=== PATIENT | female | born 1950 | race Caucasian/White ===

== ENCOUNTER 2019-01-24 15:52 | Emergency (ER) | payer MEDICARE, SELFPAY ==
[2018-12-20 15:34] VITALS: BMI 58.0
[2019-01-24 15:53] VITALS: BP 175/134; PULSE 83; RESP 18; TEMP 36.6; O2SAT 93; BMI 56.5
--- NOTE | 2019-01-24 16:14 | ED.DCSUM_ITS ---
- ER Visit Summary Date of Service: 01/24/19 Chief Complaint: Suicidal ideation History of Present Illness: The patient is a 68 F presenting with suicidal ideation. She states it started on Wednesday. She does not recall any events that made her more depressed than usual. She has a history of bipolar disorder. She states she had a suicide attempt several years ago. She states on Wednesday she tried to call the counseling center and was put on hold. She states she eventually hung up. She was angry that she was unable to get a hold of anyone. Today she wrote a letter and could not decide if she wants to live. She is also dealing with bullying at her assisted living. She states there is another res ident that calls people names. She states this continually bothers her. She denies specific suicide plan. Denies other complaints. Physical Examination: Vitals are stable. Patient is afebrile. Alert no acute distress. HEENT exam is unremarkable. Neck is supple. Lungs are clear and equal bilaterally. Heart is regular rate and rhythm. Abdomen is soft nontender nondistended. Extremities symmetric edema Skin is warm and dry. No focal neurologic deficit. Depressed affect Remainder of exam is unremarkable. Emergency Department Course and Treatment: CBC, chemistries unremarkable other than creatinine 1.17. Alcohol is negative. Tox is pending. Discussed with the counseling center for evaluation. Disposition: Per counseling center Impression: Suicidal ideation This note was generated with [employer] dictation software. It may contain incorrect words, spelling, and punctuation that were not noted in review of the chart prior to signing ED Disposition - Plan for ED Patient: Referrals: Shelia Whitten, METAL HANDLER-C [Primary Care Provider] -
[2019-01-24 17:12] LABS: Absolute Lymphocyte Count 0.97 X10^3/ul (0.83-4.51); Absolute Neutrophil Count 3.5 X10^3/uL (2.0-7.7); Basophil# 0.02 X10^3/uL; Basophil% 0.4 % (0-1); Eosinophil# 0.09 X10^3/uL; Eosinophils% 1.8 % (0-5); Hematocrit 40.8 % (37-47); Hemoglobin 13.1 g/dl (12.0-15.0); Lymphocyte # 0.97 X10^3/ul (4.0); Lymphocyte % 19.1 % (19-41); Mean Corp Hgb Conc 32.1 g/gl (32-36); Mean Corpuscular Hgb 28.2 pg (27.0-32.0); Mean Corpuscular Volume 87.7 fL (81-99); Mean Platelet Vol. 9.2 fl (6.2-12.0); Monocyte# 0.55 X10^3/uL; Monocyte% 10.8 % (0-10); Neutrophil # 3.45 X10^3/uL (2.7-7.7); Neutrophil % 67.7 % (47-70); Platelet Count 193 K/mm3 (150-450); RBC Distribution Width CV 14.6 % (11.6-14.6); RBC Distribution Width SD 46.1 fl (35.1-43.9); Red Blood Count 4.65 M/mm3 (4.2-5.4); White Blood Count 5.1 K/mm3 (4.4-11.0)
[2019-01-24 17:15] LABS: POSITIVE COUNT NO; POSITIVE DIFFERENTIAL NO; POSITIVE MORPHOLOGY NO
[2019-01-24 17:18] LABS: Anion Gap 6 (5-15); BUN 25 mg/dL (7-18); BUN/Creat Ratio 21.4 RATIO (10-20); Calcium,Total 9.3 mg/dL (8.5-10.1); Chloride 103 mmol/L (98-107); Creatinine, Serum 1.17 mg/dL (0.55-1.02); EST Glomerular Filtration Rate 49 mL/min (>60); Est Glom Filt Rate - Afr Amer 60 mL/min (>60); Estimated Creatinine Clearance 44.28 ml/min; Glucose 95 mg/dL (74-106); Potassium 4.3 mmol/L (3.5-5.1); Sodium Level 137 mmol/L (136-145)
[2019-01-24 18:06] VITALS: BP 176/75; PULSE 87; RESP 16; O2SAT 97
[2019-01-24 18:06] LABS: Alcohol, Blood (Medical)-Serum < 3.0 mg/dL
--- NOTE | 2019-01-24 18:31 | ED.RN ---
IZZY MORRISSEY WITH CRISIS; PT IS GOING TO BE REFERRED TO [facility]
[2019-01-24 19:40] LABS: Amphetamine Urine VISTA NEGATIVE (<1000 ng/mL); Barbiturate Urine VISTA NEGATIVE (< 200 ng/mL); Benzodiazepine Urine VISTA NEGATIVE (< 200 ng/mL); Cocaine Urine VISTA NEGATIVE (< 300 ng/mL); Ecstacy Urine VISTA NEGATIVE (< 500 ng/mL); Methadone Urine VISTA NEGATIVE (< 300 ng/mL); PCP Urine VISTA NEGATIVE (< 25 ng/mL); THC Urine VISTA NEGATIVE (< 50 ng/mL)
[2019-01-24 19:45] LABS: Vista UDS pH Range 6
[2019-01-24 19:57] VITALS: BP 156/71; PULSE 66; RESP 17; O2SAT 96
--- NOTE | 2019-01-24 20:08 | EKG12_ITS ---
Test Reason : Blood Pressure : / mmHG Vent. Rate : 065 BPM Atrial Rate : 065 BPM P-R Int : 186 ms QRS Dur : 162 ms QT Int : 476 ms P-R-T Axes : 053 -48 -29 degrees QTc Int : 495 ms Normal sinus rhythm Right bundle branch block Left anterior fascicular block Bifascicular block Minimal voltage criteria for LVH, may be normal variant Abnormal ECG Confirmed by SRAVANTHI ALLEN ([id number]), editor publications DARIELA UMANA ([id number]) on 01/25/2019 1:36:16 PM Referred By: Confirmed By:SRAVANTHI ALLEN
[2019-01-24 20:16] LABS: Mucous, Urine 0 SEEN /hpf (<or=2+); Red Blood Cells-Urine 0 SEEN /hpf (0-5)
--- NOTE | 2019-01-24 20:22 | ED.RN ---
PT INFORMED SHE WOULD BE HAVING EKG. PT STATES SHE WILL BE LEAVING SOON TO RETURN HOME. PT UPDATED THAT SHE HAS BEEN PINK SLIPPED DUE TO VOICING SUICIDAL THOUGHTS TO MULTIPLE PEOPLE INCLUDING THIS RN. ATTEMPTED TO REASSURE PT, REINFORCED THAT MANY PEOPLE CARE ABOUT HER AND SHE NEEDS TO BE SENT ON FOR FURTHER TX AND EVALUATION. PT REMAINS TEARFUL, STATES SHE WILL NOT GO ANYWHERE WILLINGLY.
[2019-01-24 20:24] LABS: Color, Urine Yellow (Yellow); Glucose, Dipstick Normal (Normal); Ketone-Dipstick Negative (Negative); Leukocyte Esterase-Dipstick 100 /ul (Negative); Nitrite-Dipstick Positive (Negative); Occult Blood-Urine 10 /ul (Negative); Protein-Dipstick Negative (Negative); Urine Bilirubin Dipstick Negative (Negative); Urine Clarity Clear (Clear); Urine Urobilinogen Normal (Normal)
[2019-01-24 20:30] LABS: White Blood Cells 5-10 SEEN /hpf (0-5)
[2019-01-24 20:31] LABS: AST(SGOT) 18 U/L (15-37); Alanine Aminotransfer ALT/SGPT 17 U/L (13-56); Albumin, Serum 3.6 g/dL (3.2-5.0); Alkaline Phosphatase 118 U/L (45-117); Bilirubin, Direct 0.13 mg/dL (0.00-0.30); Globulin 4.2 g/dL (2.2-4.2); Protein, Total 7.8 g/dL (6.4-8.2)
[2019-01-24 20:32] LABS: Bacteria 1+ /hpf (None Seen); Squamous Epithelial Cells - UA 0-5 SEEN /hpf (5-10)
[2019-01-24 21:23] VITALS: RESP 16
[2019-01-24 22:00] VITALS: BP 159/77; PULSE 80; RESP 16; O2SAT 93
[2019-01-24] MEDS: Metoprolol Tartrate 25 MG Tablet 75 MG PO (23:34)
[2019-01-24] MEDS: Venlafaxine HCl 75 MG Tablet PO (23:34)
[2019-01-24] MEDS: Montelukast 10 MG Tablet PO (23:35)
[2019-01-24] MEDS: Atorvastatin Calcium 10 MG Tablet PO ×2 (23:37→23:38)
[2019-01-25] MEDS: Gabapentin 600 MG Tablet PO (00:02)
[2019-01-25 01:00] VITALS: RESP 12
--- NOTE | 2019-01-25 01:09 | ED.RN ---
[facility] RM 112 BED 2. [facility] CONTACTED FOR TRANSPORT. TO ARRIVE AROUND 0630
[2019-01-25 02:00] VITALS: RESP 20
--- NOTE | 2019-01-25 04:46 | ED.RN ---
SEE DOWNTIME DOCUMENTATION FROM 0200 UNTIL [id number]
[2019-01-25 04:50] VITALS: RESP 20; O2SAT 85
--- NOTE | 2019-01-25 04:52 | ED.RN ---
PT SLEEPING, CHECKED HER PULSE OX, 85% ON ROOM AIR, RESP 20, PT WAS WOKEN UP, REFUSED O2, PUSHING THIS RNS HANDS AWAY, STATED MY OXYGEN IS ALWAYS LOW WHEN I SLEEP, I DONT CARE, IM NOT WEARING IT
[2019-01-25 05:00] VITALS: BP 155/85; PULSE 70; RESP 22; O2SAT 91
[2019-01-25 06:40] VITALS: BP 164/77; PULSE 73; RESP 20; O2SAT 94
== END 2019-01-25 06:41 ==
PROVIDERS: Emergency Provider Emergency Medicine; Family Provider Nurse Practitioner Adult Health; PCP Nurse Practitioner Adult Health
DX: R45.851 Suicidal ideations (principal); Z79.899 Other long term (current) drug therapy; E11.9 Type 2 diabetes mellitus without complications; I10 Essential (primary) hypertension; E78.00 Pure hypercholesterolemia, unspecified
CPT/HCPCS: 80048; 80076; 80307; 80320; 81001; 85025; 93005; 99285; G0480

== ENCOUNTER 2019-10-06 09:26 | Inpatient (IN) | payer MEDICARE, SELFPAY ==
[2019-05-24 08:03] VITALS: BMI 56.1
[2019-10-06] VITALS (14 sets, daily range): BP systolic 145–161; BP diastolic 70–99; PULSE 62–80; RESP 18–36; TEMP 36.3–37.2; O2SAT 88–98; BMI 54.6; BMI 53.4
--- NOTE | 2019-10-06 09:34 | EKG12_ITS ---
Test Reason : SOB Blood Pressure : / mmHG Vent. Rate : 063 BPM Atrial Rate : 063 BPM P-R Int : 170 ms QRS Dur : 154 ms QT Int : 468 ms P-R-T Axes : 051 -40 -40 degrees QTc Int : 478 ms Normal sinus rhythm Left axis deviation Right bundle branch block Minimal voltage criteria for LVH, may be normal variant T wave abnormality, consider inferolateral ischemia Abnormal ECG Confirmed by STEVE GR, RIVAS ([id number]), online editor JOEY OTERO ([id number]) on 10/09/2019 3:35:16 PM Referred By: SHELLEY Confirmed By:RIVAS WILSON MD
--- NOTE | 2019-10-06 09:37 | ED.VIS.GEN ---
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 She is being treated with Tamiflu. She was found to be hypoxic at the [facility] today. She has a cough which is productive and has green sputum. She denies any chest pain, she lives in an assisted living she usually ambulates with a walker she has chronic lower extremity lymphedema which has not changed. She denies any urinary symptoms. Past Medical History - Allergies and Home Meds Allergies/Adverse Reactions: Allergies benztropine mesylate [From Cogentin] Allergy (Verified 10/06/19 09:37) Unknown Salicylates Allergy (Verified 10/06/19 09:37) Unknown Sulfa (Sulfonamide Antibiotics) Allergy (Verified 10/06/19 09:37) Unknown abacavir Adverse Reaction (Unknown, Verified 10/06/19 09:37) Unknown aspirin Adverse Reaction (Verified 10/06/19 09:37) Unknown bupropion HCl [From Wellbutrin] Adverse Reaction (Verified 10/06/19 09:37) Rash prochlorperazine Adverse Reaction (Verified 10/06/19 09:37) Unknown prochlorperazine edisylate [From Compazine] Adverse Reaction (Verified 10/06/19 09:37) Unknown prochlorperazine maleate [From Compazine] Adverse Reaction (Verified 10/06/19 09:37) Unknown Primary Care Physician: Shelia Whitten, FURNITURE MANAGER-C [Primary Care Provider] - Past Medical History: - - Patient has an extensive prior medical history, this was reviewed and the [facility] paperwork as well as her medications. Surgical History: gastric bypass Smoking Status: Never smoker - Family History Maternal Family History: Reports: No pertinent history Review of Systems All systems negative except as indicated General: Reports: Fever Eyes: Denies: Visual changes - bilaterally ENT: Reports: Rhinorrhea. Denies: Sore throat Cardiovascular: Denies: Chest pain Respiratory: Reports: Dyspnea, Cough, Sputum Gastrointestinal: Denies: Abdominal pain, Nausea Musculoskeletal: Reports: - - Chronic lymphedema. Denies: Myalgias Skin: Denies: Rash Neurological: Reports: - - No focal weakness. Denies: Headache Endocrine: Denies: Polyuria Physical Exam Vital Signs/Narrative: Vital Signs Temp Pulse Resp BP Pulse Ox 10/06/19 09:33 97.9 F 66 24 H 150/99 H 88 10/06/19 09:27 97.9 F 70 24 H 150/99 H 88 General: Well nourished, Well developed, Obese Head: Normocephalic, Atraumatic ENT: Moist mucous membranes Neck: Supple Cardiovascular: Regular rate, Regular rhythm Respiratory: - - Coarse bilateral breath sounds with rhonchi and wheezing. She has a productive cough Abdomen: Soft, Nontender Back: Negative for: Spinal tenderness Extremities: - - Chronic significant lymphedema, chronic skin changes no signs of cellulitis Skin: Normal color, No rash Neurological: Alert, Normal Strength, Normal Sensation Diagnostic/Tx/Re-eval Chest X-Ray - ED: 1 View, Normal, Heart, - - There is a right-sided upper lobe and lower lobe pneumonia. - Rhythm Strip Rhythm Strip: Sinus Rhythm Rate: 63 Ectopy: None - EKG Initial EKG Interpretation: - - Normal sinus rhythm rate 63. Normal UT interval, slightly increased QTC at 478. Right bundle branch pattern. Diffuse ST changes including T wave inversion inferolaterally. Updated by emergency doctor - Medical Decision Making Patient is found to have by lobar pneumonia, she is hypoxic and will be admitted. She has a history of MRSA this is relatively soon after influenza but there is increased incidence of MRSA pneumonia after influenza therefore I will be cautious and start vancomycin. Blood cultures were drawn. She is not hypoxic on O2, she was hypoxic at 88% without oxygen. Admit in improved condition ED Disposition - Plan for ED Patient: Disposition: Psychiatric Hospital or Unit Diagnosis: Influenza, Pneumonia Referrals: Shelia Whitten, FURNITURE MANAGER-C [Primary Care Provider] -
[2019-10-06] MEDS: Ipratropium/Albuterol Sulfate 3 ML AMPUL.NEB INHALATION ×4 (09:53→23:20)
--- NOTE | 2019-10-06 09:54 | RAD_ITS ---
STUDY: X-RAY CHEST REASON FOR EXAM: Female, 68 years old. Back pain and history of COPD TECHNIQUE: Single AP portable view of the chest. COMPARISON: Comparison is made with prior study of April 21, 2017. FINDINGS: EKG electrodes are seen. Focal infiltrate is seen in the lateral right upper lobe as well as at the right lung base and left perihilar region. Follow-up is recommended. There is no demonstrated pleural abnormality. Normal size heart. Normal mediastinum and hetal. Normal visualized pulmonary arteries. There is atherosclerotic tortuosity of the aortic arch and descending thoracic aorta. Normal visualized thoracic spine. Normal visualized ribs, clavicles, and shoulders. There is no demonstrated abnormality of the visualized soft tissue structures of the upper abdomen. RAD/Chest 1 View (Portable) IMPRESSION: Patchy infiltrates in the right upper and right lower lobes as well as in the left perihilar region. Electronically Signed: Esteban Camargo, at 10:13 EST , Service support ,
[2019-10-06 10:09] LABS: Absolute Lymphocyte Count 0.56 X10^3/uL (0.83-4.51); Absolute Neutrophil Count 3.5 X10^3/uL (2.0-7.7); Basophil# 0.01 X10^3/uL; Basophil% 0.2 % (0-1); Eosinophil# 0.08 X10^3/uL; Eosinophils% 1.7 % (0-5); Hematocrit 38.6 % (37-47); Hemoglobin 12.3 g/dL (12.0-15.0); Lymphocyte # 0.56 X10^3/ul (4.0); Mean Corp Hgb Conc 31.9 g/dL (32-36); Mean Corpuscular Hgb 28.1 pg (27.0-32.0); Mean Corpuscular Volume 88.1 fL (81-99); Mean Platelet Vol. 8.6 fl (6.2-12.0); Monocyte# 0.45 X10^3/uL; Monocyte% 9.7 % (0-10); NRBC Flagged by Analyzer 0 % (0-5); Neutrophil # 3.53 X10^3/uL (2.7-7.7); POSITIVE DIFFERENTIAL YES; Platelet Count 142 K/mm3 (150-450); RBC Distribution Width CV 14.6 % (11.6-14.6); RBC Distribution Width SD 47.3 fl (35.1-43.9); Red Blood Count 4.38 M/mm3 (4.2-5.4); White Blood Count 4.7 K/mm3 (4.4-11.0)
[2019-10-06 10:13] LABS: Differential Indicated SCAN CRITERIA MET
[2019-10-06 10:26] LABS: ALB/GLOB Ratio 0.7 RATIO (0.9-2.4); AST(SGOT) 10 U/L (15-37); Alanine Aminotransfer ALT/SGPT 13 U/L (13-56); Alkaline Phosphatase 93 U/L (45-117); Anion Gap 5 (5-15); BUN 14 mg/dL (7-18); BUN/Creat Ratio 15.9 RATIO (10-20); Calcium,Total 8.6 mg/dL (8.5-10.1); Chloride 106 mmol/L (98-107); Creatinine, Serum 0.88 mg/dL (0.55-1.02); EST Glomerular Filtration Rate 68 mL/min (>60); Est Glom Filt Rate - Afr Amer 82 mL/min (>60); Estimated Creatinine Clearance 65.72 ml/min; Globulin 4.1 g/dL (2.2-4.2); Glucose 124 mg/dL (74-106); Protein, Total 7.1 g/dL (6.4-8.2); Sodium Level 139 mmol/L (136-145)
[2019-10-06 10:30] LABS: Lactic Acid 0.8 mmol/L (0.4-1.9)
[2019-10-06 10:44] LABS: Platelet Estimate ADEQUATE (ADEQ); Red Cell Morphology NORM C+C NORMAL (NORM C&C)
[2019-10-06 10:59] LABS: BNP,B-Type NATRIURETIC PEPTIDE 143.4 pg/mL (0-100)
--- NOTE | 2019-10-06 11:06 | NURSING ---
MED SURG ADONIS HYPOXIA, PNEUMONIA, INFLUENZA
--- NOTE | 2019-10-06 13:09 | HP.PCM_ITS ---
History of Present Illness Date of Admission: 10/06/19 Chief Complaint: shortness of breath. The patient is a 68 year old F started feeling ill on wednesday, October 01. Started on oseltamivir. Despite that she continued to feel worse with increasing shortness of breath. She was coughing up green phlegm. Presented to ED today and found to have infiltrate on CXR. Started on pip/tazo and vanc for concern for MRSA pneumonia. Pulse ox was 88% on RA, started on oxygen and currently feeling better. [] Past Medical History Past Medical History (Chronic Problems): Chronic Problems (Last Reviewed 02/17/19 @ 10:[address] Kwasi Bhatia MD) Non-rheumatic aortic stenosis (Chronic) Right bundle branch block (RBBB) (Chronic) RBBB w/ Left anterior fascicular block Bifascicular block Essential hypertension (Chronic) Chronic diastolic (congestive) heart failure (Chronic) HLD (hyperlipidemia) (Chronic) Medical History: Medical History (Last Reviewed 10/06/19 @ 13:[address] Bassam Damon DO) Non-rheumatic aortic stenosis (Chronic) I35.0 Right bundle branch block (RBBB) (Chronic) I45.10 RBBB w/ Left anterior fascicular block Bifascicular block Essential hypertension (Chronic) I10 Chronic diastolic (congestive) heart failure (Chronic) I50.32 HLD (hyperlipidemia) (Chronic) E78.5 Bifascicular block I45.2 Bipolar disorder F31.9 Cellulitis L03.90 GERD (gastroesophageal reflux disease) K21.9 Hypothyroidism E03.9 Left anterior fascicular block (LAFB) I44.4 Lymphedema I89.0 Metabolic encephalopathy G93.41 Morbid obesity with BMI of 50.0-59.9, adult E66.01, Z68.43 KAYLA (obstructive sleep apnea) G47.33 Sepsis A41.9 Type 2 diabetes mellitus without complication E11.9 Venous (peripheral) insufficiency I87.2 Allergies benztropine mesylate [From Cogentin] Allergy (Verified 10/06/19 09:37) Unknown Salicylates Allergy (Verified 10/06/19 09:37) Unknown Sulfa (Sulfonamide Antibiotics) Allergy (Verified 10/06/19 12:41) Unknown feel funny and can't shut my eyes abacavir Adverse Reaction (Unknown, Verified 10/06/19 09:37) Unknown aspirin Adverse Reaction (Verified 10/06/19 12:41) Unknown upset stomach bupropion HCl [From Wellbutrin] Adverse Reaction (Verified 10/06/19 09:37) Rash prochlorperazine Adverse Reaction (Verified 10/06/19 09:37) Unknown prochlorperazine edisylate [From Compazine] Adverse Reaction (Verified 10/06/19 12:41) Unknown feel strange prochlorperazine maleate [From Compazine] Adverse Reaction (Verified 10/06/19 12:41) Unknown feel strange Home Medications: Ambulatory Orders Medication Instructions Recorded Albuterol Aerosols [Ventolin 2.5 mg INHALATION Q2H PRN 11/09/15 Aerosols] Atorvastatin Calcium [Lipitor] 10 mg PO QHS 11/09/15 Folic Acid 1 mg PO DAILY@0800 11/09/15 Furosemide [Lasix] 40 mg PO DAILY 11/09/15 Levothyroxine [Synthroid] 50 mcg PO DAILY 11/09/15 traMADol [Ultram] 50 mg PO BID #14 tab 11/12/15 lamotrigine 100 mg tablet 200 mg PO BID tab 11/18/17 montelukast 10 mg tablet 10 mg PO QHS 11/18/17 acetaminophen 500 mg tablet 1,000 mg PO BID tab 12/21/17 famotidine 20 mg tablet 20 mg PO DAILY tab 12/21/17 oaxlqtot-esy-hqmoa acid 0.4 1 tab PO QDAY 12/21/17 mg-lycopene 300 mcg-lutein 250 mcg tablet potassium chloride 20 mEq 20 meq PO BID 12/21/17 tablet,extended release(part/cryst) sucralfate 1 gram tablet 1 g PO TID 12/21/17 venlafaxine 75 mg tablet 75 mg PO DAILY 12/21/17 fluticasone propionate 50 2 spray INTRANASAL DAILY 30 Days 12/20/18 mcg/actuation nasal #16 g spray,suspension Budesonide/Formoterol Fumarate 2 puff IH BID 01/24/19 [Symbicort 160-4.5 Mcg Inhaler] risperidone 0.25 mg tablet 1 mg PO QHS tab 02/16/19 topiramate 25 mg sprinkle capsule 50 mg PO BID 02/16/19 trazodone 50 mg tablet 50 mg PO QHS 02/16/19 metoprolol tartrate 25 mg tablet 25 mg PO BID #60 tab 02/17/19 metoprolol tartrate 50 mg tablet 50 mg PO BID #60 tab 02/17/19 Benzonatate 100 mg PO BID 10/06/19 Cetirizine HCl [Zyrtec] 10 mg PO QHS 10/06/19 Guaifenesin [Mucinex] 400 mg PO TID 10/06/19 Lactobacillus Acidophilus 1 ea PO BID 10/06/19 [Acidophilus] Lansoprazole [Prevacid] 30 mg PO DAILY 10/06/19 Loperamide [Imodium] 2 mg PO Q4H PRN PRN 10/06/19 Loratadine 10 mg PO QHS PRN PRN 10/06/19 Oseltamivir Phosphate [Tamiflu] 75 mg PO BID 10/06/19 Oxcarbazepine 300 mg PO BID 10/06/19 Polyethylene Glycol 3350 [Gavilax] 8.5 gm PO QODAY 10/06/19 Senna [Senokot] 1 tab PO BID PRN PRN 10/06/19 Simethicone [Anti-Gas] 1 - 2 tab PO TID PRN PRN 10/06/19 Sodium Chloride [Gladis-128 5%] 1 applic RIGHT EYE QHS 10/06/19 Sodium Chloride [Gladis-128] 2 drp EACHEYE BID 10/06/19 Solifenacin Succinate 10 mg PO DAILY 10/06/19 Surgical History: Surgical History (Last Reviewed 10/06/19 @ 13:[address] Bassam Damon, ) History of gastric bypass Z98.84 History of skin graft Z98.890 History of tonsillectomy Z90.89 Hx of appendectomy Z90.49 Surgical History: gastric bypass Psychiatric History: Bipolar COMMUNITY ORGANIZER History: No pertinent COMMUNITY ORGANIZER history Smoking Status: Never smoker Tobacco Use: Secondhand - *Family History Maternal History Items: No pertinent history, - - no COPD Review of Systems Constitutional: Reports: Malaise. Denies: Anorexia, Chills Eyes: Denies: Blurred vision, Double vision HEENT: Denies: Head Aches, Sinus Congestion, Sinus Drainage Cardiovascular: Denies: Chest Pain, Palpitations Respiratory: Reports: Cough, Shortness of Breath, Sputum production Gastrointestinal: Denies: Abdominal Pain, Nausea, Vomiting Genitourinary: Denies: Dysuria Musculoskeletal: Denies: Joint Pain, Joint Tenderness Skin: Reports: - - lymphedema. Denies: Wounds Neurological: Denies: Numbness, Tingling, Focal weakness Psychiatric: Denies: Anxiety Hematologic/ Lymphatic: Denies: Easy Bruising, Easy Bleeding, Hx of blood clot Comment: All review of systems were negative except as mentioned above in the history of present illness and the other review of systems. VTE Information - Inpt Only VTE Present on Admission: No VTE Mechan Device Prophylaxis: None VTE Pharm Prophylaxis ordered?: Yes Patient Problems: Active and Suspected Problems (Last Reviewed 02/17/19 @ 10:[address] Kwasi Bhatia MD) Influenza (Acute) Pneumonia (Acute) - Physical Exam Vitals/I&O's: Vital Signs Temp Pulse Resp BP Pulse Ox 36.3 C L 66 22 H 160/81 H 98 10/06/19 13:05 10/06/19 13:05 10/06/19 13:05 10/06/19 13:05 10/06/19 13:05 Oxygen Flow Rate (L/min) 2 Oxygen Delivery Method Nasal Cannula Weight: 163.974 kg Body Mass Index (BMI) 53.4 Intake and Output for Last 24 Hours 10/04/19 10/05/19 10/06/19 23:59 23:59 23:59 Intake Total 600 / 600 Balance 600 / 600 General: Alert, Cooperative, No apparent distress HEENT: Atraumatic, Normocephalic Oral: Moist Mucosa, No Gingival or Mucosal Lesions/ Ulcerations Neck: No Nodes, Trachea Midline Lungs: Normal air movement, Wheezes Cardiovascular: Regular rate, Regular Rhythm, Normal S1, Normal S2, No murmurs Abdomen: Bowel Sounds Present, Soft, Non Tender, Non-Distended, No Hepato- splenomegaly, Obese Extremities: No Calf Tenderness, Edema Skin: - - venous stasis changes to LE. Musculoskeletal: No Tenderness to Palpation of Joints or Extremities, No Muscle Wasting Neurological: Coordination normal, - - no clonus Psych/Mental Status: Normal Affect, Appropriate Laboratory Results 10/06/19 10:00: WBC 4.7, RBC 4.38, Hgb 12.3, Hct 38.6, MCV 88.1, MCH 28.1, MCHC 31.9 L, RDW Std Deviation 47.3 H, RDW Coeff of Mago 14.6, Plt Count 142 L, MPV 8.6, Immature Gran % (Auto) 0.400, Neut % (Auto) 76.0 H, Lymph % (Auto) 12.0 L, [place] % (Auto) 9.7, Eos % (Auto) 1.7, Baso % (Auto) 0.2, Absolute Neuts (auto) 3.5, Absolute Lymphs (auto) 0.56 L, Nucleated RBC % 0, Platelet Estimate ADEQUATE, RBC Morphology NORM C+C 10/06/19 10:00: Lactic Acid 0.8 10/06/19 10:00: B-Natriuretic Peptide 143.4 H 10/06/19 10:00: Sodium 139, Potassium 4.0, Chloride 106, Carbon Dioxide 28.0, Anion Gap 5, BUN 14, Creatinine 0.88, Estim Creat Clear Calc 65.72, Est GFR (MDRD) Af Amer 82, Est GFR (MDRD) Non-Af 68, BUN/Creatinine Ratio 15.9, Glucose 124 H, Calcium 8.6, Total Bilirubin 0.40, AST 10 L, ALT 13, Alkaline Phosphatase 93, Troponin I 0.016, Total Protein 7.1, Albumin 3.0 L, Globulin 4.1, Albumin/Globulin Ratio 0.7 L Chest x-ray reviewed and shows some bilateral patchy infiltrate. Current Medications Sodium Chloride () 500 mls @ 999 mls/hr IV .Q31M ONE Last Infusion: 10/06/19 10:52 Dose: Infused Documented by: Vancomycin HCl 2,000 mg/ (Sodium Chloride) 540 mls @ 250 mls/hr IV X1 ONE Stop: 10/06/19 13:39 Last Admin: 10/06/19 11:33 Dose: 250 mls/hr Documented by: Sodium Chloride () 250 mls @ 15 mls/hr IV .[id number] PRN PRN Reason: Saline Flush Nutritional Formula (Lactose Free) (Glucerna Shake) 120 ml PO 4X/DAY PATEL Sodium Chloride () 10 - 40 ml IV UD PRN PRN Reason: SALINE FLUSH Assessment/Plan All Active Problems (Last Reviewed 07/19/19 @ 10:[address] Kwasi Bhatia MD) Influenza (Acute) Pneumonia (Acute) 1. acute hypoxic respiratory insufficiency * secondary to pneumonia, influenza, COPD, likely restrictive lung dz given obesity * wean oxygen as tolerated * check ambulatory pulse ox prior to DC 2. presumed pneumococcal pneumonia * doubt MRSA pneumonia. likely a secondary pneumonia with influenza * change Abx to CTX and azithromycin * pulm toilet 3. Influenza A * complete 5 day course of oseltamivir 4. AECOPD * BDs, prednisone * exacerbated by pneumonia and influenza 5. chronic issues: obesity class III, lymphema, DM2, HTN. complicates overall care and recovery. 6. VTE prophylaxis: mod risk. Enoxaparin 7. Advanced care planning: dw patient. DNRCCA, no intubatoin. Inpatient E&M: [id number] Init Hosp L3
[2019-10-06] MEDS: predniSONE 20 MG Tablet 40 MG PO (15:28)
[2019-10-06] MEDS: Glucerna Shake 120 ML LIQUID PO (15:30)
--- NOTE | 2019-10-06 16:53 | CHAPLAIN ---
Type of Pastoral Visit _x__ Initial Visit ___ Follow-up Visit ___ On-call Visit ___ General Patient Visit ___ Spiritual Assessment ___ Family Conference ___ Bereavement ___ Rapid Response ___ Code Blue ___ Other (describe below) Pastoral Care Referral From _x__ Patient ___ Family ___ Nurse ___ Physician ___ Engrosser ___ Regional Sales Leader ___ Other (describe below) Sacrament/Intervention _x__ Active listening ___ Anointing ___ Latter Day ___ Bereavement ___ Communion ___ [place] exploration ___ ___ Life review _x__ Prayer ___ Reconciliation ___ Sacrament of Sick ___ Supportive presence ___ Wedding ___ Other (describe below) Pastoral Comments
[2019-10-06] MEDS: Sucralfate 1 GM Tablet PO (17:12)
[2019-10-06 17:25] LABS: Bedside Glucose 108 mg/dL (70-110)
[2019-10-06] MEDS: Metoprolol Tartrate 50 MG Tablet 75 MG PO (22:20)
[2019-10-06] MEDS: traZODone 50 MG Tablet PO (22:21)
[2019-10-06] MEDS: Loratadine 10 MG Tablet PO (22:21)
[2019-10-06] MEDS: RisperiDONE 1 MG Tablet PO (22:21)
[2019-10-06] MEDS: traMADol 50 MG Tablet PO (22:21)
[2019-10-06] MEDS: Oseltamivir Phosphate 75 MG Capsule PO (22:21)
[2019-10-06] MEDS: Acetaminophen 500 MG Tablet 1000 MG PO (22:21)
[2019-10-06] MEDS: Benzonatate 100 MG Capsule PO (22:22)
[2019-10-06] MEDS: Topiramate 50 MG Tablet PO (22:22)
[2019-10-06] MEDS: OXcarbazepine 300 MG Tablet PO (22:22)
[2019-10-06] MEDS: guaiFENesin 600 MG Tablet PO (22:22)
[2019-10-06] MEDS: Atorvastatin Calcium 10 MG Tablet PO (22:22)
[2019-10-06] MEDS: Montelukast 10 MG Tablet PO (22:22)
[2019-10-06] MEDS: lamoTRIgine 100 MG Tablet 200 MG PO (22:23)
[2019-10-06 23:05] LABS: Bedside Glucose 145 mg/dL (70-110)
[2019-10-07] VITALS (12 sets, daily range): BP systolic 151–163; BP diastolic 64–86; PULSE 58–92; RESP 16–30; TEMP 36.4–36.6; O2SAT 95–98
[2019-10-07] MEDS: Ipratropium/Albuterol Sulfate 3 ML AMPUL.NEB INHALATION ×6 (03:25→23:02)
[2019-10-07] MEDS: Levothyroxine 50 MCG Tablet PO (06:26)
[2019-10-07] MEDS: Sucralfate 1 GM Tablet PO ×3 (06:26→16:06)
[2019-10-07 06:45] LABS: Bedside Glucose 110 mg/dL (70-110)
[2019-10-07 07:31] LABS: Anion Gap 5 (5-15); BUN 14 mg/dL (7-18); BUN/Creat Ratio 18.1 RATIO (10-20); Calcium,Total 8.5 mg/dL (8.5-10.1); Chloride 106 mmol/L (98-107); Creatinine, Serum 0.77 mg/dL (0.55-1.02); EST Glomerular Filtration Rate 79 mL/min (>60); Est Glom Filt Rate - Afr Amer 96 mL/min (>60); Estimated Creatinine Clearance 57.83 ml/min; Glucose 126 mg/dL (74-106); Potassium 4.5 mmol/L (3.5-5.1); Sodium Level 132 mmol/L (136-145)
[2019-10-07] MEDS: Enoxaparin 40 MG/0.4 ML Syringe SC (09:22)
[2019-10-07] MEDS: traMADol 50 MG Tablet PO ×2 (09:23→21:31)
[2019-10-07] MEDS: Fluticasone 0.05% 1 SPRAY NASAL.SRY 2 SPRAY NASAL (09:23)
[2019-10-07] MEDS: Oseltamivir Phosphate 75 MG Capsule PO ×2 (09:23→21:35)
[2019-10-07] MEDS: Tolterodine Tartrate 4 MG CAP.SA PO (09:23)
[2019-10-07] MEDS: Benzonatate 100 MG Capsule PO ×2 (09:24→21:30)
[2019-10-07] MEDS: Topiramate 50 MG Tablet PO ×2 (09:24→21:31)
[2019-10-07] MEDS: Acetaminophen 500 MG Tablet 1000 MG PO ×2 (09:24→21:35)
[2019-10-07] MEDS: Folic Acid 1 MG Tablet PO (09:25)
[2019-10-07] MEDS: predniSONE 20 MG Tablet 40 MG PO (09:25)
[2019-10-07] MEDS: OXcarbazepine 300 MG Tablet PO ×2 (09:25→21:35)
[2019-10-07] MEDS: Multivitamins,Ther W-Minerals Tablet 1 TABLET PO (09:25)
[2019-10-07] MEDS: Furosemide 40 MG Tablet PO (09:25)
[2019-10-07] MEDS: lamoTRIgine 100 MG Tablet 200 MG PO ×2 (09:25→21:31)
[2019-10-07] MEDS: Famotidine 20 MG Tablet PO (09:25)
[2019-10-07] MEDS: Pantoprazole Sodium 40 MG Tablet PO (09:25)
[2019-10-07] MEDS: Venlafaxine XR 75 MG Capsule PO (09:26)
[2019-10-07] MEDS: guaiFENesin 600 MG Tablet PO ×2 (09:26→21:31)
[2019-10-07] MEDS: Metoprolol Tartrate 50 MG Tablet 75 MG PO ×2 (09:26→21:33)
[2019-10-07 11:16] LABS: Bedside Glucose 112 mg/dL (70-110)
[2019-10-07] MEDS: Glucerna Shake 120 ML LIQUID PO ×2 (11:46→16:08)
--- NOTE | 2019-10-07 11:54 | PN_ITS ---
Patient Problems: Active and Suspected Problems (Last Reviewed 10/06/19 @ 13:[address] Bassam Damon, DO) Influenza (Acute) Pneumonia (Acute) Reason for Visit: pneumonia Subjective: Breathing better. Coughing up productive phlegm Vitals/I&O's: Vital Signs Temp Pulse Resp BP Pulse Ox 36.6 C 78 18 151/70 H 97 10/07/19 08:59 10/07/19 09:26 10/07/19 08:59 10/07/19 09:26 10/07/19 08:59 Oxygen Flow Rate (L/min) 2 Oxygen Delivery Method Nasal Cannula Weight: 163.974 kg Body Mass Index (BMI) 53.4 Intake and Output for Last 24 Hours 10/05/19 10/06/19 10/07/19 23:59 23:59 23:59 Intake Total 1794 450 / 450 Output Total 300 / 300 Balance 1794 150 / 150 General: Alert, No apparent distress HEENT: Atraumatic, Normocephalic Oral: Moist Mucosa, No Gingival or Mucosal Lesions/ Ulcerations Neck: No Nodes, Trachea Midline Lungs: Normal air movement, Wheezes Cardiovascular: Regular rate, Regular Rhythm, Normal S1, Normal S2, No murmurs Abdomen: Bowel Sounds Present, Soft, Non Tender, Non-Distended Extremities: No Calf Tenderness, Edema Skin: - - lymphedematous changes to LE. 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 10/07/19 06:00 Urine, Clean Catch Streptococcus pneumoniae Antigen (M - Final 10/07/19 06:00 Urine, Clean Catch Legionella Antigen - Final Laboratory Results 10/06/19 17:06: POC Glucose 108 10/06/19 22:18: POC Glucose 145 H 10/07/19 06:25: POC Glucose 110 10/07/19 06:40: Sodium 132 L, Potassium 4.5, Chloride 106, Carbon Dioxide 21.0, Anion Gap 5, BUN 14, Creatinine 0.77, Estim Creat Clear Calc 57.83, Est GFR (MDRD) Af Amer 96, Est GFR (MDRD) Non-Af 79, BUN/Creatinine Ratio 18.1, Glucose 126 H, Calcium 8.5 10/07/19 11:08: POC Glucose 112 H Current Medications Acetaminophen (Tylenol) 1,000 mg PO BID [facility] Last Admin: 10/07/19 09:24 Dose: 1,000 mg Documented by: Albuterol Sulfate (Ventolin Aerosols) 2.5 mg INHALATION Q2H PRN PRN Reason: SOB &/OR WHEEZING Albuterol/Ipratropium (Duoneb) 3 ml INHALATION Q4H.RT [facility] Last Admin: 10/07/19 10:57 Dose: 3 ml Documented by: Atorvastatin Calcium (Lipitor) 10 mg PO QHS [facility] Last Admin: 10/06/19 22:22 Dose: 10 mg Documented by: Benzonatate (Tessalon Perle) 100 mg PO BID [facility] Last Admin: 10/07/19 09:24 Dose: 100 mg Documented by: Enoxaparin Sodium (Lovenox) 40 mg SC DAILY [facility] Last Admin: 10/07/19 09:22 Dose: 40 mg Documented by: Famotidine (Pepcid) 20 mg PO DAILY [facility] Last Admin: 10/07/19 09:25 Dose: 20 mg Documented by: Fluticasone Propionate (Flonase Nasal [place]) 2 spray NASAL DAILY [facility] Last Admin: 10/07/19 09:23 Dose: 2 spray Documented by: Folic Acid (Folic Acid) 1 mg PO DAILY@0800 [facility] Last Admin: 10/07/19 09:25 Dose: 1 mg Documented by: Furosemide (Lasix) 40 mg PO DAILY [facility] Last Admin: 10/07/19 09:25 Dose: 40 mg Documented by: Glucagon () 1 mg IM .X1 PRN PRN Reason: Hypoglycemia Guaifenesin (Mucinex) 600 mg PO BID [facility] Last Admin: 10/07/19 09:26 Dose: 600 mg Documented by: Sodium Chloride () 500 mls @ 999 mls/hr IV .Q31M ONE Last Infusion: 10/06/19 10:52 Dose: Infused Documented by: Ceftriaxone Sodium 2 gm/ (Sodium Chloride) 50 mls @ 100 mls/hr IV Q24 [facility] Stop: 10/13/19 18:01 Last Infusion: 10/07/19 09:52 Dose: Infused Documented by: Azithromycin 500 mg/ Dextrose 255 mls @ 250 mls/hr IV Q24 [facility] Stop: 10/11/19 18:01 Last Admin: 10/07/19 10:37 Dose: 250 mls/hr Documented by: Dextrose (Dextrose 10%-Water) 250 mls @ 999 mls/hr IV .Q16M PRN; Protocol PRN Reason: HYPOGLYCEMIA Sodium Chloride () 250 mls @ 15 mls/hr IV .[id number] PRN PRN Reason: Saline Flush Insulin Human Lispro (Humalog Kwikpen (Bkc)) 0 unit SC TIDAC [facility]; Protocol Last Admin: 10/07/19 11:33 Dose: Not Given Documented by: Lactobacillus Acidophilus (Acidophilus) 1 tablet PO BID [facility] Last Admin: 10/07/19 09:26 Dose: 1 tablet Documented by: Lamotrigine (Lamictal) 200 mg PO BID [facility] Last Admin: 10/07/19 09:25 Dose: 200 mg Documented by: Levothyroxine Sodium (Synthroid) 50 mcg PO DAILY@0600 [facility] Last Admin: 10/07/19 06:26 Dose: 50 mcg Documented by: Loperamide HCl (Imodium) 2 mg PO Q4H PRN PRN PRN Reason: Diarrhea Loratadine (Claritin) 10 mg PO QHS [facility] Last Admin: 10/06/19 22:21 Dose: 10 mg Documented by: Metoprolol Tartrate (Lopressor (Beta Esha)) 75 mg PO BID [facility] Last Admin: 10/07/19 09:26 Dose: 75 mg Documented by: Montelukast Sodium (Singulair) 10 mg PO QHS [facility] Last Admin: 10/06/19 22:22 Dose: 10 mg Documented by: Multivitamins/Minerals (Multivitamin With Minerals (Bkc)) 1 tablet PO DAILY@0800 [facility] Last Admin: 10/07/19 09:25 Dose: 1 tablet Documented by: Nutritional Formula (Lactose Free) (Glucerna Shake) 120 ml PO 4X/DAY [facility] Last Admin: 10/07/19 11:46 Dose: 120 ml Documented by: Ondansetron HCl (Zofran) 4 mg IV Q8H PRN PRN PRN Reason: NAUSEA/VOMITING Oseltamivir Phosphate (Tamiflu) 75 mg PO BID [facility] Stop: 10/07/19 23:59 Last Admin: 10/07/19 09:23 Dose: 75 mg Documented by: Oxcarbazepine (Trileptal) 300 mg PO BID [facility] Last Admin: 10/07/19 09:25 Dose: 300 mg Documented by: Pantoprazole Sodium (Protonix) 40 mg PO DAILY [facility] Last Admin: 10/07/19 09:25 Dose: 40 mg Documented by: Polyethylene Glycol (Miralax) 17 gm PO DAILY PRN PRN Reason: CONSTIPATION Potassium Chloride (K-Dur) 20 meq PO BID [facility] Last Admin: 10/07/19 09:25 Dose: 20 meq Documented by: Prednisone () 40 mg PO DAILY@0800 [facility] Stop: 10/10/19 08:01 Last Admin: 10/07/19 09:25 Dose: 40 mg Documented by: Risperidone (Risperdal) 1 mg PO QHS [facility] Last Admin: 10/06/19 22:21 Dose: 1 mg Documented by: Senna (Senokot) 1 tablet PO BID PRN PRN PRN Reason: constipation Simethicone (Mylicon) 0 mg PO TID PRN PRN PRN Reason: GAS Sodium Chloride (Gladis-128) 2 drop EACH EYE BID [facility] Sodium Chloride (Gladis-128 5%) 1 applic RIGHT EYE QHS [facility] Sodium Chloride () 10 - 40 ml IV UD PRN PRN Reason: SALINE FLUSH Sucralfate (Carafate) 1 gm PO 0700,1100,1600 [facility] Last Admin: 10/07/19 11:46 Dose: 1 gm Documented by: Tolterodine Tartrate (Detrol La) 4 mg PO DAILY [facility] Last Admin: 10/07/19 09:23 Dose: 4 mg Documented by: Topiramate (Topamax) 50 mg PO BID [facility] Last Admin: 10/07/19 09:24 Dose: 50 mg Documented by: Tramadol HCl (Ultram) 50 mg PO BID [facility] Last Admin: 10/07/19 09:23 Dose: 50 mg Documented by: Trazodone HCl (Desyrel) 50 mg PO QHS [facility] Last Admin: 10/06/19 22:21 Dose: 50 mg Documented by: Venlafaxine HCl (Effexor Xr) 75 mg PO DAILY [facility] Last Admin: 10/07/19 09:26 Dose: 75 mg Documented by: STROKE Vital Signs/Narrative: Vital Signs Temp Pulse Resp BP Pulse Ox 10/07/19 09:26 78 151/70 H 10/07/19 08:59 36.6 C 70 18 151/70 H 97 Medical Necessity - Tobacco Use Smoking Status: Never smoker Tobacco Use: Secondhand Assessment/Plan All Active Problems (Last Reviewed 10/06/19 @ 13:[address] Bassam Damon, DO) Influenza (Acute) Pneumonia (Acute) 1. acute hypoxic respiratory insufficiency * improving * secondary to pneumonia, influenza, COPD, likely restrictive lung dz given obesity * wean oxygen as tolerated * check ambulatory pulse ox prior to DC 2. polymicrobial pneumonia pneumonia * SC positive for staph and GNR * even though patient is improving, will change abx to pip/tazo and vanc pending final cultures * adjust abx based on final cultures 3. Influenza A * complete 5 day course of oseltamivir 4. AECOPD * BDs, prednisone * exacerbated by pneumonia and influenza 5. chronic issues: obesity class III, lymphema, DM2, HTN. complicates overall care and recovery. 6. VTE prophylaxis: mod risk. Enoxaparin 7. Advanced care planning: dw patient. DNRCCA, no intubatoin. Inpatient E&M: 81952 Subs Hosp L2
--- NOTE | 2019-10-07 12:00 | NURSING ---
papers returned to pharmacy regarding need to obtain meds from outside source- as pt does not have available.
[2019-10-07 16:11] LABS: Bedside Glucose 124 mg/dL (70-110)
--- NOTE | 2019-10-07 16:23 | PHA.PHARE_ITS ---
Consult Pharmacy has been consulted to manage selected antiobiotic: Vancomycin Type of Consult: New start Suspected Infection: Pneumonia Prior Doses of Antibiotics Received/Current Regimen: LOADING DOSE - VANCOMYCIN 2000MG IV GIVEN 10/06 @ 1558 Labs: Sodium 132 mmol/L (136-145) L 10/07/19 06:40 Potassium 4.5 mmol/L (3.5-5.1) 10/07/19 06:40 Chloride 106 mmol/L (98-107) 10/07/19 06:40 Carbon Dioxide 21.0 mmol/L (21.0-32.0) 10/07/19 06:40 Anion Gap 5 (5-15) 10/07/19 06:40 BUN 14 mg/dL (7-18) 10/07/19 06:40 Creatinine 0.77 mg/dL (0.55-1.02) 10/07/19 06:40 Est GFR (MDRD) Af Amer 96 mL/min (>60) 10/07/19 06:40 Est GFR (MDRD) Non-Af 79 mL/min (>60) 10/07/19 06:40 BUN/Creatinine Ratio 18.1 RATIO (10-20) 10/07/19 06:40 Glucose 126 mg/dL (74-106) H 10/07/19 06:40 Microbiology: Microbiology 10/06/19 14:00 Sputum, Expectorated/Coughed Gram Stain - Final 10/06/19 14:00 Sputum, Expectorated/Coughed Respiratory Culture - Preliminary 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 aureus 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 Will start 1500mg Q8H starting 8 hours after loading dose (10/07 0000) based on weight and CrCl (using adjusted body weight) 2. Trough scheduled prior to 4th dose per policy 3. Pharmacy Service will continue to monitor and adjust dosing as required. Labs to be done on [date and time ordered]: 10/08/2019 @ 8141
[2019-10-07] MEDS: 0.9% Saline Lock 10 ML Syringe IV (18:22)
--- NOTE | 2019-10-07 20:13 | NURSING ---
fish packer called regarding midline order. fish packer unable to come in to see pt geovanna, will be in tomorrow morning.
[2019-10-07] MEDS: Loratadine 10 MG Tablet PO (21:30)
[2019-10-07] MEDS: RisperiDONE 1 MG Tablet PO (21:31)
[2019-10-07] MEDS: Atorvastatin Calcium 10 MG Tablet PO (21:31)
[2019-10-07] MEDS: Montelukast 10 MG Tablet PO (21:32)
[2019-10-07] MEDS: traZODone 50 MG Tablet PO (21:32)
[2019-10-07 22:21] LABS: Bedside Glucose 128 mg/dL (70-110)
[2019-10-08] VITALS (10 sets, daily range): BP systolic 148–150; BP diastolic 64–79; PULSE 64–87; RESP 16–20; TEMP 36.3–36.8; O2SAT 82–99
[2019-10-08] MEDS: Ipratropium/Albuterol Sulfate 3 ML AMPUL.NEB INHALATION ×3 (03:47→11:25)
[2019-10-08 06:50] LABS: Absolute Lymphocyte Count 0.82 X10^3/uL (0.83-4.51); Basophil# 0.01 X10^3/uL; Basophil% 0.2 % (0-1); Eosinophil# 0.04 X10^3/uL; Eosinophils% 0.9 % (0-5); Hematocrit 35.4 % (37-47); Hemoglobin 11.1 g/dL (12.0-15.0); Lymphocyte # 0.82 X10^3/ul (4.0); Lymphocyte % 18.9 % (19-41); Mean Corp Hgb Conc 31.4 g/dL (32-36); Mean Corpuscular Hgb 27.5 pg (27.0-32.0); Mean Corpuscular Volume 87.6 fL (81-99); Mean Platelet Vol. 9.3 fl (6.2-12.0); Monocyte# 0.44 X10^3/uL; Monocyte% 10.1 % (0-10); NRBC Flagged by Analyzer 0 % (0-5); Neutrophil # 3.02 X10^3/uL (2.7-7.7); Neutrophil % 69.7 % (47-70); Platelet Count 163 K/mm3 (150-450); RBC Distribution Width CV 14.4 % (11.6-14.6); RBC Distribution Width SD 46.4 fl (35.1-43.9); Red Blood Count 4.04 M/mm3 (4.2-5.4); White Blood Count 4.3 K/mm3 (4.4-11.0)
[2019-10-08] MEDS: Sucralfate 1 GM Tablet PO ×2 (06:53→11:02)
[2019-10-08] MEDS: Levothyroxine 50 MCG Tablet PO (06:53)
[2019-10-08 07:01] LABS: Bedside Glucose 109 mg/dL (70-110)
[2019-10-08 07:19] LABS: Anion Gap 7 (5-15); BUN 21 mg/dL (7-18); Calcium,Total 8.7 mg/dL (8.5-10.1); Chloride 105 mmol/L (98-107); Creatinine, Serum 0.68 mg/dL (0.55-1.02); EST Glomerular Filtration Rate 92 mL/min (>60); Est Glom Filt Rate - Afr Amer 111 mL/min (>60); Estimated Creatinine Clearance 57.83 ml/min; Glucose 104 mg/dL (74-106); Sodium Level 136 mmol/L (136-145)
[2019-10-08] MEDS: predniSONE 20 MG Tablet 40 MG PO (09:06)
[2019-10-08] MEDS: Multivitamins,Ther W-Minerals Tablet 1 TABLET PO (09:06)
[2019-10-08] MEDS: Folic Acid 1 MG Tablet PO (09:06)
[2019-10-08] MEDS: lamoTRIgine 100 MG Tablet 200 MG PO (09:06)
[2019-10-08] MEDS: Benzonatate 100 MG Capsule PO (09:06)
[2019-10-08] MEDS: Tolterodine Tartrate 4 MG CAP.SA PO (09:07)
[2019-10-08] MEDS: OXcarbazepine 300 MG Tablet PO (09:07)
[2019-10-08] MEDS: Pantoprazole Sodium 40 MG Tablet PO (09:07)
[2019-10-08] MEDS: Famotidine 20 MG Tablet PO (09:07)
[2019-10-08] MEDS: guaiFENesin 600 MG Tablet PO (09:07)
[2019-10-08] MEDS: Enoxaparin 40 MG/0.4 ML Syringe SC (09:07)
[2019-10-08] MEDS: Furosemide 40 MG Tablet PO (09:07)
[2019-10-08] MEDS: Venlafaxine XR 75 MG Capsule PO (09:07)
[2019-10-08] MEDS: Topiramate 50 MG Tablet PO (09:07)
[2019-10-08] MEDS: traMADol 50 MG Tablet PO (09:07)
[2019-10-08] MEDS: Acetaminophen 500 MG Tablet 1000 MG PO (09:07)
[2019-10-08] MEDS: Metoprolol Tartrate 50 MG Tablet 75 MG PO (09:08)
[2019-10-08] MEDS: Fluticasone 0.05% 1 SPRAY NASAL.SRY 2 SPRAY NASAL (09:09)
--- NOTE | 2019-10-08 09:41 | NURSING ---
Purewick changed at this time no complications noted. Pt ambulated in hallway stand by assist tolerated well needed 3L of 02 to keeps pulse ox above 90%.
--- NOTE | 2019-10-08 09:54 | PN_ITS ---
Patient Problems: Active and Suspected Problems (Last Reviewed 10/06/19 @ 13:[address] Bassam Damon, DO) Influenza (Acute) Pneumonia (Acute) Reason for Visit: pneumonia Vitals/I&O's: Vital Signs Temp Pulse Resp BP Pulse Ox 36.8 C 76 18 148/64 H 93 10/08/19 07:45 10/08/19 09:08 10/08/19 07:45 10/08/19 09:08 10/08/19 09:39 Oxygen Flow Rate (L/min) [ 3 AMBULATION with Oxygen] Oxygen Flow Rate (L/min) [ 0 AMBULATING on Room Air] Oxygen Flow Rate (L/min) [At 0 REST on Room Air] Oxygen Flow Rate (L/min) 1 Oxygen Delivery Method Room Air Weight: 163.974 kg Body Mass Index (BMI) 53.4 Intake and Output for Last 24 Hours 10/06/19 10/07/19 10/09/19 23:59 23:59 00:59 Intake Total 17947.00 / 2706. 713.25 / 713.25 Output Total 670 / 670 Balance 1794. / 2036. 713.25 / 713.25 General: Alert, No apparent distress HEENT: Atraumatic, Normocephalic Oral: Moist Mucosa, No Gingival or Mucosal Lesions/ Ulcerations Neck: No Nodes, Trachea Midline Lungs: Normal air movement, Wheezes - faint Cardiovascular: Regular rate, Regular Rhythm, Normal S1, Normal S2 Abdomen: Bowel Sounds Present, Soft, Non Tender, Non-Distended, No Hepato- splenomegaly Extremities: No Calf Tenderness, Edema Skin: - - venous stasis changes Musculoskeletal: No Tenderness to Palpation of Joints or Extremities, No Muscle Wasting Psych/Mental Status: Normal Affect, Appropriate Microbiology Past 72 Hours 10/06/19 14:00 Sputum, Expectorated/Coughed Gram Stain - Final 10/06/19 14:00 Sputum, Expectorated/Coughed Respiratory Culture - Preliminary 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 aureus 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 06:00 Urine, Clean Catch Streptococcus pneumoniae Antigen (M - Final 10/07/19 06:00 Urine, Clean Catch Legionella Antigen - Final Laboratory Results 10/07/19 11:08: POC Glucose 112 H 10/07/19 15:57: POC Glucose 124 H 10/07/19 21:30: POC Glucose 128 H 10/08/19 06:09: WBC 4.3 L, RBC 4.04 L, Hgb 11.1 L, Hct 35.4 L, MCV 87.6, MCH 27.5, MCHC 31.4 L, RDW Std Deviation 46.4 H, RDW Coeff of Mago 14.4, Plt Count 163, MPV 9.3, Immature Gran % (Auto) 0.200, Neut % (Auto) 69.7, Lymph % (Auto) 18.9 L, Stewart % (Auto) 10.1 H, Eos % (Auto) 0.9, Baso % (Auto) 0.2, Absolute Neuts (auto) 3.0, Absolute Lymphs (auto) 0.82 L, Nucleated RBC % 0 10/08/19 06:09: Sodium 136, Potassium 4.0, Chloride 105, Carbon Dioxide 24.0, Anion Gap 7, BUN 21 H, Creatinine 0.68, Estim Creat Clear Calc 57.83, Est GFR (MDRD) Af Amer 111, Est GFR (MDRD) Non-Af 92, BUN/Creatinine Ratio 31.0 H, Glucose 104, Calcium 8.7 10/08/19 06:49: POC Glucose 109 Current Medications Acetaminophen (Tylenol) 1,000 mg PO BID [facility] Last Admin: 10/08/19 09:07 Dose: 1,000 mg Documented by: Albuterol Sulfate (Ventolin Aerosols) 2.5 mg INHALATION Q2H PRN PRN Reason: SOB &/OR WHEEZING Albuterol/Ipratropium (Duoneb) 3 ml INHALATION Q4H.RT [facility] Last Admin: 10/08/19 07:25 Dose: 3 ml Documented by: Atorvastatin Calcium (Lipitor) 10 mg PO QHS [facility] Last Admin: 10/07/19 21:31 Dose: 10 mg Documented by: Benzonatate (Tessalon Perle) 100 mg PO BID [facility] Last Admin: 10/08/19 09:06 Dose: 100 mg Documented by: Enoxaparin Sodium (Lovenox) 40 mg SC DAILY [facility] Last Admin: 10/08/19 09:07 Dose: 40 mg Documented by: Famotidine (Pepcid) 20 mg PO DAILY [facility] Last Admin: 03/08/20 09:07 Dose: 20 mg Documented by: Fluticasone Propionate (Flonase Nasal [place]) 2 spray NASAL DAILY [facility] Last Admin: 10/08/19 09:09 Dose: 2 spray Documented by: Folic Acid (Folic Acid) 1 mg PO DAILY@0800 [facility] Last Admin: 10/08/19 09:06 Dose: 1 mg Documented by: Furosemide (Lasix) 40 mg PO DAILY [facility] Last Admin: 10/08/19 09:07 Dose: 40 mg Documented by: Glucagon () 1 mg IM .X1 PRN PRN Reason: Hypoglycemia Guaifenesin (Mucinex) 600 mg PO BID [facility] Last Admin: 10/08/19 09:07 Dose: 600 mg Documented by: Sodium Chloride () 500 mls @ 999 mls/hr IV .Q31M ONE Last Infusion: 10/06/19 10:52 Dose: Infused Documented by: Dextrose (Dextrose 10%-Water) 250 mls @ 999 mls/hr IV .Q16M PRN; Protocol PRN Reason: HYPOGLYCEMIA Sodium Chloride () 250 mls @ 15 mls/hr IV .[id number] PRN PRN Reason: Saline Flush Last Infusion: 10/08/19 09:08 Dose: 0 mls/hr Documented by: Piperacillin Sod/Tazobactam (Sod 3.375 gm/ Sodium Chloride) 50 mls @ 12.5 mls/hr IV Q8 [facility] Last Infusion: 10/08/19 07:58 Dose: Infused Documented by: Vancomycin IV Pharmacy to Dose (1 ea/ Sodium Chloride) 500 mls @ 250 mls/hr IV X1 PRN; Protocol PRN Reason: Rx to Dose Vancomycin HCl 1,500 mg/ (Sodium Chloride) 530 mls @ 250 mls/hr IV Q8H [facility] Last Admin: 10/08/19 09:04 Dose: 250 mls/hr Documented by: Insulin Human Lispro (Humalog Kwikpen (Bkc)) 0 unit SC TIDAC [facility]; Protocol Last Admin: 10/08/19 06:51 Dose: Not Given Documented by: Lactobacillus Acidophilus (Acidophilus) 1 tablet PO BID [facility] Last Admin: 10/08/19 09:06 Dose: 1 tablet Documented by: Lamotrigine (Lamictal) 200 mg PO BID [facility] Last Admin: 10/08/19 09:06 Dose: 200 mg Documented by: Levothyroxine Sodium (Synthroid) 50 mcg PO DAILY@0600 [facility] Last Admin: 10/08/19 06:53 Dose: 50 mcg Documented by: Loperamide HCl (Imodium) 2 mg PO Q4H PRN PRN PRN Reason: Diarrhea Loratadine (Claritin) 10 mg PO QHS [facility] Last Admin: 10/07/19 21:30 Dose: 10 mg Documented by: Metoprolol Tartrate (Lopressor (Beta Esha)) 75 mg PO BID [facility] Last Admin: 10/08/19 09:08 Dose: 75 mg Documented by: Montelukast Sodium (Singulair) 10 mg PO QHS [facility] Last Admin: 10/07/19 21:32 Dose: 10 mg Documented by: Multivitamins/Minerals (Multivitamin With Minerals (Bkc)) 1 tablet PO DAILY@0800 [facility] Last Admin: 10/08/19 09:06 Dose: 1 tablet Documented by: Nutritional Formula (Lactose Free) (Glucerna Shake) 120 ml PO 4X/DAY [facility] Last Admin: 10/08/19 09:09 Dose: Not Given Documented by: Ondansetron HCl (Zofran) 4 mg IV Q8H PRN PRN PRN Reason: NAUSEA/VOMITING Oxcarbazepine (Trileptal) 300 mg PO BID [facility] Last Admin: 10/08/19 09:07 Dose: 300 mg Documented by: Pantoprazole Sodium (Protonix) 40 mg PO DAILY [facility] Last Admin: 10/08/19 09:07 Dose: 40 mg Documented by: Polyethylene Glycol (Miralax) 17 gm PO DAILY PRN PRN Reason: CONSTIPATION Potassium Chloride (K-Dur) 20 meq PO BID [facility] Last Admin: 10/08/19 09:06 Dose: 20 meq Documented by: Prednisone () 40 mg PO DAILY@0800 [facility] Stop: 10/10/19 08:01 Last Admin: 10/08/19 09:06 Dose: 40 mg Documented by: Risperidone (Risperdal) 1 mg PO QHS [facility] Last Admin: 10/07/19 21:31 Dose: 1 mg Documented by: Senna (Senokot) 1 tablet PO BID PRN PRN PRN Reason: constipation Simethicone (Mylicon) 0 mg PO TID PRN PRN PRN Reason: GAS Sodium Chloride () 10 - 40 ml IV UD PRN PRN Reason: SALINE FLUSH Last Admin: 10/07/19 18:22 Dose: 20 ml Documented by: Sodium Chloride (0.9% Nacl (Sterile) Posiflush) 10 - 40 ml IV UD PRN PRN Reason: Port access or dressing change Sucralfate (Carafate) 1 gm PO 0700,1100,1600 [facility] Last Admin: 10/08/19 06:53 Dose: 1 gm Documented by: Tolterodine Tartrate (Detrol La) 4 mg PO DAILY [facility] Last Admin: 10/08/19 09:07 Dose: 4 mg Documented by: Topiramate (Topamax) 50 mg PO BID [facility] Last Admin: 10/08/19 09:07 Dose: 50 mg Documented by: Tramadol HCl (Ultram) 50 mg PO BID [facility] Last Admin: 10/08/19 09:07 Dose: 50 mg Documented by: Trazodone HCl (Desyrel) 50 mg PO QHS [facility] Last Admin: 10/07/19 21:32 Dose: 50 mg Documented by: Venlafaxine HCl (Effexor Xr) 75 mg PO DAILY [facility] Last Admin: 10/08/19 09:07 Dose: 75 mg Documented by: STROKE Vital Signs/Narrative: Vital Signs Temp Pulse Resp BP Pulse Ox Pulse Ox Pulse Ox 10/08/19 09:39 82 91 10/08/19 09:08 76 148/64 H 10/08/19 07:47 93 10/08/19 07:45 36.8 C 76 18 148/64 H 93 10/08/19 07:25 75 18 94 Pulse Ox 10/08/19 09:39 93 10/08/19 09:08 10/08/19 07:47 10/08/19 07:45 10/08/19 07:25 Medical Necessity - Tobacco Use Smoking Status: Never smoker Tobacco Use: Secondhand Assessment/Plan All Active Problems (Last Reviewed 10/06/19 @ 13:[address] Bassam Damon DO) Influenza (Acute) Pneumonia (Acute) 1. acute hypoxic respiratory insufficiency * improving * secondary to pneumonia, influenza, COPD, likely restrictive lung dz given obesity * wean oxygen as tolerated * check ambulatory pulse ox prior to DC 2. polymicrobial pneumonia pneumonia * SC positive for staph and GNR * even though patient is improving, will change abx to pip/tazo and vanc pending final cultures * adjust abx based on final cultures 3. Influenza A * complete 5 day course of oseltamivir 4. AECOPD * BDs, prednisone * exacerbated by pneumonia and influenza 5. chronic issues: obesity class III, lymphema, DM2, HTN. complicates overall care and recovery. 6. VTE prophylaxis: mod risk. Enoxaparin 7. Advanced care planning: dw patient. DNRCCA, no intubatoin. 8. Disposition: pending final cultures from sputum. Inpatient E&M: 35800 Subs Hosp L2
[2019-10-08 11:06] LABS: Bedside Glucose 85 mg/dL (70-110)
--- NOTE | 2019-10-08 11:37 | PCM.DC ---
- Discharge Diagnoses Current Active Problems: Current Active and Chronic Problems (Last Reviewed 10/06/19 @ 13:[address] Bassam Damon, DO) Influenza (Acute) Pneumonia (Acute) You will use the following diet at home:: Cardiac Call your doctor if you observe: Shortness of breath Additional Instructions: Oxygen 3 liter/m with ambulation Allergies/Adverse Reactions: Allergies benztropine mesylate [From Cogentin] Allergy (Verified 10/06/19 09:37) Unknown Salicylates Allergy (Verified 10/06/19 09:37) Unknown Sulfa (Sulfonamide Antibiotics) Allergy (Verified 10/06/19 12:41) Unknown feel funny and can't shut my eyes abacavir Adverse Reaction (Unknown, Verified 10/06/19 09:37) Unknown aspirin Adverse Reaction (Verified 10/06/19 12:41) Unknown upset stomach bupropion HCl [From Wellbutrin] Adverse Reaction (Verified 10/06/19 09:37) Rash prochlorperazine Adverse Reaction (Verified 10/06/19 09:37) Unknown prochlorperazine edisylate [From Compazine] Adverse Reaction (Verified 10/06/19 12:41) Unknown feel strange prochlorperazine maleate [From Compazine] Adverse Reaction (Verified 10/06/19 12:41) Unknown feel strange Medications to take at Discharge Albuterol Aerosols [Ventolin Aerosols] 2.5 mg INHALATION Q2H PRN 11/09/15 Atorvastatin Calcium [Lipitor] 10 mg PO QHS 11/09/15 Folic Acid 1 mg PO DAILY@0800 11/09/15 Furosemide [Lasix] 40 mg PO DAILY 11/09/15 Levothyroxine [Synthroid] 50 mcg PO DAILY 11/09/15 traMADol [Ultram] 50 mg PO BID #14 tab 11/12/15 lamotrigine 100 mg tablet 200 mg PO BID tab 11/18/17 montelukast 10 mg tablet 10 mg PO QHS 11/18/17 acetaminophen 500 mg tablet 1,000 mg PO BID tab 12/21/17 famotidine 20 mg tablet 20 mg PO DAILY tab 12/21/17 zpsskges-dpe-nujqa acid 0.4 mg-lycopene 300 mcg-lutein 250 mcg tablet 1 tab PO QDAY 12/21/17 potassium chloride 20 mEq tablet,extended release(part/cryst) 20 meq PO BID 12/21/17 sucralfate 1 gram tablet 1 g PO TID 12/21/17 fluticasone propionate 50 mcg/actuation nasal spray,suspension 2 spray INTRANASAL DAILY 30 Days #16 g 12/20/18 Budesonide/Formoterol Fumarate [Symbicort 160-4.5 Mcg Inhaler] 2 puff IH BID 01/24/19 risperidone 0.25 mg tablet 1 mg PO QHS tab 02/16/19 topiramate 25 mg sprinkle capsule 50 mg PO BID 02/16/19 trazodone 50 mg tablet 50 mg PO QHS PRN PRN 02/16/19 metoprolol tartrate 25 mg tablet 75 mg PO BID #60 tab 02/17/19 Acetaminophen [Tylenol Extra Strength] 500 mg PO .QLUNCHANDDINNER 10/06/19 Benzonatate 100 mg PO BID 10/06/19 Cetirizine HCl [Zyrtec] 10 mg PO QHS 10/06/19 Guaifenesin [Mucinex] 400 mg PO TID 10/06/19 Lactobacillus Acidophilus [Acidophilus] 1 ea PO BID 10/06/19 Lansoprazole [Prevacid] 30 mg PO DAILY 10/06/19 Loperamide [Imodium] 2 mg PO Q4H PRN PRN 10/06/19 Loratadine 10 mg PO QHS PRN PRN 10/06/19 Mag Hydrox/Al Hydrox/Simeth [Mylanta II] 30 ml PO Q6H PRN PRN 10/06/19 Oxcarbazepine 300 mg PO BID 10/06/19 Peg 400/Hypromellose/Glycerin [Artificial Tears] 15 drp EACH EYE Q6H PRN PRN 10/06/19 Polyethylene Glycol 3350 [Gavilax] 8.5 gm PO QODAY PRN 10/06/19 Senna [Senokot] 1 tab PO BID PRN PRN 10/06/19 Simethicone [Anti-Gas] 1 - 2 tab PO TID PRN PRN 10/06/19 Sodium Chloride [Gladis-128 5%] 1 applic RIGHT EYE QHS 10/06/19 Sodium Chloride [Gladis-128] 2 drp EACHEYE BID 10/06/19 Solifenacin Succinate 10 mg PO DAILY 10/06/19 Venlafaxine XR [Effexor Xr] 75 mg PO DAILY 10/06/19 Albuterol IH (ProAir) [Proair Hfa] 1 - 2 puff INHALATION Q4H PRN PRN #1 inhaler 10/08/19 Ciprofloxacin [Cipro] 500 mg PO BID #12 tablet 10/08/19 Doxycycline 100 mg PO BID #12 capsule 10/08/19 predniSONE tablet 2 tab PO DAILY@0800 #6 tablet 10/08/19 The following prescriptions were given: Ciprofloxacin [Cipro] 500 mg PO BID #12 tablet Doxycycline 100 mg PO BID #12 capsule predniSONE tablet 2 tab PO DAILY@0800 #6 tablet Albuterol IH (ProAir) [Proair Hfa] 1 - 2 puff INHALATION Q4H PRN PRN #1 inhaler PRN Reason: Shortness Of Breath Primary Care Physician: Shelia Whitten, [employer] [Primary Care Provider] - Within 1 Week Test Results: Test results from this visit will be discussed in further detail at your follow-up appointment, if applicable.
--- NOTE | 2019-10-08 11:39 | PCM.DC.SUM ---
Discharge Date and Diagnosis - Problem List Patient Problems: Active and Suspected Problems (Last Reviewed 10/06/19 @ 13:[address] Bassam Damon DO) Influenza (Acute) Pneumonia (Acute) Date of Admission: 10/06/19 Date of Discharge: 10/08/19 - Primary Discharge Diagnosis Active and Suspected Problems (Last Reviewed 10/06/19 @ 13:[address] Bassam Damon DO) 1. acute hypoxic respiratory insufficiency 2. MRSA pneumonia 3. Klebsiella oxytoca pneumonia 4. influenza A 5. acute exacerbation of COPD - Secondary Discharge Diagnosis Chronic Problems (Last Reviewed 10/06/19 @ 13:[address] Bassam Damon DO) Non-rheumatic aortic stenosis (Chronic) Right bundle branch block (RBBB) (Chronic) RBBB w/ Left anterior fascicular block Bifascicular block Essential hypertension (Chronic) Chronic diastolic (congestive) heart failure (Chronic) HLD (hyperlipidemia) (Chronic) Hospital Course and Treatment Imaging Results: Clinical Impression(s) from Imaging Studies Chest X-Ray 10/06/19 09:54 IMPRESSION: Patchy infiltrates in the right upper and right lower lobes as well as in the left perihilar region. Electronically Signed: Esteban Mary Jo, at 10:13 EST , Service support , Operations: None Procedures: None Summary of Care Provided: The patient is a 68 year old F resents with shortness of breath. Patient was found to have pneumonia as well as acute exacerbation of COPD. Pneumonia found to be polymicrobial with MRSA as well as Klebsiella oxytoca. Both sensitive to trimethoprim/sulfamethoxazole, however, patient had a noted allergy to that so patient will be discharged with doxycycline and ciprofloxacin to cover both organisms. The pneumonia may been a secondary pneumonia given the patient's recent influenza that she is contracted. 1. acute hypoxic respiratory insufficiency improving secondary to pneumonia, influenza, COPD, likely restrictive lung dz given obesity wean oxygen as tolerated Patient was noted to be hypoxic with activity. Will require 3 L of oxygen with activity for the time being. 2. polymicrobial pneumonia pneumonia: MRSA and Klebsiella oxytoca doxycycline and ciprofloxacin 3. Influenza A completed 5 day course of oseltamivir 4. AECOPD BDs, prednisone exacerbated by pneumonia and influenza[] Patient Problems: Active and Suspected Problems (Last Reviewed 10/06/19 @ 13:[address] Bassam Damon, DO) Influenza (Acute) Pneumonia (Acute) - Physical Exam Vitals/I&O's: Vital Signs Temp Pulse Resp BP Pulse Ox 36.8 C 76 18 148/64 H 94 10/08/19 07:45 10/08/19 09:08 10/08/19 07:45 10/08/19 09:08 10/08/19 11:03 Oxygen Flow Rate (L/min) [ 3 AMBULATION with Oxygen] Oxygen Flow Rate (L/min) [ 0 AMBULATING on Room Air] Oxygen Flow Rate (L/min) [At 0 REST on Room Air] Oxygen Flow Rate (L/min) 2 Oxygen Delivery Method Nasal Cannula Weight: 163.974 kg Body Mass Index (BMI) 53.4 Intake and Output for Last 24 Hours 10/06/19 10/07/19 10/09/19 23:59 23:59 00:59 Intake Total 1794 2707.00 / 2707.00 1529.92 / 1529.92 Output Total 670 / 670 450 / 450 Balance 1794 2037.00 / 2037.00 1079.92 / 1079.92 Microbiology Past 72 Hours 10/06/19 14:00 Sputum, Expectorated/Coughed Gram Stain - Final 10/06/19 14:00 Sputum, Expectorated/Coughed Respiratory Culture - Final Meth. resistant Staph. aureus Klebsiella oxytoca 10/07/19 06:00 Urine, Clean Catch Streptococcus pneumoniae Antigen (M - Final 10/07/19 06:00 Urine, Clean Catch Legionella Antigen - Final Laboratory Results 10/07/19 11:08: POC Glucose 112 H 10/07/19 15:57: POC Glucose 124 H 10/07/19 21:30: POC Glucose 128 H 10/08/19 06:09: WBC 4.3 L, RBC 4.04 L, Hgb 11.1 L, Hct 35.4 L, MCV 87.6, MCH 27.5, MCHC 31.4 L, RDW Std Deviation 46.4 H, RDW Coeff of Mago 14.4, Plt Count 163, MPV 9.3, Immature Gran % (Auto) 0.200, Neut % (Auto) 69.7, Lymph % (Auto) 18.9 L, [place] % (Auto) 10.1 H, Eos % (Auto) 0.9, Baso % (Auto) 0.2, Absolute Neuts (auto) 3.0, Absolute Lymphs (auto) 0.82 L, Nucleated RBC % 0 10/08/19 06:09: Sodium 136, Potassium 4.0, Chloride 105, Carbon Dioxide 24.0, Anion Gap 7, BUN 21 H, Creatinine 0.68, Estim Creat Clear Calc 57.83, Est GFR (MDRD) Af Amer 111, Est GFR (MDRD) Non-Af 92, BUN/Creatinine Ratio 31.0 H, Glucose 104, Calcium 8.7 10/08/19 06:49: POC Glucose 109 10/08/19 11:01: POC Glucose 85 Current Medications Acetaminophen (Tylenol) 1,000 mg PO BID [facility] Last Admin: 10/08/19 09:07 Dose: 1,000 mg Documented by: Albuterol Sulfate (Ventolin Aerosols) 2.5 mg INHALATION Q2H PRN PRN Reason: SOB &/OR WHEEZING Albuterol/Ipratropium (Duoneb) 3 ml INHALATION Q4H.RT [facility] Last Admin: 10/08/19 11:25 Dose: 3 ml Documented by: Atorvastatin Calcium (Lipitor) 10 mg PO QHS [facility] Last Admin: 10/07/19 21:31 Dose: 10 mg Documented by: Benzonatate (Tessalon Perle) 100 mg PO BID [facility] Last Admin: 10/08/19 09:06 Dose: 100 mg Documented by: Enoxaparin Sodium (Lovenox) 40 mg SC DAILY [facility] Last Admin: 10/08/19 09:07 Dose: 40 mg Documented by: Famotidine (Pepcid) 20 mg PO DAILY [facility] Last Admin: 10/08/19 09:07 Dose: 20 mg Documented by: Fluticasone Propionate (Flonase Nasal [place]) 2 spray NASAL DAILY [facility] Last Admin: 10/08/19 09:09 Dose: 2 spray Documented by: Folic Acid (Folic Acid) 1 mg PO DAILY@0800 [facility] Last Admin: 10/08/19 09:06 Dose: 1 mg Documented by: Furosemide (Lasix) 40 mg PO DAILY [facility] Last Admin: 10/08/19 09:07 Dose: 40 mg Documented by: Glucagon () 1 mg IM .X1 PRN PRN Reason: Hypoglycemia Guaifenesin (Mucinex) 600 mg PO BID [facility] Last Admin: 10/08/19 09:07 Dose: 600 mg Documented by: Sodium Chloride () 500 mls @ 999 mls/hr IV .Q31M ONE Last Infusion: 10/06/19 10:52 Dose: Infused Documented by: Dextrose (Dextrose 10%-Water) 250 mls @ 999 mls/hr IV .Q16M PRN; Protocol PRN Reason: HYPOGLYCEMIA Sodium Chloride () 250 mls @ 15 mls/hr IV .[id number] PRN PRN Reason: Saline Flush Last Infusion: 10/08/19 09:08 Dose: 0 mls/hr Documented by: Piperacillin Sod/Tazobactam (Sod 3.375 gm/ Sodium Chloride) 50 mls @ 12.5 mls/hr IV Q8 PATEL Last Infusion: 10/08/19 07:58 Dose: Infused Documented by: Vancomycin IV Pharmacy to Dose (1 ea/ Sodium Chloride) 500 mls @ 250 mls/hr IV X1 PRN; Protocol PRN Reason: Rx to Dose Vancomycin HCl 1,500 mg/ (Sodium Chloride) 530 mls @ 250 mls/hr IV Q8H [facility] Last Infusion: 10/08/19 10:32 Dose: 0 mls/hr Documented by: Insulin Human Lispro (Humalog Kwikpen (Bkc)) 0 unit SC TIDAC [facility]; Protocol Last Admin: 10/08/19 11:02 Dose: Not Given Documented by: Lactobacillus Acidophilus (Acidophilus) 1 tablet PO BID [facility] Last Admin: 10/08/19 09:06 Dose: 1 tablet Documented by: Lamotrigine (Lamictal) 200 mg PO BID [facility] Last Admin: 10/08/19 09:06 Dose: 200 mg Documented by: Levothyroxine Sodium (Synthroid) 50 mcg PO DAILY@0600 [facility] Last Admin: 10/08/19 06:53 Dose: 50 mcg Documented by: Loperamide HCl (Imodium) 2 mg PO Q4H PRN PRN PRN Reason: Diarrhea Loratadine (Claritin) 10 mg PO QHS [facility] Last Admin: 10/07/19 21:30 Dose: 10 mg Documented by: Metoprolol Tartrate (Lopressor (Beta Esha)) 75 mg PO BID [facility] Last Admin: 10/08/19 09:08 Dose: 75 mg Documented by: Montelukast Sodium (Singulair) 10 mg PO QHS [facility] Last Admin: 10/07/19 21:32 Dose: 10 mg Documented by: Multivitamins/Minerals (Multivitamin With Minerals (Bkc)) 1 tablet PO DAILY@0800 [facility] Last Admin: 10/08/19 09:06 Dose: 1 tablet Documented by: Nutritional Formula (Lactose Free) (Glucerna Shake) 120 ml PO 4X/DAY [facility] Last Admin: 10/08/19 09:09 Dose: Not Given Documented by: Ondansetron HCl (Zofran) 4 mg IV Q8H PRN PRN PRN Reason: NAUSEA/VOMITING Oxcarbazepine (Trileptal) 300 mg PO BID [facility] Last Admin: 10/08/19 09:07 Dose: 300 mg Documented by: Pantoprazole Sodium (Protonix) 40 mg PO DAILY [facility] Last Admin: 10/08/19 09:07 Dose: 40 mg Documented by: Polyethylene Glycol (Miralax) 17 gm PO DAILY PRN PRN Reason: CONSTIPATION Potassium Chloride (K-Dur) 20 meq PO BID [facility] Last Admin: 10/08/19 09:06 Dose: 20 meq Documented by: Prednisone () 40 mg PO DAILY@0800 [facility] Stop: 10/10/19 08:01 Last Admin: 10/08/19 09:06 Dose: 40 mg Documented by: Risperidone (Risperdal) 1 mg PO QHS [facility] Last Admin: 10/07/19 21:31 Dose: 1 mg Documented by: Senna (Senokot) 1 tablet PO BID PRN PRN PRN Reason: constipation Simethicone (Mylicon) 0 mg PO TID PRN PRN PRN Reason: GAS Sodium Chloride () 10 - 40 ml IV UD PRN PRN Reason: SALINE FLUSH Last Admin: 10/07/19 18:22 Dose: 20 ml Documented by: Sodium Chloride (0.9% Nacl (Sterile) Posiflush) 10 - 40 ml IV UD PRN PRN Reason: Port access or dressing change Sucralfate (Carafate) 1 gm PO 0700,1100,1600 [facility] Last Admin: 03/08/20 11:02 Dose: 1 gm Documented by: Tolterodine Tartrate (Detrol La) 4 mg PO DAILY [facility] Last Admin: 10/08/19 09:07 Dose: 4 mg Documented by: Topiramate (Topamax) 50 mg PO BID [facility] Last Admin: 10/08/19 09:07 Dose: 50 mg Documented by: Tramadol HCl (Ultram) 50 mg PO BID [facility] Last Admin: 10/08/19 09:07 Dose: 50 mg Documented by: Trazodone HCl (Desyrel) 50 mg PO QHS [facility] Last Admin: 10/07/19 21:32 Dose: 50 mg Documented by: Venlafaxine HCl (Effexor Xr) 75 mg PO DAILY [facility] Last Admin: 10/08/19 09:07 Dose: 75 mg Documented by: Discharge Diet: Low fat/ Low Cholesterol Call your doctor if you observe: Shortness of breath Home Medications: Medications to take at Discharge Albuterol Aerosols [Ventolin Aerosols] 2.5 mg INHALATION Q2H PRN 11/09/15 Atorvastatin Calcium [Lipitor] 10 mg PO QHS 11/09/15 Folic Acid 1 mg PO DAILY@0800 11/09/15 Furosemide [Lasix] 40 mg PO DAILY 11/09/15 Levothyroxine [Synthroid] 50 mcg PO DAILY 11/09/15 traMADol [Ultram] 50 mg PO BID #14 tab 11/12/15 lamotrigine 100 mg tablet 200 mg PO BID tab 11/18/17 montelukast 10 mg tablet 10 mg PO QHS 11/18/17 acetaminophen 500 mg tablet 1,000 mg PO BID tab 12/21/17 famotidine 20 mg tablet 20 mg PO DAILY tab 12/21/17 bwgiroes-sxa-zexlw acid 0.4 mg-lycopene 300 mcg-lutein 250 mcg tablet 1 tab PO QDAY 12/21/17 potassium chloride 20 mEq tablet,extended release(part/cryst) 20 meq PO BID 12/21/17 sucralfate 1 gram tablet 1 g PO TID 12/21/17 fluticasone propionate 50 mcg/actuation nasal spray,suspension 2 spray INTRANASAL DAILY 30 Days #16 g 12/20/18 Budesonide/Formoterol Fumarate [Symbicort 160-4.5 Mcg Inhaler] 2 puff IH BID 01/24/19 risperidone 0.25 mg tablet 1 mg PO QHS tab 02/16/19 topiramate 25 mg sprinkle capsule 50 mg PO BID 02/16/19 trazodone 50 mg tablet 50 mg PO QHS PRN PRN 02/16/19 metoprolol tartrate 25 mg tablet 75 mg PO BID #60 tab 02/17/19 Acetaminophen [Tylenol] 500 mg PO .QLUNCHANDDINNER 10/06/19 Benzonatate 100 mg PO BID 10/06/19 Cetirizine HCl [Zyrtec] 10 mg PO QHS 10/06/19 Guaifenesin [Mucinex] 400 mg PO TID 10/06/19 Lactobacillus Acidophilus [Acidophilus] 1 ea PO BID 10/06/19 Lansoprazole [Prevacid] 30 mg PO DAILY 10/06/19 Loperamide [Imodium] 2 mg PO Q4H PRN PRN 10/06/19 Loratadine 10 mg PO QHS PRN PRN 10/06/19 Mag Hydrox/Al Hydrox/Simeth [Mylanta II] 30 ml PO Q6H PRN PRN 10/06/19 Oxcarbazepine 300 mg PO BID 10/06/19 Peg 400/Hypromellose/Glycerin [Artificial Tears] 15 drp EACH EYE Q6H PRN PRN 10/06/19 Polyethylene Glycol 3350 [Gavilax] 8.5 gm PO QODAY PRN 10/06/19 Senna [Senokot] 1 tab PO BID PRN PRN 10/06/19 Simethicone [Anti-Gas] 1 - 2 tab PO TID PRN PRN 10/06/19 Sodium Chloride [Gladis-128 5%] 1 applic RIGHT EYE QHS 10/06/19 Sodium Chloride [Gladis-128] 2 drp EACHEYE BID 10/06/19 Solifenacin Succinate 10 mg PO DAILY 10/06/19 Venlafaxine XR [Effexor Xr] 75 mg PO DAILY 10/06/19 Albuterol IH (ProAir) [Proair Hfa] 1 - 2 puff INHALATION Q4H PRN PRN #1 inhaler 10/08/19 Ciprofloxacin [Cipro] 500 mg PO BID #12 tab 10/08/19 Doxycycline 100 mg PO BID #12 cap 10/08/19 predniSONE tablet 2 tab PO DAILY@0800 #6 tab 10/08/19 Following Prescrptions Were Given to Patient: Ciprofloxacin [Cipro] 500 mg PO BID #12 tab Transmission Status: Pending to [facility] [place] Doxycycline 100 mg PO BID #12 cap Transmission Status: Pending to [facility] [place] predniSONE tablet 2 tab PO DAILY@0800 #6 tab Transmission Status: Pending to [facility] [place] Albuterol IH (ProAir) [Proair Hfa] 1 - 2 puff INHALATION Q4H PRN PRN #1 inhaler PRN Reason: Shortness Of Breath Transmission Status: Pending to [facility] [place] Primary Care Physician: Shelia Whitten RAIMANN MACHINE OPERATOR-C [Primary Care Provider] - Within 1 Week Disposition: Home Minutes spent on discharge:: 32 Patient Condition:: Fair Medical Necessity - Tobacco Use Smoking Status: Never smoker Tobacco Use: Secondhand Meaningful Use Info Meaningful Use Diagnoses (Choose all that apply): None applicable Inpatient E&M: 13266 [facility]
== END 2019-10-08 15:37 | disposition home or self-care (01) | DRG 178 ==
LOC: ED 10:46 → MS3 13:15
PROVIDERS: Emergency Provider Emergency Medicine; PCP Nurse Practitioner Adult Health
DX: J10.08 Influenza due to other identified influenza virus with other specified pneumonia (principal); I50.32 Chronic diastolic (congestive) heart failure; J15.212 Pneumonia due to Methicillin resistant 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 aureus; Z68.43 Body mass index [BMI] 50.0-59.9, adult; J15.0 Pneumonia due to Klebsiella pneumoniae; R09.02 Hypoxemia; J44.1 Chronic obstructive pulmonary disease with (acute) exacerbation; E66.01 Morbid (severe) obesity due to excess calories; I89.0 Lymphedema, not elsewhere classified; Z98.84 Bariatric surgery status; I45.10 Unspecified right bundle-branch block; I35.0 Nonrheumatic aortic (valve) stenosis; I11.0 Hypertensive heart disease with heart failure; E78.5 Hyperlipidemia, unspecified; F31.9 Bipolar disorder, unspecified; K21.9 Gastro-esophageal reflux disease without esophagitis; E03.9 Hypothyroidism, unspecified; E11.9 Type 2 diabetes mellitus without complications; Z66 Do not resuscitate; Z79.899 Other long term (current) drug therapy
CPT/HCPCS: 36415; 71045; 80048; 80053; 82962; 83605; 83880; 84484; 85025; 87040; 87070; 87077; 87186; 87205; 87449; 93005; 94640; 94667; 94668; 97162; 97165; 97802; 99251; 99285; J7030; J7040; J7050; A4216; G0463; J0696

== ENCOUNTER 2019-10-20 09:35 | Emergency (ER) | payer MEDICARE, MEDICAID, SELFPAY ==
[2019-10-06 12:38] VITALS: BMI 53.4
[2019-10-20 09:35] VITALS: BP 166/91; PULSE 62; RESP 17; TEMP 36.8; O2SAT 97; BMI 54.8
[2019-10-20 09:54] VITALS: BP 179/76; PULSE 52; RESP 18; TEMP 36.8; O2SAT 96
--- NOTE | 2019-10-20 10:08 | RAD_ITS ---
STUDY: X-RAY CHEST REASON FOR EXAM: Female, 68 years old. COUGH, CONGESTION, COPD; -- DX WITH FLU, PNEUMONIA LAST WEEK TECHNIQUE: Single AP portable view of the chest. COMPARISON: Comparison is made with prior study October 06, 2019. FINDINGS: EKG electrodes are seen. Since prior study, the previously seen infiltrates have cleared. Minimal changes persist at the left lung base suggestive of possible scarring. There is no demonstrated pleural abnormality. There is mild cardiac enlargement. Normal mediastinum and hetal. Normal visualized pulmonary arteries. There is atherosclerotic tortuosity of the aortic arch and descending thoracic aorta. There are diffuse degenerative changes of the visualized thoracic spine. Normal visualized ribs, clavicles, and shoulders. Surgical clips are seen in the epigastric region. RAD/Chest 1 View (Portable) IMPRESSION: Minimal residual increased markings at the left lung base is difficult scarring. The previously seen infiltrates have cleared. Electronically Signed: Esteban Camargo, at 10:31 EDT , Service support ,
--- NOTE | 2019-10-20 10:19 | ED.DCSUM_ITS ---
History of Present Illness Chief Complaint: Cough Narrative: 68-year-old female presents from assisted living with congestion. She was recently hospitalized for influenza and pneumonia. She finished antibiotics 2 days ago. She is actually feeling much better. Her cough has nearly resolved but when she was evaluated by the nurse practitioner today they were concerned because she still had congestion. She said that she was told she has a low- grade fever but she does not feel as if she has a fever and reports that she did not take any Tylenol or Motrin this morning and does not have a fever here. She states that she is actually feeling much better and did not want to come here. She has no chest pain or generalized weakness. No fever, chills, or body aches. Past Medical History - Allergies and Home Meds Allergies/Adverse Reactions: Allergies benztropine mesylate [From Cogentin] Allergy (Verified 10/06/19 09:37) Unknown Salicylates Allergy (Verified 10/06/19 09:37) Unknown Sulfa (Sulfonamide Antibiotics) Allergy (Verified 10/06/19 12:41) Unknown feel funny and can't shut my eyes abacavir Adverse Reaction (Unknown, Verified 10/06/19 09:37) Unknown aspirin Adverse Reaction (Verified 10/06/19 12:41) Unknown upset stomach bupropion HCl [From Wellbutrin] Adverse Reaction (Verified 10/06/19 09:37) Rash prochlorperazine Adverse Reaction (Verified 10/06/19 09:37) Unknown prochlorperazine edisylate [From Compazine] Adverse Reaction (Verified 10/06/19 12:41) Unknown feel strange prochlorperazine maleate [From Compazine] Adverse Reaction (Verified 10/06/19 12:41) Unknown feel strange Primary Care Physician: Shelia Whitten, KAREN-C [Primary Care Provider] - Prior records reviewed: Yes Surgical History: gastric bypass Smoking Status: Never smoker - Family History Maternal Family History: Reports: No pertinent history, - - no COPD Review of Systems General: Denies: Chills, Fever, Sweats Eyes: Denies: Visual changes - bilaterally, Diplopia ENT: Reports: Rhinorrhea. Denies: Sore throat Cardiovascular: Denies: Chest pain, Palpitations Respiratory: Denies: Dyspnea, Cough, Dyspnea on exertion Gastrointestinal: Denies: Abdominal pain, Nausea, Vomiting, Diarrhea, Melena, Hematochezia Genitourinary: Denies: Dysuria, Hematuria, Frequency Musculoskeletal: Denies: Back pain, Extremity Pain Skin: Denies: Rash, Wounds Neurological: Denies: Headache, Weakness, Numbness Psych: Denies: Anxiety Physical Exam Vital Signs/Narrative: Vital Signs Temp Pulse Resp BP Pulse Ox 10/20/19 09:54 98.2 F 52 L 18 179/76 H 96 10/20/19 09:35 98.2 F 62 17 166/91 H 97 General: Well nourished, Well developed, No Acute Distress Head: Normocephalic, Atraumatic Eyes: Perrl, EOMI ENT: Moist mucous membranes, No rhinorrhea Neck: Supple, Nontender Cardiovascular: Regular rate, Regular rhythm, No murmurs Respiratory: No distress, CTA bilaterally, Chest nontender Abdomen: Soft, Nontender, Nondistended, Normal bowel sounds Back: Nontender, Normal Inspection Extremities: Nontender, No edema Skin: Normal color, No rash Neurological: Alert, Oriented x3, Cranial nerves II-XII grossly intact, Normal Strength, Normal Sensation Psychological: Normal affect, Normal Mood Diagnostic/Tx/Re-eval - Medical Decision Making Chest x-ray reveals that the previous noted infiltrates have resolved. She looks well here. Vitals are within normal limits except for slight hypertension. She is not in distress. Honestly, she said that she feels nearly back to baseline and has no complaints. I feel that she can safely be discharg ed back to the assisted living. ED Disposition - Plan for ED Patient: Disposition: Home or Assisted Living Diagnosis: Nasal congestion Instructions: URI, Viral, No Abx (Adult) Referrals: Shelia Whitten, DRAFTER MECHANICAL-C [Primary Care Provider] -
--- NOTE | 2019-10-20 11:05 | ED.RN ---
This nurse attempted to call report and no answer.
[2019-10-20 11:08] VITALS: BP 172/86; PULSE 50; RESP 22; TEMP 36.7; O2SAT 96
== END 2019-10-20 11:16 | disposition home or self-care (01) ==
PROVIDERS: Emergency Provider Emergency Medicine; PCP Nurse Practitioner Adult Health
DX: R09.81 Nasal congestion (principal); R05 Cough; J44.9 Chronic obstructive pulmonary disease, unspecified; Z88.2 Allergy status to sulfonamides; Z88.6 Allergy status to analgesic agent; Z88.8 Allergy status to other drugs, medicaments and biological substances; Z98.84 Bariatric surgery status
CPT/HCPCS: 71045; 99284

== ENCOUNTER 2020-11-08 07:40 | Emergency (ER) | payer MEDICARE, MEDICAID, SELFPAY ==
[2020-05-01 15:08] VITALS: BMI 50.8
[2020-11-08] VITALS (8 sets, daily range): BP systolic 161–196; BP diastolic 72–97; PULSE 55–86; RESP 18–25; TEMP 36.7; O2SAT 89–94; BMI 50.8
--- NOTE | 2020-11-08 08:13 | RAD_ITS ---
STUDY: X-RAY CHEST REASON FOR EXAM: Female, 69 years old. Low pulse ox TECHNIQUE: AP upright portable view. COMPARISON: 10/20/2019. FINDINGS: Ill-defined haziness in both upper lobes. There is no demonstrated pleural abnormality. Cardiomegaly is unchanged. Normal mediastinum and hetal. Normal visualized pulmonary arteries. Normal visualized aortic arch and descending thoracic aorta. Normal visualized thoracic spine. Normal visualized ribs, clavicles, and shoulders. There is no demonstrated abnormality of the visualized soft tissue structures of the upper abdomen. RAD/Chest 1 View (Portable) IMPRESSION: Ill-defined haziness in the upper lobes worrisome for early interstitial pneumonitis. HRCT chest will help clarify if Covid 19 pneumonia is a clinical consideration. Electronically Signed: Andrew Sharp MD at 8:31 EDT , Service support ,
--- NOTE | 2020-11-08 08:14 | EKG12_ITS ---
Test Reason : Blood Pressure : / mmHG Vent. Rate : 055 BPM Atrial Rate : 055 BPM P-R Int : 182 ms QRS Dur : 166 ms QT Int : 478 ms P-R-T Axes : 038 -64 -31 degrees QTc Int : 457 ms Sinus bradycardia Left axis deviation Left ventricular hypertrophy with QRS widening Abnormal ECG Confirmed by STEVE GR, RIVAS ([id number]), associate entertainment editor TORSTEN HANNAH ([id number]) on 11/13/2020 10:44:01 AM Referred By: BB Confirmed By:RIVAS WILSON MD
--- NOTE | 2020-11-08 08:15 | ED.DCSUM_ITS ---
History of Present Illness Chief Complaint: Allergic Reaction Informant: Patient Onset: Yesterday - Around 24 hours Context: - - Woke up with symptoms yesterday morning, seems a little worse this morning Timing: Continuous Quality: Itchy, red, swollen Location: Face Current Severity: Moderate Maximum Severity: Moderate Worsened by: Nothing in particular Relieved by: Nothing Associated Symptoms: None Narrative: Patient has itchy redness in her face. She states her left arm has been a little itchy as well. She is in assisted living, and has to wear a mask most of the time but she takes it off at night. She is itching in the distribution of the mask along with redness and swelling. She has no pain. She is talking normally, she denies any intraoral symptoms or tongue swelling or hoarseness. She denies shortness of breath. When the staff gave her her medications today, she swallowed them but states that she had difficulty doing so which is why they called EMS to take her to the hospital for evaluation. When EMS picked her up, they said that her pulse oximetry was 87% on room air although she was asymptomatic with regards to her lungs. She has asthma and has experienced no wheezing or asthma symptoms recently, denies chest pain or shortness of breath at this time and states that she feels fine except for her face. She has chronic swelling in both of her legs/feet and that is unchanged. She is not on home oxygen. - Past Medical History (1) Chronic diastolic (congestive) heart failure Status: Chronic (2) Essential hypertension Status: Chronic (3) HLD (hyperlipidemia) Status: Chronic (4) Non-rheumatic aortic stenosis Status: Chronic (5) Right bundle branch block (RBBB) Status: Chronic Comment: RBBB w/ Left anterior fascicular block Bifascicular block Past Medical History - Allergies and Home Meds Allergies/Adverse Reactions: Allergies benztropine mesylate [From Cogentin] Allergy (Verified 11/08/20 07:42) Unknown Salicylates Allergy (Verified 11/08/20 07:42) Unknown Sulfa (Sulfonamide Antibiotics) Allergy (Verified 11/08/20 07:42) Unknown feel funny and can't shut my eyes abacavir Adverse Reaction (Unknown, Verified 11/08/20 07:42) Unknown aspirin Adverse Reaction (Verified 11/08/20 07:42) Unknown upset stomach bupropion HCl [From Wellbutrin] Adverse Reaction (Verified 11/08/20 07:42) Rash prochlorperazine Adverse Reaction (Verified 11/08/20 07:42) Unknown prochlorperazine edisylate [From Compazine] Adverse Reaction (Verified 11/08/20 07:42) Unknown feel strange prochlorperazine maleate [From Compazine] Adverse Reaction (Verified 11/08/20 07:42) Unknown feel strange Primary Care Physician: Shelia Whitten SLASHER TENDER, SLASHER TENDER-C [Primary Care Provider] - Surgical History: gastric bypass Lives: - - Assisted living Smoking Status: Never smoker - Family History Maternal Family History: Reports: No pertinent history, - - no COPD Review of Systems General: Denies: Chills, Fever, Sweats Eyes: Denies: Visual changes - bilaterally, Diplopia ENT: Reports: - - Facial swelling, itching, redness, - - No hoarseness. Mild dysphagia see HPI.. Denies: Bilateral ear pain, Rhinorrhea, Sore throat Cardiovascular: Denies: Chest pain, Palpitations Respiratory: Denies: Dyspnea, Cough, Dyspnea on exertion Gastrointestinal: Denies: Abdominal pain, Nausea, Vomiting, Diarrhea, Melena, Hematochezia Genitourinary: Denies: Dysuria, Hematuria, Frequency Musculoskeletal: Reports: Swelling. Denies: Back pain, Extremity Pain Skin: Reports: Rash - With pruritus face, see HPI. Denies: Abscess, Wounds Neurological: Denies: Headache, Weakness, Numbness Physical Exam Vital Signs/Narrative: Vital Signs Temp Pulse Resp BP Pulse Ox 11/08/20 08:13 89 11/08/20 08:05 93 11/08/20 07:42 98.1 F 65 21 H 196/96 H 91 Inital Vital Signs reviewed: Yes General: Well nourished, Well developed, Obese, No Acute Distress Head: Normocephalic, Atraumatic Eyes: Perrl, EOMI ENT: Moist mucous membranes, No rhinorrhea, - - Blanching facial erythema with mild swelling, mostly on cheeks put in distribution of surgical mask she is currently wearing. Lips, tongue not involved. No trismus.. Negative for: Sinus tenderness Neck: Supple, Nontender Cardiovascular: Regular rate, Regular rhythm, No murmurs. Negative for: Tachycardia Respiratory: No distress, CTA bilaterally, Chest nontender. Negative for: Wheezing Abdomen: Soft, Nontender, Nondistended, Normal bowel sounds Back: Nontender, Normal Inspection Extremities: Nontender, Edema - With signs of chronic stasis both lower extremities, symmetric Skin: Normal color, No rash, No Trauma Neurological: Alert, Oriented x3, Cranial nerves II-XII grossly intact, Normal Strength, Normal Sensation Psychological: Normal affect, Normal Mood Diagnostic/Tx/Re-eval Impressions Chest X-Ray 11/08/20 08:13 IMPRESSION: Ill-defined haziness in the upper lobes worrisome for early interstitial pneumonitis. HRCT chest will help clarify if Covid 19 pneumonia is a clinical consideration. Electronically Signed: Andrew Sharp MD at 8:31 EDT , Service support , Chest CT 11/08/20 09:32 IMPRESSION: Nonspecific inhomogeneous opacities in both lungs. Mosaic perfusion versus groundglass opacities.. CT chest in the inspiratory and expiratory phases will help determine if there is air trapping on expiratory phase. Electronically Signed: Andrew Sharp MD at 10:14 EDT , Service support , 11/08/20 08:13 CXR [Chest 1 View (Portable)] [RAD] Stat 11/08/20 09:32 CT Chest [Chest without Contrast] [CT] Stat 11/08/20 08:50 Mucosa - Nose SARS-CoV-2 Antigen (Rapid) - Final Laboratory Results 11/08/20 11/08/20 11/08/20 07:55 07:55 07:55 WBC 7.7 RBC 4.43 Hgb 12.9 Hct 41.0 MCV 92.6 MCH 29.1 MCHC 31.5 L RDW Std Deviation 45.1 H RDW Coeff of Mago 13.2 Plt Count 182 MPV 9.4 Immature Gran % (Auto) 0.400 Neut % (Auto) 85.6 H Lymph % (Auto) 6.6 L [place] % (Auto) 5.8 Eos % (Auto) 1.2 Baso % (Auto) 0.4 Absolute Neuts (auto) 6.6 Absolute Lymphs (auto) 0.51 L Nucleated RBC % 0 Differential Comment SCANNED RBC Morphology NORM C+C D-Dimer Quant (PE/DVT) 0.64 H* Sodium 133 L Potassium 4.1 Chloride 100 Carbon Dioxide 29.0 Anion Gap 4 L BUN 21 H Creatinine 0.96 Estim Creat Clear Calc 59.43 Est GFR (MDRD) Af Amer 74 Est GFR (MDRD) Non-Af 61 BUN/Creatinine Ratio 21.9 H Glucose 109 H Calcium 9.0 Troponin I < 0.015 B-Natriuretic Peptide 11/08/20 07:55 WBC RBC Hgb Hct MCV MCH MCHC RDW Std Deviation RDW Coeff of Mago Plt Count MPV Immature Gran % (Auto) Neut % (Auto) Lymph % (Auto) [place] % (Auto) Eos % (Auto) Baso % (Auto) Absolute Neuts (auto) Absolute Lymphs (auto) Nucleated RBC % Differential Comment RBC Morphology D-Dimer Quant (PE/DVT) Sodium Potassium Chloride Carbon Dioxide Anion Gap BUN Creatinine Estim Creat Clear Calc Est GFR (MDRD) Af Amer Est GFR (MDRD) Non-Af BUN/Creatinine Ratio Glucose Calcium Troponin I B-Natriuretic Peptide 175.0 H - Rhythm Strip Rhythm Strip: Sinus Rhythm Rate: 55 Ectopy: None - EKG Initial EKG Interpretation: Sinus Rhythm, No Acute Injury Pattern, RBBB, LAFB, Inverted T- Waves - precordial and inf Prior: Unchanged - Medical Decision Making Patient is well-appearing and to treat her apparent allergic reaction, which I suspect is due to the surgical masks she has been wearing, I think topical hydrocortisone twice daily for no longer than 7 days is indicated since she is a diabetic without any medications. However, she was hypoxic here at 88% on room air. Patient was not symptomatic from it. I did a chest x-ray which showed some faint possible infiltrates in the upper lobes. The patient had Covid late last year and subsequently had both vaccination injections, making COVID-19 very unlikely. I obtained a rapid antigen test which was negative consistent with this. Additionally, working up her hypoxemia, I obtained a D-dimer which is well within normal limits when corrected for her age, and obtained a BNP since her blood pressure was fairly elevated and she has a history of diastolic dysfunction, and it is not very high signaling this is not likely acute decompensated congestive heart failure. Furthermore obtained a CT of the chest, to further evaluate the abnormality on the chest x-ray, which also was nonspecific. Discussing further with the patient, and reevaluating her several times in the ER, as she never developed any dyspnea or chest symptoms, she states that when she had trouble swallowing today she was not coughing or gagging, she does not necessarily feel like she aspirated, and at no point did she feel dyspneic prior to coming to the ER or during her visit here. She confirms that she never is on oxygen at home. Furthermore we had nursing have her drink some applesauce and some water and she did fine with it with no aspiration or symptoms. I discussed the above CT findings with Dr. Reyes with intensive care/pulmonary. He concurred that the findings are extremely nonspecific in the differential is wide open, including pulmonary edema, hypersensitivity, less likely infectious he agrees. He agreed with trying albuterol and Lasix to see how the patient did with regards to her oxygen requirement. This was done, the patient urinated qu ite a bit, and afterwards we removed her oxygen and her oxygen saturations held between 91-93% on room air. She did not feel dyspneic. At this time I feel comfortable discharging her back to long-term, Dr. Reyes recommended trying a short burst of steroids which would help possibly more than 1 problem here, at the risk of making her a little hyperglycemic. I wrote an order for the long-term to check her sugars periodically or at the most every 6 hours, in order to further evaluate for any significant hyperglycemia. She was given a dose of Solu-Medrol prior to discharge in addition to only an extra 4 days worth of prednisone. She can follow-up with pulmonary as an outpatient for the nonspecific radiographic findings. ED Disposition - Plan for ED Patient: Disposition: Home or Assisted Living Diagnosis: Inflammation of lung, Allergic reaction Instructions: ED Allergic Reaction Local Other Prescriptions: Prednisone [Deltasone] 40 mg PO DAILY #8 tablet Prescription Printed Referrals: Shelia Whitten SLASHER TENDER, SLASHER TENDER-C [Primary Care Provider] - Abilio Reyes DO [STAFF PHYSICIAN] - (call for follow up appt, preferably within the next week) Additional Instructions: Patient's oxygen levels were a little low which we took care of of with Lasix and an albuterol treatment. She had a CT scan that showed nonspecific inflammatory abnormalities in both lungs of unknown significance. Medical Instrument Technician wants her to follow-up with him and to do 5 days of steroids, today was already given. Given her diabetes, her blood sugars should be checked every 6 hours or after meals, or both. Physician should be contacted for blood sugars over 200, or sent to the ER for blood sugars over 500.
[2020-11-08 08:23] LABS: Absolute Lymphocyte Count 0.51 X10^3/uL (0.83-4.51); Absolute Neutrophil Count 6.6 X10^3/uL (2.0-7.7); Basophil# 0.03 X10^3/uL; Basophil% 0.4 % (0-1); Eosinophil# 0.09 X10^3/uL; Eosinophils% 1.2 % (0-5); Hemoglobin 12.9 g/dL (12.0-15.0); Lymphocyte # 0.51 X10^3/ul (4.0); Lymphocyte % 6.6 % (19-41); Mean Corp Hgb Conc 31.5 g/dL (32-36); Mean Corpuscular Hgb 29.1 pg (27.0-32.0); Mean Corpuscular Volume 92.6 fL (81-99); Mean Platelet Vol. 9.4 fl (6.2-12.0); Monocyte# 0.45 X10^3/uL; Monocyte% 5.8 % (0-10); NRBC Flagged by Analyzer 0 % (0-5); Neutrophil % 85.6 % (47-70); POSITIVE DIFFERENTIAL YES; Platelet Count 182 K/mm3 (150-450); RBC Distribution Width CV 13.2 % (11.6-14.6); RBC Distribution Width SD 45.1 fl (35.1-43.9); Red Blood Count 4.43 M/mm3 (4.2-5.4); White Blood Count 7.7 K/mm3 (4.4-11.0)
[2020-11-08 08:29] LABS: Differential Indicated SCAN CRITERIA MET
[2020-11-08 08:34] LABS: Anion Gap 4 (5-15); BUN 21 mg/dL (7-18); BUN/Creat Ratio 21.9 RATIO (10-20); Chloride 100 mmol/L (98-107); Creatinine, Serum 0.96 mg/dL (0.55-1.02); EST Glomerular Filtration Rate 61 mL/min (>60); Est Glom Filt Rate - Afr Amer 74 mL/min (>60); Estimated Creatinine Clearance 59.43 ml/min; Glucose 109 mg/dL (74-106); Potassium 4.1 mmol/L (3.5-5.1); Sodium Level 133 mmol/L (136-145)
[2020-11-08 08:42] LABS: Differential Comment SCANNED
[2020-11-08 08:43] LABS: Red Cell Morphology NORM C+C NORMAL (NORM C&C)
[2020-11-08 09:09] LABS: D-Dimer Quantitative (DVT/PE) 0.64 FEU/ug/m (0.27-0.49)
--- NOTE | 2020-11-08 09:32 | CT_ITS ---
EXAM: CT CHEST WITHOUT INTRAVENOUS CONTRAST CLINICAL INDICATION: Hypoxemia. Abnormal chest x-ray. TECHNIQUE: Helically acquired images were obtained of the chest without intravenous contrast. This CT exam was performed using one or more of the following dose reduction techniques: automated exposure control, adjustment of the mA and/or kV according to patient size, and/or use of iterative reconstruction technique. This report was created using [employer] report generation technology. COMPARISON: None. FINDINGS: LUNGS AND PLEURAL SPACES: Inhomogeneous lung opacities in both lungs. Mosaic perfusion versus groundglass opacities. No mass. No pleural effusion or thickening. No pneumothorax. HEART: Cardiomegaly. No pericardial effusion. MEDIASTINUM: Unremarkable. No mediastinal or hilar adenopathy. Esophagus is unremarkable. No hiatal hernia. THYROID: Unremarkable. No thyroid lesions. BONES/JOINTS: Unremarkable. No suspicious lytic or blastic abnormality. VASCULATURE: Unremarkable. Thoracic aorta is non-dilated. STOMACH AND BOWEL: Surgical clips in the stomach from prior gastric bypass surgery. CT/Chest without Contrast IMPRESSION: Nonspecific inhomogeneous opacities in both lungs. Mosaic perfusion versus groundglass opacities.. CT chest in the inspiratory and expiratory phases will help determine if there is air trapping on expiratory phase. Electronically Signed: Andrew Sharp MD at 10:14 EDT , Service support ,
[2020-11-08] MEDS: Albuterol 2.5 MG/3 ML VIAL.NEB. INHALATION (10:51)
[2020-11-08] MEDS: Furosemide 40 MG/4 ML Vial IV (11:29)
--- NOTE | 2020-11-08 12:01 | NURSING ---
20 MIN ETA FOR [facility]
[2020-11-08] MEDS: MethylPREDNISolone 125 MG/2 ML Vial IV (12:42)
--- NOTE | 2020-11-08 12:55 | ED.RN ---
this rn called report to [facility] at 1255.
== END 2020-11-08 12:49 | disposition home or self-care (01) ==
PROVIDERS: Emergency Provider Emergency Medicine; PCP Nurse Practitioner Adult Health
DX: J18.9 Pneumonia, unspecified organism (principal); T78.40XA Allergy, unspecified, initial encounter; M79.89 Other specified soft tissue disorders; E78.5 Hyperlipidemia, unspecified; I11.0 Hypertensive heart disease with heart failure; I50.32 Chronic diastolic (congestive) heart failure; J45.909 Unspecified asthma, uncomplicated; I35.0 Nonrheumatic aortic (valve) stenosis; I45.2 Bifascicular block; Z88.2 Allergy status to sulfonamides; Z88.6 Allergy status to analgesic agent; Z88.8 Allergy status to other drugs, medicaments and biological substances; Z98.84 Bariatric surgery status; Z86.16 Personal history of COVID-19
CPT/HCPCS: 71045; 71250; 80048; 83880; 84484; 85025; 85379; 87426; 93005; 94640; 96374; 96375; 99284; A4216; J1940

== ENCOUNTER 2021-09-28 08:12 | Inpatient (IN) | payer MEDICARE, MEDICAID, SELFPAY ==
[2021-09-28] VITALS (16 sets, daily range): BP systolic 138–215; BP diastolic 67–98; PULSE 58–86; RESP 16–30; TEMP 36.2–37.3; O2SAT 86–96; BMI 53.6; BMI 51.5
--- NOTE | 2021-09-28 08:24 | RAD_ITS ---
HISTORY: dyspnea. TECHNIQUE: XR Chest 1 View. # of images incl. paperwork: 1. COMPARISON: 11/08/2020. FINDINGS: CARDIOMEDIASTINAL STRUCTURES: Unchanged with cardiomegaly. LUNGS: Diffuse interstitial opacities. PLEURA: Trace left pleural effusion. OSSEOUS STRUCTURES: Degenerative change. RAD/Chest 1 View (Portable) IMPRESSION: Cardiomegaly with pulmonary edema and mild left pleural effusion. at 0946 Reported and signed by: Roseann Velasco MD Electronically Signed: Roseann Velasco MD at 9:45 EST ,
--- NOTE | 2021-09-28 08:24 | EKG12_ITS ---
Test Reason : SOB Blood Pressure : / mmHG Vent. Rate : 067 BPM Atrial Rate : 067 BPM P-R Int : 196 ms QRS Dur : 150 ms QT Int : 462 ms P-R-T Axes : 049 -67 -39 degrees QTc Int : 488 ms Normal sinus rhythm Left axis deviation Right bundle branch block Voltage criteria for left ventricular hypertrophy T wave abnormality, consider inferior ischemia Abnormal ECG Confirmed by STEVE GR, RIVAS ([id number]), legal editor TORSTEN HANNAH ([id number]) on 09/30/2021 10:59:05 AM Referred By: RAMANDEEP Confirmed By:RIVAS WILSON MD
--- NOTE | 2021-09-28 08:25 | CT_ITS ---
HISTORY: abdominal pain. TECHNIQUE: Helically acquired images were obtained of the abdomen and pelvis without oral or IV contrast. A radiation dose optimization technique was used for this scan. # of images incl. paperwork: 527. COMPARISON: 12/10/2014. CT chest 11/08/2020. FINDINGS: Motion artifact lowers the sensitivity of examination. LUNG BASES: 10 mm pleural-based nodule in the left lower lobe, present on prior CT chest. Cardiomegaly with mild groundglass opacities and septal thickening. BOWEL: Gastric bypass. Bowel nondilated. Appendix not identified. No focal pericolonic inflammatory change observed. PERITONEUM: No significant ascites. LIVER/BILIARY TRACT: Enlarged liver.Gallbladder present. SPLEEN/PANCREAS: Non-enlarged. KIDNEYS AND URETERS: 2 mm nonobstructing left upper pole and renal pelvis calculi. Several 3-4 mm left lower pole calculi without hydronephrosis. No right nephrolithiasis or obstructing ureterolithiasis. ADRENAL GLANDS: No nodules. VESSELS: No abdominal aortic aneurysm. Mild atherosclerosis. Scattered small retroperitoneal lymph nodes. PELVIC ORGANS: Right pelvic surgical clip again seen. Mild presacral edema. BONES: Mild degenerative change. CT/Abdomen/Pelvis without Cont IMPRESSION: Multiple nonobstructing left renal calculi. Cardiomegaly with mild pulmonary edema. 10 mm pleural based left lower lobe pulmonary nodule, stable since 10/2020. Hepatomegaly. Gastric bypass. Individualized dose optimization techniques were used for this CT. at 1033 Reported and signed by: Roseann Velasco MD Electronically Signed: Roseann Velasco MD at 10:32 EST ,
--- NOTE | 2021-09-28 08:26 | EX.ED.DYSGE1 ---
HPI History of Present Illness Chief Complaint: Shortness of Breath Detail of Chief Complaint: Short of breath and stomach upset for several weeks Informant: patient Narrative Narrative: Patient presents to the emergency department via EMS from extended-care facility with complaint of increasing shortness of breath over the last several weeks. Patient complains of exertional dyspnea. She complains of increased weight gain and increased welling in her legs. She denies fever or significant cough. She denies chest pain. Patient also has had a stomach upset for about the same amount of time that has been intermittent. She denies vomiting or diarrhea but she has had some nausea. She denies any blood in her stool or black tarry stool. She denies urinary symptoms. Patient has history of CHF and obstructive sleep apnea. Patient not on home oxygen however per EMS was noted to have a pulse ox of 86% on room air. Patient has had her COVID vaccine but not the booster. Prior similar symptoms: Yes PFSH [facility] Medical History (Updated 09/28/21 @ 10:[address] Julieta Breen, DO) Bifascicular block Bipolar disorder Cellulitis Chronic diastolic (congestive) heart failure Essential hypertension GERD (gastroesophageal reflux disease) HLD (hyperlipidemia) Hypothyroidism Left anterior fascicular block (LAFB) Lymphedema Metabolic encephalopathy Morbid obesity with BMI of 50.0-59.9, adult Non-rheumatic aortic stenosis KAYLA (obstructive sleep apnea) Right bundle branch block (RBBB) Sepsis Type 2 diabetes mellitus without complication Venous (peripheral) insufficiency Home Medications albuterol sulfate 2.5 mg INHALATION Q2H PRN 11/09/15 [History Last Taken Unknown] atorvastatin 10 mg PO QHS 11/09/15 [History Last Taken 10/05/19] folic acid 1 mg PO DAILY@0800 11/09/15 [History Last Taken 10/05/19] furosemide 40 mg PO DAILY 11/09/15 [History Last Taken 10/05/19] levothyroxine 50 mcg PO DAILY 11/09/15 [History Last Taken 10/05/19] tramadol 50 mg PO BID #14 tab 11/12/15 [Rx Last Taken 10/05/19] lamotrigine 100 mg tablet 200 mg PO BID tab 11/18/17 [History Last Taken 10/05/19] montelukast 10 mg tablet 10 mg PO QHS 11/18/17 [History Last Taken 10/05/19] acetaminophen 500 mg tablet 1,000 mg PO BID tab 12/21/17 [History Last Taken 10/05/19] famotidine 20 mg tablet 20 mg PO DAILY tab 12/21/17 [History Last Taken 10/05/19] itbgtbyo-tdi-hdcpw acid 0.4 mg-lycopene 300 mcg-lutein 250 mcg tablet 1 tab PO QDAY 12/21/17 [History Last Taken 10/05/19] potassium chloride 20 mEq tablet,extended release(part/cryst) 20 meq PO BID 12/21/17 [History Last Taken 10/05/19] sucralfate 1 gram tablet 1 g PO TID 12/21/17 [History Last Taken 10/05/19] fluticasone propionate 50 mcg/actuation nasal spray,suspension 2 spray INTRANASAL DAILY 30 Days #16 g 12/20/18 [History Last Taken 10/05/19] budesonide-formoterol 2 puff IH BID 01/24/19 [History Last Taken 10/05/19] risperidone 0.25 mg tablet 1 mg PO QHS tab 02/16/19 [History Last Taken 10/05/19] topiramate 25 mg sprinkle capsule 50 mg PO BID 02/16/19 [History Last Taken 10/05/19] trazodone 50 mg tablet 50 mg PO QHS PRN PRN 02/16/19 [History Last Taken Unknown] metoprolol tartrate 25 mg tablet 100 mg PO BID #60 tab 02/17/19 [History Last Taken 10/05/19] Lactobacillus acidophilus 1 ea PO BID 10/06/19 [History Last Taken 10/05/19] acetaminophen 500 mg PO .QLUNCHSORAIDA 10/06/19 [History Last Taken 10/05/19] alum-mag hydroxide-simeth 30 ml PO Q6H PRN PRN 10/06/19 [History Last Taken Unknown] benzonatate 100 mg PO BID 10/06/19 [History Last Taken Unknown] cetirizine 10 mg PO QHS 10/06/19 [History Last Taken 10/05/19] lansoprazole 30 mg PO DAILY 10/06/19 [History Last Taken 10/05/19] loperamide 2 mg PO Q4H PRN PRN 10/06/19 [History Last Taken Unknown] loratadine 10 mg PO QHS PRN PRN 10/06/19 [History Last Taken Unknown] oxcarbazepine 300 mg PO BID 10/06/19 [History Last Taken 10/05/19] peg [id number] 15 drp EACH EYE Q6H PRN PRN 10/06/19 [History Last Taken Unknown] sennosides 1 tab PO BID PRN PRN 10/06/19 [History Last Taken Unknown] simethicone 1 - 2 tab PO TID PRN PRN 10/06/19 [History Last Taken Unknown] sodium chloride 1 applic RIGHT EYE QHS 10/06/19 [History Last Taken 10/05/19] sodium chloride 2 drp EACHEYE BID 10/06/19 [History Last Taken 10/05/19] solifenacin 10 mg PO DAILY 10/06/19 [History Last Taken 10/05/19] venlafaxine 75 mg PO DAILY 10/06/19 [History Last Taken 10/05/19] albuterol sulfate 1 - 2 puff INHALATION Q4H PRN PRN #1 inhaler 10/08/19 [Rx Last Taken Unknown] prednisone 40 mg PO DAILY #8 tablet 11/08/20 [Rx Last Taken Unknown] dicyclomine 10 mg PO BID 09/28/21 [History Last Taken Unknown] Allergy/AdvReac Type Severity Reaction Status Date / Time benztropine mesylate Allergy Unknown Verified 09/28/21 08:23 [From Cogentin] Salicylates Allergy Unknown Verified 09/28/21 08:23 Sulfa (Sulfonamide Allergy Unknown Verified 09/28/21 08:23 Antibiotics) abacavir AdvReac Unknown Unknown Verified 09/28/21 08:23 aspirin AdvReac Unknown Verified 09/28/21 08:23 bupropion HCl AdvReac Rash Verified 09/28/21 08:23 [From Wellbutrin] prochlorperazine AdvReac Unknown Verified 09/28/21 08:23 prochlorperazine edisylate AdvReac Unknown Verified 09/28/21 08:23 [From Compazine] prochlorperazine maleate AdvReac Unknown Verified 09/28/21 08:23 [From Compazine] Surgical History History of gastric bypass History of skin graft History of tonsillectomy Hx of appendectomy Social History (Updated 05/01/20 @ 16:33 by Alejandra Wheeler PA, PA) Smoking Status: Never smoker alcohol intake: never substance use type: does not use ROS ROS ED Constitutional Constitutional ED: Reports systems reviewed and no addt'l complaints, except as documented; Denies body ache(s), change in weight or chills Eyes Eyes: Denies acute decrease in peripheral vision, change in vision, double vision or loss of vision ENT ENT ED: Reports none; Denies ear pain, lip swelling, loss taste/smell, neck pain, otalgia or sore throat Cardiovascular Cardiovascular: Reports none and orthopnea; Denies abdominal pain, chest pain with activity, leg edema, lightheadedness, palpitations, rapid heart rate or syncope Respiratory/Chest Respiratory/Chest: Reports none, dyspnea, dyspnea on exertion and orthopnea; Denies change in mental status, dry cough, hemoptysis, shortness of breath at rest or shortness of breath with exertion Gastrointestinal Gastrointestinal: Reports none, abdominal pain and nausea; Denies change in stool character, diarrhea, hematemesis, hematochezia, melena, rectal bleeding or vomiting Genitourinary Genitourinary ED: Reports none; Denies abdominal discomfort, anuria, dysuria, genital pain or polyuria Musculoskeletal Musculoskeletal: Reports none and other Details: Leg edema ; Denies arthralgias, back pain, difficulty walking, extremity pain, muscle weakness or myalgias Integumentary Reports none; Denies abscess or rash Neurologic Neurologic: Reports none; Denies abnormal gait, confusion, focal weakness, frequent falls, headache(s), loss of vision, numbness, paresthesias, radicular pain, vertigo or weakness Psychiatric Psychiatric: Reports systems reviewed and no addt'l complaints, except as documented and none; Denies behavioral changes, confusion, difficulty concentrating, hallucinations, suicidal ideation, tactile hallucinations or visual hallucinations Endocrine Endocrinology: Denies none, cold intolerance, excessive sweating, fatigue or heat intolerance Hematologic/Lymphatic Hematologic/Lymphatic: Reports none; Denies anemia, easy bleeding or easy bruising Allergic/Immunologic Allergic/Immunologic ED: Denies as per HPI, none, lip swelling, mouth swelling, throat swelling, tongue swelling or hives EXAM Physical Exam Const Vital Signs: 09/28/21 08:14 09/28/21 09:18 Temperature 98.3 F Temperature Source Temporal Pulse Rate 70 69 Respiratory Rate 16 22 H Respiratory Effort Short of Breath Respiratory Depth Normal Respiratory Pattern Tachypnea Blood Pressure 210/88 H 215/98 H Blood Pressure Mean 128 137 Pulse Ox 94 96 Oxygen Delivery Method Nasal Cannula Nasal Cannula Oxygen Flow Rate (L/min) 5 5 Positive well nourished and well developed General Appearance ED: well developed and NAD HEENT Reports TM's clear and moist mucous membranes normocephalic and atraumatic; Negative for trauma or tenderness Tympanic Membrane ED: Yes TM's clear Eyes PERRL and EOMs intact bilaterally General Eye ED: Negative for pale conjunctiva or scleral icterus Neck no lymphadenopathy, supple and no JVD General: Negative for tenderness Chest Wall inspection of chest normal and palpation of chest normal Chest: Negative for tenderness Resp normal respiratory effort and clear to auscultation bilaterally Resp Narrative: Patient with mild conversational dyspnea. Patient with some Rales in both bases. Effort and Inspection: Negative for respiratory distress or pain with movement Auscultation: rales; Negative for rhonchi, wheezes or diminished lung sounds Cardio regular rate, regular rhythm, S1 normal heart sound, S2 normal heart sound and no murmurs Peripheral Pulses: pulses 2+ throughout GI normal to inspection, nondistended, normoactive bowel sounds, soft to palpation, non-tender, non-distended and no masses Back/Spine no CVA tenderness and no thoracic nor lumbar tenderness Extremity normal to inspection Extremity Narrative: Patient has bilateral lower extremity lymphedema with +3 edema both lower extremities. General Extremety ED: Yes edema General Extremity: edema Neuro oriented x3, CN's II-XII intact bilaterally, no sensory deficits noted and gait normal Sensorium / Orientation: awake, alert, oriented to person, oriented to place and oriented to time Motor Exam: strength 5/5 throughout and strength abnormal Psych mental status grossly normal Skin no rashes or lesions noted and no wounds MDM MDM MDM Narrative Medical decision making narrative: IV line established on arrival. Chest x-ray showed pulmonary edema and pleural effusions. I ordered Lasix 80 mg IV. Chemistries and other lab work unremarkable other than an elevated BNP of 521. CT scan of the abdomen pelvis essentially unremarkable. Patient had an inch of Nitropaste placed to the anterior chest wall. Case discussed with hospitalist will evaluate patient for admission. Lab Data Attestation: I reviewed the patient's lab results. Labs: Laboratory Results - last 24 hr 09/28/21 09/28/21 09/28/21 08:40 08:40 08:40 WBC 4.4 RBC 4.95 Hgb 12.9 Hct 41.5 MCV 83.8 MCH 26.1 L MCHC 31.1 L RDW Std Deviation 52.9 H RDW Coeff of Mago 17.5 H Plt Count 160 MPV 8.5 Immature Gran % (Auto) 0.700 Neut % (Auto) 80.1 H Lymph % (Auto) 9.8 L [place] % (Auto) 7.3 Eos % (Auto) 1.6 Baso % (Auto) 0.5 Absolute Neuts (auto) 3.5 Absolute Lymphs (auto) 0.43 L Nucleated RBC % 0 Sodium 138 Potassium 4.1 Chloride 104 Carbon Dioxide 30.0 Anion Gap 4 L BUN 16 Creatinine 0.88 Estim Creat Clear Calc 63.94 Est GFR (MDRD) Af Amer 82 Est GFR (MDRD) Non-Af 68 BUN/Creatinine Ratio 18.1 Glucose 115 H Calcium 9.0 Total Bilirubin 0.50 AST 13 L ALT 17 Alkaline Phosphatase 113 Troponin I High Sens 19 B-Natriuretic Peptide 521.2 H Total Protein 7.7 Albumin 3.4 Globulin 4.3 H Albumin/Globulin Ratio 0.8 L Lipase 32 L Urine Color Urine Clarity Urine pH Ur Specific [place] Urine Protein Urine Glucose (UA) Urine Ketones Urine Occult Blood Urine Nitrite Urine Bilirubin Urine Urobilinogen Ur Leukocyte Esterase Urine RBC Urine WBC Ur Squamous Epith Cells Urine Bacteria Urine Mucus 09/28/21 09:11 WBC RBC Hgb Hct MCV MCH MCHC RDW Std Deviation RDW Coeff of Mago Plt Count MPV Immature Gran % (Auto) Neut % (Auto) Lymph % (Auto) [place] % (Auto) Eos % (Auto) Baso % (Auto) Absolute Neuts (auto) Absolute Lymphs (auto) Nucleated RBC % Sodium Potassium Chloride Carbon Dioxide Anion Gap BUN Creatinine Estim Creat Clear Calc Est GFR (MDRD) Af Amer Est GFR (MDRD) Non-Af BUN/Creatinine Ratio Glucose Calcium Total Bilirubin AST ALT Alkaline Phosphatase Troponin I High Sens B-Natriuretic Peptide Total Protein Albumin Globulin Albumin/Globulin Ratio Lipase Urine Color Yellow Urine Clarity Clear Urine pH 8.0 Ur Specific [place] 1.010 Urine Protein Negative Urine Glucose (UA) Normal Urine Ketones Negative Urine Occult Blood 250 H Urine Nitrite Negative Urine Bilirubin Negative Urine Urobilinogen Normal Ur Leukocyte Esterase Negative Urine RBC 10-25 SEEN Urine WBC 0 SEEN Ur Squamous Epith Cells 0 SEEN Urine Bacteria RARE Urine Mucus 0 SEEN Radiography Chest X-Ray - ED: 1 View Diagnostic Testing: Clinical Impression(s) from Imaging Studies Chest X-Ray 09/28/21 08:24 IMPRESSION: Cardiomegaly with pulmonary edema and mild left pleural effusion. at 0946 Reported and signed by: Roseann Velasco MD Electronically Signed: Roseann Velasco MD at 9:45 EST , Abdomen/Pelvis CT 09/28/21 08:25 IMPRESSION: Multiple nonobstructing left renal calculi. Cardiomegaly with mild pulmonary edema. 10 mm pleural based left lower lobe pulmonary nodule, stable since 10/2020. Hepatomegaly. Gastric bypass. Individualized dose optimization techniques were used for this CT. at 1033 Reported and signed by: Roseann Velasco MD Electronically Signed: Roseann Velasco MD at 10:32 EST , One view chest x-ray obtained interpreted by myself is cardiomegaly with pulmonary congestion and small bilateral pleural effusions. Radiology essentially in agreement. EKG Initial EKG: Attestation: I personally reviewed and interpreted this EKG as follows: Comments: Sinus rhythm with a rate of 67 bpm with right bundle branch block and nonspecific ST changes. Prior EKG tracings: available for review Prior: Unchanged Discharge Plan Triage Chief Complaint: Shortness of Breath ED Provider: Julieta Breen Dx/Rx/DC Orders Clinical Impression: CHF (congestive heart failure), Acute respiratory failure with hypoxemia Prescriptions: No Action potassium chloride 20 mEq tablet,ER particles/crystals 20 meq PO BID RF: 0 acetaminophen 500 mg tablet 1,000 mg PO BID RF: 0 sucralfate 1 gram tablet 1 g PO TID RF: 0 mfosaefe-auy-WX-lycopen-lutein [Centrum Silver] 0.4-300-250 mg-mcg-mcg tablet 1 tab PO QDAY RF: 0 lamotrigine 100 mg tablet 200 mg PO BID RF: 0 montelukast [Singulair] 10 mg tablet 10 mg PO QHS RF: 0 famotidine [Pepcid] 20 mg tablet 20 mg PO DAILY RF: 0 fluticasone propionate 50 mcg/actuation spray,suspension 2 spray INTRANASAL DAILY 30 Days Qty: 16 RF: 0 metoprolol tartrate 25 mg tablet 100 mg PO BID Qty: 60 RF: 0 risperidone 0.25 mg tablet 1 mg PO QHS RF: 0 trazodone 50 mg tablet 50 mg PO QHS PRN PRN (Reason: Sleep) RF: 0 topiramate [Topamax] 25 mg capsule, sprinkle 50 mg PO BID RF: 0 atorvastatin 10 MG tablet 10 mg PO QHS RF: 0 furosemide 40 MG tablet 40 mg PO DAILY RF: 0 levothyroxine 50 MCG tablet 50 mcg PO DAILY RF: 0 folic acid 1 MG tablet 1 mg PO DAILY@0800 RF: 0 albuterol sulfate 2.5 MG/3 ML solution for nebulization 2.5 mg INHALATION Q2H PRN (Reason: Sob &/Or Wheezing) RF: 0 tramadol 50 MG tablet 50 mg PO BID Qty: 14 RF: 0 budesonide-formoterol 6 GM HFA aerosol inhaler 2 puff IH BID RF: 0 Lactobacillus acidophilus 1 EACH capsule 1 ea PO BID RF: 0 sodium chloride 1 DROP drops 2 drp EACHEYE BID RF: 0 sennosides 1 TABLET tablet 1 tab PO BID PRN PRN (Reason: constipation ) RF: 0 loperamide 2 MG capsule 2 mg PO Q4H PRN PRN (Reason: Diarrhea) RF: 0 cetirizine 10 MG tablet 10 mg PO QHS RF: 0 simethicone 180 MG capsule 1 - 2 tab PO TID PRN PRN (Reason: Indigestion) RF: 0 oxcarbazepine 300 MG tablet 300 mg PO BID RF: 0 sodium chloride 1 APPLIC ointment 1 applic RIGHT EYE QHS RF: 0 benzonatate 100 MG capsule 100 mg PO BID RF: 0 lansoprazole 30 MG capsule 30 mg PO DAILY RF: 0 solifenacin 10 MG tablet 10 mg PO DAILY RF: 0 loratadine 10 MG capsule 10 mg PO QHS PRN PRN (Reason: Allergies) RF: 0 venlafaxine 75 MG capsule 75 mg PO DAILY RF: 0 acetaminophen 500 MG tablet 500 mg PO .QLUNCHANDDINNER RF: 0 alum-mag hydroxide-simeth 30 ML suspension 30 ml PO Q6H PRN PRN (Reason: Heartburn Or Indigestion) RF: 0 peg [id number]-scwilbfe 1 DROP bottle 15 drp EACH EYE Q6H PRN PRN (Reason: Dry Eyes) RF: 0 albuterol sulfate 1 PUFF inhaler 1 - 2 puff inhalation Q4H PRN PRN (Reason: Shortness Of Breath) Qty: 1 RF: 0 prednisone 20 MG tablet 40 mg PO DAILY Qty: 8 RF: 0 dicyclomine 10 mg capsule 10 mg PO BID RF: 0 Primary Care Provider: Shelia Whitten PATIENT TRANSPORTATION DRIVER Referrals: Shelia Whitten PATIENT TRANSPORTATION DRIVER, PATIENT TRANSPORTATION DRIVER-C [Primary Care Provider] - Disposition Disposition: Acute Care [facility]
[2021-09-28 09:13] LABS: Absolute Lymphocyte Count 0.43 X10^3/uL (0.83-4.51); Absolute Neutrophil Count 3.5 X10^3/uL (2.0-7.7); Basophil# 0.02 X10^3/uL; Basophil% 0.5 % (0-1); Eosinophil# 0.07 X10^3/uL; Eosinophils% 1.6 % (0-5); Hematocrit 41.5 % (37-47); Hemoglobin 12.9 g/dL (12.0-15.0); Lymphocyte # 0.43 X10^3/ul (0.83-4.51); Lymphocyte % 9.8 % (19-41); Mean Corp Hgb Conc 31.1 g/dL (32-36); Mean Corpuscular Hgb 26.1 pg (27.0-32.0); Mean Corpuscular Volume 83.8 fL (81-99); Mean Platelet Vol. 8.5 fl (6.2-12.0); Monocyte# 0.32 X10^3/uL; Monocyte% 7.3 % (0-10); NRBC Flagged by Analyzer 0 % (0-5); Neutrophil # 3.54 X10^3/uL (2.7-7.7); Neutrophil % 80.1 % (47-70); POSITIVE DIFFERENTIAL YES; Platelet Count 160 K/mm3 (150-450); RBC Distribution Width CV 17.5 % (11.6-14.6); RBC Distribution Width SD 52.9 fl (35.1-43.9); Red Blood Count 4.95 M/mm3 (4.2-5.4); White Blood Count 4.4 K/mm3 (4.4-11.0)
[2021-09-28 09:14] LABS: Differential Indicated SCAN CRITERIA MET
[2021-09-28 09:29] LABS: Mucous, Urine 0 SEEN /hpf (<or=2+); Squamous Epithelial Cells - UA 0 SEEN /hpf (5-10); White Blood Cells 0 SEEN /hpf (0-5)
[2021-09-28 09:30] LABS: BNP,B-Type NATRIURETIC PEPTIDE 521.2 pg/mL (0-100)
[2021-09-28 09:32] LABS: Color, Urine Yellow (Yellow); Glucose, Dipstick Normal (Normal); Ketone-Dipstick Negative (Negative); Leukocyte Esterase-Dipstick Negative /ul (Negative); Nitrite-Dipstick Negative (Negative); Occult Blood-Urine 250 /ul (Negative); Protein-Dipstick Negative (Negative); Urine Bilirubin Dipstick Negative (Negative); Urine Clarity Clear (Clear); Urine Urobilinogen Normal (Normal)
[2021-09-28 09:35] LABS: ALB/GLOB Ratio 0.8 RATIO (0.9-2.4); AST(SGOT) 13 U/L (15-37); Alanine Aminotransfer ALT/SGPT 17 U/L (13-56); Albumin, Serum 3.4 g/dL (3.2-5.0); Alkaline Phosphatase 113 U/L (45-117); Anion Gap 4 (5-15); BUN 16 mg/dL (7-18); BUN/Creat Ratio 18.1 RATIO (10-20); Chloride 104 mmol/L (98-107); Creatinine, Serum 0.88 mg/dL (0.55-1.02); EST Glomerular Filtration Rate 68 mL/min (>60); Est Glom Filt Rate - Afr Amer 82 mL/min (>60); Estimated Creatinine Clearance 63.94 ml/min; Globulin 4.3 g/dL (2.2-4.2); Glucose 115 mg/dL (74-106); Lipase 32 U/L (73-393); Potassium 4.1 mmol/L (3.5-5.1); Protein, Total 7.7 g/dL (6.4-8.2); Sodium Level 138 mmol/L (136-145); Troponin-I HS 19 pg/mL (3.0-54.0)
[2021-09-28 09:52] LABS: Bacteria RARE /hpf (None Seen); Red Blood Cells-Urine 10-25 SEEN /hpf (0-5)
[2021-09-28] MEDS: Furosemide 100 MG/10 ML Vial 80 MG IV (10:56)
[2021-09-28] MEDS: Nitroglycerin Oint 1 INCH PACKET TD (10:56)
--- NOTE | 2021-09-28 11:01 | ECHOD_ITS ---
Reason For Study: CHF Procedure This was a 2D Doppler, Color Flow transthoracic echocardiogram. Exam performed portable in patient room. Left Ventricle Normal LV size. Left ventricular systolic function is normal. The estimated ejection fraction is 55 %. Stage 1 diastolic dysfunction. No regional wall motion abnormalities noted. Right Ventricle Normal RV size. Normal systolic function. Mitral Valve There is mild mitral annular calcification. Mild (1+) mitral valve insufficiency. Tricuspid Valve Normal tricuspid valve. Moderate (2+) tricuspid valve insufficiency. Pulmonary artery systolic pressure is 66 mmHg. Aortic Valve Trisinus/trileaflet aortic valve. Moderate focal aortic valve calcification. Peak aortic valve gradient 45 mmHg. Mean aortic valve gradient 28 mmHg. Mild aortic stenosis. Pulmonic Valve Normal pulmonic valve. Great Vessels Normal aortic root. The pulmonary artery is normal size. Normal inferior vena cava. Pericardium/Pleural No pericardial effusion. MMode/2D Measurements & Calculations LVIDd: 5.4 cm IVSd: 1.4 cm LVOT diam: 2.1 cm LVIDs: 3.0 cm LVPWd: 1.2 cm LVOT area: 3.4 cm2 RVDd: 4.9 cm FS: 44.3 % Ao root diam: 3.9 cm LAV(MOD-bp): 76.8 ml LA A4 area: 23.9 cm2 LAV(MOD-bp) Indexed: 28.9 ml/m2 LAV(MOD-sp2): 67.1 ml LAV(MOD-sp4): 76.2 ml LA dimension(2D): 4.0 cm RA A4 area: 15.9 cm2 Doppler Measurements & Calculations MV E max travon: 103.5 cm/sec Lat Peak E' Travon: 8.8 cm/sec Med Peak E' Travon: 6.1 cm/sec MV A max travon: 132.2 cm/sec E/E' lat: 11.7 E/E' med: 16.9 MV E/A: 0.78 MV V2 max: 139.8 cm/sec Ao V2 max: 334.5 cm/sec LV V1 max: 158.4 cm/sec MV max P.8 mmHg Ao max P.8 mmHg LV V1 max P.0 mmHg MV V2 mean: 96.8 cm/sec Ao V2 mean: 249.9 cm/sec LV V1 mean P.6 mmHg MV mean P.0 mmHg Ao mean P.3 mmHg LV V1 mean: 123.7 cm/sec MV V2 VTI: 35.0 cm Ao V2 VTI: 70.9 cm LV V1 VTI: 34.3 cm MVA(VTI): 3.3 cm2 TANMAY(I,D): 1.7 cm2 TANMAY(V,D): 1.6 cm2 SV(LVOT): 117.0 ml PA V2 max: 150.9 cm/sec TR max travon: 396.6 cm/sec TR max P.9 mmHg ECHO/Echo Complete Interpretation Summary Normal LV size. Left ventricular systolic function is normal. The estimated ejection fraction is 55 %. There is mild mitral annular calcification. Mild (1+) mitral valve insufficiency. Stage 1 diastolic dysfunction. Pulmonary artery systolic pressure is 66 mmHg. Moderate focal aortic valve calcification. Mean aortic valve gradient 28 mmHg. Mild aortic stenosis. Ordering Physician: Raphael Scott Referring Physician: Shelia Whitten Performed By: Noemi Guzman, MELANY, RVT
--- NOTE | 2021-09-28 11:11 | HP.PCM.HOS_ITS ---
HPI - General General Date of Admission: 09/28/21 Date of Service: 09/28/21 Chief Complaint: Shortness of breath and abdominal pain HPI Narrative CYN WILSON, is a 70 F with multiple comorbidities who presents with progressive shortness of breath. Patient symptoms have been ongoing for the past couple of weeks. He has also noticed increasing swelling involving both lower extremity as well as easy fatigability and exertional dyspnea. Patient did call the EMS squad in view of worsening symptoms. She was found to have oxygen saturation of 83% on room air placed on supplemental oxygen and brought to the ED. As part of evaluation for her abdominal pain she underwent CT of the abdomen and pelvis which was unremarkable. An assessment of acute congestive heart failure made admitted to a monitored bed for subsequent management. [facility] Medical History Bifascicular block Bipolar disorder Cellulitis Chronic diastolic (congestive) heart failure Essential hypertension GERD (gastroesophageal reflux disease) HLD (hyperlipidemia) Hypothyroidism Left anterior fascicular block (LAFB) Lymphedema Metabolic encephalopathy Morbid obesity with BMI of 50.0-59.9, adult Non-rheumatic aortic stenosis KAYLA (obstructive sleep apnea) Right bundle branch block (RBBB) Sepsis Type 2 diabetes mellitus without complication Venous (peripheral) insufficiency Home Medications albuterol sulfate 2.5 mg INHALATION Q2H PRN 11/09/15 [History Last Taken Unknown] atorvastatin 10 mg PO QHS 11/09/15 [History Last Taken 10/05/19] folic acid 1 mg PO DAILY@0800 11/09/15 [History Last Taken 10/05/19] furosemide 40 mg PO DAILY 11/09/15 [History Last Taken 10/05/19] levothyroxine 50 mcg PO DAILY 11/09/15 [History Last Taken 10/05/19] tramadol 50 mg PO BID #14 tab 11/12/15 [Rx Last Taken 10/05/19] lamotrigine 100 mg tablet 200 mg PO BID tab 11/18/17 [History Last Taken 10/05/19] montelukast 10 mg tablet 10 mg PO QHS 11/18/17 [History Last Taken 10/05/19] acetaminophen 500 mg tablet 1,000 mg PO BID tab 12/21/17 [History Last Taken 10/05/19] famotidine 20 mg tablet 20 mg PO DAILY tab 12/21/17 [History Last Taken 10/05/19] icwzucoz-bcn-ufabv acid 0.4 mg-lycopene 300 mcg-lutein 250 mcg tablet 1 tab PO QDAY 12/21/17 [History Last Taken 10/05/19] potassium chloride 20 mEq tablet,extended release(part/cryst) 20 meq PO BID 12/21/17 [History Last Taken 10/05/19] sucralfate 1 gram tablet 1 g PO TID 12/21/17 [History Last Taken 10/05/19] fluticasone propionate 50 mcg/actuation nasal spray,suspension 2 spray INTRANASAL DAILY 30 Days #16 g 12/20/18 [History Last Taken 10/05/19] budesonide-formoterol 2 puff IH BID 01/24/19 [History Last Taken 10/05/19] risperidone 0.25 mg tablet 1 mg PO QHS tab 02/16/19 [History Last Taken 10/05/19] topiramate 25 mg sprinkle capsule 50 mg PO BID 02/16/19 [History Last Taken 10/05/19] trazodone 50 mg tablet 50 mg PO QHS PRN PRN 02/16/19 [History Last Taken Unknown] metoprolol tartrate 25 mg tablet 100 mg PO BID #60 tab 02/17/19 [History Last Taken 10/05/19] Lactobacillus acidophilus 1 ea PO BID 10/06/19 [History Last Taken 10/05/19] acetaminophen 500 mg PO .QLUNCHANDDINNER 10/06/19 [History Last Taken 10/05/19] alum-mag hydroxide-simeth 30 ml PO Q6H PRN PRN 10/06/19 [History Last Taken Unknown] benzonatate 100 mg PO BID 10/06/19 [History Last Taken Unknown] cetirizine 10 mg PO QHS 10/06/19 [History Last Taken 10/05/19] lansoprazole 30 mg PO DAILY 10/06/19 [History Last Taken 10/05/19] loperamide 2 mg PO Q4H PRN PRN 10/06/19 [History Last Taken Unknown] loratadine 10 mg PO QHS PRN PRN 10/06/19 [History Last Taken Unknown] oxcarbazepine 300 mg PO BID 10/06/19 [History Last Taken 10/05/19] peg 450-[id number] 15 drp EACH EYE Q6H PRN PRN 10/06/19 [History Last Taken Unknown] sennosides 1 tab PO BID PRN PRN 10/06/19 [History Last Taken Unknown] simethicone 1 - 2 tab PO TID PRN PRN 10/06/19 [History Last Taken Unknown] sodium chloride 1 applic RIGHT EYE QHS 10/06/19 [History Last Taken 10/05/19] sodium chloride 2 drp EACHEYE BID 10/06/19 [History Last Taken 10/05/19] solifenacin 10 mg PO DAILY 10/06/19 [History Last Taken 10/05/19] venlafaxine 75 mg PO DAILY 10/06/19 [History Last Taken 10/05/19] albuterol sulfate 1 - 2 puff INHALATION Q4H PRN PRN #1 inhaler 10/08/19 [Rx Last Taken Unknown] prednisone 40 mg PO DAILY #8 tablet 11/08/20 [Rx Last Taken Unknown] dicyclomine 10 mg PO BID 09/28/21 [History Last Taken Unknown] Allergy/AdvReac Type Severity Reaction Status Date / Time benztropine mesylate Allergy Unknown Verified 09/28/21 08:23 [From Cogentin] Salicylates Allergy Unknown Verified 09/28/21 08:23 Sulfa (Sulfonamide Allergy Unknown Verified 09/28/21 08:23 Antibiotics) abacavir AdvReac Unknown Unknown Verified 09/28/21 08:23 aspirin AdvReac Unknown Verified 09/28/21 08:23 bupropion HCl AdvReac Rash Verified 09/28/21 08:23 [From Wellbutrin] prochlorperazine AdvReac Unknown Verified 09/28/21 08:23 prochlorperazine edisylate AdvReac Unknown Verified 09/28/21 08:23 [From Compazine] prochlorperazine maleate AdvReac Unknown Verified 09/28/21 08:23 [From Compazine] Family History Father No problems noted. Surgical History History of gastric bypass History of skin graft History of tonsillectomy Hx of appendectomy Social History Smoking Status: Never smoker alcohol intake: never substance use type: does not use ROS ROS Narrative GENERAL: denies fever, chills, HEENT: denies headache, sinus congestion, or drainage, RESPIRATORY: shortness of breath, dyspnea on exertion CARDIAC orthopnea, PND GASTROINTESTINAL: denies abdominal pain, nausea GENITOURINARY: denies dysuria, urgency, frequency, EXTREMITY: denies swelling MUSCULOSKELETAL: denies current joint pain NEUROLOGIC: denies focal numbness, weakness, tingling HEMATOLOGIC: denies easy bruising and/or hemorrhage INTEGUMENT: denies rashes PSYCHIATRIC: denies suicidal or homicidal ideation Vital Signs Vital Signs Vital Signs: 09/28/21 08:14 09/28/21 09:18 09/28/21 10:42 Temperature 98.3 F Temperature Source Temporal Pulse Rate 70 69 72 Respiratory Rate 16 22 H 16 Respiratory Effort Short of Breath Respiratory Depth Normal Respiratory Pattern Tachypnea Blood Pressure 210/88 H 215/98 H 203/98 H Blood Pressure Mean 128 137 133 Pulse Ox 94 96 94 Oxygen Delivery Method Nasal Cannula Nasal Cannula Nasal Cannula Oxygen Flow Rate (L/min) 5 5 4 09/28/21 10:56 09/28/21 11:04 Temperature 98.1 F Temperature Source Temporal Pulse Rate 70 71 Respiratory Rate 30 H Respiratory Effort Respiratory Depth Respiratory Pattern Blood Pressure 203/98 H 188/87 H Blood Pressure Mean 120 Pulse Ox 95 Oxygen Delivery Method Nasal Cannula Oxygen Flow Rate (L/min) 4 Weight Weight: 164.6 kg Body Mass Index (BMI) 53.6 Physical Exam Narrative GENERAL: cooperative HEENT: Atraumatic; EYES; Anicteric, Normal Conjunctiva NECK; supple, normal thyroid, RESPIRATORY: Diminished to auscultation CARDIOVASCULAR: Regular S1 S2, GI: soft, normoactive bowel sounds, : No Renal angle tenderness; EXTREMITIES: Bipedal edema with significant bilateral stasis dermatitis MUSCULOSKELETAL: no muscle wasting NEURO: Awake; no lateralizing signs. SKIN: Bilateral lower extremity stasis dermatitis PSYCH; Flat affect Results Lab / Micro Data Result Diagrams: 09/28/21 08:40 09/28/21 08:40 Labs: Laboratory Results - last 24 hr 09/28/21 08:40: WBC 4.4, RBC 4.95, Hgb 12.9, Hct 41.5, MCV 83.8, MCH 26.1 L, MCHC 31.1 L, RDW Std Deviation 52.9 H, RDW Coeff of Mago 17.5 H, Plt Count 160, MPV 8.5, Immature Gran % (Auto) 0.700, Neut % (Auto) 80.1 H, Lymph % (Auto) 9.8 L, [place] % (Auto) 7.3, Eos % (Auto) 1.6, Baso % (Auto) 0.5, Absolute Neuts (auto) 3.5, Absolute Lymphs (auto) 0.43 L, Nucleated RBC % 0 09/28/21 08:40: Sodium 138, Potassium 4.1, Chloride 104, Carbon Dioxide 30.0, Anion Gap 4 L, BUN 16, Creatinine 0.88, Estim Creat Clear Calc 63.94, Est GFR (MDRD) Af Amer 82, Est GFR (MDRD) Non-Af 68, BUN/Creatinine Ratio 18.1, Glucose 115 H, Calcium 9.0, Total Bilirubin 0.50, AST 13 L, ALT 17, Alkaline Phosphatase 113, Troponin I High Sens 19, Total Protein 7.7, Albumin 3.4, Globulin 4.3 H, Albumin/Globulin Ratio 0.8 L, Lipase 32 L 09/28/21 08:40: B-Natriuretic Peptide 521.2 H 09/28/21 09:11: Urine Color Yellow, Urine Clarity Clear, Urine pH 8.0, Ur Specific [place] 1.010, Urine Protein Negative, Urine Glucose (UA) Normal, Urine Ketones Negative, Urine Occult Blood 250 H, Urine Nitrite Negative, Urine Bilirubin Negative, Urine Urobilinogen Normal, Ur Leukocyte Esterase Negative, Urine RBC 10-25 SEEN, Urine WBC 0 SEEN, Ur Squamous Epith Cells 0 SEEN, Urine Bacteria RARE, Urine Mucus 0 SEEN Micro: Microbiology 09/28/21 08:40 Nasal Secretion SARS-CoV-2 Antigen (Rapid) - Final 09/28/21 08:36 Mucosa - Nasopharyngeal Influenza Types A,B Direct FA (JEREMIAH) - Final Radiology Impression Chest X-Ray 09/28/21 08:24 IMPRESSION: Cardiomegaly with pulmonary edema and mild left pleural effusion. at 0946 Reported and signed by: Roseann Velasco MD Electronically Signed: Roseann Velasco MD at 9:45 EST , Abdomen/Pelvis CT 09/28/21 08:25 IMPRESSION: Multiple nonobstructing left renal calculi. Cardiomegaly with mild pulmonary edema. 10 mm pleural based left lower lobe pulmonary nodule, stable since 10/2020. Hepatomegaly. Gastric bypass. Individualized dose optimization techniques were used for this CT. at 1033 Reported and signed by: Roseann Velasco MD Electronically Signed: Roseann Velasco MD at 10:32 EST , Assessment & Plan Assessment/Plan (1) CHF (congestive heart failure): PLAN: Patient is a 70-year-old lady presented with progressive shortness of breath 1. Acute congestive heart failure ?Suspected to be secondary to CHF with preserved ejection fraction. Patient has been admitted to a monitored bed currently being managed with fluid restriction, strict input and output, daily weight as well as IV Lasix 2. Acute hypertensive urgency ?Patient blood pressure on admission was 188/87 did resume home medication in addition to hydralazine. Patient was started on Nitropaste in the ED did continue. Patient response to therapy being monitored with serial vitals 3. Diabetes mellitus type 2 ?Currently managed with diet 4. GERD ?Patient is on both H2 blockers as well as PPI did continue 5. COPD ?With acute exacerbation aerosol treatments as needed 6. Class III obesity with BMI of 53.6 ?Weight loss advised 7. Bipolar disorder ?Did continue with home meds including Lamictal 8. Hypothyroidism - Patient is on levothyroxine home dose continued 9. Obstructive sleep apnea ?CPAP therapy at night 10. Bilateral lower extremity stasis dermatitis ?Consult placed wound care nurse 11. DVT prophylaxis ?Lovenox 40 mg SC twice daily Advance planning; did discuss with the patient regarding advanced directives as well as CODE STATUS. Did explain the various scenarios involved ( FULL CODE, DNR CCA, DNR CCA with no intubation, and DNR CC and what each meant) patient elected remain full code with CPR and intubation if needed. order was placed. Time spent on discussion 18 minutes. Charges/Coding Visit Charges Inpatient E&M: 49347 Init Hosp L3 Procedures Hospitalists Procedures: 22206 Advncd Care Plan 30 Min
[2021-09-28] MEDS: Acetaminophen 500 MG Tablet 1000 MG PO ×2 (13:58→21:19)
[2021-09-28] MEDS: Dicyclomine 10 MG Capsule PO (17:05)
[2021-09-28] MEDS: Potassium Chloride Oral Tablet 20 MEQ PO (17:05)
[2021-09-28] MEDS: Sucralfate 1 GM Tablet PO (17:06)
[2021-09-28] MEDS: Metoprolol Tartrate 100 MG Tablet PO (17:24)
[2021-09-28] MEDS: Albuterol 2.5 MG/3 ML VIAL.NEB. INHALATION (19:17)
[2021-09-28] MEDS: Budesonide Respules 0.5 MG/2 ML AMPUL.NEB. INHALATION (19:18)
[2021-09-28] MEDS: RisperiDONE 1 MG Tablet PO (21:18)
[2021-09-28] MEDS: lamoTRIgine 100 MG Tablet 200 MG PO (21:18)
[2021-09-28] MEDS: Loratadine 10 MG Tablet PO (21:19)
[2021-09-28] MEDS: Topiramate 50 MG Tablet PO (21:19)
[2021-09-28] MEDS: Furosemide 40 MG/4 ML Vial IV (21:19)
[2021-09-28] MEDS: Enoxaparin 40 MG/0.4 ML Syringe SC (21:19)
[2021-09-28] MEDS: Nystatin Powder 15gm Bottle 1 APPLIC TOPICAL (21:20)
[2021-09-28] MEDS: Montelukast 10 MG Tablet PO (21:20)
[2021-09-28] MEDS: OXcarbazepine 300 MG Tablet PO (21:21)
[2021-09-28] MEDS: Benzonatate 100 MG Capsule PO (21:21)
[2021-09-28] MEDS: Atorvastatin Calcium 10 MG Tablet PO (21:21)
[2021-09-28] MEDS: 0.9% Saline Lock 10 ML Syringe IV (21:22)
[2021-09-28] MEDS: traMADol 50 MG Tablet PO (21:42)
[2021-09-29] VITALS (17 sets, daily range): BP systolic 132–175; BP diastolic 57–104; PULSE 70–96; RESP 18–28; TEMP 36.7–37.3; O2SAT 87–99
[2021-09-29] MEDS: Levothyroxine 50 MCG Tablet PO (05:47)
[2021-09-29] MEDS: Acetaminophen 500 MG Tablet 1000 MG PO ×3 (05:47→21:34)
[2021-09-29] MEDS: Sucralfate 1 GM Tablet PO ×3 (05:47→16:23)
[2021-09-29] MEDS: Dicyclomine 10 MG Capsule PO ×2 (05:48→16:23)
[2021-09-29] MEDS: Furosemide 40 MG/4 ML Vial IV ×3 (05:48→21:38)
[2021-09-29 06:36] LABS: Absolute Lymphocyte Count 0.44 X10^3/uL (0.83-4.51); Absolute Neutrophil Count 3.3 X10^3/uL (2.0-7.7); Basophil# 0.02 X10^3/uL; Basophil% 0.5 % (0-1); Eosinophil# 0.08 X10^3/uL; Eosinophils% 1.9 % (0-5); Hemoglobin 11.7 g/dL (12.0-15.0); Lymphocyte # 0.44 X10^3/ul (0.83-4.51); Lymphocyte % 10.4 % (19-41); Mean Corp Hgb Conc 29.3 g/dL (32-36); Mean Corpuscular Hgb 25.3 pg (27.0-32.0); Mean Corpuscular Volume 86.6 fL (81-99); Mean Platelet Vol. 8.7 fl (6.2-12.0); Monocyte% 9.5 % (0-10); NRBC Flagged by Analyzer 0 % (0-5); Neutrophil # 3.26 X10^3/uL (2.7-7.7); Neutrophil % 77.2 % (47-70); POSITIVE DIFFERENTIAL YES; Platelet Count 150 K/mm3 (150-450); RBC Distribution Width CV 17.5 % (11.6-14.6); RBC Distribution Width SD 55.2 fl (35.1-43.9); Red Blood Count 4.62 M/mm3 (4.2-5.4); White Blood Count 4.2 K/mm3 (4.4-11.0)
[2021-09-29 06:46] LABS: Differential Indicated SCAN CRITERIA MET
[2021-09-29 06:49] LABS: Differential Comment SCANNED
[2021-09-29] MEDS: Albuterol 2.5 MG/3 ML VIAL.NEB. INHALATION ×3 (06:57→19:21)
[2021-09-29] MEDS: Budesonide Respules 0.5 MG/2 ML AMPUL.NEB. INHALATION ×2 (06:57→19:21)
[2021-09-29 07:16] LABS: AST(SGOT) 15 U/L (15-37); Alanine Aminotransfer ALT/SGPT 13 U/L (13-56); Alkaline Phosphatase 99 U/L (45-117); Anion Gap 6 (5-15); BUN 11 mg/dL (7-18); BUN/Creat Ratio 14.6 RATIO (10-20); Bilirubin, Direct 0.18 mg/dL (0.00-0.30); Calcium,Total 8.7 mg/dL (8.5-10.1); Chloride 104 mmol/L (98-107); Creatinine, Serum 0.75 mg/dL (0.55-1.02); EST Glomerular Filtration Rate 81 mL/min (>60); Est Glom Filt Rate - Afr Amer 98 mL/min (>60); Estimated Creatinine Clearance 54.32 ml/min; Globulin 3.8 g/dL (2.2-4.2); Glucose 97 mg/dL (74-106); Magnesium 2.1 mg/dL (1.6-2.6); Potassium 3.5 mmol/L (3.5-5.1); Protein, Total 6.8 g/dL (6.4-8.2); Sodium Level 139 mmol/L (136-145)
--- NOTE | 2021-09-29 07:48 | PN.HOSP_ITS ---
Subjective Subjective Follow-up on acute CHF/hypertensive urgency: Patient was seen and examined. Denied any new complaint. She has been diuresing a lot. Currently on 4 L of oxygen Objective Data Objective Data Vital Signs: Vital Signs Temp Pulse Resp BP Pulse Ox 98.2 F 80 24 H 175/69 H 91 09/29/21 04:05 09/29/21 07:00 09/29/21 06:57 09/29/21 05:44 09/29/21 06:57 Oxygen Flow Rate (L/min) 5 Oxygen Delivery Method Nasal Cannula Weight: 153.4 kg Body Mass Index (BMI) 51.5 Intake & Output: Intake and Output for Last 24 Hours 09/27/21 09/28/21 09/29/21 23:59 23:59 23:59 Intake Total 180 / 180 60 / 60 Output Total 4200 / 4200 700 / 700 Balance -4020 / -4020 -640 / -640 Lab / Micro Data Result Diagrams: 09/29/21 05:25 09/29/21 05:25 Labs: Laboratory Results - last 24 hr 09/28/21 08:40: WBC 4.4, RBC 4.95, Hgb 12.9, Hct 41.5, MCV 83.8, MCH 26.1 L, MCHC 31.1 L, RDW Std Deviation 52.9 H, RDW Coeff of Mago 17.5 H, Plt Count 160, MPV 8.5, Immature Gran % (Auto) 0.700, Neut % (Auto) 80.1 H, Lymph % (Auto) 9.8 L, [place] % (Auto) 7.3, Eos % (Auto) 1.6, Baso % (Auto) 0.5, Absolute Neuts (auto) 3.5, Absolute Lymphs (auto) 0.43 L, Nucleated RBC % 0 09/28/21 08:40: Sodium 138, Potassium 4.1, Chloride 104, Carbon Dioxide 30.0, Anion Gap 4 L, BUN 16, Creatinine 0.88, Estim Creat Clear Calc 63.94, Est GFR (MDRD) Af Amer 82, Est GFR (MDRD) Non-Af 68, BUN/Creatinine Ratio 18.1, Glucose 115 H, Calcium 9.0, Total Bilirubin 0.50, AST 13 L, ALT 17, Alkaline Phosphatase 113, Troponin I High Sens 19, Total Protein 7.7, Albumin 3.4, Globulin 4.3 H, Albumin/Globulin Ratio 0.8 L, Lipase 32 L 09/28/21 08:40: B-Natriuretic Peptide 521.2 H 09/28/21 09:11: Urine Color Yellow, Urine Clarity Clear, Urine pH 8.0, Ur Specific [place] 1.010, Urine Protein Negative, Urine Glucose (UA) Normal, Urine Ketones Negative, Urine Occult Blood 250 H, Urine Nitrite Negative, Urine Bilirubin Negative, Urine Urobilinogen Normal, Ur Leukocyte Esterase Negative, Urine RBC 10-25 SEEN, Urine WBC 0 SEEN, Ur Squamous Epith Cells 0 SEEN, Urine Bacteria RARE, Urine Mucus 0 SEEN 09/29/21 05:25: WBC 4.2 L, RBC 4.62, Hgb 11.7 L, Hct 40.0, MCV 86.6, MCH 25.3 L, MCHC 29.3 L D, RDW Std Deviation 55.2 H, RDW Coeff of Mago 17.5 H, Plt Count 150, MPV 8.7, Immature Gran % (Auto) 0.500, Neut % (Auto) 77.2 H, Lymph % (Auto) 10.4 L, [place] % (Auto) 9.5, Eos % (Auto) 1.9, Baso % (Auto) 0.5, Absolute Neuts (auto) 3.3, Absolute Lymphs (auto) 0.44 L, Nucleated RBC % 0, Differential Comment SCANNED, Diff Path Review November09/29/21 05:25: Sodium 139, Potassium 3.5, Chloride 104, Carbon Dioxide 29.0, Anion Gap 6, BUN 11, Creatinine 0.75, Estim Creat Clear Calc 54.32, Est GFR (MDR D) Af Amer 98, Est GFR (MDRD) Non-Af 81, BUN/Creatinine Ratio 14.6, Glucose 97, Calcium 8.7, Magnesium 2.1, Total Bilirubin 0.50, Direct Bilirubin 0.18, AST 15, ALT 13, Alkaline Phosphatase 99, Total Protein 6.8, Albumin 3.0 L, Globulin 3.8 Micro: Microbiology 09/28/21 08:40 Nasal Secretion SARS-CoV-2 Antigen (Rapid) - Final 09/28/21 08:36 Mucosa - Nasopharyngeal Influenza Types A,B Direct FA (JEREMIAH) - Final Radiography Diagnostic Testing: Radiology Impression Chest X-Ray 09/28/21 08:24 IMPRESSION: Cardiomegaly with pulmonary edema and mild left pleural effusion. at 0946 Reported and signed by: Roseann Velasco MD Electronically Signed: Roseann Velasco MD at 9:45 EST Reading Location ID and State: [facility] / [place] Tel , Service support , Abdomen/Pelvis CT 09/28/21 08:25 IMPRESSION: Multiple nonobstructing left renal calculi. Cardiomegaly with mild pulmonary edema. 10 mm pleural based left lower lobe pulmonary nodule, stable since 10/2020. Hepatomegaly. Gastric bypass. Individualized dose optimization techniques were used for this CT. at 1033 Reported and signed by: Roseann Velasco MD Electronically Signed: Roseann Velasco MD at 10:32 EST , Physical Exam Narrative Physical exam: General: Alert, Oriented x3, Cooperative, No apparent distress, appears frail, morbidly obese HEENT: Atraumatic Oral: Moist Mucosa Neck: Supple Lungs: Diminished to auscultation Cardiovascular: HS I+II, regular, holosystolic murmur 4/6 Abdomen: Bowel Sounds Present, Soft, Non Tender Extremities: Bilateral leg edema +23, bilateral lower leg hyperemia/chronic venous stasis dermatitis Assessment & Plan Assessment/Plan (1) CHF (congestive heart failure): QUALIFIERS: Heart failure chronicity: acute on chronic Heart failure type: diastolic Qualified Code(s): I50.33 - Acute on chronic diastolic (congestive) heart failure PLAN: 1. Acute exacerbation of heart failure with reduced EF, patient is diuresing well Continue Lasix 40 mg every 8h, strict I & Os, daily weight, fluid restriction, IVETTE-wraps to legs 2. Acute hypertensive urgency, BP remains fairly uncontrolled Patient is on metoprolol tartrate 100 mg p.o. twice daily Add losartan 25 mg p.o. daily, hydralazine as needed 3. Diabetes mellitus type 2, diet controlled, blood glucose is stable 4. Rest of chronic medical conditions including GERD/COPD/class III obesity with BMI 53.65 bipolar disorder/hypothyroidism/obstructive sleep apnea/bilateral lower extremity stasis dermatitis Rest of the medications reviewed; 5. DVT PPx- Lovenox SC Charges/Coding Visit Charges Inpatient E&M: 05851 Subs Hosp L2
--- NOTE | 2021-09-29 09:43 | CASEMGMT ---
Patient is from [facility]. BEN faxed updates to [facility]. BEN will follow PT/OT and talk with patient regarding her discharge plan. Rosa MENDEZ
[2021-09-29] MEDS: Benzonatate 100 MG Capsule PO ×2 (10:11→21:35)
[2021-09-29] MEDS: Pantoprazole Sodium 40 MG Tablet PO (10:11)
[2021-09-29] MEDS: Folic Acid 1 MG Tablet PO (10:12)
[2021-09-29] MEDS: Fluticasone 0.05% 1 SPRAY NASAL.SRY 2 SPRAY NASAL (10:12)
[2021-09-29] MEDS: Multivitamins,Ther W-Minerals Tablet 1 TABLET PO (10:12)
[2021-09-29] MEDS: Tolterodine Tartrate 4 MG CAP.SA PO (10:12)
[2021-09-29] MEDS: Potassium Chloride Oral Tablet 20 MEQ PO ×2 (10:12→16:23)
[2021-09-29] MEDS: Nystatin Powder 15gm Bottle 1 APPLIC TOPICAL ×2 (10:12→21:37)
[2021-09-29] MEDS: Venlafaxine XR 75 MG Capsule PO (10:12)
[2021-09-29] MEDS: lamoTRIgine 100 MG Tablet 200 MG PO ×2 (10:12→21:33)
[2021-09-29] MEDS: Enoxaparin 40 MG/0.4 ML Syringe SC ×2 (10:13→21:37)
[2021-09-29] MEDS: OXcarbazepine 300 MG Tablet PO ×2 (10:14→21:35)
[2021-09-29] MEDS: Metoprolol Tartrate 100 MG Tablet PO ×2 (10:14→21:36)
[2021-09-29] MEDS: Topiramate 50 MG Tablet PO ×2 (10:14→21:32)
--- NOTE | 2021-09-29 14:36 | CASEMGMT ---
OT feels patient is fine to return to assisted living. SW spoke with patient and confirmed she plans on returning to [facility] at d/c. Patient also confirms she will need transportation back. SW told her SW will follow along and help facilitate transportation back. Rosa Orellana ORACLE APPLICATION ARCHITECT ANDREA
[2021-09-29] MEDS: Losartan Potassium 25 MG Tablet PO (16:23)
[2021-09-29] MEDS: RisperiDONE 1 MG Tablet PO (21:32)
[2021-09-29] MEDS: Loratadine 10 MG Tablet PO (21:33)
[2021-09-29] MEDS: Atorvastatin Calcium 10 MG Tablet PO (21:34)
[2021-09-29] MEDS: Montelukast 10 MG Tablet PO (21:36)
[2021-09-29] MEDS: 0.9% Saline Lock 10 ML Syringe IV (21:38)
[2021-09-30] VITALS (18 sets, daily range): BP systolic 130–182; BP diastolic 52–88; PULSE 64–79; RESP 16–26; TEMP 36.4–36.9; O2SAT 92–98
[2021-09-30] MEDS: hydrALAZINE 20 MG/ML Vial 10 MG IV (03:37)
[2021-09-30] MEDS: 0.9% Saline Lock 10 ML Syringe IV ×5 (03:38→21:36)
[2021-09-30] MEDS: Acetaminophen 500 MG Tablet 1000 MG PO ×3 (05:11→21:35)
[2021-09-30] MEDS: Levothyroxine 50 MCG Tablet PO (05:11)
[2021-09-30] MEDS: Furosemide 40 MG/4 ML Vial IV ×3 (05:12→21:33)
[2021-09-30] MEDS: Dicyclomine 10 MG Capsule PO ×2 (06:41→17:39)
[2021-09-30] MEDS: Sucralfate 1 GM Tablet PO ×3 (06:41→17:38)
[2021-09-30] MEDS: Albuterol 2.5 MG/3 ML VIAL.NEB. INHALATION ×3 (06:49→19:14)
[2021-09-30] MEDS: Budesonide Respules 0.5 MG/2 ML AMPUL.NEB. INHALATION ×2 (06:49→19:14)
[2021-09-30] MEDS: Folic Acid 1 MG Tablet PO (10:20)
[2021-09-30] MEDS: Potassium Chloride Oral Tablet 20 MEQ PO ×2 (10:21→17:38)
[2021-09-30] MEDS: Multivitamins,Ther W-Minerals Tablet 1 TABLET PO (10:21)
[2021-09-30] MEDS: Venlafaxine XR 75 MG Capsule PO (10:21)
[2021-09-30] MEDS: Benzonatate 100 MG Capsule PO ×2 (10:21→21:34)
[2021-09-30] MEDS: Pantoprazole Sodium 40 MG Tablet PO (10:21)
[2021-09-30] MEDS: Metoprolol Tartrate 100 MG Tablet PO ×2 (10:22→21:33)
[2021-09-30] MEDS: lamoTRIgine 100 MG Tablet 200 MG PO ×2 (10:22→21:32)
[2021-09-30] MEDS: Tolterodine Tartrate 4 MG CAP.SA PO (10:22)
[2021-09-30] MEDS: Losartan Potassium 25 MG Tablet PO (10:22)
[2021-09-30] MEDS: Topiramate 50 MG Tablet PO ×2 (10:23→21:34)
[2021-09-30] MEDS: OXcarbazepine 300 MG Tablet PO ×2 (10:23→21:34)
[2021-09-30] MEDS: Nystatin Powder 15gm Bottle 1 APPLIC TOPICAL ×2 (10:24→21:33)
[2021-09-30] MEDS: Fluticasone 0.05% 1 SPRAY NASAL.SRY 2 SPRAY NASAL (10:25)
[2021-09-30] MEDS: Enoxaparin 40 MG/0.4 ML Syringe SC ×2 (10:27→21:33)
--- NOTE | 2021-09-30 13:02 | PN.HOSP_ITS ---
Subjective Subjective Follow-up on acute CHF/hypertensive urgency: Patient was seen and examined. Denies any new complaints. She continues to diurese a lot. Currently on 3 L of oxygen Objective Data Objective Data Vital Signs: Vital Signs Temp Pulse Resp BP Pulse Ox 97.6 F L 67 18 154/64 H 95 09/30/21 11:00 09/30/21 11:06 09/30/21 11:00 09/30/21 11:00 09/30/21 11:00 Oxygen Flow Rate (L/min) 3 Oxygen Delivery Method Nasal Cannula Weight: 145.1 kg Body Mass Index (BMI) 51.5 Intake & Output: Intake and Output for Last 24 Hours 09/28/21 09/29/21 09/30/21 23:59 23:59 23:59 Intake Total 180 / 180 480 / 590 110 / 110 Output Total 4200 / 4200 3850 / 4550 3050 / 3050 Balance -4020 / -4020 -3370 / -3960 -2940 / -2940 Lab / Micro Data Result Diagrams: 09/29/21 05:25 09/29/21 05:25 Micro: Microbiology 09/28/21 11:05 Blood Culture (Wb) - Anticubital Left Blood Culture - Preliminary No growth in 48 hours. 09/28/21 08:40 Blood Culture (Wb) - Anticubital Right Blood Culture - Preliminary No growth in 48 hours. 09/28/21 08:40 Nasal Secretion SARS-CoV-2 Antigen (Rapid) - Final 09/28/21 08:36 Mucosa - Nasopharyngeal Influenza Types A,B Direct FA (JEREMIAH) - Final Radiography Diagnostic Testing: Radiology Impression Echocardiogram 09/28/21 11:01 Interpretation Summary Normal LV size. Left ventricular systolic function is normal. The estimated ejection fraction is 55 %. There is mild mitral annular calcification. Mild (1+) mitral valve insufficiency. Stage 1 diastolic dysfunction. Pulmonary artery systolic pressure is 66 mmHg. Moderate focal aortic valve calcification. Mean aortic valve gradient 28 mmHg. Mild aortic stenosis. Ordering Physician: Raphael Scott Referring Physician: Shelia Whitten Performed By: Noemi Guzman RDCS, RVT Physical Exam Narrative Physical exam: General: Alert, Oriented x3, Cooperative, No apparent distress, appears frail, m orbidly obese HEENT: Atraumatic Oral: Moist Mucosa Neck: Supple Lungs: Diminished to auscultation Cardiovascular: HS I+II, regular, holosystolic murmur /6 Abdomen: Bowel Sounds Present, Soft, Non Tender Extremities: Bilateral leg edema +2-3, bilateral lower leg hyperemia/chronic venous stasis dermatitis Assessment & Plan Assessment/Plan (1) CHF (congestive heart failure): QUALIFIERS: Heart failure type: diastolic Heart failure chronicity: acute on chronic Qualified Code(s): I50.33 - Acute on chronic diastolic (congestive) heart failure PLAN: 1. Acute exacerbation of heart failure with reduced EF, improving Patient is diuresing well Continue Lasix 40 mg every 8h, strict I & Os, daily weight, fluid restriction, IVETTE-wraps to legs 2. Acute hypertensive urgency, BP remains fairly uncontrolled Patient is on metoprolol tartrate 100 mg p.o. twice daily Increase losartan to 50mg p.o. daily, hydralazine as needed 3. Diabetes mellitus type 2, diet controlled, blood glucose is stable 4. Rest of chronic medical conditions including GERD/COPD/class III obesity with BMI 53.65 bipolar disorder/hypothyroidism/obstructive sleep apnea/bilateral lower extremity stasis dermatitis Rest of the medications reviewed; 5. DVT PPx- Lovenox SC Charges/Coding Visit Charges Inpatient E&M: 29907 Subs Hosp L2
--- NOTE | 2021-09-30 15:20 | CASEMGMT ---
[facility] Minerva letting her know patient will likely return tomorrow. BEN asked about continued therapy. Physician just needs to put this in orders. Minerva told SW they are unable to do any fluid restrictions as their patients have their own apartments. Rosa Orellana COMMUNICATIONS EDITOR ANDREA
[2021-09-30] MEDS: Loratadine 10 MG Tablet PO (21:32)
[2021-09-30] MEDS: Atorvastatin Calcium 10 MG Tablet PO (21:33)
[2021-09-30] MEDS: Montelukast 10 MG Tablet PO (21:34)
[2021-09-30] MEDS: RisperiDONE 1 MG Tablet PO (21:34)
[2021-09-30] MEDS: traMADol 50 MG Tablet PO (21:35)
[2021-10-01] VITALS (16 sets, daily range): BP systolic 106–180; BP diastolic 58–76; PULSE 65–89; RESP 18–24; TEMP 36.3–36.8; O2SAT 85–96
[2021-10-01] MEDS: Furosemide 40 MG/4 ML Vial IV ×2 (05:23→13:59)
[2021-10-01] MEDS: Levothyroxine 50 MCG Tablet PO (05:23)
[2021-10-01] MEDS: Acetaminophen 500 MG Tablet 1000 MG PO ×2 (05:23→13:58)
[2021-10-01] MEDS: hydrALAZINE 20 MG/ML Vial 10 MG IV (05:24)
[2021-10-01 06:17] LABS: Absolute Lymphocyte Count 0.49 X10^3/uL (0.83-4.51); Absolute Neutrophil Count 2.8 X10^3/uL (2.0-7.7); Basophil# 0.02 X10^3/uL; Basophil% 0.5 % (0-1); Eosinophil# 0.11 X10^3/uL; Eosinophils% 2.9 % (0-5); Hematocrit 39.8 % (37-47); Hemoglobin 11.8 g/dL (12.0-15.0); Lymphocyte # 0.49 X10^3/ul (0.83-4.51); Lymphocyte % 12.8 % (19-41); Mean Corp Hgb Conc 29.6 g/dL (32-36); Mean Corpuscular Hgb 25.3 pg (27.0-32.0); Mean Corpuscular Volume 85.2 fL (81-99); Mean Platelet Vol. 8.9 fl (6.2-12.0); Monocyte# 0.43 X10^3/uL; Monocyte% 11.3 % (0-10); NRBC Flagged by Analyzer 0 % (0-5); Neutrophil # 2.76 X10^3/uL (2.7-7.7); Neutrophil % 72.2 % (47-70); POSITIVE DIFFERENTIAL YES; Platelet Count 157 K/mm3 (150-450); RBC Distribution Width CV 17.7 % (11.6-14.6); RBC Distribution Width SD 54.4 fl (35.1-43.9); Red Blood Count 4.67 M/mm3 (4.2-5.4); White Blood Count 3.8 K/mm3 (4.4-11.0)
[2021-10-01 06:19] LABS: Differential Indicated SCAN CRITERIA MET
[2021-10-01 06:34] LABS: Differential Comment SCANNED
[2021-10-01] MEDS: Dicyclomine 10 MG Capsule PO ×2 (06:44→15:59)
[2021-10-01] MEDS: Sucralfate 1 GM Tablet PO ×3 (06:44→15:59)
[2021-10-01 06:48] LABS: ALB/GLOB Ratio 0.8 RATIO (0.9-2.4); AST(SGOT) 15 U/L (15-37); Alanine Aminotransfer ALT/SGPT 12 U/L (13-56); Alkaline Phosphatase 88 U/L (45-117); Anion Gap 4 (5-15); BUN 19 mg/dL (7-18); BUN/Creat Ratio 22.6 RATIO (10-20); Calcium,Total 9.2 mg/dL (8.5-10.1); Chloride 100 mmol/L (98-107); Creatinine, Serum 0.84 mg/dL (0.55-1.02); EST Glomerular Filtration Rate 71 mL/min (>60); Est Glom Filt Rate - Afr Amer 86 mL/min (>60); Estimated Creatinine Clearance 66.99 ml/min; Globulin 3.9 g/dL (2.2-4.2); Glucose 98 mg/dL (74-106); Potassium 3.6 mmol/L (3.5-5.1); Protein, Total 6.9 g/dL (6.4-8.2); Sodium Level 138 mmol/L (136-145)
[2021-10-01] MEDS: Albuterol 2.5 MG/3 ML VIAL.NEB. INHALATION ×3 (06:52→18:55)
[2021-10-01] MEDS: Budesonide Respules 0.5 MG/2 ML AMPUL.NEB. INHALATION ×2 (06:52→18:55)
[2021-10-01] MEDS: Potassium Chloride Oral Tablet 20 MEQ PO ×2 (08:57→15:59)
[2021-10-01] MEDS: Multivitamins,Ther W-Minerals Tablet 1 TABLET PO (08:58)
[2021-10-01] MEDS: Folic Acid 1 MG Tablet PO (08:58)
[2021-10-01] MEDS: Enoxaparin 40 MG/0.4 ML Syringe SC (09:00)
[2021-10-01] MEDS: Fluticasone 0.05% 1 SPRAY NASAL.SRY 2 SPRAY NASAL (09:00)
[2021-10-01] MEDS: lamoTRIgine 100 MG Tablet 200 MG PO (09:01)
[2021-10-01] MEDS: Losartan Potassium 50 MG Tablet PO (09:01)
[2021-10-01] MEDS: Metoprolol Tartrate 100 MG Tablet PO (09:01)
[2021-10-01] MEDS: Venlafaxine XR 75 MG Capsule PO (09:01)
[2021-10-01] MEDS: Tolterodine Tartrate 4 MG CAP.SA PO (09:02)
[2021-10-01] MEDS: Pantoprazole Sodium 40 MG Tablet PO (09:02)
[2021-10-01] MEDS: Nystatin Powder 15gm Bottle 1 APPLIC TOPICAL (09:03)
[2021-10-01] MEDS: Benzonatate 100 MG Capsule PO (09:04)
[2021-10-01] MEDS: Topiramate 50 MG Tablet PO (09:05)
[2021-10-01] MEDS: OXcarbazepine 300 MG Tablet PO (09:05)
[2021-10-01] MEDS: traMADol 50 MG Tablet PO (09:10)
--- NOTE | 2021-10-01 10:57 | CASEMGMT ---
BEN spoke with patient. SW let patient know she is returning to [facility] today. Patient will need transportation back to [place]. Patient said she can go by wheelchair if they have one big enough for her. Rosa MENDEZ
--- NOTE | 2021-10-01 11:07 | DCINST_ITS ---
Discharge Instructions Diet Discharge Diet: Low fat / Low cholesterol, 8 Cup Fluid Restriction and 2000 mg Sodium Diet Activity Discharge Activity: Return to Normal Activity Follow Up Care Test Results: Test results from this visit will be discussed in further detail at your follow-up appointment, if applicable. Discharge Plan Admission Admit Date/Time: 09/28/21 10:58 Primary Reason for Your Visit: Acute CHF Attending Provider: Camelia Mancini Primary Care Provider: Shelia Whitten PROM BURN OFF OPERATOR Instructions Additional Instructions / Restrictions: Continue to take all your medications as prescribed. Take note of changes to your medication. Continue on a low-fat low-salt diet. Restrict your total fluid intake to less than 1500 mls. Weigh yourself every day. Let your doctor know when you gain more than 4 pounds of weight. Follow-up with your primary care doctor in 1 to 2 weeks. You would need repeat blood work to check on your kidney function within a week of discharge. Discharge Orders/Prescriptions Prescriptions: New losartan 50 mg Tablet 50 mg PO DAILY 30 Days Qty: 30 RF: 0 Continued potassium chloride 20 mEq tablet,ER particles/crystals 20 meq PO BID RF: 0 acetaminophen 500 mg tablet 1,000 mg PO BID RF: 0 sucralfate 1 gram tablet 1 g PO TID RF: 0 nrwsjbcc-tfi-SI-lycopen-lutein [Centrum Silver] 0.4-300-250 mg-mcg-mcg tablet 1 tab PO QDAY RF: 0 lamotrigine 100 mg tablet 200 mg PO BID RF: 0 montelukast [Singulair] 10 mg tablet 10 mg PO QHS RF: 0 famotidine [Pepcid] 20 mg tablet 20 mg PO DAILY RF: 0 fluticasone propionate 50 mcg/actuation spray,suspension 2 spray INTRANASAL DAILY 30 Days Qty: 16 RF: 0 metoprolol tartrate 25 mg tablet 100 mg PO BID Qty: 60 RF: 0 risperidone 0.25 mg tablet 1 mg PO QHS RF: 0 trazodone 50 mg tablet 50 mg PO QHS PRN PRN (Reason: Sleep) RF: 0 topiramate [Topamax] 25 mg capsule, sprinkle 50 mg PO BID RF: 0 atorvastatin 10 MG tablet 10 mg PO QHS RF: 0 levothyroxine 50 MCG tablet 50 mcg PO DAILY RF: 0 folic acid 1 MG tablet 1 mg PO DAILY@0800 RF: 0 albuterol sulfate 2.5 MG/3 ML solution for nebulization 2.5 mg INHALATION Q2H PRN (Reason: Sob &/Or Wheezing) RF: 0 tramadol 50 MG tablet 50 mg PO BID Qty: 14 RF: 0 budesonide-formoterol 6 GM HFA aerosol inhaler 2 puff IH BID RF: 0 Lactobacillus acidophilus 1 EACH capsule 1 ea PO BID RF: 0 sodium chloride 1 DROP drops 2 drp EACHEYE BID RF: 0 sennosides 1 TABLET tablet 1 tab PO BID PRN PRN (Reason: constipation ) RF: 0 loperamide 2 MG capsule 2 mg PO Q4H PRN PRN (Reason: Diarrhea) RF: 0 cetirizine 10 MG tablet 10 mg PO QHS RF: 0 simethicone 180 MG capsule 1 - 2 tab PO TID PRN PRN (Reason: Indigestion) RF: 0 oxcarbazepine 300 MG tablet 300 mg PO BID RF: 0 sodium chloride 1 APPLIC ointment 1 applic RIGHT EYE QHS RF: 0 benzonatate 100 MG capsule 100 mg PO BID RF: 0 lansoprazole 30 MG capsule 30 mg PO DAILY RF: 0 solifenacin 10 MG tablet 10 mg PO DAILY RF: 0 loratadine 10 MG capsule 10 mg PO QHS PRN PRN (Reason: Allergies) RF: 0 venlafaxine 75 MG capsule 75 mg PO DAILY RF: 0 alum-mag hydroxide-simeth 30 ML suspension 30 ml PO Q6H PRN PRN (Reason: Heartburn Or Indigestion) RF: 0 peg [id number] 1 DROP bottle 15 drp EACH EYE Q6H PRN PRN (Reason: Dry Eyes) RF: 0 albuterol sulfate 1 PUFF inhaler 1 - 2 puff inhalation Q4H PRN PRN (Reason: Shortness Of Breath) Qty: 1 RF: 0 dicyclomine 10 mg capsule 10 mg PO BID RF: 0 omeprazole 20 mg capsule,delayed release(DR/EC) 20 mg PO DAILY RF: 0 ergocalciferol (vitamin D2) 1,250 mcg (50,000 unit) capsule 50,000 unit PO QWEEK RF: 0 nystatin [Nyamyc] 100,000 unit/gram powder 1 applic TOPICAL BID RF: 0 Discontinued furosemide 40 MG tablet 40 mg PO DAILY RF: 0 acetaminophen 500 MG tablet 500 mg PO .QLUNCHANDDINNER RF: 0 prednisone 20 MG tablet 40 mg PO DAILY Qty: 8 RF: 0 furosemide 20 mg Tablet 20 mg PO DAILY RF: 0 Referrals / Follow Up: Shelia Whitten PROM BURN OFF OPERATOR, PROM BURN OFF OPERATOR-C [Primary Care Provider] - 10/02/21 Disposition Disposition (needs filled in before D/C Order can be placed): NonSkilled NH/Intermed Care
--- NOTE | 2021-10-01 11:22 | DS.PCM_ITS ---
Providers Date of Admission: 09/28/21 Date of Discharge: 10/01/21 Primary Care Physician: ALEXANDER Frias Reason For Visit: CHF Diagnosis Discharge Diagnosis (1) CHF (congestive heart failure): Status: Acute Code(s): I50.9 - Heart failure, unspecified Qualifiers: Heart failure chronicity: acute on chronic Heart failure type: diastolic Qualified Code(s): I50.33 - Acute on chronic diastolic (congestive) heart failure (2) Acute respiratory failure with hypoxemia: Status: Acute Code(s): J96.01 - Acute respiratory failure with hypoxia (3) Essential hypertension: Status: Chronic Code(s): I10 - Essential (primary) hypertension (4) Chronic diastolic (congestive) heart failure: Status: Chronic Code(s): I50.32 - Chronic diastolic (congestive) heart failure (5) HLD (hyperlipidemia): Status: Chronic Code(s): E78.5 - Hyperlipidemia, unspecified Medications at Discharge Home Medications albuterol sulfate 2.5 mg INHALATION Q2H PRN 11/09/15 atorvastatin 10 mg PO QHS 11/09/15 folic acid 1 mg PO DAILY@0800 11/09/15 levothyroxine 50 mcg PO DAILY 11/09/15 tramadol 50 mg PO BID #14 tab 11/12/15 lamotrigine 100 mg tablet 200 mg PO BID tab 11/18/17 montelukast 10 mg tablet 10 mg PO QHS 11/18/17 acetaminophen 500 mg tablet 1,000 mg PO BID tab 12/21/17 famotidine 20 mg tablet 20 mg PO DAILY tab 12/21/17 wtpjwjuj-uxt-kxgas acid 0.4 mg-lycopene 300 mcg-lutein 250 mcg tablet 1 tab PO QDAY 12/21/17 potassium chloride 20 mEq tablet,extended release(part/cryst) 20 meq PO BID 12/21/17 sucralfate 1 gram tablet 1 g PO TID 12/21/17 fluticasone propionate 50 mcg/actuation nasal spray,suspension 2 spray INTRANASAL DAILY 30 Days #16 g 12/20/18 budesonide-formoterol 2 puff IH BID 01/24/19 risperidone 0.25 mg tablet 1 mg PO QHS tab 02/16/19 topiramate 25 mg sprinkle capsule 50 mg PO BID 02/16/19 trazodone 50 mg tablet 50 mg PO QHS PRN PRN 02/16/19 metoprolol tartrate 25 mg tablet 100 mg PO BID #60 tab 02/17/19 Lactobacillus acidophilus 1 ea PO BID 10/06/19 alum-mag hydroxide-simeth 30 ml PO Q6H PRN PRN 10/06/19 benzonatate 100 mg PO BID 10/06/19 cetirizine 10 mg PO QHS 10/06/19 lansoprazole 30 mg PO DAILY 10/06/19 loperamide 2 mg PO Q4H PRN PRN 10/06/19 loratadine 10 mg PO QHS PRN PRN 10/06/19 oxcarbazepine 300 mg PO BID 10/06/19 peg [id number] 15 drp EACH EYE Q6H PRN PRN 10/06/19 sennosides 1 tab PO BID PRN PRN 10/06/19 simethicone 1 - 2 tab PO TID PRN PRN 10/06/19 sodium chloride 1 applic RIGHT EYE QHS 10/06/19 sodium chloride 2 drp EACHEYE BID 10/06/19 solifenacin 10 mg PO DAILY 10/06/19 venlafaxine 75 mg PO DAILY 10/06/19 albuterol sulfate 1 - 2 puff INHALATION Q4H PRN PRN #1 inhaler 10/08/19 dicyclomine 10 mg PO BID 09/28/21 ergocalciferol (vitamin D2) 50,000 unit PO QWEEK 09/28/21 nystatin [Nyamyc] 1 applic TOPICAL BID 09/28/21 omeprazole 20 mg PO DAILY 09/28/21 furosemide [Lasix] 40 mg PO BID 30 Days #60 tab 10/01/21 losartan 50 mg PO DAILY 30 Days #30 tab 10/01/21 Hospital Course Operations None Procedures 2-D Echocardiogram Summary of Care Provided Minutes Spent on Discharge: 40 Hospital Course: 70-year-old female with multiple comorbidities including heart failure preserved EF, who comes in with progressive shortness of breath and worsening lower extremity edema. Patient was found to be hypoxic at 83% on room air by the EMS. She was admitted to the PCU and managed as acute on chronic diastolic CHF. She was managed on IV Lasix with improvement. Patient initially was on 5 L of oxygen and improved. She was evaluated for oxygen at discharge and required 2 L of oxygen on exertion. She qualified for home health and also for oxygen. Patient is resident in an assisted living facility. She was discharged on Lasix 40 mg twice daily and Losartan. She has to follow-up with her PCP within 1 week. Physical Exam Narrative Physical exam: General: Alert, Oriented x3, Cooperative, No apparent distress, appears frail, morbidly obese HEENT: Atraumatic Oral: Moist Mucosa Neck: Supple Lungs: Diminished to auscultation Cardiovascular: HS I+II, regular, holosystolic murmur /6 Abdomen: Bowel Sounds Present, Soft, Non Tender Extremities: Bilateral leg edema +23, bilateral lower leg hyperemia/chronic venous stasis dermatitis Weight / BMI Weight Weight: 144.2 kg Body Mass Index (BMI) 51.5 ABG / Lab / Microbiology Data Result Diagrams: 10/01/21 05:35 10/01/21 05:35 Laboratory: Laboratory Results - last 24 hr 10/01/21 05:35: WBC 3.8 L, RBC 4.67, Hgb 11.8 L, Hct 39.8, MCV 85.2, MCH 25.3 L, MCHC 29.6 L, RDW Std Deviation 54.4 H, RDW Coeff of Mago 17.7 H, Plt Count 157, MPV 8.9, Immature Gran % (Auto) 0.300, Neut % (Auto) 72.2 H, Lymph % (Auto) 12.8 L, [place] % (Auto) 11.3 H, Eos % (Auto) 2.9, Baso % (Auto) 0.5, Absolute Neuts (auto) 2.8, Absolute Lymphs (auto) 0.49 L, Nucleated RBC % 0, Differential Comment SCANNED, Diff Path Review November foll 10/01/21 05:35: Sodium 138, Potassium 3.6, Chloride 100, Carbon Dioxide 34.0 H, Anion Gap 4 L, BUN 19 H, Creatinine 0.84, Estim Creat Clear Calc 66.99, Est GFR (MDRD) Af Amer 86, Est GFR (MDRD) Non-Af 71, BUN/Creatinine Ratio 22.6 H, Glucose 98, Calcium 9.2, Total Bilirubin 0.60, AST 15, ALT 12 L, Alkaline Phosphatase 88, Total Protein 6.9, Albumin 3.0 L, Globulin 3.9, Albumin/Globulin Ratio 0.8 L Microbiology: Microbiology 09/28/21 11:05 Blood Culture (Wb) - Anticubital Left Blood Culture - Preliminary No growth in 48 hours. 09/28/21 08:40 Blood Culture (Wb) - Anticubital Right Blood Culture - Preliminary No growth in 48 hours. 09/28/21 08:40 Nasal Secretion SARS-CoV-2 Antigen (Rapid) - Final 09/28/21 08:36 Mucosa - Nasopharyngeal Influenza Types A,B Direct FA (JEREMIAH) - Final D/C Instructions Discharge Diet: Low fat / Low cholesterol, 8 Cup Fluid Restriction and 2000 mg Sodium Diet Meaningful Use Info Meaningful Use Diagnoses (Choose all that apply): CHF CHF IVETTE/ARB ordered at discharge?: Yes Documented LVEF (%): 55 Discharge Plan Admission Admit Date/Time: 09/28/21 10:58 Primary Reason for Your Visit: Acute CHF Attending Provider: Camelia Mancini Primary Care Provider: Shelia Whitten FREIGHT TALLIER Instructions Additional Instructions / Restrictions: Continue to take all your medications as prescribed. Take note of changes to your medication. Continue on a low-fat low-salt diet. Restrict your total fluid intake to less than 1500 mls. Weigh yourself every day. Let your doctor know when you gain more than 4 pounds of weight. Follow-up with your primary c are doctor in 1 to 2 weeks. You would need repeat blood work to check on your kidney function within a week of discharge. Discharge Orders/Prescriptions Prescriptions: New losartan 50 mg Tablet 50 mg PO DAILY 30 Days Qty: 30 RF: 0 furosemide [Lasix] 40 mg tablet 40 mg PO BID 30 Days Qty: 60 RF: 0 Continued potassium chloride 20 mEq tablet,ER particles/crystals 20 meq PO BID RF: 0 acetaminophen 500 mg tablet 1,000 mg PO BID RF: 0 sucralfate 1 gram tablet 1 g PO TID RF: 0 nodiyoww-raw-EA-lycopen-lutein [Centrum Silver] 0.4-300-250 mg-mcg-mcg tablet 1 tab PO QDAY RF: 0 lamotrigine 100 mg tablet 200 mg PO BID RF: 0 montelukast [Singulair] 10 mg tablet 10 mg PO QHS RF: 0 famotidine [Pepcid] 20 mg tablet 20 mg PO DAILY RF: 0 fluticasone propionate 50 mcg/actuation spray,suspension 2 spray INTRANASAL DAILY 30 Days Qty: 16 RF: 0 metoprolol tartrate 25 mg tablet 100 mg PO BID Qty: 60 RF: 0 risperidone 0.25 mg tablet 1 mg PO QHS RF: 0 trazodone 50 mg tablet 50 mg PO QHS PRN PRN (Reason: Sleep) RF: 0 topiramate [Topamax] 25 mg capsule, sprinkle 50 mg PO BID RF: 0 atorvastatin 10 MG tablet 10 mg PO QHS RF: 0 levothyroxine 50 MCG tablet 50 mcg PO DAILY RF: 0 folic acid 1 MG tablet 1 mg PO DAILY@0800 RF: 0 albuterol sulfate 2.5 MG/3 ML solution for nebulization 2.5 mg INHALATION Q2H PRN (Reason: Sob &/Or Wheezing) RF: 0 tramadol 50 MG tablet 50 mg PO BID Qty: 14 RF: 0 budesonide-formoterol 6 GM HFA aerosol inhaler 2 puff IH BID RF: 0 Lactobacillus acidophilus 1 EACH capsule 1 ea PO BID RF: 0 sodium chloride 1 DROP drops 2 drp EACHEYE BID RF: 0 sennosides 1 TABLET tablet 1 tab PO BID PRN PRN (Reason: constipation ) RF: 0 loperamide 2 MG capsule 2 mg PO Q4H PRN PRN (Reason: Diarrhea) RF: 0 cetirizine 10 MG tablet 10 mg PO QHS RF: 0 simethicone 180 MG capsule 1 - 2 tab PO TID PRN PRN (Reason: Indigestion) RF: 0 oxcarbazepine 300 MG tablet 300 mg PO BID RF: 0 sodium chloride 1 APPLIC ointment 1 applic RIGHT EYE QHS RF: 0 benzonatate 100 MG capsule 100 mg PO BID RF: 0 lansoprazole 30 MG capsule 30 mg PO DAILY RF: 0 solifenacin 10 MG tablet 10 mg PO DAILY RF: 0 loratadine 10 MG capsule 10 mg PO QHS PRN PRN (Reason: Allergies) RF: 0 venlafaxine 75 MG capsule 75 mg PO DAILY RF: 0 alum-mag hydroxide-simeth 30 ML suspension 30 ml PO Q6H PRN PRN (Reason: Heartburn Or Indigestion) RF: 0 peg [id number] 1 DROP bottle 15 drp EACH EYE Q6H PRN PRN (Reason: Dry Eyes) RF: 0 albuterol sulfate 1 PUFF inhaler 1 - 2 puff inhalation Q4H PRN PRN (Reason: Shortness Of Breath) Qty: 1 RF: 0 dicyclomine 10 mg capsule 10 mg PO BID RF: 0 omeprazole 20 mg capsule,delayed release(DR/EC) 20 mg PO DAILY RF: 0 ergocalciferol (vitamin D2) 1,250 mcg (50,000 unit) capsule 50,000 unit PO QWEEK RF: 0 nystatin [Nyamyc] 100,000 unit/gram powder 1 applic TOPICAL BID RF: 0 Discontinued furosemide 40 MG tablet 40 mg PO DAILY RF: 0 acetaminophen 500 MG tablet 500 mg PO .QLUNCHANDDINNER RF: 0 prednisone 20 MG tablet 40 mg PO DAILY Qty: 8 RF: 0 furosemide 20 mg Tablet 20 mg PO DAILY RF: 0 Referrals / Follow Up: Shelia Whitten FREIGHT TALLIER, FREIGHT TALLIER-C [Primary Care Provider] - 10/02/21 Disposition Disposition (needs filled in before D/C Order can be placed): NonSkilled NH/Intermed Care Charges/Coding Visit Charges Inpatient E&M: 93934 Disch Hosp
--- NOTE | 2021-10-01 12:31 | CASEMGMT ---
Addendum entered by Khadijah Dawn 10/01/21 16:38: Per Nas, delivery driver/supervisor will be at [place] in about an hour. Samira CONTRERAS aware, voices understanding. Ananda RN CM Addendum entered by Khadijah López 10/01/21 16:15: D/C summ/instructions faxed to [facility]. Per Nas, delivery driver/supervisor is on way with concentrator/portable tank to pt's [place] and Nas is going to try and find out ETA so transport can be set up for pt. Ananda RN CM [facility]/01[facility] 16:06: Pt now to be sent home via cot ambulance and will not need tank delivered to hospital. Call to [facility] main number to notify of same and Nas aware that [facility] needs to know when pt is set up at [place]. Nas to call this RN CM back. Ananda RN CM Addendum [facility] 10/01/21 15:40: Call back to Nas to check on portable tank for d/c and message left. Ananda RN CM Addendum [facility] 10/01/21 13:32: Call from Nas at [facility] and he states that they are able to get pt POC, which is most useful for [place] pt's. Pt awaiting tank for discharge. Ananda RN CM Original Note: Pt qualifies for 2L w/ exertion and this RN CM to room to discuss. Pt aware of in-network DME companies and she states she would like [facility]. Referral faxed to [facility] and call to Nas at [facility] to notify of referral and pt request for mini-tanks, voices understanding. Nas also aware that pt discharging today, voices understanding. Ananda RN CM
[2021-10-01] MEDS: 0.9% Saline Lock 10 ML Syringe IV (13:59)
[2021-10-01 14:37] LABS: Pathologist Review Reviewed
--- NOTE | 2021-10-01 16:30 | CASEMGMT ---
BEN faxed discharge information to [facility]. BEN attempted to arrange transport for 6p however [facility] could not transport until 830p. BEN notified [employer] char[employer] and RN. BEN will notify [facility]. Plan: d/c back to [facility]. [facility] transported via cot. Rosa Orellana TECHNICAL DOCUMENTATION SPECIALIST ANDREA
[2021-10-03 09:11] LABS: Pathologist Review Reviewed
== END 2021-10-01 21:12 | disposition intermediate care facility (04) | DRG 291 ==
LOC: ED 10:56 → PCU 11:33
PROVIDERS: Admitting Provider Internal Medicine; Emergency Provider Emergency Medicine; PCP Nurse Practitioner Adult Health; Visit Provider Internal Medicine
DX: I11.0 Hypertensive heart disease with heart failure (principal); J96.01 Acute respiratory failure with hypoxia; I50.33 Acute on chronic diastolic (congestive) heart failure; Z68.43 Body mass index [BMI] 50.0-59.9, adult; F31.9 Bipolar disorder, unspecified; E66.01 Morbid (severe) obesity due to excess calories; J44.9 Chronic obstructive pulmonary disease, unspecified; E11.59 Type 2 diabetes mellitus with other circulatory complications; G47.33 Obstructive sleep apnea (adult) (pediatric); I16.0 Hypertensive urgency; E03.9 Hypothyroidism, unspecified; K21.9 Gastro-esophageal reflux disease without esophagitis; I87.2 Venous insufficiency (chronic) (peripheral); E78.5 Hyperlipidemia, unspecified; Z23 Encounter for immunization; Z79.51 Long term (current) use of inhaled steroids
CPT/HCPCS: 36415; 71045; 74176; 80048; 80053; 80076; 81001; 83690; 83735; 83880; 84484; 85025; 87040; 87426; 87804; 93005; 93306; 94640; 97110; 97162; 97166; 97535; 97802; 99251; 99285; G0008; 90686; A4216; G0463; J1940

== ENCOUNTER 2022-07-02 08:32 | Emergency (ER) | payer MEDICARE, MEDICAID, SELFPAY ==
[2022-07-02 08:37] VITALS: BP 153/86; PULSE 55; RESP 16; TEMP 36.5; O2SAT 97; BMI 43.4
[2022-07-02 08:42] VITALS: BP 159/77; PULSE 54; RESP 18; TEMP 36.5; O2SAT 96
--- NOTE | 2022-07-02 08:45 | EX.ED.DYSGE1 ---
HPI History of Present Illness Chief Complaint: Rash Detail of Chief Complaint: Unilateral facial rash that started Wednesday Onset/Context/Timing Onset: Days Context: Sudden Onset Timing: Continuous Quality: Red rash Location: Right side of face Current Severity: Moderate Maximum Severity: Moderate Worsened by: Potentially scratching Relieved by: Nothing Associated Symptoms Associated Symptoms: Nothing Narrative Narrative: Patient is a 71-year-old woman with history of hypertension, hyperlipidemia, congestive heart failure, nonrheumatic aortic stenosis who presents with a red rash right side of the face involving the right upper eyelid/right periorbital area and maxillary preauricular area. She denies fever, chills night sweats. She denies double vision, blurred vision loss of vision. She denies dysuria, frequency, urgency or nocturia. She has not checked her blood sugar in a week. She is on chronic oxygen for obstructive sleep apnea. Prior similar symptoms: No Recent Illness/Hospitalization: No PFSH PFSH Medical History Bifascicular block Bipolar disorder Cellulitis Chronic diastolic (congestive) heart failure Essential hypertension GERD (gastroesophageal reflux disease) HLD (hyperlipidemia) Hypothyroidism Left anterior fascicular block (LAFB) Lymphedema Metabolic encephalopathy Morbid obesity with BMI of 50.0-59.9, adult Non-rheumatic aortic stenosis KAYLA (obstructive sleep apnea) Right bundle branch block (RBBB) Sepsis Type 2 diabetes mellitus without complication Venous (peripheral) insufficiency Home Medications albuterol sulfate 2.5 mg/3 mL (0.083 %) solution for nebulization 2.5 mg inhalation Q2H PRN Sob &/Or Wheezing 11/09/15 [History Last Taken Unknown] atorvastatin 10 mg tablet 10 mg PO QHS hld 11/09/15 [History Last Taken 10/05/19] folic acid 1 mg tablet 1 mg PO DAILY@0800 supplement 11/09/15 [History Last Taken 10/05/19] levothyroxine 50 mcg tablet 50 mcg PO DAILY thyroid 11/09/15 [History Last Taken 10/05/19] tramadol 50 mg tablet 50 mg PO BID pain ##14 11/12/15 [Rx Last Taken 10/05/19] lamotrigine 100 mg tablet 200 mg PO BID Check with primary doctor 11/18/17 [History Last Taken 10/05/19] montelukast 10 mg tablet (Singulair) 10 mg PO QHS asthma 11/18/17 [History Last Taken 10/05/19] acetaminophen 500 mg tablet 1,000 mg PO BID pain 12/21/17 [History Last Taken 10/05/19] famotidine 20 mg tablet (Pepcid) 20 mg PO DAILY gerd 12/21/17 [History Last Taken 10/05/19] usmmytdk-dhm-mrxdx acid 0.4 mg-lycopene 300 mcg-lutein 250 mcg tablet (Centrum Silver) 1 tab PO QDAY supplement 12/21/17 [History Last Taken 10/05/19] potassium chloride 20 mEq tablet,extended release(part/cryst) 20 meq PO BID supplement 12/21/17 [History Last Taken 10/05/19] sucralfate 1 gram tablet 1 g PO TID gerd 12/21/17 [History Last Taken 10/05/19] fluticasone propionate 50 mcg/actuation nasal spray,suspension 2 spray intranasal DAILY allergies 30 days ##16 12/20/18 [History Last Taken 10/05/19] budesonide-formoterol HFA 160 mcg-4.5 mcg/actuation aerosol inhaler 2 puff IH BID breathing 01/24/19 [History Last Taken 10/05/19] risperidone 0.25 mg tablet 1 mg PO QHS sleep 02/16/19 [History Last Taken 10/05/19] topiramate 25 mg sprinkle capsule (Topamax) 50 mg PO BID weight loss 02/16/19 [History Last Taken 10/05/19] trazodone 50 mg tablet 50 mg PO QHS PRN PRN Sleep 02/16/19 [History Last Taken Unknown] metoprolol tartrate 25 mg tablet 100 mg PO BID htn ##60 02/17/19 [History Last Taken 10/05/19] Lactobacillus acidophilus 1 ea PO BID supplement 10/06/19 [History Last Taken 10/05/19] aluminum-mag hydroxide-simethicone 400 mg-400 mg-40 mg/5 mL oral susp 30 ml PO Q6H PRN PRN Heartburn Or Indigestion 10/06/19 [History Last Taken Unknown] benzonatate 100 mg capsule 100 mg PO BID cough 10/06/19 [History Last Taken Unknown] cetirizine 10 mg tablet 10 mg PO QHS respiratory 10/06/19 [History Last Taken 10/05/19] lansoprazole 30 mg capsule,delayed release 30 mg PO DAILY reflux 10/06/19 [History Last Taken 10/05/19] loperamide 2 mg capsule 2 mg PO Q4H PRN PRN Diarrhea 10/06/19 [History Last Taken Unknown] loratadine 10 mg capsule 10 mg PO QHS PRN PRN Allergies 10/06/19 [History Last Taken Unknown] oxcarbazepine 300 mg tablet 300 mg PO BID Check with primary doctor 10/06/19 [History Last Taken 10/05/19] peg [id number] 1 %-0.2 %-0.2 % eye drops 15 drp EACH EYE Q6H PRN PRN Dry Eyes 10/06/19 [History Last Taken Unknown] sennosides 8.6 mg tablet 1 tab PO BID PRN PRN constipation 10/06/19 [History Last Taken Unknown] simethicone 180 mg capsule 1 - 2 tab PO TID PRN PRN Indigestion 10/06/19 [History Last Taken Unknown] sodium chloride 5 % eye drops 2 drp EACHEYE BID eyes 10/06/19 [History Last Taken 10/05/19] sodium chloride 5 % eye ointment 1 applic RIGHT EYE QHS eyes 10/06/19 [History Last Taken 10/05/19] solifenacin 10 mg tablet 10 mg PO DAILY bladder 10/06/19 [History Last Taken 10/05/19] venlafaxine 75 mg capsule,extended release 24 hr 75 mg PO DAILY mood 10/06/19 [History Last Taken 10/05/19] albuterol sulfate 90 mcg/actuation aerosol inhaler 1 - 2 puff inhalation Q4H PRN PRN Shortness Of Breath ##1 10/08/19 [Rx Last Taken Unknown] dicyclomine 10 mg capsule 10 mg PO BID 09/28/21 [History Last Taken Unknown] ergocalciferol (vitamin D2) 1,250 mcg (50,000 unit) capsule 50,000 unit PO QWEEK vitamin 09/28/21 [History Last Taken Unknown] nystatin 100,000 unit/gram topical powder (Nyamyc) 1 applic topical BID excoriation 09/28/21 [History Last Taken Unknown] omeprazole 20 mg capsule,delayed release 20 mg PO DAILY stomach 09/28/21 [History Last Taken Unknown] furosemide 40 mg tablet (Lasix) 40 mg PO BID 30 days #60 tabs 10/01/21 [Rx Last Taken Unknown] losartan 50 mg tablet 50 mg PO DAILY 30 days #30 tabs 10/01/21 [Rx Last Taken Unknown] budesonide-formoterol HFA 160 mcg-4.5 mcg/actuation aerosol inhaler (Symbicort) inhalation 07/02/22 [History Last Taken Unknown] cephalexin 500 mg capsule 500 mg PO Q6 #28 CAPSULES 07/02/22 [Rx Last Taken Unknown] levothyroxine 50 mcg tablet 50 mcg PO DAILY 07/02/22 [History Last Taken Unknown] Allergy/AdvReac Type Severity Reaction Status Date / Time benztropine mesylate Allergy Unknown Verified 07/02/22 08:36 [From Cogentin] Salicylates Allergy Unknown Verified 07/02/22 08:36 Sulfa (Sulfonamide Allergy Unknown Verified 07/02/22 08:36 Antibiotics) abacavir AdvReac Unknown Unknown Verified 07/02/22 08:36 aspirin AdvReac Unknown Verified 07/02/22 08:36 bupropion HCl AdvReac Rash Verified 07/02/22 08:36 [From Wellbutrin] prochlorperazine AdvReac Unknown Verified 07/02/22 08:36 prochlorperazine edisylate AdvReac Unknown Verified 07/02/22 08:36 [From Compazine] prochlorperazine maleate AdvReac Unknown Verified 07/02/22 08:36 [From Compazine] Family History Father No problems noted. Surgical History History of gastric bypass History of skin graft History of tonsillectomy Hx of appendectomy Social History (Updated 07/02/22 @ 08:[address] Kasi Castañeda MD) household members: spouse Smoking Status: Never smoker alcohol intake: never substance use type: does not use ROS ROS ED Constitutional Constitutional ED: Denies chills, fever(s), subjective, sweats or weight loss Eyes Eyes: Reports other Details: Denies drainage from eye. ; Denies blurry vision, change in vision or diplopia ENT ENT ED: Denies ear pain, rhinorrhea or sore throat Cardiovascular Cardiovascular: Denies chest pain or palpitations Respiratory/Chest Respiratory/Chest: Denies cough, dyspnea or dyspnea on exertion Gastrointestinal Gastrointestinal: Denies abdominal pain, diarrhea, nausea or vomiting Genitourinary Genitourinary ED: Denies dysuria, hematuria or urinary frequency Musculoskeletal Musculoskeletal: Denies arthralgias, back pain, myalgias or neck pain Integumentary Reports rash; Denies Abrasions Neurologic Neurologic: Denies headache(s) or paresthesias Endocrine Endocrinology: Denies polydipsia or polyuria Hematologic/Lymphatic Hematologic/Lymphatic: Reports systems reviewed and no addt'l complaints, except as documented EXAM Physical Exam Const Vital Signs: 07/02/22 08:37 07/02/22 08:42 Temperature 97.7 F L 97.7 F L Temperature Source Temporal Temporal Pulse Rate 55 L 54 L Respiratory Rate 16 18 Blood Pressure 153/86 H 159/77 H Blood Pressure Mean 108 104 Pulse Ox 97 96 Oxygen Delivery Method Nasal Cannula Nasal Cannula Oxygen Flow Rate (L/min) 2 2 Positive well nourished, well developed and obese General Appearance ED: well developed and NAD; Negative for pallor Nutritional Appearance: obese HEENT HEENT Narrative: Head is atraumatic normocephalic. Ears normal. Nares patent. Uvula midline. No deviation or protrusion. No erythema or exudate of the posterior pharynx. Patient has a warm erythematous raised rash right periorbital/right maxillary and preauricular area that is consistent with erysipelas. There is a small area of excoriation lateral the right brow. There is slight bruising noted to the right upper eyelid. There is slight angioedema infraorbital region. There is no preauricular lymphadenopathy. There is no trismus. Eyes PERRL and EOMs intact bilaterally Eyes Narrative: There is no nystagmus. Conjunctive is not injected. General Eye ED: Negative for pale conjunctiva or scleral icterus Neck no lymphadenopathy, supple and no JVD Neck Narrative: Trachea is midline. There is no inspiratory extra stridor. There is no carotid bruit over the right or left carotid artery. Chest Wall inspection of chest normal and palpation of chest normal Resp normal respiratory effort and clear to auscultation bilaterally Cardio regular rhythm, S1 normal heart sound, S2 normal heart sound and no murmurs Rate: bradycardia GI normal to inspection, nondistended, normoactive bowel sounds, non-tender, non-distended and no masses; Negative for hepatosplenomegaly Extremity Negative for normal to inspection Extremity Narrative: Significant lymphedema with venous stasis dermatitis of lower extremity. This is chronic. Neuro oriented x3, CN's II-XII intact bilaterally and no sensory deficits noted Sensorium / Orientation: alert Motor Exam: strength 5/5 throughout Psych mental status grossly normal Skin No no rashes or lesions noted and No skin turgor normal Skin Narrative: Patient with warm raised erythematous nonblanching rash that is consistent with erysipelas. General Skin Exam: Negative for jaundice or pallor MDM MDM MDM Narrative Medical decision making narrative: Patient has no sirs criteria. Blood work was obtained to assess white count and differential, BMP was obtained to assess glucose, anion gap since she is diabetic and not checked her blood sugar in 1 week also to assess renal function since she will require antibiotics in the event doses have to be adjusted. Lactate was obtained as well this may be elevated due to sepsis or diabetes. Since patient had no SIRS criteria blood cultures were not obtained. She was started on 3.0 g of Unasyn. Lab Data Attestation: I reviewed the patient's lab results. Lab results narrative: White count is normal. There is a slight shift with no bandemia. Lactate is normal. Basic metabolic panel is unremarkable. Plan is to treat with cephalexin and follow-up with In 3 to 5 days. Labs: Laboratory Results - last 24 hr 07/02/22 07/02/22 07/02/22 08:22 08:22 08:22 WBC 5.1 RBC 5.23 Hgb 13.9 Hct 45.8 MCV 87.6 MCH 26.6 L MCHC 30.3 L RDW Std Deviation 57.4 H RDW Coeff of Mago 17.9 H Plt Count 166 MPV 9.3 Immature Gran % (Auto) 0.600 Neut % (Auto) 76.8 H Lymph % (Auto) 10.[address] [place] % (Auto) 9.7 Eos % (Auto) 2.2 Baso % (Auto) 0.4 Absolute Neuts (auto) 3.9 Absolute Lymphs (auto) 0.52 L Nucleated RBC % 0 Sodium 138 Potassium 4.5 Chloride 102 Carbon Dioxide 31.0 Anion Gap 5 BUN 20 H Creatinine 0.99 Estim Creat Clear Calc 56.05 Est GFR (MDRD) Af Amer 71 Est GFR (MDRD) Non-Af 59 L BUN/Creatinine Ratio 20.2 H Glucose 93 Lactic Acid 0.8 Calcium 8.8 Discharge Plan Triage Chief Complaint: Rash ED Provider: Kasi Castañeda Dx/Rx/DC Orders Clinical Impression: Erysipelas Instructions: ED Cellulitis Prescriptions: New cephalexin [cephalexin] 500 mg capsule 500 mg PO Q6 Qty: 28 0RF No Action potassium chloride 20 mEq tablet,ER particles/crystals 20 meq PO BID acetaminophen 500 mg tablet 1,000 mg PO BID sucralfate 1 gram tablet 1 g PO TID Label Comments: 1 g PO tid before meals Rx Instructions: 1 g PO tid before meals bvdfayjo-lsn-WK-lycopen-lutein [Centrum Silver] 0.4-300-250 mg-mcg-mcg tablet 1 tab PO QDAY lamotrigine 100 mg tablet 200 mg PO BID montelukast [Singulair] 10 mg tablet 10 mg PO QHS famotidine [Pepcid] 20 mg tablet 20 mg PO DAILY Label Comments: 20 mg PO one tablet by mouth twice daily at breakfast and dinner fluticasone propionate 50 mcg/actuation spray,suspension 2 spray INTRANASAL DAILY 30 Days Qty: 16 metoprolol tartrate 25 mg tablet 100 mg PO BID Qty: 60 risperidone 0.25 mg tablet 1 mg PO QHS trazodone 50 mg tablet 50 mg PO QHS PRN PRN (Reason: Sleep) topiramate [Topamax] 25 mg capsule, sprinkle 50 mg PO BID atorvastatin 10 MG tablet 10 mg PO QHS levothyroxine 50 MCG tablet 50 mcg PO DAILY folic acid 1 MG tablet 1 mg PO DAILY@0800 albuterol sulfate 2.5 MG/3 ML solution for nebulization 2.5 mg INHALATION Q2H PRN (Reason: Sob &/Or Wheezing) tramadol 50 MG tablet 50 mg PO BID Qty: 14 0RF budesonide-formoterol 6 GM HFA aerosol inhaler 2 puff IH BID Lactobacillus acidophilus 1 EACH capsule 1 ea PO BID sodium chloride 1 DROP drops 2 drp EACHEYE BID sennosides 1 TABLET tablet 1 tab PO BID PRN PRN (Reason: constipation ) loperamide 2 MG capsule 2 mg PO Q4H PRN PRN (Reason: Diarrhea) cetirizine 10 MG tablet 10 mg PO QHS Rx Instructions: for 7 days simethicone 180 MG capsule 1 - 2 tab PO TID PRN PRN (Reason: Indigestion) oxcarbazepine 300 MG tablet 300 mg PO BID sodium chloride 1 APPLIC ointment 1 applic RIGHT EYE QHS benzonatate 100 MG capsule 100 mg PO BID lansoprazole 30 MG capsule 30 mg PO DAILY solifenacin 10 MG tablet 10 mg PO DAILY loratadine 10 MG capsule 10 mg PO QHS PRN PRN (Reason: Allergies) venlafaxine 75 MG capsule 75 mg PO DAILY alum-mag hydroxide-simeth 30 ML suspension 30 ml PO Q6H PRN PRN (Reason: Heartburn Or Indigestion) peg [id number] 1 DROP bottle 15 drp EACH EYE Q6H PRN PRN (Reason: Dry Eyes) albuterol sulfate 1 PUFF inhaler 1 - 2 puff inhalation Q4H PRN PRN (Reason: Shortness Of Breath) Qty: 1 0RF dicyclomine 10 mg capsule 10 mg PO BID Label Comments: 1 CAPSULE BY MOUTH TWICEXA DAY / DX: omeprazole 20 mg capsule,delayed release(DR/EC) 20 mg PO DAILY Label Comments: 1 CAPSULE BY MOUTH EVERY/MORNING ergocalciferol (vitamin D2) 1,250 mcg (50,000 unit) capsule 50,000 unit PO QWEEK Label Comments: 1 CAPSULE BY MOUTH ONCE AAWEEK ON WEDNESDAYS / DX: nystatin [Nyamyc] 100,000 unit/gram powder 1 applic TOPICAL BID Label Comments: APPLY (T) TO RASH ONTGROIN & ABDOMINAL FOLDSNTWICE DAILY NEEDED losartan 50 mg Tablet 50 mg PO DAILY 30 Days Qty: 30 0RF furosemide [Lasix] 40 mg tablet 40 mg PO BID 30 Days Qty: 60 0RF levothyroxine 50 mcg tablet 50 mcg PO DAILY Label Comments: 1 TABLET BY MOUTH DAILY AT 5AM DX: HYPOTHYROID / NURSE TO REORDER budesonide-formoterol [Symbicort] 160-4.5 mcg/actuation HFA aerosol inhaler INHALATION Primary Care Provider: Oksana Roth Referrals: Shelia Whitten [employer] MAINTENANCE WORKER, CUSTODIAL MAINTENANCE WORKER-C [Non-Staff] - 2 Days for wound check Disposition Disposition: Home, Self Care
[2022-07-02 09:08] LABS: Absolute Lymphocyte Count 0.52 X10^3/uL (0.83-4.51); Absolute Neutrophil Count 3.9 X10^3/uL (2.0-7.7); Basophil# 0.02 X10^3/uL; Basophil% 0.4 % (0-1); Eosinophil# 0.11 X10^3/uL; Eosinophils% 2.2 % (0-5); Hematocrit 45.8 % (37-47); Hemoglobin 13.9 g/dL (12.0-15.0); Lymphocyte # 0.52 X10^3/ul (0.83-4.51); Lymphocyte % 10.3 % (19-41); Mean Corp Hgb Conc 30.3 g/dL (32-36); Mean Corpuscular Hgb 26.6 pg (27.0-32.0); Mean Corpuscular Volume 87.6 fL (81-99); Mean Platelet Vol. 9.3 fl (6.2-12.0); Monocyte# 0.49 X10^3/uL; Monocyte% 9.7 % (0-10); NRBC Flagged by Analyzer 0 % (0-5); Neutrophil % 76.8 % (47-70); POSITIVE DIFFERENTIAL YES; Platelet Count 166 K/mm3 (150-450); RBC Distribution Width CV 17.9 % (11.6-14.6); RBC Distribution Width SD 57.4 fl (35.1-43.9); Red Blood Count 5.23 M/mm3 (4.2-5.4); White Blood Count 5.1 K/mm3 (4.4-11.0)
[2022-07-02 09:26] LABS: Anion Gap 5 (5-15); BUN 20 mg/dL (7-18); BUN/Creat Ratio 20.2 RATIO (10-20); Calcium,Total 8.8 mg/dL (8.5-10.1); Chloride 102 mmol/L (98-107); Creatinine, Serum 0.99 mg/dL (0.55-1.02); EST Glomerular Filtration Rate 59 mL/min (>60); Est Glom Filt Rate - Afr Amer 71 mL/min (>60); Estimated Creatinine Clearance 56.05 ml/min; Glucose 93 mg/dL (74-106); Potassium 4.5 mmol/L (3.5-5.1); Sodium Level 138 mmol/L (136-145)
[2022-07-02 09:30] LABS: Lactic Acid 0.8 mmol/L (0.4-1.9)
[2022-07-02 09:34] LABS: Differential Indicated SCAN CRITERIA MET
[2022-07-02 10:44] VITALS: BP 162/77; PULSE 76; RESP 15; O2SAT 98
--- NOTE | 2022-07-02 11:22 | NURSING ---
07/02/22 @ 1117- Report called to nurse Deborah at [facility]. All questions answered. RX changed to RX [facility] instead of paper order. Paperwork and belongings sent with patient.
== END 2022-07-02 11:26 | disposition home or self-care (01) ==
PROVIDERS: Emergency Provider Emergency Medicine; PCP Internal Medicine; Visit Provider Emergency Medicine
DX: A46 Erysipelas (principal); I11.0 Hypertensive heart disease with heart failure; I50.32 Chronic diastolic (congestive) heart failure; E11.9 Type 2 diabetes mellitus without complications; G47.33 Obstructive sleep apnea (adult) (pediatric); R21 Rash and other nonspecific skin eruption; E78.5 Hyperlipidemia, unspecified; E66.9 Obesity, unspecified; Z99.81 Dependence on supplemental oxygen
CPT/HCPCS: 80048; 83605; 85025; 96365; 99285; J0295

== ENCOUNTER 2022-07-04 19:04 | Emergency (ER) | payer MEDICARE, MEDICAID, SELFPAY ==
[2022-07-04 19:06] VITALS: BP 156/80; PULSE 84; RESP 16; TEMP 36.7; BMI 40.6
[2022-07-04 19:10] VITALS: BP 156/80; PULSE 84; RESP 16; TEMP 36.7; O2SAT 95
--- NOTE | 2022-07-04 19:18 | EDS_ITS ---
HPI History of Present Illness Chief Complaint: Cellulitis Informant: patient Onset/Context/Timing Onset: Days Context: Gradual Onset Narrative Narrative: Patient presents sometimes to [place] secondary to rash with confusion and low blood pressure. EMS notes patient's blood pressure has been fine and she seems to be alert and appropriate. Patient was seen in the emergency room on July 02 secondary to erysipelas on the right side of her face. She was given a dose of Unasyn here and discharged on Keflex. Patient states the rash is improving and she feels well. She states she has chronic redness and itching on her legs that may be only slightly worsened than baseline tonight. She states that the nurse at [facility] woke her from a nap and she was slightly confused. Patient states she feels fine and as if she is improving from her illness. [facility] Medical History Bifascicular block Bipolar disorder Cellulitis Chronic diastolic (congestive) heart failure Essential hypertension GERD (gastroesophageal reflux disease) HLD (hyperlipidemia) Hypothyroidism Left anterior fascicular block (LAFB) Lymphedema Metabolic encephalopathy Morbid obesity with BMI of 50.0-59.9, adult Non-rheumatic aortic stenosis KAYLA (obstructive sleep apnea) Right bundle branch block (RBBB) Sepsis Type 2 diabetes mellitus without complication Venous (peripheral) insufficiency Home Medications albuterol sulfate 2.5 mg/3 mL (0.083 %) solution for nebulization 2.5 mg inhalation Q2H PRN Sob &/Or Wheezing 11/09/15 [History Last Taken Unknown] atorvastatin 10 mg tablet 10 mg PO QHS hld 11/09/15 [History Last Taken 10/05/19] folic acid 1 mg tablet 1 mg PO DAILY@0800 supplement 11/09/15 [History Last Taken 10/05/19] levothyroxine 50 mcg tablet 50 mcg PO DAILY thyroid 11/09/15 [History Last Taken 10/05/19] tramadol 50 mg tablet 50 mg PO BID pain ##14 11/12/15 [Rx Last Taken 10/05/19] lamotrigine 100 mg tablet 200 mg PO BID Check with primary doctor 11/18/17 [History Last Taken 10/05/19] montelukast 10 mg tablet (Singulair) 10 mg PO QHS asthma 11/18/17 [History Last Taken 10/05/19] acetaminophen 500 mg tablet 1,000 mg PO BID pain 12/21/17 [History Last Taken 10/05/19] famotidine 20 mg tablet (Pepcid) 20 mg PO DAILY gerd 12/21/17 [History Last Taken 10/05/19] xhoggfll-nxo-ozgwu acid 0.4 mg-lycopene 300 mcg-lutein 250 mcg tablet (Centrum Silver) 1 tab PO QDAY supplement 12/21/17 [History Last Taken 10/05/19] potassium chloride 20 mEq tablet,extended release(part/cryst) 20 meq PO BID supplement 12/21/17 [History Last Taken 10/05/19] sucralfate 1 gram tablet 1 g PO TID gerd 12/21/17 [History Last Taken 10/05/19] fluticasone propionate 50 mcg/actuation nasal spray,suspension 2 spray intranasal DAILY allergies 30 days ##16 12/20/18 [History Last Taken 10/05/19] budesonide-formoterol HFA 160 mcg-4.5 mcg/actuation aerosol inhaler 2 puff IH BID breathing 01/24/19 [History Last Taken 10/05/19] risperidone 0.25 mg tablet 1 mg PO QHS sleep 02/16/19 [History Last Taken 10/05/19] topiramate 25 mg sprinkle capsule (Topamax) 50 mg PO BID weight loss 02/16/19 [History Last Taken 10/05/19] trazodone 50 mg tablet 50 mg PO QHS PRN PRN Sleep 02/16/19 [History Last Taken Unknown] metoprolol tartrate 25 mg tablet 100 mg PO BID htn ##60 02/17/19 [History Last Taken 10/05/19] Lactobacillus acidophilus 1 ea PO BID supplement 10/06/19 [History Last Taken 10/05/19] aluminum-mag hydroxide-simethicone 400 mg-400 mg-40 mg/5 mL oral susp 30 ml PO Q6H PRN PRN Heartburn Or Indigestion 10/06/19 [History Last Taken Unknown] benzonatate 100 mg capsule 100 mg PO BID cough 10/06/19 [History Last Taken Unknown] cetirizine 10 mg tablet 10 mg PO QHS respiratory 10/06/19 [History Last Taken 10/05/19] lansoprazole 30 mg capsule,delayed release 30 mg PO DAILY reflux 10/06/19 [History Last Taken 10/05/19] loperamide 2 mg capsule 2 mg PO Q4H PRN PRN Diarrhea 10/06/19 [History Last Taken Unknown] loratadine 10 mg capsule 10 mg PO QHS PRN PRN Allergies 10/06/19 [History Last Taken Unknown] oxcarbazepine 300 mg tablet 300 mg PO BID Check with primary doctor 10/06/19 [History Last Taken 10/05/19] peg [id number] 1 %-0.2 %-0.2 % eye drops 15 drp EACH EYE Q6H PRN PRN Dry Eyes 10/06/19 [History Last Taken Unknown] sennosides 8.6 mg tablet 1 tab PO BID PRN PRN constipation 10/06/19 [History Last Taken Unknown] simethicone 180 mg capsule 1 - 2 tab PO TID PRN PRN Indigestion 10/06/19 [History Last Taken Unknown] sodium chloride 5 % eye drops 2 drp EACHEYE BID eyes 10/06/19 [History Last Taken 10/05/19] sodium chloride 5 % eye ointment 1 applic RIGHT EYE QHS eyes 10/06/19 [History Last Taken 10/05/19] solifenacin 10 mg tablet 10 mg PO DAILY bladder 10/06/19 [History Last Taken 10/05/19] venlafaxine 75 mg capsule,extended release 24 hr 75 mg PO DAILY mood 10/06/19 [History Last Taken 10/05/19] albuterol sulfate 90 mcg/actuation aerosol inhaler 1 - 2 puff inhalation Q4H PRN PRN Shortness Of Breath ##1 10/08/19 [Rx Last Taken Unknown] dicyclomine 10 mg capsule 10 mg PO BID 09/28/21 [History Last Taken Unknown] ergocalciferol (vitamin D2) 1,250 mcg (50,000 unit) capsule 50,000 unit PO QWEEK vitamin 09/28/21 [History Last Taken Unknown] nystatin 100,000 unit/gram topical powder (Nyamyc) 1 applic topical BID excoriation 09/28/21 [History Last Taken Unknown] omeprazole 20 mg capsule,delayed release 20 mg PO DAILY stomach 09/28/21 [History Last Taken Unknown] furosemide 40 mg tablet (Lasix) 40 mg PO BID 30 days #60 tabs 10/01/21 [Rx Last Taken Unknown] losartan 50 mg tablet 50 mg PO DAILY 30 days #30 tabs 10/01/21 [Rx Last Taken Unknown] budesonide-formoterol HFA 160 mcg-4.5 mcg/actuation aerosol inhaler (Symbicort) inhalation 07/02/22 [History Last Taken Unknown] cephalexin 500 mg capsule 500 mg PO Q6 #28 CAPSULES 07/02/22 [Rx Last Taken Unknown] levothyroxine 50 mcg tablet 50 mcg PO DAILY 07/02/22 [History Last Taken Unknown] Allergy/AdvReac Type Severity Reaction Status Date / Time benztropine mesylate Allergy Unknown Verified 07/04/22 19:05 [From Cogentin] Salicylates Allergy Unknown Verified 07/04/22 19:05 Sulfa (Sulfonamide Allergy Unknown Verified 07/04/22 19:05 Antibiotics) abacavir AdvReac Unknown Unknown Verified 07/04/22 19:05 aspirin AdvReac Unknown Verified 07/04/22 19:05 bupropion HCl AdvReac Rash Verified 07/04/22 19:05 [From Wellbutrin] prochlorperazine AdvReac Unknown Verified 07/04/22 19:05 prochlorperazine edisylate AdvReac Unknown Verified 07/04/22 19:05 [From Compazine] prochlorperazine maleate AdvReac Unknown Verified 07/04/22 19:05 [From Compazine] Family History Father No problems noted. Surgical History History of gastric bypass History of skin graft History of tonsillectomy Hx of appendectomy Social History household members: spouse Smoking Status: Never smoker alcohol intake: never substance use type: does not use ROS ROS ED Constitutional Constitutional ED: Denies chills or fever(s) Eyes Eyes: Denies change in vision or discharge from eye(s) ENT ENT ED: Denies discharge from eye(s), rhinorrhea or sore throat Cardiovascular Cardiovascular: Denies chest pain or palpitations Respiratory/Chest Respiratory/Chest: Denies cough or dyspnea Gastrointestinal Gastrointestinal: Denies abdominal pain, nausea or vomiting Genitourinary Genitourinary ED: Denies dysuria Musculoskeletal Musculoskeletal: Denies back pain or extremity pain Integumentary Reports rash; Denies Abrasions Neurologic Neurologic: Denies headache(s) or weakness Psychiatric Psychiatric: Denies anxiety or depression Endocrine Endocrinology: Denies polydipsia or polyuria Allergic/Immunologic Allergic/Immunologic ED: Denies lip swelling or urticaria EXAM Physical Exam Narrative Exam Narrative: Patient sitting upright in bed no acute distress. Alert and answers questions appropriately. Const Vital Signs: 07/04/22 19:06 07/04/22 19:10 07/04/22 19:43 Temperature 98.1 F 98.1 F Temperature Source Temporal Temporal Pulse Rate 84 84 Respiratory Rate 16 16 Respiratory Effort Normal Non-Labored Respiratory Pattern Normal Blood Pressure 156/80 H 156/80 H Blood Pressure Mean 105 105 Pulse Ox 95 Oxygen Delivery Method Room Air Room Air Positive obese Nutritional Appearance: obese HEENT Reports moist mucous membranes Eyes PERRL and EOMs intact bilaterally Chest Wall inspection of chest normal and palpation of chest normal Resp normal respiratory effort and clear to auscultation bilaterally Cardio regular rate and regular rhythm GI non-tender Auscultation: hypoactive bowel sounds Palpation: soft Extremity Extremity Narrative: Chronic venous skin changes noted to the bilateral lower extremities. She is a chronic skin wound to the right lower sequeira. She does have slight petechial hemorrhages noted across her feet that she states are because of the shoes that she wears. She also has an area of petechial lesions on the left forearm from her recent IV and blood draw site. Neuro oriented x3 Neuro Narrative: No focal neurologic deficit. Skin Skin Narrative: Mild erythema noted around the right face and the right periorbital region. Patient states this is improving when compared to prior. MDM MDM MDM Narrative Medical decision making narrative: Patient's labs are repeated. Clinically patient looks well. Lab Data Attestation: I reviewed the patient's lab results. Labs: Laboratory Results - last 24 hr 07/04/22 07/04/22 07/04/22 19:43 19:43 19:43 WBC 6.8 RBC 5.09 Hgb 13.5 Hct 44.0 MCV 86.4 MCH 26.5 L MCHC 30.7 L RDW Std Deviation 55.7 H RDW Coeff of Mago 17.6 H Plt Count 153 MPV 9.2 Immature Gran % (Auto) 0.100 Neut % (Auto) 84.7 H Lymph % (Auto) 4.7 L [place] % (Auto) 7.8 Eos % (Auto) 2.1 Baso % (Auto) 0.6 Absolute Neuts (auto) 5.7 Absolute Lymphs (auto) 0.32 L Nucleated RBC % 0 Differential Comment SEE COMMENT Platelet Estimate ADEQUATE RBC Morphology N CHROM Anisocytosis RARE Sodium 136 Potassium 5.0 Chloride 102 Carbon Dioxide 31.0 Anion Gap 3 L BUN 26 H Creatinine 1.19 H Estim Creat Clear Calc 46.63 Est GFR (MDRD) Af Amer 58 L Est GFR (MDRD) Non-Af 48 L BUN/Creatinine Ratio 21.8 H Glucose 110 H Lactic Acid 0.9 Calcium 9.2 Treatment and Re-Evaluation Narrative: White count remains normal at 6.8. 84% neutrophils noted. Chemistry studies unremarkable. Lactic acid is 0.9. Patient is alert and appropriate here with normal blood pressure. She feels that she is improving on her Keflex. She will continue this medication and be discharged back to her home. Return instructions given. Discharge Plan Triage Chief Complaint: Cellulitis ED Provider: Mary Armijo Dx/Rx/DC Orders Clinical Impression: Visit for wound check, Erysipelas Instructions: ED Cellulitis, ED Wound Check (Infection) Prescriptions: No Action potassium chloride 20 mEq tablet,ER particles/crystals 20 meq PO BID acetaminophen 500 mg tablet 1,000 mg PO BID sucralfate 1 gram tablet 1 g PO TID Label Comments: 1 g PO tid before meals Rx Instructions: 1 g PO tid before meals tywzoefo-rhc-AG-lycopen-lutein [Centrum Silver] 0.4-300-250 mg-mcg-mcg tablet 1 tab PO QDAY lamotrigine 100 mg tablet 200 mg PO BID montelukast [Singulair] 10 mg tablet 10 mg PO QHS famotidine [Pepcid] 20 mg tablet 20 mg PO DAILY Label Comments: 20 mg PO one tablet by mouth twice daily at breakfast and dinner fluticasone propionate 50 mcg/actuation spray,suspension 2 spray INTRANASAL DAILY 30 Days Qty: 16 metoprolol tartrate 25 mg tablet 100 mg PO BID Qty: 60 risperidone 0.25 mg tablet 1 mg PO QHS trazodone 50 mg tablet 50 mg PO QHS PRN PRN (Reason: Sleep) topiramate [Topamax] 25 mg capsule, sprinkle 50 mg PO BID atorvastatin 10 MG tablet 10 mg PO QHS levothyroxine 50 MCG tablet 50 mcg PO DAILY folic acid 1 MG tablet 1 mg PO DAILY@0800 albuterol sulfate 2.5 MG/3 ML solution for nebulization 2.5 mg INHALATION Q2H PRN (Reason: Sob &/Or Wheezing) tramadol 50 MG tablet 50 mg PO BID Qty: 14 0RF budesonide-formoterol 6 GM HFA aerosol inhaler 2 puff IH BID Lactobacillus acidophilus 1 EACH capsule 1 ea PO BID sodium chloride 1 DROP drops 2 drp EACHEYE BID sennosides 1 TABLET tablet 1 tab PO BID PRN PRN (Reason: constipation ) loperamide 2 MG capsule 2 mg PO Q4H PRN PRN (Reason: Diarrhea) cetirizine 10 MG tablet 10 mg PO QHS Rx Instructions: for 7 days simethicone 180 MG capsule 1 - 2 tab PO TID PRN PRN (Reason: Indigestion) oxcarbazepine 300 MG tablet 300 mg PO BID sodium chloride 1 APPLIC ointment 1 applic RIGHT EYE QHS benzonatate 100 MG capsule 100 mg PO BID lansoprazole 30 MG capsule 30 mg PO DAILY solifenacin 10 MG tablet 10 mg PO DAILY loratadine 10 MG capsule 10 mg PO QHS PRN PRN (Reason: Allergies) venlafaxine 75 MG capsule 75 mg PO DAILY alum-mag hydroxide-simeth 30 ML suspension 30 ml PO Q6H PRN PRN (Reason: Heartburn Or Indigestion) peg [id number] 1 DROP bottle 15 drp EACH EYE Q6H PRN PRN (Reason: Dry Eyes) albuterol sulfate 1 PUFF inhaler 1 - 2 puff inhalation Q4H PRN PRN (Reason: Shortness Of Breath) Qty: 1 0RF dicyclomine 10 mg capsule 10 mg PO BID Label Comments: 1 CAPSULE BY MOUTH TWICEXA DAY / DX: omeprazole 20 mg capsule,delayed release(DR/EC) 20 mg PO DAILY Label Comments: 1 CAPSULE BY MOUTH EVERY/MORNING ergocalciferol (vitamin D2) 1,250 mcg (50,000 unit) capsule 50,000 unit PO QWEEK Label Comments: 1 CAPSULE BY MOUTH ONCE AAWEEK ON WEDNESDAYS / DX: nystatin [Nyamyc] 100,000 unit/gram powder 1 applic TOPICAL BID Label Comments: APPLY (T) TO RASH ONTGROIN & ABDOMINAL FOLDSNTWICE DAILY NEEDED losartan 50 mg Tablet 50 mg PO DAILY 30 Days Qty: 30 0RF furosemide [Lasix] 40 mg tablet 40 mg PO BID 30 Days Qty: 60 0RF levothyroxine 50 mcg tablet 50 mcg PO DAILY Label Comments: 1 TABLET BY MOUTH DAILY AT 5AM DX: HYPOTHYROID / NURSE TO REORDER budesonide-formoterol [Symbicort] 160-4.5 mcg/actuation HFA aerosol inhaler INHALATION cephalexin [cephalexin] 500 mg capsule 500 mg PO Q6 Qty: 28 0RF Referrals: Oksana Roth DO [[facility]] - Activity Restrictions/Additional Instructions: You feel your symptoms are improving. Please continue the antibiotic that you are currently prescribed. Your lab work remains normal. Disposition Disposition: Home, Self Care
[2022-07-04 20:17] LABS: Absolute Lymphocyte Count 0.32 X10^3/uL (0.83-4.51); Absolute Neutrophil Count 5.7 X10^3/uL (2.0-7.7); Basophil# 0.04 X10^3/uL; Basophil% 0.6 % (0-1); Eosinophil# 0.14 X10^3/uL; Eosinophils% 2.1 % (0-5); Hemoglobin 13.5 g/dL (12.0-15.0); Lymphocyte # 0.32 X10^3/ul (0.83-4.51); Lymphocyte % 4.7 % (19-41); Mean Corp Hgb Conc 30.7 g/dL (32-36); Mean Corpuscular Hgb 26.5 pg (27.0-32.0); Mean Corpuscular Volume 86.4 fL (81-99); Mean Platelet Vol. 9.2 fl (6.2-12.0); Monocyte# 0.53 X10^3/uL; Monocyte% 7.8 % (0-10); NRBC Flagged by Analyzer 0 % (0-5); Neutrophil # 5.74 X10^3/uL (2.7-7.7); Neutrophil % 84.7 % (47-70); POSITIVE DIFFERENTIAL YES; Platelet Count 153 K/mm3 (150-450); RBC Distribution Width CV 17.6 % (11.6-14.6); RBC Distribution Width SD 55.7 fl (35.1-43.9); Red Blood Count 5.09 M/mm3 (4.2-5.4); White Blood Count 6.8 K/mm3 (4.4-11.0)
[2022-07-04 20:19] LABS: Differential Indicated SCAN CRITERIA MET
[2022-07-04 20:37] LABS: Anion Gap 3 (5-15); BUN 26 mg/dL (7-18); BUN/Creat Ratio 21.8 RATIO (10-20); Calcium,Total 9.2 mg/dL (8.5-10.1); Chloride 102 mmol/L (98-107); Creatinine, Serum 1.19 mg/dL (0.55-1.02); EST Glomerular Filtration Rate 48 mL/min (>60); Est Glom Filt Rate - Afr Amer 58 mL/min (>60); Estimated Creatinine Clearance 46.63 ml/min; Glucose 110 mg/dL (74-106); Sodium Level 136 mmol/L (136-145)
[2022-07-04 20:38] LABS: Anisocytosis RARE; Platelet Estimate ADEQUATE (ADEQ); Red Cell Morphology N CHROM NORMAL (NORM C&C)
[2022-07-04 20:46] LABS: Lactic Acid 0.9 mmol/L (0.4-1.9)
--- NOTE | 2022-07-04 20:56 | NURSING ---
[facility] CALLED ETA 3 HOURS
== END 2022-07-04 23:58 | disposition home or self-care (01) ==
PROVIDERS: Emergency Provider Emergency Medicine; Visit Provider Emergency Medicine
DX: A46 Erysipelas (principal); I11.0 Hypertensive heart disease with heart failure; I50.32 Chronic diastolic (congestive) heart failure; E11.9 Type 2 diabetes mellitus without complications; Z51.89 Encounter for other specified aftercare; E78.5 Hyperlipidemia, unspecified; R21 Rash and other nonspecific skin eruption; R41.0 Disorientation, unspecified; I95.9 Hypotension, unspecified
CPT/HCPCS: 80048; 83605; 85025; 99284; A4216

== ENCOUNTER 2022-07-30 09:30 | Outpatient (RCR) | payer MEDICARE, MEDICAID, SELFPAY ==
[2022-07-23 08:48] VITALS: BP 145/78; PULSE 56; RESP 16; TEMP 36.6; BMI 43.4
--- NOTE | 2022-07-23 13:54 | PCM.WC.HP ---
History of Present Illness Date of Service: 07/23/22 Chief Complaint: Non healing right lower extremity ulcer History of Wound: Ms. Carter is a 71 who presents to the wound center due to nonhealing right lower extremity ulceration. Initial injury was said to be in 1993 following which she had surgical repair/grafting. Current opening noted about 2-months ago. Denies any known precipitating factor. Has been trying some dressing changes at her facility without significant improvement. Reports some drainage. No chills, fever or otherwise feeling of unwell. She reports a history of diabetes which she states is well controlled. She states that her appetite is good as well. [facility] Medical History (Updated 07/28/22 @ 09:[address] Radha Eduardo MD) Bifascicular block Bilateral edema of lower extremity Bipolar disorder Cellulitis Chronic diastolic (congestive) heart failure Essential hypertension GERD (gastroesophageal reflux disease) HLD (hyperlipidemia) Hypothyroidism Left anterior fascicular block (LAFB) Lymphedema Metabolic encephalopathy Morbid obesity with BMI of 50.0-59.9, adult Non-rheumatic aortic stenosis KAYLA (obstructive sleep apnea) Right bundle branch block (RBBB) Sepsis Type 2 diabetes mellitus Type 2 diabetes mellitus without complication Ulcer of right lower extremity with fat layer exposed Venous (peripheral) insufficiency Home Medications albuterol sulfate 2.5 mg/3 mL (0.083 %) solution for nebulization 2.5 mg inhalation Q2H PRN Sob &/Or Wheezing 11/09/15 [History Last Taken Unknown] atorvastatin 10 mg tablet 10 mg PO QHS hld 11/09/15 [History Last Taken 10/05/19] folic acid 1 mg tablet 1 mg PO DAILY@0800 supplement 11/09/15 [History Last Taken 10/05/19] tramadol 50 mg tablet 50 mg PO BID pain ##14 11/12/15 [Rx Last Taken 10/05/19] lamotrigine 100 mg tablet 200 mg PO BID Check with primary doctor 11/18/17 [History Last Taken 10/05/19] montelukast 10 mg tablet (Singulair) 10 mg PO QHS asthma 11/18/17 [History Last Taken 10/05/19] acetaminophen 500 mg tablet 1,000 mg PO BID pain 12/21/17 [History Last Taken 10/05/19] kbqxynkl-naz-zween acid 0.4 mg-lycopene 300 mcg-lutein 250 mcg tablet (Centrum Silver) 1 tab PO QDAY supplement 12/21/17 [History Last Taken 10/05/19] potassium chloride 20 mEq tablet,extended release(part/cryst) 20 meq PO BID supplement 12/21/17 [History Last Taken 10/05/19] fluticasone propionate 50 mcg/actuation nasal spray,suspension 2 spray intranasal DAILY allergies 30 days ##16 12/20/18 [History Last Taken 10/05/19] budesonide-formoterol HFA 160 mcg-4.5 mcg/actuation aerosol inhaler 2 puff IH BID breathing 01/24/19 [History Last Taken 10/05/19] risperidone 0.25 mg tablet 1 mg PO QHS sleep 02/16/19 [History Last Taken 10/05/19] topiramate 25 mg sprinkle capsule (Topamax) 50 mg PO BID weight loss 02/16/19 [History Last Taken 10/05/19] metoprolol tartrate 25 mg tablet 100 mg PO BID htn ##60 02/17/19 [History Last Taken 10/05/19] aluminum-mag hydroxide-simethicone 400 mg-400 mg-40 mg/5 mL oral susp 30 ml PO Q6H PRN PRN Heartburn Or Indigestion 10/06/19 [History Last Taken Unknown] benzonatate 100 mg capsule 100 mg PO BID cough 10/06/19 [History Last Taken Unknown] cetirizine 10 mg tablet 10 mg PO QHS respiratory 10/06/19 [History Last Taken 10/05/19] loperamide 2 mg capsule 2 mg PO Q4H PRN PRN Diarrhea 10/06/19 [History Last Taken Unknown] oxcarbazepine 300 mg tablet 300 mg PO BID Check with primary doctor 10/06/19 [History Last Taken 10/05/19] peg [id number] 1 %-0.2 %-0.2 % eye drops 15 drp EACH EYE Q6H PRN PRN Dry Eyes 10/06/19 [History Last Taken Unknown] sennosides 8.6 mg tablet 1 tab PO BID PRN PRN constipation 10/06/19 [History Last Taken Unknown] simethicone 180 mg capsule 1 - 2 tab PO TID PRN PRN Indigestion 10/06/19 [History Last Taken Unknown] sodium chloride 5 % eye drops 2 drp EACHEYE BID eyes 10/06/19 [History Last Taken 10/05/19] solifenacin 10 mg tablet 10 mg PO DAILY bladder 10/06/19 [History Last Taken 10/05/19] venlafaxine 75 mg capsule,extended release 24 hr 75 mg PO DAILY mood 10/06/19 [History Last Taken 10/05/19] albuterol sulfate 90 mcg/actuation aerosol inhaler 1 - 2 puff inhalation Q4H PRN PRN Shortness Of Breath ##1 10/08/19 [Rx Last Taken Unknown] dicyclomine 10 mg capsule 10 mg PO BID 09/28/21 [History Last Taken Unknown] ergocalciferol (vitamin D2) 1,250 mcg (50,000 unit) capsule 50,000 unit PO QWEEK vitamin 09/28/21 [History Last Taken Unknown] omeprazole 20 mg capsule,delayed release 20 mg PO DAILY stomach 09/28/21 [History Last Taken Unknown] losartan 50 mg tablet 50 mg PO DAILY 30 days #30 tabs 10/01/21 [Rx Last Taken Unknown] budesonide-formoterol HFA 160 mcg-4.5 mcg/actuation aerosol inhaler (Symbicort) inhalation 07/02/22 [History Last Taken Unknown] levothyroxine 50 mcg tablet 50 mcg PO DAILY 07/02/22 [History Last Taken Unknown] budesonide-formoterol HFA 160 mcg-4.5 mcg/actuation aerosol inhaler (Symbicort) 2 puff inhalation BID 07/23/22 [History Last Taken Unknown] carboxymethylcellulose sodium 1 % eye drops (Artificial Tears (carboxymethylcellulose)) 1 drp EACH EYE Q6H PRN Dry Eye(S) 07/23/22 [History Last Taken Unknown] famotidine 20 mg tablet 20 mg PO BID 07/23/22 [History Last Taken Unknown] furosemide 40 mg tablet (Lasix) 60 mg PO BID 07/23/22 [History Last Taken Unknown] guaifenesin 600 mg tablet, extended release 12 hr (Mucinex) 1,200 mg PO Q12H PRN Congestion 07/23/22 [History Last Taken Unknown] ipratropium 20 mcg-albuterol 100 mcg/actuation mist for inhalation (Combivent Respimat) 1 puff inhalation DAILY PRN Wheezing 07/23/22 [History Last Taken Unknown] polyethylene glycol 3350 17 gram oral powder packet (Miralax) 8.5 g PO QODAY 07/23/22 [History Last Taken Unknown] Allergy/AdvReac Type Severity Reaction Status Date / Time benztropine mesylate Allergy Unknown Verified 07/04/22 19:05 [From Cogentin] Salicylates Allergy Unknown Verified 07/04/22 19:05 Sulfa (Sulfonamide Allergy Unknown Verified 07/04/22 19:05 Antibiotics) abacavir AdvReac Unknown Unknown Verified 07/04/22 19:05 aspirin AdvReac Unknown Verified 07/04/22 19:05 bupropion HCl AdvReac Rash Verified 07/04/22 19:05 [From Wellbutrin] prochlorperazine AdvReac Unknown Verified 07/04/22 19:05 prochlorperazine edisylate AdvReac Unknown Verified 07/04/22 19:05 [From Compazine] prochlorperazine maleate AdvReac Unknown Verified 07/04/22 19:05 [From Compazine] Family History Father No problems noted. Surgical History History of gastric bypass History of skin graft History of tonsillectomy Hx of appendectomy Social History household members: spouse Smoking Status: Never smoker alcohol intake: never substance use type: does not use ROS Constitutional Constitutional: Denies excessive sweating, fever(s), headache(s) or lethargy Eyes Eyes: Denies change in vision, decreased night vision, diplopia, discharge from eye(s), exophthalmos or floaters ENT HEENT: Denies ear pain, epistaxis, facial pain, foreign body in nose, mouth pain, mucositis or nasal congestion Cardiovascular Cardiovascular: Reports leg edema; Denies chest pain with activity, claudication, clubbing, dyspnea, dyspnea at rest or lightheadedness Respiratory/Chest Respiratory/Chest: Denies dry cough, hemoptysis, hoarseness, inability to speak, mouth breathing or nail bed cyanosis Gastrointestinal Gastrointestinal: Denies change in bowel habits, chewing difficulty, coffee ground emesis, dry heaves, fecal incontinence or heartburn Genitourinary Genitourinary: Denies abdominal discomfort, burning urination, difficulty urinating or itching Musculoskeletal Musculoskeletal: Denies deformity, loss of height, muscle weakness, tingling or tremors Integumentary Integumentary: Reports skin ulcer; Denies erythema, furuncle, hirsutism, jaundice or new lesions Neurologic Neurologic: Denies burning sensations, confusion, convulsions, disequilibrium, dizziness, focal weakness or other visual disturbances Psychiatric Psychiatric: Denies cognitive impairment, confusion, depression, hopelessness, irritability or memory loss Endocrine Endocrinology: Denies flushing, heat intolerance, increase in ring/shoe/hat size, palpitations, polydipsia or polyphagia Hematologic/Lymphatic Hematologic/Lymphatic: Denies lymphadenopathy Allergic/Immunologic Allergic/Immunologic: Denies seasonal rhinorrhea, throat swelling, tongue swelling, hives, urticaria, eczemia or wheezing Vital Signs Vital Signs Vital Signs: 07/23/22 08:48 Temperature 97.8 F Temperature Source Temporal Pulse Rate 56 L Respiratory Rate 16 Blood Pressure 145/78 H Blood Pressure Mean 100 Blood Pressure Source Monitor Blood Pressure Position Sitting Blood Pressure Location Left Forearm Oxygen Delivery Method Nasal Cannula Weight Weight: 294 lb 7 oz Body Mass Index (BMI) 43.4 Physical Exam Const alert, oriented x3 and no apparent distress General Appearance: cooperative, comfortable and well kempt HEENT Head and Scalp: normal to inspection, normocephalic and atraumatic Neck full ROM General: normal visual inspection Resp normal respiratory effort and normal air movement Effort and Inspection: able to speak in complete sentences Cardio regular rate, regular rhythm, S1 normal heart sound and S2 normal heart sound GI soft to palpation and non-tender Extremity General Extremity: edema Skin Wounds: wounds noted Neuro oriented x3, CN's II-XII intact bilaterally, moves all extremities and no focal motor deficits Psych mental status grossly normal, thought process normal, cooperative and affect normal Debridement Note Debridement Note Wound debrided: Right Lower Extremity Type of Debridement: Excisional debridement Anesthesia Used: 4% Lidocaine Solution Depth: Down to and including healthy tissue and in the subcutaneous layer Percentage of wound debrided: 100 Instrument Used: 7mm curette Tissue Removed: Slough and devitalized tissue Severity: Fat Layer Exposed Amount of bleeding with debridement: Mild Bleeding Controlled with: Pressure Patient tolerated procedure: Patient tolerated procedure well Post-Debridement Measurements and Additional Note: Post-Debridement Measurements/Treatment - Nurse 1 - General Ulcer Assessment Start: 07/23/22 08:45 Freq: Status: Active Protocol: VAHID.LOWEXT Activity Type Activity Date Activity User E-sign Co-sign Detail Recorded Client Recorded Date Recorded By Document 07/23/22 08:48 [facility] [id number] 07/23/22 09:01 [facility] 07/23/22 08:48 - Today's Visit Information Type of service Initial Visit Arrival Mode Wheelchair Transfer Assistance None Patient Identification Verified (Name & Yes ) Patient Requires Transmission-Based No Precautions Height and Weight Height 5 ft 9 in Weight 294 lb 7 oz Weight in Pounds 294.4 lbs Body Mass Index (BMI) 43.4 BMI Classification Obese BSA - Bairon 2.43 Vital Signs Temperature (97.8 F-99.1 F) 97.8 F Temperature Source Temporal Pulse Rate (60-100) 56 L Pulse Location Monitor Respiratory Rate (12-18) 16 Respiratory rate source Observation Oxygen Delivery Method Nasal Cannula Blood Pressure (90/60-120/80) 145/78 H Blood Pressure Mean 100 Source Monitor Position Sitting Blood Pressure Location Left Forearm History Since Last Visit- (Skip if this is Patient's initial visit) Left Footwear Regular Shoe Right Footwear Regular Shoe Pain Scale: 0-10 Numeric Is Patient Pain Free? Yes Lower Extremity Assessment/ Foot Assessment/ Toe Nail Assessment Right -Lower Extremity Comment (If N/A Above ASSESSMENT ) HAMPERED BY LYMPHEDEMA -Posterior Tibial Palpable No -Posterior Tibial Doppler Inaudible -Dorsalis Pedis Palpable No -Dorsalis Pedis Doppler Monophasic -Extremity Color Hyperpigmented, Hemosiderin -Hair Growth on Legs No -Hair Growth on Toes No -Capillary Refill Less than 3 Seconds -Other Deformity No -Prior Foot Ulcer No -Charcot Joint No -Prior Amputation No -Thick Yes -Discolored Yes -Deformed No -Improper Length & Hygeine No Left -Lower Extremity Comment (If N/A Above assessment ) hampered by lymphedema -Posterior Tibial Palpable No -Posterior Tibial Doppler Inaudible -Dorsalis Pedis Palpable No -Dorsalis Pedis Doppler Monophasic -Extremity Color Hyperpigmented, Hemosiderin -Hair Growth on Legs No -Hair Growth on Toes No -Temperature of Extremity Warm -Capillary Refill Less than 3 Seconds -Other Deformity No -Prior Foot Ulcer No -Charcot Joint No -Prior Amputation No -Thick Yes -Discolored Yes -Deformed No -Improper Length & Hygeine No Neuropathy Assessment Feet - Top Side and Bottom <Entered> (a) Communication Assessment Preferred language [place] 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 [employer] Making Hand Required No Able to Read Yes Able to Write Yes Communication Tools None Right Hearing Abillity Hard of Hearing ,Use of Hearing Aid Left Hearing Abillity Hard of Hearing ,Use of Hearing Aid Visual Assistive Devices Glasses Teaching Assessment Preferences Verbal,Written, Audio/Visual, Demonstration Barriers to Learning None Readiness To Learn Excellent Willingness to Engage in Self Management High Activies Readiness to Engage in Self Management High Activities Anxiety Level Calm Cooperation Cooperative Perception Coherent Interest in Health Problem Asks Questions Education Importance Acknowledges Need Does Patient Smoke tobacco or other No substances Smoking Status Never smoker Is Patient Diabetic Yes Functional Assessment Recent Decline in Ability to Perform Denies Any Declines 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 Cultural/Muslim Needs that may affect No Treatment Plan Teaching: Wound Center *Welcome to the Wound Center -Person Taught Patient -Teaching Method Discussion -Response to teaching Verbalize understanding Welcome to the Wound Care Center [place] (a) 1 - + WC - Nurse 1 - General Ulcer Measurement Start: 07/23/22 08:45 Freq: Status: Active Protocol: Activity Type Activity Date Activity User E-sign Co-sign Detail Recorded Client Recorded Date Recorded By Document 07/23/22 08:48 [facility] [id number] 07/23/22 09:01 [facility] 07/23/22 08:48 Wound Center Nurse 1 #1- R MED LE -Combined with other wound No -Current Size (cm) - Length 2.6 -Current Size (cm) - Width 6.2 -Current Size (cm) - Depth 0.1 -Total Square Cm 16.12 -Date of Last Picture (Recall this 07/23/22 field) -Photo Taken Yes -Epithelialization None Present -Tunneling No -Undermining/Tunneling No -Circular Undermining No -Exudate Amt Medium -Exudate Type Serosanguineous -Wound Margin Flat & Intact -Granulation Amt Small (1-33%) -Granulation Quality Red -Slough/Fibrin Yes -Necrosis Amt Large (67-100%) -Necrotic Tissue Type Adherent Slough -Texture (Vibha-wound Skin Appearance) Assessed, Scarring -Moisture (Vibha-wound Skin Appearance) No Abnormality -Color (Vibha-wound Skin Appearance) Assessed, Erythema, Hemosiderin Staining -Temperature (Vibha-wound Skin No Abnormality Appearance) (Pt Warm) -Tenderness on Palpation (Vibha-wound No Skin Appearance) -Ulcer Cleansing Soap and Water -Foul Odor after Cleansing No -Anesthetic Used 4% Lidocaine Solution Right Calf (cm) 62.5 Right Ankle (cm) 35 Left Calf (cm) 65 Left Ankle (cm) 38 WC - Nurse 2 - General Ulcer CM Notes Start: 07/23/22 08:45 Freq: Status: Active Protocol: Activity Type Activity Date Activity User E-sign Co-sign Detail Recorded Client Recorded Date Recorded By Document 07/23/22 09:40 MW [id number] 07/23/22 09:49 MW 07/23/22 09:40 Wound Center Nurse 2 #1- R MED LE -Time 09:40 -Correct Patient Yes -Correct Side, Site, Position Yes -Correct Procedure Yes -Procedure Performed Yes -Type of Procedure Debridement -Clinical Debridement Subcutaneous -Tissue Removed Subcutaneous -Post Debridement (cm) - Length 5.0 -Post Debridement (cm) - Width 8.0 -Post Debridement (cm) - Depth 0.1 -Total Square (Post) (cm) 40.00 -Area of Debridement (cm) - Length 5.0 -Area of Debridement (cm) - Width 8.0 -Total Square (Area) (cm) 40.00 -Tunneling No -Undermining/Tunneling No -Circular Undermining No -Wound/Ulcer Outcome Not Healed -Ulcer Cleansing Rinsed/ Irrigated with Saline -Foul Odor after Cleansing No -Bioengineered Tissue No -Bleeding Controlled with Pressure -Treatment Response Procedure Tolerated Well -Offloading No -Debridement - Subq, 1st 20sq cm Yes -Debridement, SubQ, ea addt'l 20sq cm 1 or part thereof Pain Scale: 0-10 Numeric Is Patient Pain Free? Yes WC - Nurse 3 - General Ulcer D/C NN Start: 07/23/22 08:45 Freq: Status: Active Protocol: Activity Type Activity Date Activity User E-sign Co-sign Detail Recorded Client Recorded Date Recorded By Document 07/23/22 10:14 DL [id number] 07/23/22 10:15 DL 07/23/22 10:14 Wound Care Nurse 3 #1- R MED LE -Ulcer Cleansing Rinsed/ Irrigated with Saline -Foul Odor after Cleansing No -Primary Dressing Applied Fibracol Plus 4x4 -Other Dressing xerofrom/abd -Primary Dressing Covered/Secured with Dry Gauze & Roll Gauze, Secured with Tape -Other Covering stocknette/eran -Fibracol Plus 4x4 1 Treatment Response Procedure Tolerated Well Pain Scale: 0-10 Numeric Is Patient Pain Free? Yes WC - Visit Discharge Discharge Condition Stable Ambulatory Status Wheelchair Transportation Private Auto Facility Type Energy Efficient Site Manager Care Facility Orders Sent Yes Charges/Coding Visit Charges Office Visits / Consults: 17844 OV L4 Est Procedures Integumentary 111xxx-113xx: [id number] Jeri subq tissue 20 sq cm/< Add On Codes: 33682 Jeri subq tissue add-on (x1 additional square centimeter debrided, please refer to clinical note.) Assessment/Plan Assessment/Plan (1) Ulcer of right lower extremity with fat layer exposed: CODE(S): L97.912 - Non-pressure chronic ulcer of unspecified part of right lower leg with fat layer exposed (2) Bilateral edema of lower extremity: CODE(S): R60.0 - Localized edema (3) CHF (congestive heart failure): CODE(S): I50.9 - Heart failure, unspecified QUALIFIERS: Heart failure chronicity: acute on chronic Heart failure type: diastolic Qualified Code(s): I50.33 - Acute on chronic diastolic (congestive) heart failure (4) Type 2 diabetes mellitus: CODE(S): E11.9 - Type 2 diabetes mellitus without complications PLAN: Plan Debridement done as documented above, procedure was well-tolerated. Bilateral lower extremity edema however no significant drainage at time of exam. Labs ordered including CBC, CMP ESR and A1C ordered, will review. Cultures also taken. Fibracol daily, cover with Xeroform and gauze. Tubigrip and Eran wrap for edema management. Elevate lower extremities when seated and in bed. Exercise as tolerated. Increase protein intake, vitamin C, D and zinc discussed. Patient voiced understanding. Optimal diabetes control, she reports that her blood glucose readings have been within normal. Her questions were answered and she was advised to call with any further questions or concerns. Follow-up in a week. This note was generated with [employer] dictation software. It may contain incorrect words, spelling, and punctuation that were not noted in checking the note before signing.
[2022-07-30 09:39] VITALS: BP 125/75; PULSE 61; RESP 18; TEMP 36.2; BMI 43.4
--- NOTE | 2022-07-30 10:29 | PCM.WC.PN ---
History of Present Illness Date of Service: 07/30/22 Chief Complaint: Non healing right lower extremity ulcer History of Wound: Ms. Carter is a 71 who presents to the wound center due to nonhealing right lower extremity ulceration. Initial injury was said to be in 1993 following which she had surgical repair/grafting. Current opening noted about 2-months ago. Denies any known precipitating factor. Has been trying some dressing changes at her facility without significant improvement. Reports some drainage. No chills, fever or otherwise feeling of unwell. She reports a history of diabetes which she states is well controlled. She states that her appetite is good as well. Progress of Wound: No new concerns at this time. Has been applying Fibracol with Xeroform, some improvement noted. Objective Data Objective Data Vital Signs: Vital Signs Temp Pulse Resp BP O2 Del Method 97.2 F L 61 18 125/75 H Nasal Cannula 07/30/22 09:39 07/30/22 09:39 07/30/22 09:39 07/30/22 09:39 07/23/22 08:48 Oxygen Delivery Method Nasal Cannula Weight: 294 lb 7 oz Body Mass Index (BMI) 43.4 Lab / Micro Data Micro: Microbiology 07/23/22 09:45 Wound Abcess - Leg, Right Gram Stain - Final 07/23/22 09:45 Wound Abcess - Leg, Right Wound Culture - Final No growth aerobically. 07/23/22 09:45 Wound Abcess - Leg, Right Anaerobic Culture - Final No growth in 5 days. Charges/Coding Procedures Integumentary 111xxx-113xx: 27205 Jeri subq tissue 20 sq cm/< Add On Codes: 58928 Jeri subq tissue add-on (x1 additional square centimeter debrided, please refer to clinical note.) Physical Exam Const alert, oriented x3 and no apparent distress General Appearance: cooperative, comfortable and well kempt HEENT Head and Scalp: normal to inspection, normocephalic and atraumatic Neck full ROM General: normal visual inspection Resp normal respiratory effort Effort and Inspection: able to speak in complete sentences Extremity General Extremity: edema Skin Wounds: wounds noted Neuro oriented x3, CN's II-XII intact bilaterally, moves all extremities and no focal motor deficits Psych mental status grossly normal, thought process normal, cooperative and affect normal Debridement Note Debridement Note Wound debrided: Right lower extremity Type of Debridement: Excisional debridement Anesthesia Used: 5% Lidocaine Gel Depth: Down to and including healthy tissue and in the subcutaneous layer Percentage of wound debrided: 100 Instrument Used: 7mm curette Tissue Removed: Slough and devitalized tissue Severity: Fat Layer Exposed Amount of bleeding with debridement: Mild Bleeding Controlled with: Compression and gauze Patient tolerated procedure: Patient tolerated procedure well Post-Debridement Measurements and Additional Note: Post-Debridement Measurements/Treatment WC - Nurse 1 - General Ulcer Assessment Start: 07/23/22 08:45 Freq: Status: Active Protocol: [employer] Activity Type Activity Date Activity User E-sign Co-sign Detail Recorded Client Recorded Date Recorded By Document 07/23/22 08:48 BM [id number] 07/23/22 09:01 BM Document 07/30/22 09:39 ML [id number] 07/30/22 09:41 ML 07/23/22 07/30/22 08:48 09:39 - Today's Visit Information Type of service Initial Visit Follow-up Visit (Physician/WOOD TECHNOLOGIST ) Arrival Mode Wheelchair Wheelchair Transfer Assistance None None Patient Identification Verified (Name & Yes Yes ) Patient Requires Transmission-Based No No Precautions Safety Precautions NA Height and Weight Height 5 ft 9 in Weight 294 lb 7 oz Weight in Pounds 294.4 lbs Body Mass Index (BMI) 43.4 43.4 BMI Classification Obese Obese BSA - Bairon 2.43 Vital Signs Temperature (97.8 F-99.1 F) 97.8 F 97.2 F L Temperature Source Temporal Temporal Pulse Rate (60-100) 56 L 61 Pulse Location Monitor Monitor Respiratory Rate (12-18) 16 18 Respiratory rate source Observation Observation Oxygen Delivery Method Nasal Cannula Blood Pressure (90/60-120/80) 145/78 H 125/75 H Blood Pressure Mean (mm Hg) 100 91 Source Monitor Monitor Position Sitting Blood Pressure Location Left Forearm History Since Last Visit- (Skip if this is Patient's initial visit) Have you changed medications since your No last visit? Any new allergies or adverse reactions No Had a fall/change in ADL's that may No increase risk of falls Signs or symptoms of abuse and/or No neglect since last visit Have you been in the hospital since your No last visit? Has dressing in place as prescribed Yes Has compression in place as prescribed N/A Has offloadiing in place as prescribed N/A Experienced any changes in pain level or No management Left Footwear Regular Shoe Regular Shoe Right Footwear Regular Shoe Regular Shoe Pain Scale: 0-10 Numeric Is Patient Pain Free? Yes Yes Lower Extremity Assessment/ Foot Assessment/ Toe Nail Assessment Right -Lower Extremity Comment (If N/A Above ASSESSMENT ) HAMPERED BY LYMPHEDEMA -Posterior Tibial Palpable No -Posterior Tibial Doppler Inaudible -Dorsalis Pedis Palpable No -Dorsalis Pedis Doppler Monophasic -Extremity Color Hyperpigmented, Hemosiderin -Hair Growth on Legs No -Hair Growth on Toes No -Capillary Refill Less than 3 Seconds -Other Deformity No -Prior Foot Ulcer No -Charcot Joint No -Prior Amputation No -Thick Yes -Discolored Yes -Deformed No -Improper Length & Hygeine No Left -Lower Extremity Comment (If N/A Above assessment ) hampered by lymphedema -Posterior Tibial Palpable No -Posterior Tibial Doppler Inaudible -Dorsalis Pedis Palpable No -Dorsalis Pedis Doppler Monophasic -Extremity Color Hyperpigmented, Hemosiderin -Hair Growth on Legs No -Hair Growth on Toes No -Temperature of Extremity Warm -Capillary Refill Less than 3 Seconds -Other Deformity No -Prior Foot Ulcer No -Charcot Joint No -Prior Amputation No -Thick Yes -Discolored Yes -Deformed No -Improper Length & Hygeine No Neuropathy Assessment Feet - Top Side and Bottom <Entered> (a) Communication Assessment Preferred language Gambian Back Feeder [employer] Layup Line Required No Able to Read Yes Able to Write Yes Communication Tools None Right Hearing Abillity Hard of Hearing ,Use of Hearing Aid Left Hearing Abillity Hard of Hearing ,Use of Hearing Aid Visual Assistive Devices Glasses Teaching Assessment Preferences Verbal,Written, Audio/Visual, Demonstration Barriers to Learning None Readiness To Learn Excellent Willingness to Engage in Self Management High Activies Readiness to Engage in Self Management High Activities Anxiety Level Calm Cooperation Cooperative Perception Coherent Interest in Health Problem Asks Questions Education Importance Acknowledges Need Does Patient Smoke tobacco or other No substances Smoking Status Never smoker Is Patient Diabetic Yes Functional Assessment Recent Decline in Ability to Perform Denies Any Declines Culture/Jainism/Chiller Hand Cultural/Jainism Needs that may affect No Treatment Plan Teaching: Wound Center *Welcome to the Wound Center -Person Taught Patient -Teaching Method Discussion -Response to teaching Verbalize understanding Welcome to the Wound Care Center Gambian (a) 1 - + WC - Nurse 1 - General Ulcer Measurement Start: 07/23/22 08:45 Freq: Status: Active Protocol: Activity Type Activity Date Activity User E-sign Co-sign Detail Recorded Client Recorded Date Recorded By Document 07/23/22 08:48 BMF [id number] 07/23/22 09:01 BMF Document 07/30/22 09:39 ML [id number] 07/30/22 09:41 ML 07/23/22 07/30/22 08:48 09:39 Wound Center Nurse 1 #1- R MED LE -Combined with other wound No -Current Size (cm) - Length 2.6 6 -Current Size (cm) - Width 6.2 7.5 -Current Size (cm) - Depth 0.1 0.1 -Total Square Cm 16.12 45.0 -Date of Last Picture (Recall this 07/23/22 field) -Photo Taken Yes -Epithelialization None Present -Tunneling No -Undermining/Tunneling No -Circular Undermining No -Exudate Amt Medium Small -Exudate Type Serosanguineous Serosanguineous -Wound Margin Flat & Intact -Granulation Amt Small (1-33%) -Granulation Quality Red -Slough/Fibrin Yes Yes -Necrosis Amt Large (67-100%) Small (1-33%) -Necrotic Tissue Type Adherent Slough Adherent Slough -Texture (Vibha-wound Skin Appearance) Assessed, Assessed Scarring -Moisture (Vibha-wound Skin Appearance) No Abnormality Assessed -Color (Vibha-wound Skin Appearance) Assessed, Assessed Erythema, Hemosiderin Staining -Temperature (Vibha-wound Skin No Abnormality No Abnormality Appearance) (Pt Warm) (Pt Warm) -Tenderness on Palpation (Vibha-wound No No Skin Appearance) -Ulcer Cleansing Soap and Water Soap and Water -Foul Odor after Cleansing No No -Anesthetic Used 4% Lidocaine 5% Lidocaine Solution Gel Right Calf (cm) 62.5 Right Ankle (cm) 35 Left Calf (cm) 65 Left Ankle (cm) 38 WC - Nurse 2 - General Ulcer CM Notes Start: 07/23/22 08:45 Freq: Status: Active Protocol: Activity Type Activity Date Activity User E-sign Co-sign Detail Recorded Client Recorded Date Recorded By Document 07/23/22 09:40 MW [id number] 07/23/22 09:49 MW Document 07/30/22 09:52 [id number] 07/30/22 09:55 JF 07/23/22 07/30/22 09:40 09:52 Wound Center Nurse 2 #1- R MED LE -Time 09:40 09:52 -Correct Patient Yes Yes -Correct Side, Site, Position Yes Yes -Correct Procedure Yes Yes -Procedure Performed Yes Yes -Type of Procedure Debridement Debridement -Clinical Debridement Subcutaneous Subcutaneous -Tissue Removed Subcutaneous Subcutaneous -Post Debridement (cm) - Length 5.0 4.7 -Post Debridement (cm) - Width 8.0 6.5 -Post Debridement (cm) - Depth 0.1 0.1 -Total Square (Post) (cm) 40.00 30.55 -Area of Debridement (cm) - Length 5.0 4.7 -Area of Debridement (cm) - Width 8.0 6.5 -Total Square (Area) (cm) 40.00 30.55 -Tunneling No No -Undermining/Tunneling No No -Circular Undermining No No -Wound/Ulcer Outcome Not Healed Not Healed -Ulcer Cleansing Rinsed/ Rinsed/ Irrigated with Irrigated with Saline Saline -Foul Odor after Cleansing No No -Bioengineered Tissue No No -Bleeding Controlled with Pressure Pressure -Treatment Response Procedure Procedure Tolerated Well Tolerated Well -Offloading No No -Debridement - Subq, 1st 20sq cm Yes Yes -Debridement, SubQ, ea addt'l 20sq cm 1 1 or part thereof Pain Scale: 0-10 Numeric Is Patient Pain Free? Yes Yes WC - Nurse 3 - General Ulcer D/C NN Start: 07/23/22 08:45 Freq: Status: Active Protocol: Activity Type Activity Date Activity User E-sign Co-sign Detail Recorded Client Recorded Date Recorded By Document 07/23/22 10:14 DL [id number] 07/23/22 10:15 DL Document 07/30/22 10:04 DL [id number] 07/30/22 10:09 DL 07/23/22 07/30/22 10:14 10:04 Wound Care Nurse 3 #1- R MED LE -Ulcer Cleansing Rinsed/ Rinsed/ Irrigated with Irrigated with Saline Saline -Foul Odor after Cleansing No No -Primary Dressing Applied Fibracol Plus Fibracol Plus 4x4 4x4,NonAdherent Contact Layer -Other Dressing xerofrom/abd xeroform -Primary Dressing Covered/Secured with Dry Gauze & Dry Gauze & Roll Gauze, Roll Gauze, Secured with Secured with Tape Tape -Other Covering stocknette/eran -Fibracol Plus 4x4 1 1 Treatment Response Procedure Procedure Tolerated Well Tolerated Well Pain Scale: 0-10 Numeric Is Patient Pain Free? Yes Yes WC - Visit Discharge Discharge Condition Stable Stable Ambulatory Status Wheelchair Wheelchair Transportation Private [facility] Facility Type Senior Data Scientist Care Senior Data Scientist Care Facility Facility Orders Sent Yes Yes Assessment/Plan Assessment/Plan (1) Ulcer of right lower extremity with fat layer exposed: CODE(S): L97.912 - Non-pressure chronic ulcer of unspecified part of right lower leg with fat layer exposed (2) Bilateral edema of lower extremity: CODE(S): R60.0 - Localized edema (3) CHF (congestive heart failure): CODE(S): I50.9 - Heart failure, unspecified QUALIFIERS: Heart failure type: diastolic Heart failure chronicity: acute on chronic Qualified Code(s): I50.33 - Acute on chronic diastolic (congestive) heart failure (4) Type 2 diabetes mellitus: CODE(S): E11.9 - Type 2 diabetes mellitus without complications PLAN: Plan Debridement done as documented above, procedure was well-tolerated. Some improvement noted this week. Has been using Fibracol and Xeroform, will continue same. Continue Tubigrip and Eran wrap for edema management. Elevate lower extremities when seated and in bed. Exercise as tolerated. Increase protein intake, vitamin C, D and zinc discussed. Labs reviewed, prealbumin low at 14.1, prescription for high-protein Ensure sent back to her facility. Patient voiced understanding. Optimal diabetes control, she reports that her blood glucose readings have been within normal. A1c at 5.5. Her questions were answered and she was advised to call with any further questions or concerns. Follow-up in a week. This note was generated with [employer] software. It may contain incorrect words, spelling, and punctuation that were not noted in checking the note before signing.
== END 2022-08-01 23:59 | disposition home or self-care (01) ==
LOC: WC 09:30
PROVIDERS: Visit Provider Internal Medicine
DX: L97.912 Non-pressure chronic ulcer of unspecified part of right lower leg with fat layer exposed (principal); I11.0 Hypertensive heart disease with heart failure; I50.33 Acute on chronic diastolic (congestive) heart failure; F31.9 Bipolar disorder, unspecified; E11.40 Type 2 diabetes mellitus with diabetic neuropathy, unspecified; I89.0 Lymphedema, not elsewhere classified; Z79.2 Long term (current) use of antibiotics; E78.5 Hyperlipidemia, unspecified; G47.33 Obstructive sleep apnea (adult) (pediatric)
CPT/HCPCS: 11042; 11045; 87070; 87075; 87205; 99213; G0463

== ENCOUNTER 2022-08-27 08:45 | Outpatient (RCR) | payer MEDICARE, MEDICAID, SELFPAY ==
[2022-08-02 00:39] VITALS: BP 125/75; PULSE 61; RESP 18; TEMP 36.2; BMI 43.4
[2022-08-06 09:15] VITALS: BP 91/47; PULSE 61; RESP 18; TEMP 36.3; BMI 43.4
--- NOTE | 2022-08-06 10:30 | PN.PCM_ITS ---
History of Present Illness Date of Service: 08/06/22 Chief Complaint: Non healing right lower extremity ulcer History of Wound: Ms. Carter is a 71 who presents to the wound center due to nonhealing right lower extremity ulceration. Initial injury was said to be in 1993 following which she had surgical repair/grafting. Current opening noted about 2-months ago. Denies any known precipitating factor. Has been trying some dressing changes at her facility without significant improvement. Reports some drainage. No chills, fever or otherwise feeling of unwell. She reports a history of diabetes which she states is well controlled. She states that her appetite is good as well. Progress of Wound: Improving. No new concerns at this time. Objective Data Objective Data Vital Signs: Vital Signs Temp Pulse Resp BP 97.4 F L 61 18 91/47 L 08/06/22 09:15 08/06/22 09:15 08/06/22 09:15 08/06/22 09:15 Weight: 294 lb 7 oz Body Mass Index (BMI) 43.4 Charges/Coding Procedures Integumentary 111xxx-113xx: 91995 Jeri subq tissue 20 sq cm/< Add On Codes: [id number] Jeri subq tissue add-on (x1. Additional square centimeter debrided, please refer to clinical note) Physical Exam Const alert, oriented x3 and no apparent distress General Appearance: cooperative, comfortable and well kempt HEENT Head and Scalp: normal to inspection, normocephalic and atraumatic Neck full ROM General: normal visual inspection Resp normal respiratory effort Effort and Inspection: able to speak in complete sentences Extremity General Extremity: edema Skin Wounds: wounds noted Neuro oriented x3, CN's II-XII intact bilaterally, moves all extremities and no focal motor deficits Psych mental status grossly normal, thought process normal, cooperative and affect normal Debridement Note Debridement Note Wound debrided: Right lower extremity Type of Debridement: Excisional debridement Anesthesia Used: 4% Lidocaine Solution Depth: Down to and including healthy tissue and in the subcutaneous layer Percentage of wound debrided: 100 Instrument Used: 5mm curette Tissue Removed: Slough and devitalized tissue Severity: Fat Layer Exposed Amount of bleeding with debridement: Mild Bleeding Controlled with: Pressure Patient tolerated procedure: Patient tolerated procedure well Post-Debridement Measurements and Additional Note: Post-Debridement Measurements/Treatment WC - Nurse 1 - General Ulcer Assessment Start: 08/06/22 09:15 Freq: Status: Active Protocol: PAPA Activity Type Activity Date Activity User E-sign Co-sign Detail Recorded Client Recorded Date Recorded By Document 08/06/22 09:15 DL [id number] 08/06/22 09:20 DL 08/06/22 09:15 - Today's Visit Information Type of service Follow-up Visit (Physician/COLD MEAT COOK ) Arrival Mode Wheelchair Transfer Assistance None Patient Identification Verified (Name & Yes ) Patient Requires Transmission-Based No Precautions Safety Precautions NA Finger Stick Blood Sugar(mg/dl) (if 121 - 08/05/22 indicated): Blood Sugar Stated by Patient Height and Weight Body Mass Index (BMI) 43.4 BMI Classification Obese Vital Signs Temperature (97.8 F-99.1 F) 97.4 F L Temperature Source Temporal Pulse Rate (60-100) 61 Pulse Location Monitor Respiratory Rate (12-18) 18 Respiratory rate source Observation Blood Pressure (90/60-120/80) 91/47 L Blood Pressure Mean (mm Hg) 61 Source Monitor History Since Last Visit- (Skip if this is Patient's initial visit) Have you changed medications since your No last visit? Any new allergies or adverse reactions No Had a fall/change in ADL's that may No increase risk of falls Signs or symptoms of abuse and/or No neglect since last visit Have you been in the hospital since your No last visit? Has dressing in place as prescribed Yes Has compression in place as prescribed Yes Has offloadiing in place as prescribed N/A Experienced any changes in pain level or No management Pain Scale: 0-10 Numeric Is Patient Pain Free? Yes - Nurse 1 - General Ulcer Measurement Start: 08/06/22 09:15 Freq: Status: Active Protocol: Activity Type Activity Date Activity User E-sign Co-sign Detail Recorded Client Recorded Date Recorded By Document 08/06/22 09:15 DL [id number] 08/06/22 09:20 DL 08/06/22 09:15 Wound Center Nurse 1 #1- R MED LE -Current Size (cm) - Length 4.1 -Current Size (cm) - Width 6.5 -Current Size (cm) - Depth 0.1 -Total Square Cm 26.65 -Photo Taken Yes -Exudate Amt Medium -Exudate Type Serosanguineous -Wound Margin Distinct, Outline Attached -Granulation Amt Large (67-100%) -Granulation Quality Red -Necrosis Amt Small (1-33%) -Necrotic Tissue Type Adherent Slough -Structure Exposed N/A -Texture (Vibha-wound Skin Appearance) Scarring -Moisture (Vibha-wound Skin Appearance) Dry/Scaly -Color (Vibha-wound Skin Appearance) Hemosiderin Staining -Temperature (Vibha-wound Skin No Abnormality Appearance) (Pt Warm) -Ulcer Cleansing Soap and Water -Foul Odor after Cleansing No -Anesthetic Used 5% Lidocaine Gel Right Calf (cm) 67 Right Ankle (cm) 33.3 WC - Nurse 2 - General Ulcer CM Notes Start: 08/06/22 09:15 Freq: Status: Active Protocol: Activity Type Activity Date Activity User E-sign Co-sign Detail Recorded Client Recorded Date Recorded By Document 08/06/22 09:46 MW [id number] 08/06/22 09:49 MW 08/06/22 09:46 Wound Center Nurse 2 #1- R MED LE -Time 09:46 -Correct Patient Yes -Correct Side, Site, Position Yes -Correct Procedure Yes -Procedure Performed Yes -Type of Procedure Debridement -Clinical Debridement Subcutaneous -Tissue Removed Subcutaneous -Post Debridement (cm) - Length 4.5 -Post Debridement (cm) - Width 6.1 -Post Debridement (cm) - Depth 0.1 -Total Square (Post) (cm) 27.45 -Area of Debridement (cm) - Length 4.5 -Area of Debridement (cm) - Width 6.1 -Total Square (Area) (cm) 27.45 -Tunneling No -Undermining/Tunneling No -Circular Undermining No -Wound/Ulcer Outcome Not Healed -Ulcer Cleansing Rinsed/ Irrigated with Saline -Foul Odor after Cleansing No -Bioengineered Tissue No -Bleeding Controlled with Pressure -Treatment Response Procedure Tolerated Well -Offloading No -Debridement - Subq, 1st 20sq cm Yes -Debridement, SubQ, ea addt'l 20sq cm 1 or part thereof Pain Scale: 0-10 Numeric Is Patient Pain Free? Yes VAHID - Nurse 3 - General Ulcer D/C NN Start: 08/06/22 09:15 Freq: Status: Active Protocol: Activity Type Activity Date Activity User E-sign Co-sign Detail Recorded Client Recorded Date Recorded By Document 08/06/22 09:58 DL [id number] 08/06/22 10:01 DL 08/06/22 09:58 Wound Care Nurse 3 #1- R MED LE -Ulcer Cleansing Rinsed/ Irrigated with Saline -Foul Odor after Cleansing No -Primary Dressing Applied Fibracol Plus 4x4 -Other Dressing xerofrom/ABD -Primary Dressing Covered/Secured with Dry Gauze & Roll Gauze, Secured with Tape -Fibracol Plus 4x4 1 Right -Compression Wrap Eran Wrap -Other stockinette Treatment Response Procedure Tolerated Well Pain Scale: 0-10 Numeric Is Patient Pain Free? Yes WC - Visit Discharge Discharge Condition Stable Ambulatory Status Wheelchair Transportation ECF Facility Type [facility] Orders Sent Yes Assessment/Plan Assessment/Plan (1) Ulcer of right lower extremity with fat layer exposed: CODE(S): L97.912 - Non-pressure chronic ulcer of unspecified part of right lower leg with fat layer exposed (2) Bilateral edema of lower extremity: CODE(S): R60.0 - Localized edema (3) CHF (congestive heart failure): CODE(S): I50.9 - Heart failure, unspecified QUALIFIERS: Heart failure type: diastolic Heart failure chronicity: acute on chronic Qualified Code(s): I50.33 - Acute on chronic diastolic (congestive) heart failure (4) Type 2 diabetes mellitus: CODE(S): E11.9 - Type 2 diabetes mellitus without complications PLAN: Plan Debridement done as documented above, procedure was well-tolerated. Improving. Continue Fibracol and Xeroform daily. Continue Tubigrip and Eran wrap for edema management. Elevate lower extremities when seated and in bed. Exercise as tolerated. Increase protein intake, vitamin C, D and zinc discussed. Optimal diabetes control, she reports that her blood glucose readings have been within normal range. A1c at 5.5. Her questions were answered and she was advised to call with any further questions or concerns. Follow-up in a week. This note was generated with [employer] software. It may contain incorrect words, spelling, and punctuation that were not noted in checking the note before signing.
[2022-08-13 09:11] VITALS: BP 116/57; PULSE 58; RESP 16; TEMP 36.1; BMI 43.4
--- NOTE | 2022-08-13 09:44 | PCM.WC.PN ---
History of Present Illness Date of Service: 08/13/22 Chief Complaint: Non healing right lower extremity ulcer History of Wound: Ms. Carter is a 71 who presents to the wound center due to nonhealing right lower extremity ulceration. Initial injury was said to be in 1993 following which she had surgical repair/grafting. Current opening noted about 2-months ago. Denies any known precipitating factor. Has been trying some dressing changes at her facility without significant improvement. Reports some drainage. No chills, fever or otherwise feeling of unwell. She reports a history of diabetes which she states is well controlled. She states that her appetite is good as well. Progress of Wound: Improving. Dressing changes done as recommended however, she is not getting her compression done by the facility nurses. Objective Data Objective Data Vital Signs: Vital Signs Temp Pulse Resp BP O2 Del Method 97 F L 58 L 16 116/57 L Room Air 08/13/22 09:11 08/13/22 09:11 08/13/22 09:11 08/13/22 09:11 08/13/22 09:11 Oxygen Delivery Method Room Air Weight: 294 lb 7 oz Body Mass Index (BMI) 43.4 Charges/Coding Procedures Integumentary 111xxx-113xx: 65444 Jeri subq tissue 20 sq cm/< Add On Codes: 90582 Jeri subq tissue add-on (x1. Additional Sq Cm debrided, please refer to clinical note. ) Physical Exam Const alert, oriented x3 and no apparent distress General Appearance: cooperative, comfortable and well kempt HEENT Head and Scalp: normal to inspection, normocephalic and atraumatic Neck full ROM General: normal visual inspection Resp normal respiratory effort Effort and Inspection: able to speak in complete sentences Extremity General Extremity: edema Skin Wounds: wounds noted Neuro oriented x3, CN's II-XII intact bilaterally, moves all extremities and no focal motor deficits Psych mental status grossly normal, thought process normal, cooperative and affect normal Debridement Note Debridement Note Wound debrided: Right Lower Extremity Type of Debridement: Excisional debridement Anesthesia Used: 5% Lidocaine Gel Depth: Down to and including healthy tissue and in the subcutaneous layer Percentage of wound debrided: 100 Instrument Used: 5mm curette Tissue Removed: Slough and devitalized tissue Severity: Fat Layer Exposed Amount of bleeding with debridement: Mild Bleeding Controlled with: Pressure Patient tolerated procedure: Patient tolerated procedure well Post-Debridement Measurements and Additional Note: Post-Debridement Measurements/Treatment - Nurse 1 - General Ulcer Assessment Start: 08/06/22 09:15 Freq: Status: Active Protocol: PAPA Activity Type Activity Date Activity User E-sign Co-sign Detail Recorded Client Recorded Date Recorded By Document 08/06/22 09:15 DL [id number] 08/06/22 09:20 DL Document 08/13/22 09:11 BM Desktop 08/13/22 09:16 [facility] 08/06/22 08/13/22 09:15 09:11 - Today's Visit Information Type of service Follow-up Visit Follow-up Visit (Physician/CUP MACHINE OPERATOR (Physician/CUP MACHINE OPERATOR ) ) Arrival Mode Wheelchair Wheelchair Transfer Assistance None None Patient Identification Verified (Name & Yes Yes ) Patient Requires Transmission-Based No No Precautions Safety Precautions NA Finger Stick Blood Sugar(mg/dl) (if 121 - 08/05/22 indicated): Blood Sugar Stated by Patient Height and Weight Body Mass Index (BMI) 43.4 43.4 BMI Classification Obese Obese Vital Signs Temperature (97.8 F-99.1 F) 97.4 F L 97 F L Temperature Source Temporal Temporal Pulse Rate (60-100) 61 58 L Pulse Location Monitor Monitor Respiratory Rate (12-18) 18 16 Respiratory rate source Observation Observation Oxygen Delivery Method Room Air Blood Pressure (90/60-120/80) 91/47 L 116/57 L Blood Pressure Mean (mm Hg) 61 76 Source Monitor Monitor Position Sitting Blood Pressure Location Right Arm History Since Last Visit- (Skip if this is Patient's initial visit) Have you changed medications since your No No last visit? Any new allergies or adverse reactions No No Had a fall/change in ADL's that may No No increase risk of falls Signs or symptoms of abuse and/or No No neglect since last visit Have you been in the hospital since your No No last visit? Has dressing in place as prescribed Yes Yes Has compression in place as prescribed Yes No Has offloadiing in place as prescribed N/A N/A Experienced any changes in pain level or No No management Left Footwear Regular Shoe Right Footwear Regular Shoe Pain Scale: 0-10 Numeric Is Patient Pain Free? Yes Yes Catrina Nurse 1 - General Ulcer Measurement Start: 08/06/22 09:15 Freq: Status: Active Protocol: Activity Type Activity Date Activity User E-sign Co-sign Detail Recorded Client Recorded Date Recorded By Document 08/06/22 09:15 DL [id number] 08/06/22 09:20 DL Document 08/13/22 09:11 [facility] Desktop 08/13/22 09:16 BM 08/06/22 08/13/22 09:15 09:11 Wound Center Nurse 1 #1- R MED LE -Combined with other wound No -Current Size (cm) - Length 4.1 4.5 -Current Size (cm) - Width 6.5 6.5 -Current Size (cm) - Depth 0.1 0.1 -Total Square Cm 26.65 29.25 -Date of Last Picture (Recall this 08/13/22 field) -Photo Taken Yes Yes -Epithelialization Small 1-33% -Tunneling No -Undermining/Tunneling No -Circular Undermining No -Exudate Amt Medium Medium -Exudate Type Serosanguineous Serosanguineous -Wound Margin Distinct, Distinct, Outline Outline Attached Attached -Granulation Amt Large (67-100%) Medium (34-66%) -Granulation Quality Red Red -Slough/Fibrin Yes -Necrosis Amt Small (1-33%) Medium (34-66%) -Necrotic Tissue Type Adherent Slough Adherent Slough -Structure Exposed N/A -Texture (Vibha-wound Skin Appearance) Scarring Assessed, Scarring -Moisture (Vibha-wound Skin Appearance) Dry/Scaly Assessed -Color (Vibha-wound Skin Appearance) Hemosiderin Assessed Staining -Temperature (Vibha-wound Skin No Abnormality No Abnormality Appearance) (Pt Warm) (Pt Warm) -Tenderness on Palpation (Vibha-wound No Skin Appearance) -Ulcer Cleansing Soap and Water Rinsed/ Irrigated with Saline -Foul Odor after Cleansing No No -Anesthetic Used 5% Lidocaine 5% Lidocaine Gel Gel Lower Limb Edema Present Yes Right Calf (cm) 67 62 Right Ankle (cm) 33.3 37.5 WC - Nurse 2 - General Ulcer CM Notes Start: 08/06/22 09:15 Freq: Status: Active Protocol: Activity Type Activity Date Activity User E-sign Co-sign Detail Recorded Client Recorded Date Recorded By Document 08/06/22 09:46 MW [id number] 08/06/22 09:49 MW Document 08/13/22 09:36 MW [id number] 08/13/22 09:41 MW 08/06/22 08/13/22 09:46 09:36 Wound Center Nurse 2 #1- R MED LE -Time 09:46 09:36 -Correct Patient Yes Yes -Correct Side, Site, Position Yes Yes -Correct Procedure Yes Yes -Procedure Performed Yes Yes -Type of Procedure Debridement Debridement -Clinical Debridement Subcutaneous Subcutaneous -Tissue Removed Subcutaneous Subcutaneous -Post Debridement (cm) - Length 4.5 4.5 -Post Debridement (cm) - Width 6.1 5.4 -Post Debridement (cm) - Depth 0.1 0.1 -Total Square (Post) (cm) 27.45 24.30 -Area of Debridement (cm) - Length 4.5 4.5 -Area of Debridement (cm) - Width 6.1 5.4 -Total Square (Area) (cm) 27.45 24.30 -Tunneling No No -Undermining/Tunneling No No -Circular Undermining No No -Wound/Ulcer Outcome Not Healed Not Healed -Ulcer Cleansing Rinsed/ Rinsed/ Irrigated with Irrigated with Saline Saline -Foul Odor after Cleansing No No -Bioengineered Tissue No No -Bleeding Controlled with Pressure Pressure -Treatment Response Procedure Procedure Tolerated Well Tolerated Well -Offloading No No -Debridement - Subq, 1st 20sq cm Yes Yes -Debridement, SubQ, ea addt'l 20sq cm 1 1 or part thereof Pain Scale: 0-10 Numeric Is Patient Pain Free? Yes Yes WC - Nurse 3 - General Ulcer D/C NN Start: 08/06/22 09:15 Freq: Status: Active Protocol: Activity Type Activity Date Activity User E-sign Co-sign Detail Recorded Client Recorded Date Recorded By Document 08/06/22 09:58 DL [id number] 08/06/22 10:01 DL 08/06/22 09:58 Wound Care Nurse 3 #1- R MED LE -Ulcer Cleansing Rinsed/ Irrigated with Saline -Foul Odor after Cleansing No -Primary Dressing Applied Fibracol Plus 4x4 -Other Dressing xerofrom/ABD -Primary Dressing Covered/Secured with Dry Gauze & Roll Gauze, Secured with Tape -Fibracol Plus 4x4 1 Right -Compression Wrap Eran Wrap -Other stockinette Treatment Response Procedure Tolerated Well Pain Scale: 0-10 Numeric Is Patient Pain Free? Yes WC - Visit Discharge Discharge Condition Stable Ambulatory Status Wheelchair Transportation ECF Facility Type Nursing Home Care Facility Orders Sent Yes Assessment/Plan Assessment/Plan (1) Ulcer of right lower extremity with fat layer exposed: CODE(S): L97.912 - Non-pressure chronic ulcer of unspecified part of right lower leg with fat layer exposed (2) Bilateral edema of lower extremity: CODE(S): R60.0 - Localized edema (3) CHF (congestive heart failure): CODE(S): I50.9 - Heart failure, unspecified QUALIFIERS: Heart failure type: diastolic Heart failure chronicity: acute on chronic Qualified Code(s): I50.33 - Acute on chronic diastolic (congestive) heart failure (4) Type 2 diabetes mellitus: CODE(S): E11.9 - Type 2 diabetes mellitus without complications PLAN: Plan Debridement done as documented above, procedure was well-tolerated. Improving. Continue Fibracol and Xeroform daily. Continue Tubigrip and Eran wrap for edema management. general merchandise manager will call facility to ensure that compression is being done as recommended. Elevate lower extremities when seated and in bed. Exercise as tolerated. Increase protein intake, vitamin C, D and zinc discussed. Optimal diabetes control, she reports that her blood glucose readings have been within normal range. Last a1c at 5.5. Her questions were answered and she was advised to call with any further questions or concerns. Follow-up in a week. This note was generated with [employer] dictation software. It may contain incorrect words, spelling, and punctuation that were not noted in checking the note before signing.
[2022-08-20 08:36] VITALS: BP 146/67; PULSE 51; RESP 16; TEMP 36.6; BMI 43.4
--- NOTE | 2022-08-20 09:57 | PCM.WC.PN ---
History of Present Illness Date of Service: 08/20/22 Chief Complaint: Non healing right lower extremity ulcer History of Wound: Ms. Carter is a 71 who presents to the wound center due to nonhealing right lower extremity ulceration. Initial injury was said to be in 1993 following which she had surgical repair/grafting. Current opening noted about 2-months ago. Denies any known precipitating factor. Has been trying some dressing changes at her facility without significant improvement. Reports some drainage. No chills, fever or otherwise feeling of unwell. She reports a history of diabetes which she states is well controlled. She states that her appetite is good as well. Progress of Wound: Improving. No new concerns reported at this time. Objective Data Objective Data Vital Signs: Vital Signs Temp Pulse Resp BP O2 Del Method 98 F 51 L 16 146/67 H Room Air 08/20/22 08:36 08/20/22 08:36 08/20/22 08:36 08/20/22 08:36 08/20/22 08:36 Oxygen Delivery Method Room Air Weight: 294 lb 7 oz Body Mass Index (BMI) 43.4 Charges/Coding Procedures Integumentary 111xxx-113xx: 98974 Jeri subq tissue 20 sq cm/< Add On Codes: 84182 Jeri subq tissue add-on (x1. Additional square centimeter debrided, please refer to clinical note) Physical Exam Const alert, oriented x3 and no apparent distress General Appearance: cooperative, comfortable and well kempt HEENT Head and Scalp: normal to inspection, normocephalic and atraumatic Neck full ROM General: normal visual inspection Resp normal respiratory effort Effort and Inspection: able to speak in complete sentences Extremity General Extremity: edema Skin Wounds: wounds noted Neuro oriented x3, CN's II-XII intact bilaterally, moves all extremities and no focal motor deficits Psych mental status grossly normal, thought process normal, cooperative and affect normal Debridement Note Debridement Note Wound debrided: Right lower extremity Type of Debridement: Excisional debridement Anesthesia Used: 4% Lidocaine Solution Depth: Down to and including healthy tissue and in the subcutaneous layer Percentage of wound debrided: 100 Instrument Used: 5mm curette Tissue Removed: Slough and devitalized tissue Severity: Fat Layer Exposed Amount of bleeding with debridement: Mild Bleeding Controlled with: Pressure Patient tolerated procedure: Patient tolerated procedure well Post-Debridement Measurements and Additional Note: Post-Debridement Measurements/Treatment WC - Nurse 1 - General Ulcer Assessment Start: 08/06/22 09:15 Freq: Status: Active Protocol: [email or web address].[email or web address] Activity Type Activity Date Activity User E-sign Co-sign Detail Recorded Client Recorded Date Recorded By Document 08/06/22 09:15 DL [id number] 08/06/22 09:20 DL Document 08/13/22 09:11 BMF Desktop 08/13/22 09:16 BMF Document 08/20/22 08:36 [facility] [id number] 08/20/22 08:42 BMF 08/06/22 08/13/22 08/20/22 09:15 09:11 08:36 WC - Today's Visit Information Type of service Follow-up Visit Follow-up Visit Follow-up Visit (Physician/LINE CONSTRUCTION ENGINEER (Physician/LINE CONSTRUCTION ENGINEER (Physician/LINE CONSTRUCTION ENGINEER ) ) ) Arrival Mode Wheelchair Wheelchair Wheelchair Transfer Assistance None None None Patient Identification Verified (Name & Yes Yes Yes ) Patient Requires Transmission-Based No No No Precautions Safety Precautions NA Finger Stick Blood Sugar(mg/dl) (if 121 - 08/05/22 indicated): Blood Sugar Stated by Patient Height and Weight Body Mass Index (BMI) 43.4 43.4 43.4 BMI Classification Obese Obese Obese Vital Signs Temperature (97.8 F-99.1 F) 97.4 F L 97 F L 98 F Temperature Source Temporal Temporal Temporal Pulse Rate (60-100) 61 58 L 51 L Pulse Location Monitor Monitor Monitor Respiratory Rate (12-18) 18 16 16 Respiratory rate source Observation Observation Observation Oxygen Delivery Method Room Air Room Air Blood Pressure (90/60-120/80) 91/47 L 116/57 L 146/67 H Blood Pressure Mean (mm Hg) 61 76 93 Source Monitor Monitor Monitor Position Sitting Sitting Blood Pressure Location Right Arm Left Forearm History Since Last Visit- (Skip if this is Patient's initial visit) Have you changed medications since your No No No last visit? Any new allergies or adverse reactions No No No Had a fall/change in ADL's that may No No No increase risk of falls Signs or symptoms of abuse and/or No No No neglect since last visit Have you been in the hospital since your No No No last visit? Has dressing in place as prescribed Yes Yes Yes Has compression in place as prescribed Yes No Yes Has offloadiing in place as prescribed N/A N/A N/A Experienced any changes in pain level or No No No management Left Footwear Regular Shoe Regular Shoe Right Footwear Regular Shoe Regular Shoe Pain Scale: 0-10 Numeric Is Patient Pain Free? Yes Yes Yes WC - Nurse 1 - General Ulcer Measurement Start: 08/06/22 09:15 Freq: Status: Active Protocol: Activity Type Activity Date Activity User E-sign Co-sign Detail Recorded Client Recorded Date Recorded By Document 08/06/22 09:15 DL [id number] 08/06/22 09:20 DL Document 08/13/22 09:11 BMF Desktop 08/13/22 09:16 BMF Document 08/20/22 08:36 [facility] [id number] 08/20/22 08:42 BMF 08/06/22 08/13/22 08/20/22 09:15 09:11 08:36 Wound Center Nurse 1 #1- R MED LE -Combined with other wound No No -Current Size (cm) - Length 4.1 4.5 5.5 -Current Size (cm) - Width 6.5 6.5 5.7 -Current Size (cm) - Depth 0.1 0.1 0.1 -Total Square Cm 26.65 29.25 31.35 -Date of Last Picture (Recall this 08/13/22 08/20/22 field) -Photo Taken Yes Yes Yes -Epithelialization Small 1-33% Small 1-33% -Tunneling No No -Undermining/Tunneling No No -Circular Undermining No No -Exudate Amt Medium Medium Medium -Exudate Type Serosanguineous Serosanguineous Serosanguineous -Wound Margin Distinct, Distinct, Flat & Intact Outline Outline Attached Attached -Granulation Amt Large (67-100%) Medium (34-66%) Medium (34-66%) -Granulation Quality Red Red Red -Slough/Fibrin Yes Yes -Necrosis Amt Small (1-33%) Medium (34-66%) Medium (34-66%) -Necrotic Tissue Type Adherent Slough Adherent Slough Adherent Slough -Structure Exposed N/A -Texture (Vibha-wound Skin Appearance) Scarring Assessed, Assessed, Scarring Scarring -Moisture (Vibha-wound Skin Appearance) Dry/Scaly Assessed Assessed,Dry/ Scaly -Color (Vibha-wound Skin Appearance) Hemosiderin Assessed Assessed, Staining Hemosiderin Staining -Temperature (Vibha-wound Skin No Abnormality No Abnormality No Abnormality Appearance) (Pt Warm) (Pt Warm) (Pt Warm) -Tenderness on Palpation (Vibha-wound No No Skin Appearance) -Ulcer Cleansing Soap and Water Rinsed/ Soap and Water Irrigated with Saline -Foul Odor after Cleansing No No No -Anesthetic Used 5% Lidocaine 5% Lidocaine 5% Lidocaine Gel Gel Gel Lower Limb Edema Present Yes Yes Right Calf (cm) 67 62 63 Right Ankle (cm) 33.3 37.5 32.5 WC - Nurse 2 - General Ulcer CM Notes Start: 08/06/22 09:15 Freq: Status: Active Protocol: Activity Type Activity Date Activity User E-sign Co-sign Detail Recorded Client Recorded Date Recorded By Document 08/06/22 09:46 MW [id number] 08/06/22 09:49 MW Document 08/13/22 09:36 MW [id number] 08/13/22 09:41 MW Document 08/20/22 09:22 MW [id number] 08/20/22 09:25 MW Edit Result 08/20/22 09:22 MW (1) [id number] 08/20/22 09:26 MW (1) #1- R MED LE - Post Debridement (cm) - Length 4.4 => 4.1 - Total Square (Post) (cm) 22.44 => 20.91 - Area of Debridement (cm) - Length 4.4 => 4.1 - Total Square (Area) (cm) 22.44 => 20.91 08/06/22 08/13/22 08/20/22 09:46 09:36 09:22 Wound Center Nurse 2 #1- R MED LE -Time 09:46 09:36 09:22 -Correct Patient Yes Yes Yes -Correct Side, Site, Position Yes Yes Yes -Correct Procedure Yes Yes Yes -Procedure Performed Yes Yes Yes -Type of Procedure Debridement Debridement Debridement -Clinical Debridement Subcutaneous Subcutaneous Subcutaneous -Tissue Removed Subcutaneous Subcutaneous Subcutaneous -Post Debridement (cm) - Length 4.5 4.5 4.1 -Post Debridement (cm) - Width 6.1 5.4 5.1 -Post Debridement (cm) - Depth 0.1 0.1 0.1 -Total Square (Post) (cm) 27.45 24.30 20.91 -Area of Debridement (cm) - Length 4.5 4.5 4.1 -Area of Debridement (cm) - Width 6.1 5.4 5.1 -Total Square (Area) (cm) 27.45 24.30 20.91 -Tunneling No No No -Undermining/Tunneling No No No -Circular Undermining No No No -Wound/Ulcer Outcome Not Healed Not Healed Not Healed -Ulcer Cleansing Rinsed/ Rinsed/ Rinsed/ Irrigated with Irrigated with Irrigated with Saline Saline Saline -Foul Odor after Cleansing No No No -Bioengineered Tissue No No No -Bleeding Controlled with Pressure Pressure Pressure -Treatment Response Procedure Procedure Procedure Tolerated Well Tolerated Well Tolerated Well -Offloading No No No -Debridement - Subq, 1st 20sq cm Yes Yes Yes -Debridement, SubQ, ea addt'l 20sq cm 1 1 1 or part thereof Pain Scale: 0-10 Numeric Is Patient Pain Free? Yes Yes Yes - Nurse 3 - General Ulcer D/C NN Start: 08/06/22 09:15 Freq: Status: Active Protocol: Activity Type Activity Date Activity User E-sign Co-sign Detail Recorded Client Recorded Date Recorded By Document 08/06/22 09:58 DL [id number] 08/06/22 10:01 DL Document 08/13/22 09:48 DL [id number] 08/13/22 09:53 DL 08/06/22 08/13/22 09:58 09:48 Wound Care Nurse 3 #1- R MED LE -Ulcer Cleansing Rinsed/ Rinsed/ Irrigated with Irrigated with Saline Saline -Foul Odor after Cleansing No No -Primary Dressing Applied Fibracol Plus Fibracol Plus 4x4 4x4 -Other Dressing xerofrom/ABD xeroform/ abd -Primary Dressing Covered/Secured with Dry Gauze & Dry Gauze & Roll Gauze, Roll Gauze, Secured with Secured with Tape Tape -Fibracol Plus 4x4 1 1 Right -Compression Wrap Eran Wrap Eran Wrap -Other stockinette stockinette Treatment Response Procedure Procedure Tolerated Well Tolerated Well Pain Scale: 0-10 Numeric Is Patient Pain Free? Yes Yes WC - Visit Discharge Discharge Condition Stable Stable Ambulatory Status Wheelchair Wheelchair Transportation ECF Notes: Dressing applied per Marlo Machuca RN today in clinic . Facility Type [facility] Facility Orders Sent Yes Yes Assessment/Plan Assessment/Plan (1) Ulcer of right lower extremity with fat layer exposed: CODE(S): L97.912 - Non-pressure chronic ulcer of unspecified part of right lower leg with fat layer exposed (2) Bilateral edema of lower extremity: CODE(S): R60.0 - Localized edema (3) CHF (congestive heart failure): CODE(S): I50.9 - Heart failure, unspecified QUALIFIERS: Heart failure type: diastolic Heart failure chronicity: acute on chronic Qualified Code(s): I50.33 - Acute on chronic diastolic (congestive) heart failure (4) Type 2 diabetes mellitus: CODE(S): E11.9 - Type 2 diabetes mellitus without complications PLAN: Plan Debridement done as documented above, procedure was well-tolerated. Improving. Continue Fibracol and Xeroform daily. Continue Tubigrip and Eran wrap for edema management. Elevate lower extremities when seated and in bed. Exercise as tolerated. Increase protein intake, vitamin C, D and zinc discussed. Optimal diabetes control, she reports that her blood glucose readings have been within normal range. Last a1c at 5.5. Her questions were answered and she was advised to call with any further questions or concerns. Follow-up in a week. This note was generated with [employer] dictation software. It may contain incorrect words, spelling, and punctuation that were not noted in checking the note before signing.
[2022-08-27 08:32] VITALS: BP 148/64; PULSE 54; RESP 22; TEMP 36; BMI 43.4
--- NOTE | 2022-08-27 09:08 | PN.PCM_ITS ---
History of Present Illness Date of Service: 08/27/22 Chief Complaint: Non healing right lower extremity ulcer History of Wound: Ms. Carter is a 71 who presents to the wound center due to nonhealing right lower extremity ulceration. Initial injury was said to be in 1993 following which she had surgical repair/grafting. Current opening noted about 2-months ago. Denies any known precipitating factor. Has been trying some dressing changes at her facility without significant improvement. Reports some drainage. No chills, fever or otherwise feeling of unwell. She reports a history of diabetes which she states is well controlled. She states that her appetite is good as well. Progress of Wound: Increased erythema/irritation in the wound base. No significant change in size. She denies chills, fever or feeling of unwell. Denies any significant draina ge. Objective Data Objective Data Vital Signs: Vital Signs Temp Pulse Resp BP O2 Del Method 96.8 F L 54 L 22 H 148/64 H Room Air 08/27/22 08:32 08/27/22 08:32 08/27/22 08:32 08/27/22 08:32 08/20/22 08:36 Oxygen Delivery Method Room Air Weight: 294 lb 7 oz Body Mass Index (BMI) 43.4 Charges/Coding Procedures Integumentary 111xxx-113xx: [id number] Jeri subq tissue 20 sq cm/< Add On Codes: 23813 Jeri subq tissue add-on (Additional square centimeter debrided, please refer to clinical note.) Physical Exam Const alert, oriented x3 and no apparent distress General Appearance: cooperative, comfortable and well kempt HEENT Head and Scalp: normal to inspection, normocephalic and atraumatic Neck full ROM General: normal visual inspection Resp normal respiratory effort Effort and Inspection: able to speak in complete sentences Extremity General Extremity: edema Skin Wounds: wounds noted Neuro oriented x3, CN's II-XII intact bilaterally, moves all extremities and no focal motor deficits Psych mental status grossly normal, thought process normal, cooperative and affect normal Debridement Note Debridement Note Wound debrided: Right Lower Extremity Type of Debridement: Excisional debridement Anesthesia Used: 4% Lidocaine Solution Depth: Down to and including healthy tissue and in the subcutaneous layer Instrument Used: 5mm curette Tissue Removed: Slough and devitalized tissue Severity: Fat Layer Exposed Amount of bleeding with debridement: Mild Bleeding Controlled with: Pressure and Silver Nitrate Patient tolerated procedure: Patient tolerated procedure well Post-Debridement Measurements and Additional Note: Post-Debridement Measurements/Treatment WC - Nurse 1 - General Ulcer Assessment Start: 08/06/22 09:15 Freq: Status: Active Protocol: PAPA Activity Type Activity Date Activity User E-sign Co-sign Detail Recorded Client Recorded Date Recorded By Document 08/06/22 09:15 DL [id number] 08/06/22 09:20 DL Document 08/13/22 09:11 BMF Desktop 08/13/22 09:16 BMF Document 08/20/22 08:36 BMF [id number] 08/20/22 08:42 BMF Document 08/27/22 08:32 DL [id number] 08/27/22 08:40 DL 08/06/22 08/13/22 08/20/22 09:15 09:11 08:36 - Today's Visit Information Type of service Follow-up Visit Follow-up Visit Follow-up Visit (Physician/PROTECTIVE SIGNAL INSTALLER 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 (Physician/PROTECTIVE SIGNAL INSTALLER HELPER (Physician/PROTECTIVE SIGNAL INSTALLER HELPER ) ) ) Arrival Mode Wheelchair Wheelchair Wheelchair Transfer Assistance None None None Patient Identification Verified (Name & Yes Yes Yes ) Patient Requires Transmission-Based No No No Precautions Safety Precautions NA Finger Stick Blood Sugar(mg/dl) (if 121 - 08/05/22 indicated): Blood Sugar Stated by Patient Height and Weight Body Mass Index (BMI) 43.4 43.4 43.4 BMI Classification Obese Obese Obese Vital Signs Temperature (97.8 F-99.1 F) 97.4 F L 97 F L 98 F Temperature Source Temporal Temporal Temporal Pulse Rate (60-100) 61 58 L 51 L Pulse Location Monitor Monitor Monitor Respiratory Rate (12-18) 18 16 16 Respiratory rate source Observation Observation Observation Oxygen Delivery Method Room Air Room Air Blood Pressure (90/60-120/80) 91/47 L 116/57 L 146/67 H Blood Pressure Mean (mm Hg) 61 76 93 Source Monitor Monitor Monitor Position Sitting Sitting Blood Pressure Location Right Arm Left Forearm History Since Last Visit- (Skip if this is Patient's initial visit) Have you changed medications since your No No No last visit? Any new allergies or adverse reactions No No No Had a fall/change in ADL's that may No No No increase risk of falls Signs or symptoms of abuse and/or No No No neglect since last visit Have you been in the hospital since your No No No last visit? Has dressing in place as prescribed Yes Yes Yes Has compression in place as prescribed Yes No Yes Has offloadiing in place as prescribed N/A N/A N/A Experienced any changes in pain level or No No No management Left Footwear Regular Shoe Regular Shoe Right Footwear Regular Shoe Regular Shoe Pain Scale: 0-10 Numeric Is Patient Pain Free? Yes Yes Yes 08/27/22 08:32 WC - Today's Visit Information Type of service Follow-up Visit (Physician/PROTECTIVE SIGNAL INSTALLER HELPER ) Arrival Mode Ambulatory, Walker Transfer Assistance None Patient Identification Verified (Name & Yes ) Patient Requires Transmission-Based No Precautions Safety Precautions Finger Stick Blood Sugar(mg/dl) (if indicated): Blood Sugar Height and Weight Body Mass Index (BMI) 43.4 BMI Classification Obese Vital Signs Temperature (97.8 F-99.1 F) 96.8 F L Temperature Source Temporal Pulse Rate (60-100) 54 L Pulse Location Monitor Respiratory Rate (12-18) 22 H Respiratory rate source Observation Oxygen Delivery Method Blood Pressure (90/60-120/80) 148/64 H Blood Pressure Mean (mm Hg) 92 Source Monitor Position Blood Pressure Location History Since Last Visit- (Skip if this is Patient's initial visit) Have you changed medications since your No last visit? Any new allergies or adverse reactions No Had a fall/change in ADL's that may No increase risk of falls Signs or symptoms of abuse and/or No neglect since last visit Have you been in the hospital since your No last visit? Has dressing in place as prescribed Yes Has compression in place as prescribed Yes Has offloadiing in place as prescribed N/A Experienced any changes in pain level or No management Left Footwear Right Footwear Pain Scale: 0-10 Numeric Is Patient Pain Free? Yes - Nurse 1 - General Ulcer Measurement Start: 08/06/22 09:15 Freq: Status: Active Protocol: Activity Type Activity Date Activity User E-sign Co-sign Detail Recorded Client Recorded Date Recorded By Document 08/06/22 09:15 DL [id number] 08/06/22 09:20 DL Document 08/13/22 09:11 [facility] Desktop 08/13/22 09:16 BMF Document 08/20/22 08:36 BMF [id number] 08/20/22 08:42 BMF Document 08/27/22 08:32 DL [id number] 08/27/22 08:40 DL 08/06/22 08/13/22 08/20/22 09:15 09:11 08:36 Wound Center Nurse 1 #1- R MED LE -Combined with other wound No No -Current Size (cm) - Length 4.1 4.5 5.5 -Current Size (cm) - Width 6.5 6.5 5.7 -Current Size (cm) - Depth 0.1 0.1 0.1 -Total Square Cm 26.65 29.25 31.35 -Date of Last Picture (Recall this 08/13/22 08/20/22 field) -Photo Taken Yes Yes Yes -Epithelialization Small 1-33% Small 1-33% -Tunneling No No -Undermining/Tunneling No No -Circular Undermining No No -Exudate Amt Medium Medium Medium -Exudate Type Serosanguineous Serosanguineous Serosanguineous -Wound Margin Distinct, Distinct, Flat & Intact Outline Outline Attached Attached -Granulation Amt Large (67-100%) Medium (34-66%) Medium (34-66%) -Granulation Quality Red Red Red -Slough/Fibrin Yes Yes -Necrosis Amt Small (1-33%) Medium (34-66%) Medium (34-66%) -Necrotic Tissue Type Adherent Slough Adherent Slough Adherent Slough -Structure Exposed N/A -Texture (Vibha-wound Skin Appearance) Scarring Assessed, Assessed, Scarring Scarring -Moisture (Vibha-wound Skin Appearance) Dry/Scaly Assessed Assessed,Dry/ Scaly -Color (Vibha-wound Skin Appearance) Hemosiderin Assessed Assessed, Staining Hemosiderin Staining -Temperature (Vibha-wound Skin No Abnormality No Abnormality No Abnormality Appearance) (Pt Warm) (Pt Warm) (Pt Warm) -Tenderness on Palpation (Vibha-wound No No Skin Appearance) -Ulcer Cleansing Soap and Water Rinsed/ Soap and Water Irrigated with Saline -Foul Odor after Cleansing No No No -Anesthetic Used 5% Lidocaine 5% Lidocaine 5% Lidocaine Gel Gel Gel Lower Limb Edema Present Yes Yes Right Calf (cm) 67 62 63 Right Ankle (cm) 33.3 37.5 32.5 08/27/22 08:32 Wound Center Nurse 1 #1- R MED LE -Combined with other wound -Current Size (cm) - Length 5 -Current Size (cm) - Width 6 -Current Size (cm) - Depth 0.1 -Total Square Cm 30 -Date of Last Picture (Recall this field) -Photo Taken No -Epithelialization -Tunneling -Undermining/Tunneling -Circular Undermining -Exudate Amt Large -Exudate Type Sanguineous -Wound Margin Distinct, Outline Attached -Granulation Amt Medium (34-66%) -Granulation Quality Red -Slough/Fibrin -Necrosis Amt Medium (34-66%) -Necrotic Tissue Type Adherent Slough -Structure Exposed N/A -Texture (Vibha-wound Skin Appearance) Scarring -Moisture (Vibha-wound Skin Appearance) No Abnormality -Color (Vibha-wound Skin Appearance) Hemosiderin Staining -Temperature (Vibha-wound Skin No Abnormality Appearance) (Pt Warm) -Tenderness on Palpation (Vibha-wound No Skin Appearance) -Ulcer Cleansing Soap and Water -Foul Odor after Cleansing No -Anesthetic Used 5% Lidocaine Gel Lower Limb Edema Present Right Calf (cm) 59 Right Ankle (cm) 35 WC - Nurse 2 - General Ulcer CM Notes Start: 08/06/22 09:15 Freq: Status: Active Protocol: Activity Type Activity Date Activity User E-sign Co-sign Detail Recorded Client Recorded Date Recorded By Document 08/06/22 09:46 MW [id number] 08/06/22 09:49 MW Document 08/13/22 09:36 MW [id number] 08/13/22 09:41 MW Document 08/20/22 09:22 MW [id number] 08/20/22 09:25 MW Edit Result 08/20/22 09:22 MW (1) [id number] 08/20/22 09:26 MW Document 08/27/22 08:52 MW [id number] 08/27/22 09:03 MW (1) #1- R MED LE - Post Debridement (cm) - Length 4.4 => 4.1 - Total Square (Post) (cm) 22.44 => 20.91 - Area of Debridement (cm) - Length 4.4 => 4.1 - Total Square (Area) (cm) 22.44 => 20.91 08/06/22 08/13/22 08/20/22 09:46 09:36 09:22 Wound Center Nurse 2 #1- R MED LE -Time 09:46 09:36 09:22 -Correct Patient Yes Yes Yes -Correct Side, Site, Position Yes Yes Yes -Correct Procedure Yes Yes Yes -Procedure Performed Yes Yes Yes -Type of Procedure -Type of Procedure Debridement Debridement Debridement -Clinical Debridement Subcutaneous Subcutaneous Subcutaneous -Tissue Removed Subcutaneous Subcutaneous Subcutaneous -Post Debridement (cm) - Length 4.5 4.5 4.1 -Post Debridement (cm) - Width 6.1 5.4 5.1 -Post Debridement (cm) - Depth 0.1 0.1 0.1 -Total Square (Post) (cm) 27.45 24.30 20.91 -Area of Debridement (cm) - Length 4.5 4.5 4.1 -Area of Debridement (cm) - Width 6.1 5.4 5.1 -Total Square (Area) (cm) 27.45 24.30 20.91 -Tunneling No No No -Undermining/Tunneling No No No -Circular Undermining No No No -Wound/Ulcer Outcome Not Healed Not Healed Not Healed -Ulcer Cleansing Rinsed/ Rinsed/ Rinsed/ Irrigated with Irrigated with Irrigated with Saline Saline Saline -Foul Odor after Cleansing No No No -Bioengineered Tissue No No No -Bleeding Controlled with Pressure Pressure Pressure -Treatment Response Procedure Procedure Procedure Tolerated Well Tolerated Well Tolerated Well -Offloading No No No -Debridement - Subq, 1st 20sq cm Yes Yes Yes -Debridement, SubQ, ea addt'l 20sq cm 1 1 1 or part thereof Pain Scale: 0-10 Numeric Is Patient Pain Free? Yes Yes Yes 08/27/22 08:52 Wound Center Nurse 2 #1- R MED LE -Time 08:53 -Correct Patient Yes -Correct Side, Site, Position Yes -Correct Procedure Yes -Procedure Performed Yes -Type of Procedure Debridement -Type of Procedure -Clinical Debridement Subcutaneous -Tissue Removed Subcutaneous -Post Debridement (cm) - Length 3.8 -Post Debridement (cm) - Width 5.5 -Post Debridement (cm) - Depth 0.1 -Total Square (Post) (cm) 20.90 -Area of Debridement (cm) - Length 3.8 -Area of Debridement (cm) - Width 5.5 -Total Square (Area) (cm) 20.90 -Tunneling No -Undermining/Tunneling No -Circular Undermining No -Wound/Ulcer Outcome Not Healed -Ulcer Cleansing Rinsed/ Irrigated with Saline -Foul Odor after Cleansing No -Bioengineered Tissue No -Bleeding Controlled with Pressure -Treatment Response Procedure Tolerated Well -Offloading No -Debridement - Subq, 1st 20sq cm Yes -Debridement, SubQ, ea addt'l 20sq cm 1 or part thereof Pain Scale: 0-10 Numeric Is Patient Pain Free? Yes - Nurse 3 - General Ulcer D/C NN Start: 08/06/22 09:15 Freq: Status: Active Protocol: Activity Type Activity Date Activity User E-sign Co-sign Detail Recorded Client Recorded Date Recorded By Document 08/06/22 09:58 DL [id number] 08/06/22 10:01 DL Document 08/13/22 09:48 DL [id number] 08/13/22 09:53 DL Document 08/20/22 10:12 DL [id number] 08/20/22 10:14 DL 08/06/22 08/13/22 08/20/22 09:58 09:48 10:12 Wound Care Center Nurse 3 #1- R MED LE -Ulcer Cleansing Rinsed/ Rinsed/ Rinsed/ Irrigated with Irrigated with Irrigated with Saline Saline Saline -Foul Odor after Cleansing No No No -Primary Dressing Applied Fibracol Plus Fibracol Plus Fibracol Plus 4x4 4x4 4x4,NonAdherent Contact Layer -Other Dressing xerofrom/ABD xeroform/ abd -Primary Dressing Covered/Secured with Dry Gauze & Dry Gauze & Dry Gauze & Roll Gauze, Roll Gauze, Roll Gauze, Secured with Secured with Secured with Tape Tape Tape -Other Covering stockinette/ERAN -Fibracol Plus 4x4 1 1 1 Right -Compression Wrap Eran Wrap Eran Wrap Eran Wrap -Other stockinette stockinette Treatment Response Procedure Procedure Procedure Tolerated Well Tolerated Well Tolerated Well Pain Scale: 0-10 Numeric Is Patient Pain Free? Yes Yes Yes WC - Visit Discharge Discharge Condition Stable Stable Stable Ambulatory Status Wheelchair Wheelchair Wheelchair Transportation ECF Notes: Dressing applied per Marlo Machuca RN today in clinic . Facility [facility] Facility Facility Orders Sent Yes Yes Yes Assessment/Plan Assessment/Plan (1) Ulcer of right lower extremity with fat layer exposed: CODE(S): L97.912 - Non-pressure chronic ulcer of unspecified part of right lower leg with fat layer exposed (2) Bilateral edema of lower extremity: CODE(S): R60.0 - Localized edema (3) CHF (congestive heart failure): CODE(S): I50.9 - Heart failure, unspecified QUALIFIERS: Heart failure type: diastolic Heart failure chronicity: acute on chronic Qualified Code(s): I50.33 - Acute on chronic diastolic (congestive) heart failure (4) Type 2 diabetes mellitus: CODE(S): E11.9 - Type 2 diabetes mellitus without complications PLAN: Plan Debridement done as documented above, procedure was well-tolerated. Increased irritation/erythema in the ulcer base. Patient denies increased drainage or worsening pain. Cultures taken. Switch to Promogran and cover with Xeroform. Wound has been only slowly improving and over the last week no significant change, I believe she would do well with a skin substitute. Application process started. Continue Tubigrip and Eran wrap for edema management. Elevate lower extremities when seated and in bed. Exercise as tolerated. Increase protein intake, vitamin C, D and zinc discussed. Optimal diabetes control, she reports that her blood glucose readings have been within normal range. Last a1c at 5.5. Her questions were answered and she was advised to call with any further questions or concerns. Follow-up in a week. This note was generated with [employer] software. It may contain incorrect words, spelling, and punctuation that were not noted in checking the note before signing.
== END 2022-09-01 23:59 | disposition home or self-care (01) ==
LOC: WC 08:45
PROVIDERS: Visit Provider Internal Medicine
DX: E11.622 Type 2 diabetes mellitus with other skin ulcer (principal); L97.912 Non-pressure chronic ulcer of unspecified part of right lower leg with fat layer exposed; I50.33 Acute on chronic diastolic (congestive) heart failure; R60.0 Localized edema
CPT/HCPCS: 11042; 11045; 87070; 87075; 87077; 87186; 87205

== ENCOUNTER 2022-09-03 08:59 | Outpatient (RCR) | payer MEDICARE, MEDICAID, SELFPAY ==
[2022-09-02 00:37] VITALS: BP 148/64; PULSE 54; RESP 22; TEMP 36; BMI 43.4
[2022-09-03 09:05] VITALS: BP 143/71; PULSE 62; RESP 18; TEMP 35.8; BMI 43.4
--- NOTE | 2022-09-03 12:14 | PN.PCM_ITS ---
History of Present Illness Date of Service: 09/03/22 Chief Complaint: Non healing right lower extremity ulcer History of Wound: Ms. Carter is a 71 who presents to the wound center due to nonhealing right lower extremity ulceration. Initial injury was said to be in 1993 following which she had surgical repair/grafting. Current opening noted about 2-months ago. Denies any known precipitating factor. Has been trying some dressing changes at her facility without significant improvement. Reports some drainage. No chills, fever or otherwise feeling of unwell. She reports a history of diabetes which she states is well controlled. She states that her appetite is good as well. Progress of Wound: Increased bleeding noted from the ulcer. Also areas of ecchymosis and petechial hemorrhages on her lower extremities. She states that she is not on a blood th inner. Now approved for epi fix Objective Data Objective Data Vital Signs: Vital Signs Temp Pulse Resp BP 96.4 F L 62 18 143/71 H 09/03/22 09:05 09/03/22 09:05 09/03/22 09:05 09/03/22 09:05 Weight: 294 lb 7 oz Body Mass Index (BMI) 43.4 Charges/Coding Procedures Integumentary 150xxx-152xx: 81831 Skin sub graft trnk/arm/leg Physical Exam Const alert, oriented x3 and no apparent distress General Appearance: cooperative, comfortable and well kempt HEENT Head and Scalp: normal to inspection, normocephalic and atraumatic Neck full ROM General: normal visual inspection Resp normal respiratory effort Effort and Inspection: able to speak in complete sentences Extremity General Extremity: edema Skin Wounds: wounds noted Neuro oriented x3, CN's II-XII intact bilaterally, moves all extremities and no focal motor deficits Psych mental status grossly normal, thought process normal, cooperative and affect normal Debridement Note Debridement Note Wound debrided: Right Lower Extremity Type of Debridement: Excisional debridement Anesthesia Used: 4% Lidocaine Solution Depth: Down to and including healthy tissue and in the subcutaneous layer Instrument Used: 5mm curette Tissue Removed: Slough and devitalized tissue Severity: Fat Layer Exposed Amount of bleeding with debridement: Mild Bleeding Controlled with: Pressure and Silver Nitrate Patient tolerated procedure: Patient tolerated procedure well Post-Debridement Measurements and Additional Note: Post-Debridement Measurements/Treatment WC - Nurse 1 - General Ulcer Assessment Start: 09/03/22 09:05 Freq: Status: Active Protocol: PAPA Activity Type Activity Date Activity User E-sign Co-sign Detail Recorded Client Recorded Date Recorded By Document 09/03/22 09:05 DL [id number] 09/03/22 09:08 DL 09/03/22 09:05 - Today's Visit Information Type of service Follow-up Visit (Physician/RADIATION OFFICER ) Arrival Mode Ambulatory, Walker Transfer Assistance None Patient Identification Verified (Name & Yes ) Patient Requires Transmission-Based No Precautions Finger Stick Blood Sugar(mg/dl) (if 124 indicated): Blood Sugar Stated by Patient Height and Weight Body Mass Index (BMI) 43.4 BMI Classification Obese Vital Signs Temperature (97.8 F-99.1 F) 96.4 F L Temperature Source Temporal Pulse Rate (60-100) 62 Pulse Location Monitor Respiratory Rate (12-18) 18 Respiratory rate source Observation Blood Pressure (90/60-120/80) 143/71 H Blood Pressure Mean (mm Hg) 95 Source Monitor History Since Last Visit- (Skip if this is Patient's initial visit) Have you changed medications since your No last visit? Any new allergies or adverse reactions No Had a fall/change in ADL's that may No increase risk of falls Signs or symptoms of abuse and/or No neglect since last visit Have you been in the hospital since your No last visit? Has dressing in place as prescribed Yes Has compression in place as prescribed Yes Has offloadiing in place as prescribed N/A Left Footwear Slipper Right Footwear Slipper Pain Scale: 0-10 Numeric Is Patient Pain Free? Yes - Nurse 1 - General Ulcer Measurement Start: 09/03/22 09:05 Freq: Status: Active Protocol: Activity Type Activity Date Activity User E-sign Co-sign Detail Recorded Client Recorded Date Recorded By Document 09/03/22 09:05 DL [id number] 09/03/22 09:08 DL 09/03/22 09:05 Wound Center Nurse 1 #1- R MED LE -Current Size (cm) - Length 5.2 -Current Size (cm) - Width 5.3 -Current Size (cm) - Depth 0.1 -Total Square Cm 27.56 -Photo Taken Yes -Exudate Amt Medium -Exudate Type Serosanguineous -Wound Margin Distinct, Outline Attached -Granulation Amt Medium (34-66%) -Granulation Quality Red -Necrosis Amt Small (1-33%) -Necrotic Tissue Type Adherent Slough -Structure Exposed N/A -Texture (Vibha-wound Skin Appearance) Scarring -Moisture (Vibha-wound Skin Appearance) Dry/Scaly -Color (Vibha-wound Skin Appearance) Hemosiderin Staining -Temperature (Vibha-wound Skin No Abnormality Appearance) (Pt Warm) -Tenderness on Palpation (Vibha-wound No Skin Appearance) -Foul Odor after Cleansing Yes, Due to Product Use -Anesthetic Used 5% Lidocaine Gel Right Calf (cm) 62.8 Right Ankle (cm) 32.8 WC - Nurse 2 - General Ulcer CM Notes Start: 09/03/22 09:05 Freq: Status: Active Protocol: Activity Type Activity Date Activity User E-sign Co-sign Detail Recorded Client Recorded Date Recorded By Document 09/03/22 09:40 MW [id number] 09/03/22 09:51 MW 09/03/22 09:40 Wound Center Nurse 2 #1- R MED LE -Time 09:40 -Correct Patient Yes -Correct Side, Site, Position Yes -Correct Procedure Yes -Procedure Performed Yes -Type of Procedure Debridement -Clinical Debridement Subcutaneous -Tissue Removed Subcutaneous -Post Debridement (cm) - Length 3.6 -Post Debridement (cm) - Width 5.6 -Post Debridement (cm) - Depth 0.1 -Total Square (Post) (cm) 20.16 -Area of Debridement (cm) - Length 3.6 -Area of Debridement (cm) - Width 5.6 -Total Square (Area) (cm) 20.16 -Tunneling No -Undermining/Tunneling No -Circular Undermining No -Wound/Ulcer Outcome Not Healed -Ulcer Cleansing Rinsed/ Irrigated with Saline -Foul Odor after Cleansing No -Bioengineered Tissue Yes -Type of Bioengineered Tissue Epifix Mesh -Expiration Date 05/02/27 -Product Lot Number [id number] -Percent Used 100 -Lot number of Saline Used [id number] -Bleeding Controlled with Pressure -Treatment Response Procedure Tolerated Well -Offloading No -Debridement - Subq, 1st 20sq cm No -Apply Skin Sub - 1st 25 sq cm - Legs 1 -Epifix Mesh (per sq cm) 11 Pain Scale: 0-10 Numeric Is Patient Pain Free? Yes WC - Nurse 3 - General Ulcer D/C NN Start: 09/03/22 09:05 Freq: Status: Active Protocol: Activity Type Activity Date Activity User E-sign Co-sign Detail Recorded Client Recorded Date Recorded By Document 09/03/22 11:32 DL [id number] 09/03/22 11:34 DL 09/03/22 11:32 Wound Care Center Nurse 3 #1- R MED LE -Ulcer Cleansing Not Cleansed -Other Dressing EpiFix/veil/ steri strips -Primary Dressing Covered/Secured with Dry Gauze & Roll Gauze Right -Multi-Layered Wrap Application Multi-Layer Comp - Right ($ ) Treatment Response Procedure Tolerated Well Pain Scale: 0-10 Numeric Is Patient Pain Free? No WC - Visit Discharge Discharge Condition Stable Ambulatory Status Walker Transportation ECF trans Facility Type [facility] Care Facility Orders Sent Yes Assessment/Plan Assessment/Plan (1) Ulcer of right lower extremity with fat layer exposed: CODE(S): L97.912 - Non-pressure chronic ulcer of unspecified part of right lower leg with fat layer exposed (2) Bilateral edema of lower extremity: CODE(S): R60.0 - Localized edema (3) CHF (congestive heart failure): CODE(S): I50.9 - Heart failure, unspecified QUALIFIERS: Heart failure type: diastolic Heart failure chronicity: acute on chronic Qualified Code(s): I50.33 - Acute on chronic diastolic (congestive) heart failure (4) Type 2 diabetes mellitus: CODE(S): E11.9 - Type 2 diabetes mellitus without complications PLAN: Plan Debridement done as documented above, procedure was well-tolerated. Initial application of epi fix done using 100% of product. Moistened with saline and covered with wound veil. Secured with Steri-Strips. Cover with ABD to help with any possible drainage. Leave in place for a week. 3M wrap for edema management. CBC and CMP ordered due to concerns for increased bleeding/petechiae and ecchymosis noted in her extremities. She denies any known history of bleeding disorders. Elevate lower extremities when seated and in bed. Exercise as tolerated. Increase protein intake, vitamin C, D and zinc discussed. Optimal diabetes control, she reports that her blood glucose readings have been within normal range. Last a1c at 5.5. Her questions were answered and she was advised to call with any further questions or concerns. Follow-up in a week. This note was generated with [employer] dictation software. It may contain incorrect words, spelling, and punctuation that were not noted in checking the note before signing.
== END 2022-09-29 10:59 | disposition home or self-care (01) ==
LOC: WC 08:59
PROVIDERS: Visit Provider Internal Medicine
DX: L97.912 Non-pressure chronic ulcer of unspecified part of right lower leg with fat layer exposed (principal); I50.33 Acute on chronic diastolic (congestive) heart failure; E11.9 Type 2 diabetes mellitus without complications; R60.0 Localized edema
CPT/HCPCS: 15271; 29581; Q4186

== ENCOUNTER 2022-09-05 15:34 | Emergency (ER) | payer MEDICARE, MEDICAID, SELFPAY ==
[2022-09-05] VITALS (7 sets, daily range): BP systolic 109–148; BP diastolic 62–99; PULSE 85–89; RESP 20–28; TEMP 36.4; O2SAT 96–100
--- NOTE | 2022-09-05 16:00 | EKG12_ITS ---
Test Reason : SOB Blood Pressure : / mmHG Vent. Rate : 085 BPM Atrial Rate : 085 BPM P-R Int : 190 ms QRS Dur : 162 ms QT Int : 430 ms P-R-T Axes : 036 267 -21 degrees QTc Int : 511 ms Normal sinus rhythm Right bundle branch block , plus right ventricular hypertrophy Abnormal ECG Confirmed by STEVE GR, RIVAS ([id number]), story editor SOPHIE VAZQUEZ ([id number]) on 09/07/2022 11:16:52 AM Referred By: JARON/KAUSHIK Confirmed By:RIVAS WILSON MD
--- NOTE | 2022-09-05 16:24 | EX.ED.DYSGE1 ---
HPI History of Present Illness Chief Complaint: Shortness of Breath Informant: patient Narrative Narrative: Patient states she is at [facility] and they called an ambulance to bring her to the ER today because her pulse ox was low, I do not know and she does not know how low. This was while she was on her oxygen concentrator; she wears 3 L all of the time by nasal cannula, she has a history of COPD and congestive heart failure. She states yesterday, she had dyspnea with exertion once or twice. She also had an episode of dizziness that she states felt like a lightheadedness and spinning when she got up once, so she rested and did not have it again. She had COVID a little over a month ago, and states ever since then she has had some runny nose and congestion but no coughing. She denies any fevers, chills, chest discomfort since yesterday. She has had no dyspnea or dizziness today. She states when the paramedics came to get her, she got up out of bed, walk to the ambulance, and she had no symptoms or problems. Furthermore, she states if her oxygen concentrator is not working correctly, she has access to other sources of oxygen at the assisted living facility. Patient has a history of severe edema in both of her legs. She states that is no different now. She also states that the day before yesterday, she had buzzing in her right ear for a while. That is gone now. [facility] Medical History Bifascicular block Bilateral edema of lower extremity Bipolar disorder Cellulitis Chronic diastolic (congestive) heart failure Essential hypertension GERD (gastroesophageal reflux disease) HLD (hyperlipidemia) Hypothyroidism Left anterior fascicular block (LAFB) Lymphedema Metabolic encephalopathy Morbid obesity with BMI of 50.0-59.9, adult Non-rheumatic aortic stenosis KAYLA (obstructive sleep apnea) Right bundle branch block (RBBB) Sepsis Type 2 diabetes mellitus Type 2 diabetes mellitus without complication Ulcer of right lower extremity with fat layer exposed Venous (peripheral) insufficiency Home Medications albuterol sulfate 2.5 mg/3 mL (0.083 %) solution for nebulization 2.5 mg inhalation Q2H PRN Sob &/Or Wheezing 11/09/15 [History Last Taken Unknown] atorvastatin 10 mg tablet 10 mg PO QHS hld 11/09/15 [History Last Taken 10/05/19] folic acid 1 mg tablet 1 mg PO DAILY@0800 supplement 11/09/15 [History Last Taken 10/05/19] tramadol 50 mg tablet 50 mg PO BID pain ##14 11/12/15 [Rx Last Taken 10/05/19] lamotrigine 100 mg tablet 200 mg PO BID Check with primary doctor 11/18/17 [History Last Taken 10/05/19] montelukast 10 mg tablet (Singulair) 10 mg PO QHS asthma 11/18/17 [History Last Taken 10/05/19] acetaminophen 500 mg tablet 1,000 mg PO BID pain 12/21/17 [History Last Taken 10/05/19] vixuzygh-kky-qbwyk acid 0.4 mg-lycopene 300 mcg-lutein 250 mcg tablet (Centrum Silver) 1 tab PO QDAY supplement 12/21/17 [History Last Taken 10/05/19] potassium chloride 20 mEq tablet,extended release(part/cryst) 20 meq PO BID supplement 12/21/17 [History Last Taken 10/05/19] fluticasone propionate 50 mcg/actuation nasal spray,suspension 2 spray intranasal DAILY allergies 30 days ##16 12/20/18 [History Last Taken 10/05/19] budesonide-formoterol HFA 160 mcg-4.5 mcg/actuation aerosol inhaler 2 puff IH BID breathing 01/24/19 [History Last Taken 10/05/19] risperidone 0.25 mg tablet 1 mg PO QHS sleep 02/16/19 [History Last Taken 10/05/19] topiramate 25 mg sprinkle capsule (Topamax) 50 mg PO BID weight loss 02/16/19 [History Last Taken 10/05/19] metoprolol tartrate 25 mg tablet 100 mg PO BID htn ##60 02/17/19 [History Last Taken 10/05/19] aluminum-mag hydroxide-simethicone 400 mg-400 mg-40 mg/5 mL oral susp 30 ml PO Q6H PRN PRN Heartburn Or Indigestion 10/06/19 [History Last Taken Unknown] benzonatate 100 mg capsule 100 mg PO BID cough 10/06/19 [History Last Taken Unknown] cetirizine 10 mg tablet 10 mg PO QHS respiratory 10/06/19 [History Last Taken 10/05/19] loperamide 2 mg capsule 2 mg PO Q4H PRN PRN Diarrhea 10/06/19 [History Last Taken Unknown] oxcarbazepine 300 mg tablet 300 mg PO BID Check with primary doctor 10/06/19 [History Last Taken 10/05/19] peg [id number] 1 %-0.2 %-0.2 % eye drops 15 drp EACH EYE Q6H PRN PRN Dry Eyes 10/06/19 [History Last Taken Unknown] sennosides 8.6 mg tablet 1 tab PO BID PRN PRN constipation 10/06/19 [History Last Taken Unknown] simethicone 180 mg capsule 1 - 2 tab PO TID PRN PRN Indigestion 10/06/19 [History Last Taken Unknown] sodium chloride 5 % eye drops 2 drp EACHEYE BID eyes 10/06/19 [History Last Taken 10/05/19] solifenacin 10 mg tablet 10 mg PO DAILY bladder 10/06/19 [History Last Taken 10/05/19] venlafaxine 75 mg capsule,extended release 24 hr 75 mg PO DAILY mood 10/06/19 [History Last Taken 10/05/19] albuterol sulfate 90 mcg/actuation aerosol inhaler 1 - 2 puff inhalation Q4H PRN PRN Shortness Of Breath ##1 10/08/19 [Rx Last Taken Unknown] dicyclomine 10 mg capsule 10 mg PO BID 09/28/21 [History Last Taken Unknown] ergocalciferol (vitamin D2) 1,250 mcg (50,000 unit) capsule 50,000 unit PO QWEEK vitamin 09/28/21 [History Last Taken Unknown] omeprazole 20 mg capsule,delayed release 20 mg PO DAILY stomach 09/28/21 [History Last Taken Unknown] losartan 50 mg tablet 50 mg PO DAILY 30 days #30 tabs 10/01/21 [Rx Last Taken Unknown] budesonide-formoterol HFA 160 mcg-4.5 mcg/actuation aerosol inhaler (Symbicort) inhalation 07/02/22 [History Last Taken Unknown] levothyroxine 50 mcg tablet 50 mcg PO DAILY 07/02/22 [History Last Taken Unknown] budesonide-formoterol HFA 160 mcg-4.5 mcg/actuation aerosol inhaler (Symbicort) 2 puff inhalation BID 07/23/22 [History Last Taken Unknown] carboxymethylcellulose sodium 1 % eye drops (Artificial Tears (carboxymethylcellulose)) 1 drp EACH EYE Q6H PRN Dry Eye(S) 07/23/22 [History Last Taken Unknown] famotidine 20 mg tablet 20 mg PO BID 07/23/22 [History Last Taken Unknown] furosemide 40 mg tablet (Lasix) 60 mg PO BID 07/23/22 [History Last Taken Unknown] guaifenesin 600 mg tablet, extended release 12 hr (Mucinex) 1,200 mg PO Q12H PRN Congestion 07/23/22 [History Last Taken Unknown] ipratropium 20 mcg-albuterol 100 mcg/actuation mist for inhalation (Combivent Respimat) 1 puff inhalation DAILY PRN Wheezing 07/23/22 [History Last Taken Unknown] polyethylene glycol 3350 17 gram oral powder packet (Miralax) 8.5 g PO QODAY 07/23/22 [History Last Taken Unknown] Allergy/AdvReac Type Severity Reaction Status Date / Time benztropine mesylate Allergy Unknown Verified 09/05/22 15:37 [From Cogentin] Salicylates Allergy Unknown Verified 09/05/22 15:37 Sulfa (Sulfonamide Allergy Unknown Verified 09/05/22 15:37 Antibiotics) abacavir AdvReac Unknown Unknown Verified 09/05/22 15:37 aspirin AdvReac Unknown Verified 09/05/22 15:37 bupropion HCl AdvReac Rash Verified 09/05/22 15:37 [From Wellbutrin] prochlorperazine AdvReac Unknown Verified 09/05/22 15:37 prochlorperazine edisylate AdvReac Unknown Verified 09/05/22 15:37 [From Compazine] prochlorperazine maleate AdvReac Unknown Verified 09/05/22 15:37 [From Compazine] Family History Father No problems noted. Surgical History History of gastric bypass History of skin graft History of tonsillectomy Hx of appendectomy Social History household members: spouse Smoking Status: Never smoker alcohol intake: never substance use type: does not use ROS ROS ED Constitutional Constitutional ED: Denies chills or fever(s) Eyes Eyes: Denies change in vision or diplopia ENT ENT ED: Reports nasal congestion and rhinorrhea; Denies sore throat Cardiovascular Cardiovascular: Reports other Details: Chronic severe bilateral lower extremity edema, at baseline per patient, no pain ; Denies chest pain or palpitations Respiratory/Chest Respiratory/Chest: Reports dyspnea on exertion; Denies cough Gastrointestinal Gastrointestinal: Denies abdominal pain, diarrhea, nausea or vomiting Genitourinary Genitourinary ED: Denies dysuria or hematuria Musculoskeletal Musculoskeletal: Denies back pain or neck pain Integumentary Denies abscess or rash Neurologic Neurologic: Denies headache(s), paresthesias or weakness Psychiatric Psychiatric: Denies anxiety or suicidal thoughts EXAM Physical Exam Const Vital Signs: 09/05/22 15:34 09/05/22 15:34 09/05/22 15:48 Temperature 97.6 F L Temperature Source Temporal Pulse Rate 89 Respiratory Rate 28 H Respiratory Effort Short of Breath Respiratory Depth Normal Respiratory Pattern Tachypnea Blood Pressure 148/69 H Blood Pressure Mean 95 Pulse Ox 96 Oxygen Delivery Method Nasal Cannula Nasal Cannula Oxygen Flow Rate (L/min) 4 3 09/05/22 15:50 09/05/22 16:23 09/05/22 16:00 Temperature Temperature Source Pulse Rate 85 89 Respiratory Rate 23 H 20 H Respiratory Effort Respiratory Depth Respiratory Pattern Blood Pressure 109/62 123/91 H Blood Pressure Mean 77 101 Pulse Ox 100 99 Oxygen Delivery Method Nasal Cannula Nasal Cannula Nasal Cannula Oxygen Flow Rate (L/min) 3 3 2 09/05/22 16:24 09/05/22 17:00 Temperature Temperature Source Pulse Rate 86 Respiratory Rate 22 H Respiratory Effort Respiratory Depth Respiratory Pattern Blood Pressure 120/99 H Blood Pressure Mean 106 Pulse Ox 99 98 Oxygen Delivery Method Nasal Cannula Nasal Cannula Oxygen Flow Rate (L/min) 3 3 Positive well nourished, well developed and obese General Appearance ED: well developed and NAD Nutritional Appearance: obese HEENT Reports moist mucous membranes HEENT Narrative: Left TM normal. EACs without pain or swelling or discharge, but there is hard cerumen present bilaterally, to the point where the right TM is not visible. normocephalic and atraumatic Eyes PERRL and EOMs intact bilaterally Neck full ROM and supple Resp normal respiratory effort and clear to auscultation bilaterally Resp Narrative: diminished throughout, otherwise clear Cardio regular rate and regular rhythm Heart Sounds: murmur systolic III/ crescendo-decrescendo GI non-tender and non-distended Auscultation: normoactive bowel sounds Palpation: soft Back/Spine no CVA tenderness General Back: other FROM Extremity Extremity Narrative: Patient with elephantiasis of both lower extremities, the right is wrapped to the left appears worse, there are fine nontender petechiae in the left foot, as well as changes of chronic stasis dermatitis throughout the left lower leg, all of which is normal-appearing and chronic according to the patient. General Extremety ED: Yes edema; Negative for pulses abnormal or tenderness General Extremity: edema bilateral lower extremity Details: severe; Negative for pulses abnormal Neuro oriented x3, CN's II-XII intact bilaterally and no sensory deficits noted Sensorium / Orientation: awake and alert Motor Exam: strength 5/5 throughout Skin no rashes or lesions noted and no wounds MDM MDM MDM Narrative Medical decision making narrative: 2 view chest x-ray obtained, shows some mild vascular congestion, but no overt heart failure. Radiology in agreement with this, I reviewed their interpretation which includes cardiomegaly. Her blood work shows mild renal insufficiency and nothing worse than usual. She has been doing very well without any dyspnea or hypoxemia while on her home 3 L of oxygen here in ER for several hours. I do not think she needs any other emergent work-up or treatment, she takes Lasix 60 mg twice daily and it is evening so I will give her her evening dose in the IV and then I think she is stable for discharge back to assisted living where she can be placed on her home oxygen there. Lab Data Attestation: I reviewed the patient's lab results. Labs: Laboratory Results - last 24 hr 09/05/22 09/05/22 15:40 15:40 WBC 11.7 H RBC 5.03 Hgb 14.0 Hct 45.7 MCV 90.9 MCH 27.8 MCHC 30.6 L RDW Std Deviation 54.3 H RDW Coeff of Mago 16.2 H Plt Count 162 MPV 9.5 Immature Gran % (Auto) 0.400 Neut % (Auto) 86.6 H Lymph % (Auto) 3.1 L [place] % (Auto) 7.0 Eos % (Auto) 2.6 Baso % (Auto) 0.3 Absolute Neuts (auto) 10.1 H Absolute Lymphs (auto) 0.36 L Nucleated RBC % 0 Differential Comment SEE COMMENT Platelet Estimate ADEQUATE RBC Morphology N CHROM Anisocytosis RARE Sodium 141 Potassium 4.3 Chloride 106 Carbon Dioxide 27.0 Anion Gap 8 BUN 41 H Creatinine 1.56 H Estim Creat Clear Calc 0.00 Est GFR (MDRD) Af Amer 42 L Est GFR (MDRD) Non-Af 35 L BUN/Creatinine Ratio 26.3 H Glucose 97 Calcium 8.8 Radiography Diagnostic Testing: Clinical Impression(s) from Imaging Studies Chest X-Ray 09/05/22 16:35 IMPRESSION: Mild cardiomegaly with vascular congestion. Electronically Signed: Karan Huerta MD at 17:03 EST Reading Location ID and State: [address] [place] [address] Tel , Service support , Rhythm Strip Rhythm Strip: Sinus Rhythm Rate: 85 Ectopy: None EKG Initial EKG: Attestation: I personally reviewed and interpreted this EKG as follows: Interpretation: Sinus Rhythm, No Acute Injury Pattern and RBBB Prior EKG tracings: available for review Prior: Unchanged Discharge Plan Triage Chief Complaint: Shortness of Breath ED Provider: Jose Self Dx/Rx/DC Orders Clinical Impression: Bilateral edema of lower extremity, Chronic diastolic (congestive) heart failure, Episode of dizziness Instructions: Heart Failure Dc, ED Dizziness, Uncertain Cause Prescriptions: No Action potassium chloride 20 mEq tablet,ER particles/crystals 20 meq PO BID acetaminophen 500 mg tablet 1,000 mg PO BID vqtforde-nwq-VF-lycopen-lutein [Centrum Silver] 0.4-300-250 mg-mcg-mcg tablet 1 tab PO QDAY lamotrigine 100 mg tablet 200 mg PO BID montelukast [Singulair] 10 mg tablet 10 mg PO QHS fluticasone propionate 50 mcg/actuation spray,suspension 2 spray INTRANASAL DAILY 30 Days Qty: 16 metoprolol tartrate 25 mg tablet 100 mg PO BID Qty: 60 risperidone 0.25 mg tablet 1 mg PO QHS topiramate [Topamax] 25 mg capsule, sprinkle 50 mg PO BID atorvastatin 10 MG tablet 10 mg PO QHS folic acid 1 MG tablet 1 mg PO DAILY@0800 albuterol sulfate 2.5 MG/3 ML solution for nebulization 2.5 mg INHALATION Q2H PRN (Reason: Sob &/Or Wheezing) tramadol 50 MG tablet 50 mg PO BID Qty: 14 0RF budesonide-formoterol 6 GM HFA aerosol inhaler 2 puff IH BID sodium chloride 1 DROP drops 2 drp EACHEYE BID sennosides 1 TABLET tablet 1 tab PO BID PRN PRN (Reason: constipation ) loperamide 2 MG capsule 2 mg PO Q4H PRN PRN (Reason: Diarrhea) cetirizine 10 MG tablet 10 mg PO QHS Rx Instructions: for 7 days simethicone 180 MG capsule 1 - 2 tab PO TID PRN PRN (Reason: Indigestion) oxcarbazepine 300 MG tablet 300 mg PO BID benzonatate 100 MG capsule 100 mg PO BID solifenacin 10 MG tablet 10 mg PO DAILY venlafaxine 75 MG capsule 75 mg PO DAILY alum-mag hydroxide-simeth 30 ML suspension 30 ml PO Q6H PRN PRN (Reason: Heartburn Or Indigestion) peg [id number] 1 DROP bottle 15 drp EACH EYE Q6H PRN PRN (Reason: Dry Eyes) albuterol sulfate 1 PUFF inhaler 1 - 2 puff inhalation Q4H PRN PRN (Reason: Shortness Of Breath) Qty: 1 0RF dicyclomine 10 mg capsule 10 mg PO BID Label Comments: 1 CAPSULE BY MOUTH TWICEXA DAY / DX: omeprazole 20 mg capsule,delayed release(DR/EC) 20 mg PO DAILY Label Comments: 1 CAPSULE BY MOUTH EVERY/MORNING ergocalciferol (vitamin D2) 1,250 mcg (50,000 unit) capsule 50,000 unit PO QWEEK Label Comments: 1 CAPSULE BY MOUTH ONCE AAWEEK ON WEDNESDAYS / DX: losartan 50 mg Tablet 50 mg PO DAILY 30 Days Qty: 30 0RF levothyroxine 50 mcg tablet 50 mcg PO DAILY Label Comments: 1 TABLET BY MOUTH DAILY AT 5AM DX: HYPOTHYROID / NURSE TO REORDER budesonide-formoterol [Symbicort] 160-4.5 mcg/actuation HFA aerosol inhaler INHALATION polyethylene glycol 3350 [Miralax] 17 gram Powder In Packet 8.5 g PO QODAY famotidine 20 mg Tablet 20 mg PO BID budesonide-formoterol [Symbicort] 160-4.5 mcg/actuation Hfa Aerosol Inhaler 2 puff INHALATION BID guaifenesin [Mucinex] 600 mg Tablet Extended Release 12hr 1,200 mg PO Q12H PRN (Reason: Congestion) Combivent Respimat 20-100 mcg/actuation Mist 1 puff INHALATION DAILY PRN (Reason: Wheezing) Artificial Tears (cmc) 1 % Drops 1 drp EACH EYE Q6H PRN (Reason: Dry Eye(S)) furosemide [Lasix] 40 mg tablet 60 mg PO BID Primary Care Provider: SHAQ RICHARDSON Referrals: SHAQ RICHARDSON [Other] Disposition Disposition: Home, Self Care
--- NOTE | 2022-09-05 16:35 | RAD_ITS ---
EXAM: XR CHEST, 2 VIEWS CLINICAL INDICATION: dyspnea on exertion TECHNIQUE: Frontal and lateral views of the chest. This report was created using [employer] report generation technology. COMPARISON: 09/28/2021 FINDINGS: LUNGS AND PLEURAL SPACES: There is vascular congestion. No pneumothorax. No effusion. HEART: The cardiac silhouette is at the upper limits of normal in size. MEDIASTINUM: Central airways and mediastinal contour are unremarkable. BONES/JOINTS: Unremarkable. SOFT TISSUES: Unremarkable. RAD/Chest PA and Lateral IMPRESSION: Mild cardiomegaly with vascular congestion. Electronically Signed: Karan Huerta MD at 17:03 EST ,
[2022-09-05 16:39] LABS: Absolute Lymphocyte Count 0.36 X10^3/uL (0.83-4.51); Absolute Neutrophil Count 10.1 X10^3/uL (2.0-7.7); Basophil# 0.04 X10^3/uL; Basophil% 0.3 % (0-1); Eosinophils% 2.6 % (0-5); Hematocrit 45.7 % (37-47); Lymphocyte # 0.36 X10^3/ul (0.83-4.51); Lymphocyte % 3.1 % (19-41); Mean Corp Hgb Conc 30.6 g/dL (32-36); Mean Corpuscular Hgb 27.8 pg (27.0-32.0); Mean Corpuscular Volume 90.9 fL (81-99); Mean Platelet Vol. 9.5 fl (6.2-12.0); Monocyte# 0.81 X10^3/uL; NRBC Flagged by Analyzer 0 % (0-5); Neutrophil # 10.09 X10^3/uL (2.7-7.7); Neutrophil % 86.6 % (47-70); POSITIVE DIFFERENTIAL YES; Platelet Count 162 K/mm3 (150-450); RBC Distribution Width CV 16.2 % (11.6-14.6); RBC Distribution Width SD 54.3 fl (35.1-43.9); Red Blood Count 5.03 M/mm3 (4.2-5.4); White Blood Count 11.7 K/mm3 (4.4-11.0)
[2022-09-05 16:57] LABS: Anion Gap 8 (5-15); BUN 41 mg/dL (7-18); BUN/Creat Ratio 26.3 RATIO (10-20); Calcium,Total 8.8 mg/dL (8.5-10.1); Chloride 106 mmol/L (98-107); Creatinine, Serum 1.56 mg/dL (0.55-1.02); EST Glomerular Filtration Rate 35 mL/min (>60); Est Glom Filt Rate - Afr Amer 42 mL/min (>60); Glucose 97 mg/dL (74-106); Potassium 4.3 mmol/L (3.5-5.1); Sodium Level 141 mmol/L (136-145)
[2022-09-05 17:31] LABS: Differential Indicated SCAN CRITERIA MET
[2022-09-05 17:33] LABS: Anisocytosis RARE; Platelet Estimate ADEQUATE (ADEQ); Red Cell Morphology N CHROM NORMAL (NORM C&C)
[2022-09-05] MEDS: Furosemide 100 MG/10 ML Vial 60 MG IV (18:44)
== END 2022-09-05 19:13 | disposition home or self-care (01) ==
PROVIDERS: Emergency Provider Emergency Medicine; Visit Provider Emergency Medicine
DX: I11.0 Hypertensive heart disease with heart failure (principal); J44.9 Chronic obstructive pulmonary disease, unspecified; I50.32 Chronic diastolic (congestive) heart failure; F31.9 Bipolar disorder, unspecified; E11.9 Type 2 diabetes mellitus without complications; R09.81 Nasal congestion; E78.5 Hyperlipidemia, unspecified; R42 Dizziness and giddiness; R60.0 Localized edema; E03.9 Hypothyroidism, unspecified; G47.33 Obstructive sleep apnea (adult) (pediatric); E66.9 Obesity, unspecified
CPT/HCPCS: 71046; 80048; 85025; 93005; 96374; 99285; A4216; J1940

== ENCOUNTER 2022-09-09 10:58 | Inpatient (IN) | payer MEDICARE, MEDICAID, SELFPAY ==
[2022-09-09] VITALS (10 sets, daily range): BP systolic 99–152; BP diastolic 32–108; PULSE 59–73; RESP 12–22; TEMP 36.1–36.8; O2SAT 92–100; BMI 43.6; BMI 44.9
--- NOTE | 2022-09-09 11:31 | CT_ITS ---
STUDY: CT BRAIN WITHOUT CONTRAST REASON FOR EXAM: Female, 71 years old. Altered mental status. RADIATION DOSAGE (If Supplied By Facility): CTDIvol = ( 44.99 ) mGy, DLP = ( 846.73 ) mGycm TECHNIQUE: Transaxial CT imaging of the brain was performed without administration of intravenous contrast material. Individualized dose optimization techniques were used for this CT. COMPARISON: Comparison is made with prior study 11/09/2015. FINDINGS: Normal soft tissue structures. Normal calvarium. There is mild cerebral atrophy with widening of the extra-axial spaces and ventricular dilatation. Normal white matter tracts of the cerebral hemispheres. Normal basal ganglia and thalami. Normal brainstem. Normal cerebellum. There is no intracranial hemorrhage. There are no findings of an acute ischemic infarction. There is opacification of the right maxillary sinus. Mucosal thickening of the anterior aspect of the left sphenoid sinus. CT/Brain/Head without Contrast IMPRESSION: Opacification of right maxillary sinus and mucosal thickening of the left sphenoid sinus. Chronic involutional changes of the brain. Electronically Signed: Esteban Camargo MD at 12:19 EST ,
--- NOTE | 2022-09-09 11:31 | EKG12_ITS ---
Test Reason : Blood Pressure : / mmHG Vent. Rate : 060 BPM Atrial Rate : 060 BPM P-R Int : 250 ms QRS Dur : 192 ms QT Int : 488 ms P-R-T Axes : 017 254 -40 degrees QTc Int : 488 ms Sinus rhythm with 1st degree A-V block Right bundle branch block , plus right ventricular hypertrophy Possible Lateral infarct , age undetermined Inferior infarct , age undetermined Abnormal ECG Confirmed by STEVE GR, RIVAS ([id number]), marketing editor TORSTEN HANNAH ([id number]) on 09/11/2022 10:13:25 AM Referred By: RAVIN Confirmed By:RIVAS WILSON MD
--- NOTE | 2022-09-09 11:35 | EDS_ITS ---
HPI History of Present Illness Chief Complaint: Alt LOC Informant: patient and EMS Limited: other (Confused) Narrative Narrative: Patient is a 71-year-old female with history of chronic bilateral lower extremity edema, type 2 diabetes mellitus, nonrheumatic aortic stenosis, chronic respiratory failure on 2 L of oxygen, chronic diastolic heart failure, hypertension, hyperlipidemia and right bundle branch block presenting with dizziness, confusion and a fall. Patient is a resident of [facility]. Apparently she was found on the ground next to her bed this morning. Lift assist was called from local EMS and they got her back into bed. Staff then noticed that she was very confused this morning. She is complaining of dizziness. Patient tells me that she was dizzy and this is what caused her to fall but then she will also perseverate and alternate between saying she did fall and she did not fall. Patient was placed on antibiotics, cephalexin doxycycline last week as well as trazodone per her MAR. She was complaining of some shortness of breath on Wednesday, 2 days ago and she had a negative rapid COVID. She is normally ANO x3. Patient still complains of dizziness. She has no other complaints at this time. She denies any pain. She is not sure if she hit her head. [facility] Medical History Bifascicular block Bilateral edema of lower extremity Bipolar disorder Cellulitis Chronic diastolic (congestive) heart failure Essential hypertension GERD (gastroesophageal reflux disease) HLD (hyperlipidemia) Hypothyroidism Left anterior fascicular block (LAFB) Lymphedema Metabolic encephalopathy Morbid obesity with BMI of 50.0-59.9, adult Non-rheumatic aortic stenosis KAYLA (obstructive sleep apnea) Right bundle branch block (RBBB) Sepsis Type 2 diabetes mellitus Type 2 diabetes mellitus without complication Ulcer of right lower extremity with fat layer exposed Venous (peripheral) insufficiency Home Medications albuterol sulfate 2.5 mg/3 mL (0.083 %) solution for nebulization 2.5 mg inhalation Q2H PRN Sob &/Or Wheezing 11/09/15 [History Last Taken Unknown] atorvastatin 10 mg tablet 10 mg PO QHS hld 11/09/15 [History Last Taken 09/08/22] folic acid 1 mg tablet 1 mg PO DAILY@0800 supplement 11/09/15 [History Last Taken 09/09/22] tramadol 50 mg tablet 50 mg PO BID pain ##14 11/12/15 [Rx Last Taken 09/09/22] montelukast 10 mg tablet (Singulair) 10 mg PO QHS asthma 11/18/17 [History Last Taken 09/08/22] acetaminophen 500 mg tablet 1,000 mg PO BID pain 12/21/17 [History Last Taken 09/09/22] potassium chloride 20 mEq tablet,extended release(part/cryst) 20 meq PO BID supplement 12/21/17 [History Last Taken 09/09/22] fluticasone propionate 50 mcg/actuation nasal spray,suspension 2 spray intranasal DAILY allergies 30 days ##16 12/20/18 [History Last Taken 10/05/19] benzonatate 100 mg capsule 100 mg PO BID cough 10/06/19 [History Last Taken Unknown] cetirizine 10 mg tablet 10 mg PO QHS ALLERGIES 10/06/19 [History Last Taken 09/08/22] loperamide 2 mg capsule 2 mg PO Q4H PRN PRN Diarrhea 10/06/19 [History Last Taken Unknown] oxcarbazepine 300 mg tablet 300 mg PO BID SEIZURE 10/06/19 [History Last Taken 09/09/22] peg 246-mgxyvsnsdfmk-sgeqgkys 1 %-0.2 %-0.2 % eye drops 15 drp EACH EYE Q6H PRN PRN Dry Eyes 10/06/19 [History Last Taken Unknown] simethicone 180 mg capsule 180 - 360 tab PO TID PRN PRN Indigestion 10/06/19 [History Last Taken Unknown] solifenacin 10 mg tablet 10 mg PO DAILY bladder 10/06/19 [History Last Taken 09/09/22] venlafaxine 75 mg capsule,extended release 24 hr 75 mg PO DAILY mood 10/06/19 [History Last Taken 09/09/22] dicyclomine 10 mg capsule 10 mg PO BID STOMACH 09/28/21 [History Last Taken 0 09/09/22] ergocalciferol (vitamin D2) 1,250 mcg (50,000 unit) capsule 50,000 unit PO WE vitamin 09/28/21 [History Last Taken 09/09/22] omeprazole 20 mg capsule,delayed release 20 mg PO DAILY stomach 09/28/21 [History Last Taken 09/09/22] budesonide-formoterol HFA 160 mcg-4.5 mcg/actuation aerosol inhaler (Symbicort) 2 inh inhalation BID COPD 07/02/22 [History Last Taken Unknown] levothyroxine 50 mcg tablet 50 mcg PO DAILY 07/02/22 [History Last Taken 09/09/22] famotidine 20 mg tablet 20 mg PO BID GERD 07/23/22 [History Last Taken 09/09/22] furosemide 40 mg tablet (Lasix) 60 mg PO DAILY FLUID 07/23/22 [History Last Taken 09/09/22] guaifenesin 600 mg tablet, extended release 12 hr (Mucinex) 600 mg PO Q12H PRN Congestion 07/23/22 [History Last Taken Unknown] ipratropium 20 mcg-albuterol 100 mcg/actuation mist for inhalation (Combivent Respimat) 1 puff inhalation DAILY PRN Wheezing 07/23/22 [History Last Taken Unknown] polyethylene glycol 3350 17 gram oral powder packet (Miralax) 8.5 g PO QODAY PRN Constipation 07/23/22 [History Last Taken Unknown] albuterol sulfate 90 mcg/actuation aerosol inhaler 2 puff INHALATION Q4H PRN PRN Shortness Of Breath 09/09/22 [History Last Taken Unknown] cephalexin 500 mg capsule 500 mg PO TID 09/09/22 [History Last Taken 09/09/22] doxycycline hyclate 100 mg tablet 100 mg PO BID 09/09/22 [History Last Taken 09/09/22] lamotrigine 200 mg tablet 200 mg PO BID SEIZURE 09/09/22 [History Last Taken 09/09/22] losartan 50 mg tablet 50 mg PO DAILY BP 09/09/22 [History Last Taken 09/09/22] metoprolol tartrate 100 mg tablet 100 mg PO BID HEART 09/09/22 [History Last Taken 09/09/22] sljaoskb-ejjtimf-njga-lutein tablet 1 tab PO DAILY SUPPLEMENT 09/09/22 [History Last Taken 09/09/22] risperidone 1 mg tablet 1 mg PO QHS RLS 09/09/22 [History Last Taken 09/08/22] sennosides 8.6 mg-docusate sodium 50 mg tablet (Senna Plus) 1 tab PO BID CONSTIPATION 09/09/22 [History Last Taken Unknown] sodium chloride 5 % eye ointment 1 applic RIGHT EYE QHS 09/09/22 [History Last Taken 09/08/22] tetrahydrozoline 0.05 %-zinc 0.25 % eye drops 1 drp EACH EYE BID ALLERGIES 09/09/22 [History Last Taken Unknown] topiramate 25 mg tablet 50 mg PO BID 09/09/22 [History Last Taken 09/09/22] Allergy/AdvReac Type Severity Reaction Status Date / Time benztropine mesylate Allergy Unknown Verified 09/05/22 15:37 [From Cogentin] Salicylates Allergy Unknown Verified 09/05/22 15:37 Sulfa (Sulfonamide Allergy Unknown Verified 09/05/22 15:37 Antibiotics) abacavir AdvReac Unknown Unknown Verified 09/05/22 15:37 aspirin AdvReac Unknown Verified 09/05/22 15:37 bupropion HCl AdvReac Rash Verified 09/05/22 15:37 [From Wellbutrin] prochlorperazine AdvReac Unknown Verified 09/05/22 15:37 prochlorperazine edisylate AdvReac Unknown Verified 09/05/22 15:37 [From Compazine] prochlorperazine maleate AdvReac Unknown Verified 09/05/22 15:37 [From Compazine] Family History Father No problems noted. Surgical History History of gastric bypass History of skin graft History of tonsillectomy Hx of appendectomy Social History household members: spouse Smoking Status: Never smoker alcohol intake: never substance use type: does not use ROS ROS ED Review of Systems ROS Unobtainable: due to mental status EXAM Physical Exam Const Vital Signs: 09/09/22 10:59 09/09/22 11:02 09/09/22 11:06 Temperature 97.7 F L 97.7 F L Temperature Source Axillary Axillary Pulse Rate 59 L 62 Respiratory Rate 16 16 Respiratory Effort Normal Non-Labored Respiratory Pattern Normal Blood Pressure 107/32 L 107/32 L Blood Pressure Mean 57 57 Pulse Ox 94 94 Oxygen Delivery Method Nasal Cannula Nasal Cannula Oxygen Flow Rate (L/min) 2 2 09/09/22 13:46 Temperature 97.0 F L Temperature Source Temporal Pulse Rate 59 L Respiratory Rate 21 H Respiratory Effort Respiratory Pattern Blood Pressure 99/60 Blood Pressure Mean 73 Pulse Ox 99 Oxygen Delivery Method Room Air Oxygen Flow Rate (L/min) Positive well nourished, well developed and obese General Appearance ED: well developed and NAD Nutritional Appearance: obese HEENT Reports moist mucous membranes Eyes PERRL and EOMs intact bilaterally Neck supple Chest Wall inspection of chest normal Resp normal respiratory effort Auscultation: diminished lung sounds Cardio regular rate, regular rhythm and no murmurs GI normal to inspection, nondistended, normoactive bowel sounds and non-tender Extremity Extremity Narrative: Significant lymphedema of the bilateral lower extremities. The right leg is wrapped with Eran wrap from the shelter. She is refusing to let us take it down. Patient's chronic venous stasis changes with some minor serous weeping of the distal aspect of the leg. No associated lymphangitic streaking. General Extremety ED: Yes edema General Extremity: edema Neuro Neuro Narrative: No focal deficits appreciated. Generally weak. Normal coordination. Sensorium / Orientation: alert and orientation impaired MDM MDM MDM Narrative Medical decision making narrative: Patient is evaluated for dizziness and altered mental status. Patient appears nontoxic but is confused. Per shelter her baseline is ANO x3. The patient had reported fall and differential includes acute intracranial hemorrhage, metabolic encephalopathy, infection and polypharmacy. Patient is complaining of dizziness and I do not appreciate any signs of central vertigo including ataxia. Differential for this includes peripheral vertigo as well as cardiac arrhythmia or cardiogenic cause. Patient is on her baseline oxygen. CT of the brain does not show any acute intracranial process but does show opacification of the right maxillary sinus mucosal thickening of the left sphenoid sinus. This could be contributing to her dizziness. Patient is given a dose of meclizine for this. Checks x-ray interpreted by myself as well as radiology shows cardiomegaly and vascular congestion. Cardiac work-up, CT of the brain and metabolic work-up obtained. Patient does not have a leukocytosis and low suspicion for sepsis/systemic infection. Her BNP is elevated and so is her high-sensitivity troponin. On repeat it is slightly downtrending at 110. I suspect this is more of a strain pattern. EKG is ordered. Creatinine is uptrending and now at 2.10. Her potassium is mildly elevated at 5.4. On repeat evaluation patient still seems confused and ABGs obtained to rule out hypercapnia as a cause of her mental status change at this time. Patient is found to have an acute respiratory acidosis. She is placed on BiPAP. She is given IV Lasix in the ER. Patient is admitted for likely CHF exacerbation with respiratory failure. I suspect the elevated troponin is secondary to heart strain. Lab Data Attestation: I reviewed the patient's lab results. Labs: Laboratory Results - last 24 hr 09/09/22 09/09/22 09/09/22 11:26 11:26 11:26 WBC 5.6 RBC 4.84 Hgb 13.8 Hct 45.6 MCV 94.2 MCH 28.5 MCHC 30.3 L RDW Std Deviation 55.5 H RDW Coeff of Mago 15.9 H Plt Count 170 MPV 9.3 Immature Gran % (Auto) 0.400 Neut % (Auto) 71.3 H Lymph % (Auto) 9.1 L Grundy % (Auto) 8.7 Eos % (Auto) 10.0 H Baso % (Auto) 0.5 Absolute Neuts (auto) 4.0 Absolute Lymphs (auto) 0.51 L Nucleated RBC % 0 Differential Comment COMMENT Sodium 136 Potassium 5.4 H Chloride 106 Carbon Dioxide 26.0 Anion Gap 4 L BUN 56 H Creatinine 2.10 H Estim Creat Clear Calc 24.59 Est GFR (MDRD) Af Amer 30 L Est GFR (MDRD) Non-Af 25 L BUN/Creatinine Ratio 26.7 H Glucose 108 H Calcium 9.1 Magnesium Total Creatine Kinase 27 Troponin I High Sens 120 H B-Natriuretic Peptide Urine Color Urine Clarity Urine pH Ur Specific [place] Urine Protein Urine Glucose (UA) Urine Ketones Urine Occult Blood Urine Nitrite Urine Bilirubin Urine Urobilinogen Ur Leukocyte Esterase Urine RBC Urine WBC Ur Squamous Epith Cells Urine Bacteria Urine Mucus 09/09/22 09/09/22 09/09/22 11:26 12:52 13:00 WBC RBC Hgb Hct MCV MCH MCHC RDW Std Deviation RDW Coeff of Mago Plt Count MPV Immature Gran % (Auto) Neut % (Auto) Lymph % (Auto) Grundy % (Auto) Eos % (Auto) Baso % (Auto) Absolute Neuts (auto) Absolute Lymphs (auto) Nucleated RBC % Differential Comment Sodium Potassium Chloride Carbon Dioxide Anion Gap BUN Creatinine Estim Creat Clear Calc Est GFR (MDRD) Af Amer Est GFR (MDRD) Non-Af BUN/Creatinine Ratio Glucose Calcium Magnesium Total Creatine Kinase Troponin I High Sens 110 H B-Natriuretic Peptide 263.9 H Urine Color Yellow Urine Clarity Clear Urine pH 5.0 Ur Specific [place] 1.020 Urine Protein Negative Urine Glucose (UA) Normal Urine Ketones Negative Urine Occult Blood Negative Urine Nitrite Negative Urine Bilirubin Negative Urine Urobilinogen Normal Ur Leukocyte Esterase Negative Urine RBC 0 SEEN Urine WBC 0 SEEN Ur Squamous Epith Cells 0-5 SEEN Urine Bacteria 0 SEEN Urine Mucus 0 SEEN 09/09/22 13:00 WBC RBC Hgb Hct MCV MCH MCHC RDW Std Deviation RDW Coeff of Mago Plt Count MPV Immature Gran % (Auto) Neut % (Auto) Lymph % (Auto) [place]undy % (Auto) Eos % (Auto) Baso % (Auto) Absolute Neuts (auto) Absolute Lymphs (auto) Nucleated RBC % Differential Comment Sodium Potassium Chloride Carbon Dioxide Anion Gap BUN Creatinine Estim Creat Clear Calc Est GFR (MDRD) Af Amer Est GFR (MDRD) Non-Af BUN/Creatinine Ratio Glucose Calcium Magnesium 1.9 Total Creatine Kinase Troponin I High Sens B-Natriuretic Peptide Urine Color Urine Clarity Urine pH Ur Specific [place] Urine Protein Urine Glucose (UA) Urine Ketones Urine Occult Blood Urine Nitrite Urine Bilirubin Urine Urobilinogen Ur Leukocyte Esterase Urine RBC Urine WBC Ur Squamous Epith Cells Urine Bacteria Urine Mucus Radiography Diagnostic Testing: Clinical Impression(s) from Imaging Studies Brain CT 09/09/22 11:31 IMPRESSION: Opacification of right maxillary sinus and mucosal thickening of the left sphenoid sinus. Chronic involutional changes of the brain. Electronically Signed: Esteban Camargo MD at 12:19 EST , Chest X-Ray 09/09/22 12:01 IMPRESSION: Cardiomegaly. Vascular congestion. Electronically Signed: Esteban Camargo MD at 12:15 EST , Discharge Plan Dx/Rx/DC Orders Clinical Impression: Acute and chronic respiratory failure with hypercapnia, CHF (congestive heart failure), Episode of dizziness, AMS (altered mental status), ANIRUDH (acute kidney injury) Disposition Disposition: Acute Care [facility] Discharge Date/Time: 09/09/22 16:14
[2022-09-09] MEDS: Meclizine HCl 25 MG Tablet PO (11:54)
[2022-09-09 11:56] LABS: Absolute Lymphocyte Count 0.51 X10^3/uL (0.83-4.51); Basophil# 0.03 X10^3/uL; Basophil% 0.5 % (0-1); Eosinophil# 0.56 X10^3/uL; Hematocrit 45.6 % (37-47); Hemoglobin 13.8 g/dL (12.0-15.0); Lymphocyte # 0.51 X10^3/ul (0.83-4.51); Lymphocyte % 9.1 % (19-41); Mean Corp Hgb Conc 30.3 g/dL (32-36); Mean Corpuscular Hgb 28.5 pg (27.0-32.0); Mean Corpuscular Volume 94.2 fL (81-99); Mean Platelet Vol. 9.3 fl (6.2-12.0); Monocyte# 0.49 X10^3/uL; Monocyte% 8.7 % (0-10); NRBC Flagged by Analyzer 0 % (0-5); Neutrophil # 4.01 X10^3/uL (2.7-7.7); Neutrophil % 71.3 % (47-70); POSITIVE DIFFERENTIAL YES; Platelet Count 170 K/mm3 (150-450); RBC Distribution Width CV 15.9 % (11.6-14.6); RBC Distribution Width SD 55.5 fl (35.1-43.9); Red Blood Count 4.84 M/mm3 (4.2-5.4); White Blood Count 5.6 K/mm3 (4.4-11.0)
[2022-09-09 12:00] LABS: Differential Indicated SCAN CRITERIA MET
--- NOTE | 2022-09-09 12:01 | RAD_ITS ---
STUDY: X-RAY CHEST REASON FOR EXAM: Female, 71 years old. Weakness, AMS TECHNIQUE: Single AP portable view of the chest. COMPARISON: Comparison is made with prior study dated 09/05/2022. FINDINGS: EKG electrodes are seen. Mild degree of vascular congestion. There is no demonstrated pleural abnormality. There is moderate cardiac enlargement. Normal mediastinum and hetal. Normal visualized pulmonary arteries. There is atherosclerotic tortuosity of the aortic arch and descending thoracic aorta. There are diffuse degenerative changes of the visualized thoracic spine. Normal visualized ribs, clavicles, and shoulders. There is no demonstrated abnormality of the visualized soft tissue structures of the upper abdomen. RAD/Chest 1 View (Portable) IMPRESSION: Cardiomegaly. Vascular congestion. Electronically Signed: Esteban Camargo MD at 12:15 EST ,
[2022-09-09 12:16] LABS: Anion Gap 4 (5-15); BUN 56 mg/dL (7-18); BUN/Creat Ratio 26.7 RATIO (10-20); Calcium,Total 9.1 mg/dL (8.5-10.1); Chloride 106 mmol/L (98-107); EST Glomerular Filtration Rate 25 mL/min (>60); Est Glom Filt Rate - Afr Amer 30 mL/min (>60); Estimated Creatinine Clearance 24.59 ml/min; Glucose 108 mg/dL (74-106); Potassium 5.4 mmol/L (3.5-5.1); Sodium Level 136 mmol/L (136-145); Troponin-I HS 120 pg/mL (3.0-54.0)
[2022-09-09 12:19] LABS: CPK Total, Creatine Kinase 27 U/L (26-192)
[2022-09-09 13:00] LABS: BNP,B-Type NATRIURETIC PEPTIDE 263.9 pg/mL (0-100)
[2022-09-09 13:03] LABS: Bacteria 0 SEEN /hpf (None Seen); Mucous, Urine 0 SEEN /hpf (<or=2+); Red Blood Cells-Urine 0 SEEN /hpf (0-5); White Blood Cells 0 SEEN /hpf (0-5)
[2022-09-09 13:07] LABS: Color, Urine Yellow (Yellow); Glucose, Dipstick Normal (Normal); Ketone-Dipstick Negative (Negative); Leukocyte Esterase-Dipstick Negative /ul (Negative); Nitrite-Dipstick Negative (Negative); Occult Blood-Urine Negative /ul (Negative); Protein-Dipstick Negative (Negative); Urine Bilirubin Dipstick Negative (Negative); Urine Clarity Clear (Clear); Urine Urobilinogen Normal (Normal)
[2022-09-09 13:13] LABS: Squamous Epithelial Cells - UA 0-5 SEEN /hpf (5-10)
[2022-09-09 13:26] LABS: Troponin-I HS 110 pg/mL (3.0-54.0)
--- NOTE | 2022-09-09 15:10 | HP.PCM.HOS_ITS ---
HPI - General General Date of Admission: 09/09/22 Date of Service: 09/09/22 Chief Complaint: Dizziness, dyspnea. HPI Narrative The patient is a 71 y/o F w/ PMHx: Asthma/COPD w/ Chronic Hypoxic Respiratory Failure (2L NC), Morbid Obesity, HTN, HLD, Bipolar disorder/Anxiety and Depression, KAYLA, Diabetes mellitus type II, Chronic Diastolic CHF, Hypothyroidism, Chronic lymphedema, GERD, PVD who presents to the [facility] ED on 09/09/22 with history of onset of dizziness with associated fall and confusion on a.m. day of presentation found in her apartment where she is a resident at the [facility] by staff on the ground next to her bed with a lift assist called the local EMS eventually getting her back into bed but they noted she was confused at that time continued to complain of dizziness prompting ED evaluation. Patient was recently per report placed on antibiotic therapy including Keflex and doxycycline last week as well as trazodone but unclear etiology. Also of note patient recently complained starting on Wednesday of shortness of breath, worse with exertion. Work-up in the ED included T97, heart rate 59, BP 99/60, respiratory rate 21, 99% on room air, CBC with a BC 5.6, hemoglobin 13.8, platelet 170 with lymphopenia noted, BMP with potassium 5.4, BUN/creatinine 56/2.10, glucose 108, total creatinine kinase 27, BNP 263.9, troponin initial 120 with repeat 110 and most recently prior to this noted 09/28/2021 troponin 19, chest x-ray with cardiomegaly with evidence of vascular congestion, CT of the brain with opacification of the right maxillary sinus mucosal thickening of the left sphenoid sinus with chronic involutional changes of the brain with no acute intracranial findings, urinalysis unremarkable, EKG with sinus rhythm with no acute evidence of ischemia. In the ED patient administered meclizine 25 mg p.o. x1 as well as Lasix 40 mg IV x1. In the ED upon evaluation patient was notably lethargic therefore ED physician had ordered ABG and requested the BiPAP be placed. ABG in the ED did have notable hypercapnia. [facility] Medical History Bifascicular block Bilateral edema of lower extremity Bipolar disorder Cellulitis Chronic diastolic (congestive) heart failure Essential hypertension GERD (gastroesophageal reflux disease) HLD (hyperlipidemia) Hypothyroidism Left anterior fascicular block (LAFB) Lymphedema Metabolic encephalopathy Morbid obesity with BMI of 50.0-59.9, adult Non-rheumatic aortic stenosis KAYLA (obstructive sleep apnea) Right bundle branch block (RBBB) Sepsis Type 2 diabetes mellitus Type 2 diabetes mellitus without complication Ulcer of right lower extremity with fat layer exposed Venous (peripheral) insufficiency Home Medications albuterol sulfate 2.5 mg/3 mL (0.083 %) solution for nebulization 2.5 mg inhalation Q2H PRN Sob &/Or Wheezing 11/09/15 [History Last Taken Unknown] atorvastatin 10 mg tablet 10 mg PO QHS hld 11/09/15 [History Last Taken 09/08/22] folic acid 1 mg tablet 1 mg PO DAILY@0800 supplement 11/09/15 [History Last Taken 09/09/22] tramadol 50 mg tablet 50 mg PO BID pain ##14 11/12/15 [Rx Last Taken 09/09/22] montelukast 10 mg tablet (Singulair) 10 mg PO QHS asthma 11/18/17 [History Last Taken 09/08/22] acetaminophen 500 mg tablet 1,000 mg PO BID pain 12/21/17 [History Last Taken 09/09/22] potassium chloride 20 mEq tablet,extended release(part/cryst) 20 meq PO BID supplement 12/21/17 [History Last Taken 09/09/22] fluticasone propionate 50 mcg/actuation nasal spray,suspension 2 spray intranasal DAILY allergies 30 days ##16 12/20/18 [History Last Taken 10/05/19] benzonatate 100 mg capsule 100 mg PO BID cough 10/06/19 [History Last Taken Unknown] cetirizine 10 mg tablet 10 mg PO QHS ALLERGIES 10/06/19 [History Last Taken 09/08/22] loperamide 2 mg capsule 2 mg PO Q4H PRN PRN Diarrhea 10/06/19 [History Last Taken Unknown] oxcarbazepine 300 mg tablet 300 mg PO BID SEIZURE 10/06/19 [History Last Taken 09/09/22] peg [id number] 1 %-0.2 %-0.2 % eye drops 15 drp EACH EYE Q6H PRN PRN Dry Eyes 10/06/19 [History Last Taken Unknown] simethicone 180 mg capsule 180 - 360 tab PO TID PRN PRN Indigestion 10/06/19 [History Last Taken Unknown] solifenacin 10 mg tablet 10 mg PO DAILY bladder 10/06/19 [History Last Taken 09/09/22] venlafaxine 75 mg capsule,extended release 24 hr 75 mg PO DAILY mood 10/06/19 [History Last Taken 09/09/22] dicyclomine 10 mg capsule 10 mg PO BID STOMACH 09/28/21 [History Last Taken 09/09/22] ergocalciferol (vitamin D2) 1,250 mcg (50,000 unit) capsule 50,000 unit PO WE vitamin 09/28/21 [History Last Taken 09/09/22] omeprazole 20 mg capsule,delayed release 20 mg PO DAILY stomach 09/28/21 [History Last Taken 09/09/22] budesonide-formoterol HFA 160 mcg-4.5 mcg/actuation aerosol inhaler (Symbicort) 2 inh inhalation BID COPD 07/02/22 [History Last Taken Unknown] levothyroxine 50 mcg tablet 50 mcg PO DAILY 07/02/22 [History Last Taken 09/09/22] famotidine 20 mg tablet 20 mg PO BID GERD 07/23/22 [History Last Taken 09/09/22] furosemide 40 mg tablet (Lasix) 60 mg PO DAILY FLUID 07/23/22 [History Last Taken 09/09/22] guaifenesin 600 mg tablet, extended release 12 hr (Mucinex) 600 mg PO Q12H PRN Congestion 07/23/22 [History Last Taken Unknown] ipratropium 20 mcg-albuterol 100 mcg/actuation mist for inhalation (Combivent Respimat) 1 puff inhalation DAILY PRN Wheezing 07/23/22 [History Last Taken Unknown] polyethylene glycol 3350 17 gram oral powder packet (Miralax) 8.5 g PO QODAY PRN Constipation 07/23/22 [History Last Taken Unknown] albuterol sulfate 90 mcg/actuation aerosol inhaler 2 puff INHALATION Q4H PRN PRN Shortness Of Breath 09/09/22 [History Last Taken Unknown] cephalexin 500 mg capsule 500 mg PO TID 09/09/22 [History Last Taken 09/09/22] doxycycline hyclate 100 mg tablet 100 mg PO BID 09/09/22 [History Last Taken 09/09/22] lamotrigine 200 mg tablet 200 mg PO BID SEIZURE 09/09/22 [History Last Taken 09/09/22] losartan 50 mg tablet 50 mg PO DAILY BP 09/09/22 [History Last Taken 09/09/22] metoprolol tartrate 100 mg tablet 100 mg PO BID HEART 09/09/22 [History Last Taken 09/09/22] wihbqohm-pkensuk-flku-lutein tablet 1 tab PO DAILY SUPPLEMENT 09/09/22 [History Last Taken 09/09/22] risperidone 1 mg tablet 1 mg PO QHS RLS 09/09/22 [History Last Taken 09/08/22] sennosides 8.6 mg-docusate sodium 50 mg tablet (Senna Plus) 1 tab PO BID CONSTIPATION 09/09/22 [History Last Taken Unknown] sodium chloride 5 % eye ointment 1 applic RIGHT EYE QHS 09/09/22 [History Last Taken 09/08/22] tetrahydrozoline 0.05 %-zinc 0.25 % eye drops 1 drp EACH EYE BID ALLERGIES 09/09/22 [History Last Taken Unknown] topiramate 25 mg tablet 50 mg PO BID 09/09/22 [History Last Taken 09/09/22] Allergy/AdvReac Type Severity Reaction Status Date / Time benztropine mesylate Allergy Unknown Verified 09/05/22 15:37 [From Cogentin] Salicylates Allergy Unknown Verified 09/05/22 15:37 Sulfa (Sulfonamide Allergy Unknown Verified 09/05/22 15:37 Antibiotics) abacavir AdvReac Unknown Unknown Verified 09/05/22 15:37 aspirin AdvReac Unknown Verified 09/05/22 15:37 bupropion HCl AdvReac Rash Verified 09/05/22 15:37 [From Wellbutrin] prochlorperazine AdvReac Unknown Verified 09/05/22 15:37 prochlorperazine edisylate AdvReac Unknown Verified 09/05/22 15:37 [From Compazine] prochlorperazine maleate AdvReac Unknown Verified 09/05/22 15:37 [From Compazine] Family History (Updated 09/09/22 @ 20:[address] Halina Castillo MD) Mother No problems noted. Father Heart disease Surgical History History of gastric bypass History of skin graft History of tonsillectomy Hx of appendectomy Social History household members: spouse Smoking Status: Never smoker alcohol intake: never substance use type: does not use ROS Review of Systems ROS Unobtainable: due to encephalopathy and due to mental status Vital Signs Vital Signs Vital Signs: 09/09/22 10:59 09/09/22 11:02 09/09/22 11:06 Temperature 97.7 F L 97.7 F L Temperature Source Axillary Axillary Pulse Rate 59 L 62 Respiratory Rate 16 16 Respiratory Effort Normal Non-Labored Respiratory Pattern Normal Blood Pressure 107/32 L 107/32 L Blood Pressure Mean 57 57 Pulse Ox 94 94 Oxygen Delivery Method Nasal Cannula Nasal Cannula Oxygen Flow Rate (L/min) 2 2 09/09/22 13:46 Temperature 97.0 F L Temperature Source Temporal Pulse Rate 59 L Respiratory Rate 21 H Respiratory Effort Respiratory Pattern Blood Pressure 99/60 Blood Pressure Mean 73 Pulse Ox 99 Oxygen Delivery Method Room Air Oxygen Flow Rate (L/min) Weight Weight: 278 lb 7.101 oz Body Mass Index (BMI) 43.6 Physical Exam Narrative Physical Examination: General: Awakens to aggressive stimuli, not markedly alert and unable to answer orientation questions well, will follow some commands but very lethargic, laying in the ED bed, fatigued. Skin: Normal color, normal turgor, no icterus, no cyanosis except noted intertrigo and occasional staged ecchymoses as well as peripheral vascular stasis skin changes lower extremities/chronic lower extremity lymphedema. HEENT: AT/NC, EOMI although patient is not extremely alert to perform, PERRLA, mildly dry MM, no carotid bruits, + JVD noted. Lungs: Significantly diminished, greater bases, very mild distant rales, no obvious rhonchi or wheezing, no overt respiratory distress noted. Heart: Mildly tachycardic with regular rhythm; no gallop, rub audible. Abdomen: Soft, morbidly obese, no grimacing with palpation, difficult to assess distention given habitus, distant bowel sounds, unable to discern HSM secondary to habitus. Extremities: No cyanosis, no clubbing, significant bilateral lower extremity pedal to distal knee chronic lymphedema. Neurological: Awakens to aggressive stimuli, not markedly alert and unable to answer orientation questions well, will follow some commands but very lethargic, cognitive function not baseline intact, pupils equally reactive to light and accommodation, cranial nerves appear intact but difficult exam is lethargic, moving extremities to stimuli, strength severely globally decreased. Psychiatric: Affect appears flat, lethargic, no acute evidence of depressive or anxiety feelings. Results Lab / Micro Data Result Diagrams: 09/09/22 11:26 09/09/22 11:26 Labs: Laboratory Results - last 24 hr 09/09/22 11:26: WBC 5.6, RBC 4.84, Hgb 13.8, Hct 45.6, MCV 94.2, MCH 28.5, MCHC 30.3 L, RDW Std Deviation 55.5 H, RDW Coeff of Mago 15.9 H, Plt Count 170, MPV 9.3, Immature Gran % (Auto) 0.400, Neut % (Auto) 71.3 H, Lymph % (Auto) 9.1 L, [place] % (Auto) 8.7, Eos % (Auto) 10.0 H, Baso % (Auto) 0.5, Absolute Neuts (auto) 4.0, Absolute Lymphs (auto) 0.51 L, Nucleated RBC % 0, Differential Comment COMMENT 09/09/22 11:26: Sodium 136, Potassium 5.4 H, Chloride 106, Carbon Dioxide 26.0, Anion Gap 4 L, BUN 56 H, Creatinine 2.10 H, Estim Creat Clear Calc 24.59, Est GFR (MDRD) Af Amer 30 L, Est GFR (MDRD) Non-Af 25 L, BUN/Creatinine Ratio 26.7 H , Glucose 108 H, Calcium 9.1, Troponin I High Sens 120 H 09/09/22 11:26: Total Creatine Kinase 27 09/09/22 11:26: B-Natriuretic Peptide 263.9 H 09/09/22 12:52: Urine Color Yellow, Urine Clarity Clear, Urine pH 5.0, Ur Specific [place] 1.020, Urine Protein Negative, Urine Glucose (UA) Normal, Urine Ketones Negative, Urine Occult Blood Negative, Urine Nitrite Negative, Urine Bilirubin Negative, Urine Urobilinogen Normal, Ur Leukocyte Esterase Negative, Urine RBC 0 SEEN, Urine WBC 0 SEEN, Ur Squamous Epith Cells 0-5 SEEN, Urine B acteria 0 SEEN, Urine Mucus 0 SEEN 09/09/22 13:00: Troponin I High Sens 110 H Radiology Impression Brain CT 09/09/22 11:31 IMPRESSION: Opacification of right maxillary sinus and mucosal thickening of the left sphenoid sinus. Chronic involutional changes of the brain. Electronically Signed: Esteban Camargo MD at 12:19 EST , Chest X-Ray 09/09/22 12:01 IMPRESSION: Cardiomegaly. Vascular congestion. Electronically Signed: Esteban Camargo MD at 12:15 EST , Assessment & Plan Assessment/Plan (1) Encephalopathy: PLAN: Plan The patient is a 71 y/o F w/ PMHx: Asthma/COPD w/ Chronic Hypoxic Respiratory Failure (2L NC), Morbid Obesity, HTN, HLD, Bipolar disorder/Anxiety and Depression, KAYLA, Diabetes mellitus type II, Chronic Diastolic CHF, Hypothyroidism, Chronic lymphedema, GERD, PVD who presents to the [facility] ED on 09/09/22 with history of onset of dizziness with associated fall and confusion on a.m. day of presentation found in her [facility] where she is a [facility] by staff on the ground next to her bed with a lift assist called the local EMS eventually getting her back into bed but they noted she was confused at that time continued to complain of dizziness prompting ED evaluation. #1. Acute Encephalopathy, Multifactorial, secondary to Acute on Chronic Decompensated Diastolic CHF with associated indeterminate cardiac enzymes in addition to #2 and #3: CXR obtained in the ED w/ evidence of congestion/overload. Patient administered IV lasix in the ED, will admit to PCU, maintain on cardiac telemetry obtain cardiac enzyme series, obtain serial EKGs, continue IV lasix diuresis, monitor I/Os, maintain on intake restriction, continue medical therapy w/ asa, statin, BB, ACEI, aldosterone antagonists. Will obtain TSH and magnesium level. Most recent ECHO noted 09/28/2021 with normal LV size, normal LV systolic function, EF 55%, mild MVI, stage I diastolic dysfunction, PASP 66 mmHg, moderate focal AV calcification, mean aortic valve gr adient 28 mmHg with mild aortic stenosis thus will we will request repeat given duration of time. If clinically not improving or worsens low threshold to involve cardiology. #2. Acute hypercapnia suspected on chronic with underlying KAYLA history as well as COPD/asthma with allergic rhinitis: In the ED significant lethargy, ABG obtained with noted mildly elevated PCO2 65.8 with normal PO2 98 on 2 L nasal cannula, discussed with RT and will place patient on BiPAP with plan to replete ABG in approximately 1 hour, will maintain on ATC DuoNeb therapies as well as as needed albuterol concurrently, once improving encourage head of bed and I-S aggressively. Once clinically improved we will transition to BiPAP nightly and with naps only. We will continue patient home Singulair, cetirizine and f luticasone regimen. #3. Acute kidney injury: Suspect associate with #1, overloaded currently admis macho BUN/Cr 56/2.10, prior baseline creatinine noted to be primarily previously 0.7-0.9, 07/04/2022 creatinine did bump to 1.19 and most recently on 09/05/2022 creatinine increased to 1.56. Will judiciously pulsed dosed with IV Lasix and hold other nephrotoxic medications. If not improving would also consider renal ultrasound and FeNa assessment. #4. Mild hyperkalemia: Admission potassium 5.4, as noted plan for pulse dose Lasix, maintain on telemetry, no acute EKG concerns, will repeat BMP this evening to be cautious to assure improving, also will repeat BMP in a.m. #5. Diabetes mellitus type II: Per currently on a regimen, glucose not markedly elevated on presentation, will obtain hemoglobin A1c, currently n.p.o. status, will maintain on accu checks w/ ISS in the interim until clarified. #6. Asthma/COPD w/ Chronic Hypoxic Respiratory Failure (2L NC) with allergic rhinitis: Patient currently continued on BiPAP, as needed albuterol, scheduled DuoNeb therapies and once oral intake is appropriate we will resume patient home Claritin, fluticasone and Singulair Home regimen. #7. Hypertension: Currently patient encephalopathic, unsafe oral intake, will resume oral medicines once patient improved mental status, in the interim IV Lasix and as needed IV hydralazine is noted. #8. Hyperlipidemia: Temporarily holding oral statin given unsafe oral intake, resume once appropriate. #9. Bipolar disorder/Anxiety and Depression: Currently patient is very encephalopathic with unsafe oral intake, when she is clinically appropriate we will resume her extensive psychiatric regimen. #10. Chronic lymphedema: We will place night Eran wraps and elevation of lower extremities, IV Lasix given acute presentation is noted. #11. Hypothyroidism: We will continue patient on levothyroxine regimen, TSH requested. #12. Morbid Obesity: Weight loss and lifestyle changes encouraged. #13. GERD: We will continue patient on PPI. #14. KAYLA: Currently on BiPAP as noted. #15. DVT prophylaxis: SCDs, heparin. #16. CODE STATUS: Unable to discuss CODE STATUS currently therefore will place patient on full code unverified given that last presentation 09/28/2021 patient had elected full CODE STATUS at that time, when she is more alert this will need to be discussed by the hospitalist service. Admission Evaluation Time spent evaluating chart, patient history, patient evaluation, care planning and discussion with specialists: 77 minutes. Charges/Coding Visit Charges Inpatient E&M: 24054 Init Hosp L3
[2022-09-09 15:31] LABS: Allen Test Positive; Base Excess -2 mmol/L (-2 to +2); Bicarbonate 26.4 mmol/L (22-26); Blood Gas Specimen Type ART; O2 Delivery Device Cannula; PO2 98 mmHG (75-100); SITE L Radial; SO2 96 % (95-99); Total Carbon Dioxide 28 mmol/L; pCO2 65.8 mmHg (35-45); pH 7.21 (7.35-7.45)
[2022-09-09] MEDS: Furosemide 40 MG/4 ML Vial IV (15:45)
--- NOTE | 2022-09-09 15:47 | NURSING ---
PCU WHITE CHF EXAC, ANIRUDH
[2022-09-09 17:06] LABS: Magnesium 1.9 mg/dL (1.6-2.6)
--- NOTE | 2022-09-09 17:08 | ECHOD_ITS ---
Reason For Study: CHF Procedure This was a 2D Doppler, Color Flow transthoracic echocardiogram. The study was technically difficult. Due to morbid obesity. Exam performed portable in patient room. Left Ventricle Normal LV size. The estimated ejection fraction is 65 %. No evidence for diastolic dysfunction. No regional wall motion abnormalities noted. Right Ventricle Moderately dilated right ventricle. Normal systolic function. Atria The left atrium is mildly enlarged. Normal right atrium. No doppler evidence for ASD. Mitral Valve There is moderate to severe mitral annular calcification. There is no mitral valve stenosis. Mild (1+) mitral valve insufficiency. Tricuspid Valve There is no tricuspid stenosis. Trivial eccentric tricuspid valve insufficiency. Unable to estimate RV systolic pressure due to insufficient tricuspid regurgitant envelope. Aortic Valve There is no aortic stenosis. No aortic valve insufficiency. Pulmonic Valve There is no pulmonic valvular stenosis. Trivial pulmonic valve insufficiency. Great Vessels Normal aortic root. Pericardium/Pleural No pericardial effusion. MMode/2D Measurements & Calculations LVIDd: 5.5 cm IVSd: 1.1 cm LVOT diam: 2.2 cm LVIDs: 3.8 cm LVPWd: 1.0 cm LVOT area: 3.7 cm2 RVDd: 4.1 cm FS: 31.1 % Ao root diam: 4.0 cm LAV(MOD-bp): 80.6 ml Aortic Valve Planimetry: 1.8 cm2 LAV(MOD-bp) Indexed: 34.3 ml/m2 LAV(MOD-sp2): 75.3 ml LAV(MOD-sp4): 75.5 ml LA dimension(2D): 3.5 cm LA A4 area: 24.3 cm2 RA A4 area: 22.1 cm2 Time Measurements MV dec time: 0.22 sec Doppler Measurements & Calculations MV E max travon: 93.1 cm/sec Lat Peak E' Travon: 9.2 cm/sec Med Peak E' Travon: 7.1 cm/sec MV A max travon: 79.0 cm/sec E/E' lat: 10.2 E/E' med: 13.1 MV E/A: 1.2 MV dec slope: 417.8 cm/sec2 Ao V2 max: 288.2 cm/sec LV V1 max: 131.5 cm/sec Ao max P.2 mmHg LV V1 max P.9 mmHg Ao V2 mean: 204.7 cm/sec LV V1 mean P.0 mmHg Ao mean P.3 mmHg LV V1 mean: 96.0 cm/sec Ao V2 VTI: 56.4 cm LV V1 VTI: 27.9 cm AV (velocity ratio): 0.50 TANMAY(I,D): 1.8 cm2 TANMAY(V,D): 1.7 cm2 SV(LVOT): 103.7 ml PA V2 max: 109.4 cm/sec TR max travon: 296.4 cm/sec TR max P.1 mmHg ECHO/Echo Complete Interpretation Summary The estimated ejection fraction is 65 %. Moderately dilated right ventricle. The left atrium is mildly enlarged. Mild (1+) mitral valve insufficiency. No evidence for diastolic dysfunction. Ordering Physician: Halina Castillo Referring Physician: Oksana Roth Performed By: Che Kearney, MELANY, RVT
[2022-09-09 17:45] LABS: Bedside Glucose 68 mg/dL (74-106)
[2022-09-09 18:21] LABS: Bedside Glucose 70 mg/dL (74-106)
[2022-09-09] MEDS: Furosemide 100 MG/10 ML Vial 60 MG IV (18:26)
[2022-09-09] MEDS: 0.9% Saline Lock 10 ML Syringe IV ×3 (18:26→23:36)
[2022-09-09 18:39] LABS: Troponin-I HS 91 pg/mL (3.0-54.0)
[2022-09-09] MEDS: Ipratropium/Albuterol Sulfate 3 ML AMPUL.NEB INHALATION (19:41)
[2022-09-09 20:05] LABS: Allen Test Positive; Base Excess 0 mmol/L (-2 to +2); Bicarbonate 27.1 mmol/L (22-26); Blood Gas Specimen Type ART; FI02 30; O2 Delivery Device BiPAP; PO2 71 mmHG (75-100); RR 12; SITE L Radial; SO2 90 % (95-99); Total Carbon Dioxide 29 mmol/L; Vt 400; pCO2 62.2 mmHg (35-45); pH 7.25 (7.35-7.45)
--- NOTE | 2022-09-09 20:25 | CPS ---
WARP DOFFER put nursing vitals pulse ox on patient due to Respiratory pulse ox's not being available. RN notified
[2022-09-09] MEDS: Sodium Bicarbonate 8.4% 50 ML Syringe 50 MEQ IV (21:44)
[2022-09-09] MEDS: Heparin Injection (Vial) 5,000 UNIT/ML VIAL 5000 UNIT SC (21:54)
[2022-09-09 23:06] LABS: Bedside Glucose 74 mg/dL (74-106)
[2022-09-09 23:15] LABS: Allen Test Positive; Base Excess 2 mmol/L (-2 to +2); Bicarbonate 28.8 mmol/L (22-26); Blood Gas Specimen Type ART; FI02 30; O2 Delivery Device BiPAP; PO2 108 mmHG (75-100); SITE L Radial; SO2 97 % (95-99); Total Carbon Dioxide 31 mmol/L; pCO2 60.1 mmHg (35-45); pH 7.29 (7.35-7.45)
[2022-09-09 23:35] LABS: Anion Gap 4 (5-15); BUN 52 mg/dL (7-18); BUN/Creat Ratio 29.7 RATIO (10-20); Chloride 107 mmol/L (98-107); Creatinine, Serum 1.75 mg/dL (0.55-1.02); EST Glomerular Filtration Rate 31 mL/min (>60); Est Glom Filt Rate - Afr Amer 37 mL/min (>60); Glucose 91 mg/dL (74-106); Potassium 4.3 mmol/L (3.5-5.1); Sodium Level 142 mmol/L (136-145)
[2022-09-09] MEDS: Dextrose 50%-Water 25 GM/50 ML DISP.SYRIN IV (23:35)
[2022-09-10] VITALS (14 sets, daily range): BP systolic 114–136; BP diastolic 61–97; PULSE 73–89; RESP 12–21; TEMP 36.4–36.7; O2SAT 86–100
[2022-09-10 00:06] LABS: Bedside Glucose 78 mg/dL (74-106)
[2022-09-10 01:16] LABS: Bedside Glucose 118 mg/dL (74-106)
[2022-09-10 06:40] LABS: Absolute Lymphocyte Count 0.55 X10^3/uL (0.83-4.51); Absolute Neutrophil Count 3.2 X10^3/uL (2.0-7.7); Basophil# 0.03 X10^3/uL; Basophil% 0.6 % (0-1); Eosinophil# 0.48 X10^3/uL; Eosinophils% 10.3 % (0-5); Hematocrit 43.5 % (37-47); Hemoglobin 13.2 g/dL (12.0-15.0); Lymphocyte # 0.55 X10^3/ul (0.83-4.51); Lymphocyte % 11.8 % (19-41); Mean Corp Hgb Conc 30.3 g/dL (32-36); Mean Corpuscular Hgb 27.9 pg (27.0-32.0); Mean Platelet Vol. 9.3 fl (6.2-12.0); Monocyte% 8.6 % (0-10); NRBC Flagged by Analyzer 0 % (0-5); Neutrophil # 3.18 X10^3/uL (2.7-7.7); Neutrophil % 68.5 % (47-70); POSITIVE DIFFERENTIAL YES; Platelet Count 164 K/mm3 (150-450); RBC Distribution Width CV 15.8 % (11.6-14.6); RBC Distribution Width SD 53.2 fl (35.1-43.9); Red Blood Count 4.73 M/mm3 (4.2-5.4); White Blood Count 4.7 K/mm3 (4.4-11.0)
[2022-09-10 06:54] LABS: Differential Indicated SCAN CRITERIA MET
[2022-09-10 06:55] LABS: Anisocytosis 1+
[2022-09-10 07:00] LABS: Bedside Glucose 96 mg/dL (74-106)
[2022-09-10] MEDS: Ipratropium/Albuterol Sulfate 3 ML AMPUL.NEB INHALATION ×2 (07:16→19:24)
[2022-09-10 07:23] LABS: ALB/GLOB Ratio 0.6 RATIO (0.9-2.4); AST(SGOT) 11 U/L (15-37); Alanine Aminotransfer ALT/SGPT 12 U/L (13-56); Albumin, Serum 2.5 g/dL (3.2-5.0); Alkaline Phosphatase 88 U/L (45-117); Anion Gap 7 (5-15); BUN 49 mg/dL (7-18); BUN/Creat Ratio 32.7 RATIO (10-20); Calcium,Total 8.7 mg/dL (8.5-10.1); Chloride 106 mmol/L (98-107); Cholesterol 119 mg/dL (200); EST Glomerular Filtration Rate 37 mL/min (>60); Est Glom Filt Rate - Afr Amer 44 mL/min (>60); Estimated Creatinine Clearance 33.14 ml/min; Globulin 4.3 g/dL (2.2-4.2); Glucose 91 mg/dL (74-106); High Density Lipoprotein 51 mg/dL; Protein, Total 6.8 g/dL (6.4-8.2); Sodium Level 142 mmol/L (136-145); Triglycerides 100 mg/dL; Very Low Density Lipoprotein 20 mg/dL (5-40)
[2022-09-10] MEDS: Metoprolol Tartrate 100 MG Tablet PO ×2 (09:01→21:13)
[2022-09-10] MEDS: Dicyclomine 10 MG Capsule PO ×2 (09:02→21:12)
[2022-09-10] MEDS: Famotidine 20 MG Tablet PO (09:02)
[2022-09-10] MEDS: lamoTRIgine 100 MG Tablet 200 MG PO ×2 (09:02→21:12)
[2022-09-10] MEDS: Tolterodine Tartrate 4 MG CAP.SA PO (09:02)
[2022-09-10] MEDS: Senna/Docusate Sodium 1 Tablet PO ×2 (09:02→21:12)
[2022-09-10] MEDS: Folic Acid 1 MG Tablet PO (09:02)
[2022-09-10] MEDS: Losartan Potassium 50 MG Tablet PO (09:02)
[2022-09-10] MEDS: OXcarbazepine 300 MG Tablet PO ×2 (09:03→21:11)
[2022-09-10] MEDS: Pantoprazole Sodium 20 MG Tablet PO (09:03)
[2022-09-10] MEDS: Benzonatate 100 MG Capsule PO ×2 (09:03→21:13)
[2022-09-10] MEDS: Venlafaxine XR 75 MG Capsule PO (09:03)
[2022-09-10] MEDS: Heparin Injection (Vial) 5,000 UNIT/ML VIAL 5000 UNIT SC ×2 (09:06→21:14)
[2022-09-10] MEDS: Furosemide 100 MG/10 ML Vial 60 MG IV ×2 (09:06→17:55)
[2022-09-10] MEDS: 0.9% Saline Lock 10 ML Syringe IV ×2 (09:07→17:55)
[2022-09-10] MEDS: traMADol 50 MG Tablet PO ×2 (09:20→21:13)
[2022-09-10] MEDS: Fluticasone 0.05% 1 SPRAY NASAL.SRY 2 SPRAY NASAL (09:20)
[2022-09-10 09:50] LABS: Hemoglobin A1c 5.5 % (3.8-5.6)
--- NOTE | 2022-09-10 13:06 | PN.HOSP_ITS ---
Reason for Visit Reason for Visit: Diagnoses Encephalopathy, unspecified (09/09/22) Subjective Subjective Patient seen and examined. She was admitted with a complaint of dizziness and syncope. She has no active complaints today. She denies dizziness, couogh, chst pian, palpitations, nausea, vomiting or diarrhea. Review of systems is otherwise negative. Objective Data Objective Data Vital Signs: Vital Signs Temp Pulse Resp BP Pulse Ox O2 Del Method O2 Flow Rate 98.1 F 80 16 114/64 100 Bi-pap 2 09/10/22 08:50 09/10/22 09:01 09/10/22 08:50 09/10/22 09:01 09/10/22 08:50 09/10/22 08:50 09/10/22 12:50 FiO2 25 09/10/22 08:08 Oxygen Flow Rate (L/min) 2 Oxygen Delivery Method Bi-pap Weight: 278 lb 7.101 oz Body Mass Index (BMI) 44.9 Intake & Output: Intake and Output for Last 24 Hours 09/08/22 09/09/22 09/10/22 23:59 23:59 23:59 Intake Total 240 / 240 Output Total 100 / 100 950 / 950 Balance -100 / -100 -710 / -710 Lab / Micro Data Result Diagrams: 09/10/22 06:31 09/10/22 06:31 Labs: Laboratory Results - last 24 hr 09/09/22 12:52: Urine Color Yellow, Urine Clarity Clear, Urine pH 5.0, Ur Specific [place] 1.020, Urine Protein Negative, Urine Glucose (UA) Normal, Urine Ketones Negative, Urine Occult Blood Negative, Urine Nitrite Negative, Urine Bilirubin Negative, Urine Urobilinogen Normal, Ur Leukocyte Esterase Negative, Urine RBC 0 SEEN, Urine WBC 0 SEEN, Ur Squamous Epith Cells 0-5 SEEN, Urine Bacteria 0 SEEN, Urine Mucus 0 SEEN 09/09/22 13:00: Troponin I High Sens 110 H 09/09/22 13:00: Magnesium 1.9 09/09/22 17:25: POC Glucose 68 L 09/09/22 17:50: Troponin I High Sens 91 H 09/09/22 18:00: POC Glucose 70 L 09/09/22 21:33: POC Glucose 74 09/09/22 22:30: Sodium 142, Potassium 4.3, Chloride 107, Carbon Dioxide 31.0, Anion Gap 4 L, BUN 52 H, Creatinine 1.75 H, Estim Creat Clear Calc 28.40, Est GFR (MDRD) Af Amer 37 L, Est GFR (MDRD) Non-Af 31 L, BUN/Creatinine Ratio 29.7 H , Glucose 91, Calcium 9.0 09/09/22 22:56: POC Glucose 78 09/10/22 00:54: POC Glucose 118 H 09/10/22 05:50: POC Glucose 96 09/10/22 06:31: WBC 4.7, RBC 4.73, Hgb 13.2, Hct 43.5, MCV 92.0, MCH 27.9, MCHC 30.3 L, RDW Std Deviation 53.2 H, RDW Coeff of Mago 15.8 H, Plt Count 164, MPV 9.3, Immature Gran % (Auto) 0.200, Neut % (Auto) 68.5, Lymph % (Auto) 11.8 L, [place] % (Auto) 8.6, Eos % (Auto) 10.3 H, Baso % (Auto) 0.6, Absolute Neuts (auto) 3.2, Absolute Lymphs (auto) 0.55 L, Nucleated RBC % 0, Anisocytosis 1+ 09/10/22 06:31: Sodium 142, Potassium 4.0, Chloride 106, Carbon Dioxide 29.0, Anion Gap 7, BUN 49 H, Creatinine 1.50 H, Estim Creat Clear Calc 33.14, Est GFR (MDRD) Af Amer 44 L, Est GFR (MDRD) Non-Af 37 L, BUN/Creatinine Ratio 32.7 H, Glucose 91, Calcium 8.7, Total Bilirubin 0.40, AST 11 L, ALT 12 L, Alkaline Phosphatase 88, Total Protein 6.8, Albumin 2.5 L, Globulin 4.3 H, Albumin/Globulin Ratio 0.6 L, Triglycerides 100, Cholesterol 119, LDL Cholesterol 48, VLDL Cholesterol 20, HDL Cholesterol 51, TSH 1.40 09/10/22 06:31: Hemoglobin A1c 5.5 ABG Data ABG results: ABG 09/09/22 09/09/22 09/09/22 15:23 19:59 23:09 Specimen Type ART ART ART Sample Site L Radial L Radial L Radial pH 7.21 L 7.25 L 7.29 L Bicarbonate Actual 26.4 H 27.1 H 28.8 H Total CO2 28 29 31 Base Excess -2 0 2 O2 Saturation 96 90 L 97 O2 % 30 30 ABG pCO2 65.8 H 62.2 H 60.1 H ABG pO2 98 71 L 108 H Jovani Test Positive Positive Positive Respiration Rate 12 O2 Delivery Device Cannula BiPAP BiPAP Liter Flow 2.0 Tidal Volume 400 Clinical Comments Physical Exam Const alert and oriented x3 Constitutional Narrative: lethargic HEENT head/scalp atraumatic, moist oral mucous membranes and oropharynx normal Head and Scalp: normocephalic Mouth: oral and palatal mucosa normal Neck no lymphadenopathy, supple and no JVD Resp Resp Narrative: diminished breath sounds bibasally, no wheezes, no crackles. On 2L of oxygen. Cardio regular rate, regular rhythm, S1 normal heart sound, S2 normal heart sound and no murmurs GI normal to inspection, nondistended, normoactive bowel sounds, soft to palpation and non-tender Extremity normal to inspection, full ROM and no clubbing, cyanosis or edema Neuro oriented x3, CN's II-XII intact bilaterally, moves all extremities and no focal motor deficits Sensorium / Orientation: awake and alert Psych affect normal Assessment & Plan Assessment/Plan (1) Acute and chronic respiratory failure with hypercapnia: (2) Episode of dizziness: (3) Encephalopathy: PLAN: Plan #Acute encephalopathy * thought to be due to hypercapnia. * CT of the brain showed no acute intracranial pathology. * CXR did show cardiomegaly and vascular congestion. BNp was also elevated and high sensitivity troponin was also elevated * currently being diuresed with iV lasix * encephalopathy has resolved after she was placed on BIPAP and hypercapnia improved * monitor intake and output. Fluid restriction to 1500cc daily * PT/OT on board. Fall precautions * #Acute on chronic HFpEF: as above #Elevated troponin * trended downards. Thought to be due to heart strain from heart failure * 2D echo ordered * SL nitroglycerin prn. Po aspirin 81mg daily. * #Hypertension: on losartan #Acute on chronic hypoxic and hypercapnic respiratory failure * likely due to heart failure and COPD * wears 2L at home. Required BIPAP on admission due to hypercapnia * now back on her baseline 2L of oxygen at home * breathing treatment with bronchodilators * titrate oxygen to maintain sats >90% * #ANIRUDH: CR was 2.1 n admission; baseline Cr is 0.9. Cr trended down to 1.5. Will continue trending Cr #Hyperlipidemia: on statin #KAYLA: on CPAP qhs. #Hypothyroidism: on synthroid #GEDl n PPI # Bipolar disorder, anxiety and depression * n risperdal and trileptal as well as venlafaxine. * DVT prophylaxis: lovenox Code status: full code Charges/Coding Visit Charges Inpatient E&M: 85347 Subs Hosp L3
--- NOTE | 2022-09-10 13:13 | WOUNDNOTE ---
wound photo: right medial lower leg
[2022-09-10] MEDS: Budesonide Respules 0.5 MG/2 ML AMPUL.NEB. INHALATION (19:24)
[2022-09-10] MEDS: RisperiDONE 1 MG Tablet PO (21:11)
[2022-09-10] MEDS: Topiramate 25 MG Tablet 50 MG PO (21:12)
[2022-09-10] MEDS: Atorvastatin Calcium 10 MG Tablet PO (21:13)
[2022-09-10] MEDS: Loratadine 10 MG Tablet PO (21:13)
[2022-09-10] MEDS: Montelukast 10 MG Tablet PO (21:14)
[2022-09-11] VITALS (16 sets, daily range): BP systolic 96–153; BP diastolic 57–80; PULSE 69–93; RESP 18–20; TEMP 36.3–36.8; O2SAT 92–99
[2022-09-11] MEDS: Levothyroxine 50 MCG Tablet PO (06:03)
[2022-09-11] MEDS: Ipratropium/Albuterol Sulfate 3 ML AMPUL.NEB INHALATION ×3 (06:58→20:17)
[2022-09-11] MEDS: Budesonide Respules 0.5 MG/2 ML AMPUL.NEB. INHALATION ×2 (06:58→20:17)
--- NOTE | 2022-09-11 09:28 | CASEMGMT ---
BEN sent updates to [facility] Martha Mon SENIOR PROJECT LEADER/TEAM LEAD SURTASS ANALYST
[2022-09-11] MEDS: Fluticasone 0.05% 1 SPRAY NASAL.SRY 2 SPRAY NASAL (09:30)
[2022-09-11] MEDS: traMADol 50 MG Tablet PO ×2 (09:30→22:16)
[2022-09-11] MEDS: OXcarbazepine 300 MG Tablet PO ×2 (09:31→22:13)
[2022-09-11] MEDS: Folic Acid 1 MG Tablet PO (09:31)
[2022-09-11] MEDS: Topiramate 25 MG Tablet 50 MG PO ×2 (09:31→22:13)
[2022-09-11] MEDS: Dicyclomine 10 MG Capsule PO ×2 (09:31→22:09)
[2022-09-11] MEDS: Benzonatate 100 MG Capsule PO ×2 (09:32→22:07)
[2022-09-11] MEDS: Pantoprazole Sodium 20 MG Tablet PO (09:32)
[2022-09-11] MEDS: Venlafaxine XR 75 MG Capsule PO (09:32)
[2022-09-11] MEDS: Tolterodine Tartrate 4 MG CAP.SA PO (09:32)
[2022-09-11] MEDS: lamoTRIgine 100 MG Tablet 200 MG PO ×2 (09:32→22:07)
[2022-09-11] MEDS: Famotidine 20 MG Tablet PO (09:32)
[2022-09-11] MEDS: Multivitamins,Ther W-Minerals Tablet 1 TABLET PO (09:32)
[2022-09-11] MEDS: Senna/Docusate Sodium 1 Tablet PO ×2 (09:33→22:11)
[2022-09-11] MEDS: Furosemide 100 MG/10 ML Vial 60 MG IV ×2 (09:33→17:25)
[2022-09-11] MEDS: Heparin Injection (Vial) 5,000 UNIT/ML VIAL 5000 UNIT SC ×2 (09:36→22:09)
[2022-09-11] MEDS: 0.9% Saline Lock 10 ML Syringe IV ×2 (09:39→17:25)
[2022-09-11 09:45] LABS: Absolute Lymphocyte Count 1.09 X10^3/uL (0.83-4.51); Absolute Neutrophil Count 2.5 X10^3/uL (2.0-7.7); Basophil# 0.04 X10^3/uL; Basophil% 0.9 % (0-1); Eosinophil# 0.36 X10^3/uL; Eosinophils% 7.9 % (0-5); Lymphocyte # 1.09 X10^3/ul (0.83-4.51); Lymphocyte % 24.1 % (19-41); Mean Corpuscular Hgb 28.3 pg (27.0-32.0); Mean Corpuscular Volume 91.5 fL (81-99); Mean Platelet Vol. 9.2 fl (6.2-12.0); Monocyte# 0.51 X10^3/uL; Monocyte% 11.3 % (0-10); NRBC Flagged by Analyzer 0 % (0-5); Neutrophil # 2.52 X10^3/uL (2.7-7.7); Neutrophil % 55.6 % (47-70); Platelet Count 148 K/mm3 (150-450); RBC Distribution Width CV 15.7 % (11.6-14.6); RBC Distribution Width SD 52.3 fl (35.1-43.9); Red Blood Count 4.59 M/mm3 (4.2-5.4); White Blood Count 4.5 K/mm3 (4.4-11.0)
[2022-09-11 09:58] LABS: Anion Gap 7 (5-15); BUN 46 mg/dL (7-18); Chloride 104 mmol/L (98-107); Creatinine, Serum 1.18 mg/dL (0.55-1.02); EST Glomerular Filtration Rate 48 mL/min (>60); Est Glom Filt Rate - Afr Amer 58 mL/min (>60); Estimated Creatinine Clearance 42.12 ml/min; Glucose 93 mg/dL (74-106); Potassium 3.9 mmol/L (3.5-5.1); Sodium Level 143 mmol/L (136-145)
--- NOTE | 2022-09-11 12:20 | PN.HOSP_ITS ---
Reason for Visit Reason for Visit: Diagnoses Encephalopathy, unspecified (09/09/22) Acute and chronic respiratory failure with hypercapnia (09/09/22) Dizziness and giddiness (09/09/22) Subjective Subjective Patient seen and examined. She was feeling much better today. She denied any shortness of breath, cough, chest pain, palpitaitons, dizziness,nausea, vomiting or diarrhea. Review of systems is otherwise negative. Objective Data Objective Data Vital Signs: Vital Signs Temp Pulse Resp BP Pulse Ox O2 Del Method O2 Flow Rate 97.9 F 83 18 96/57 L 99 Nasal Cannula 2 09/11/22 09:25 09/11/22 10:43 09/11/22 09:25 09/11/22 10:43 09/11/22 09:25 09/11/22 09:25 09/11/22 09:25 FiO2 25 09/10/22 14:41 Oxygen Flow Rate (L/min) 2 Oxygen Delivery Method Nasal Cannula Weight: 271 lb 2.697 oz Body Mass Index (BMI) 44.9 Intake & Output: Intake and Output for Last 24 Hours 09/09/22 09/10/22 09/11/22 23:59 23:59 23:59 Intake Total 600 / 600 360 / 360 Output Total 100 / 100 1600 / 1600 1000 / 1000 Balance -100 / -100 -1000 / -1000 -640 / -640 Lab / Micro Data Result Diagrams: 09/11/22 09:35 09/11/22 09:35 Labs: Laboratory Results - last 24 hr 09/11/22 09:35: Sodium 143, Potassium 3.9, Chloride 104, Carbon Dioxide 32.0, Anion Gap 7, BUN 46 H, Creatinine 1.18 H, Estim Creat Clear Calc 42.12, Est GFR (MDRD) Af Amer 58 L, Est GFR (MDRD) Non-Af 48 L, BUN/Creatinine Ratio 39.0 H, Glucose 93, Calcium 9.0 09/11/22 09:35: WBC 4.5, RBC 4.59, Hgb 13.0, Hct 42.0, MCV 91.5, MCH 28.3, MCHC 31.0 L, RDW Std Deviation 52.3 H, RDW Coeff of Mago 15.7 H, Plt Count 148 L, MPV 9.2, Immature Gran % (Auto) 0.200, Neut % (Auto) 55.6, Lymph % (Auto) 24.1, [place] % (Auto) 11.3 H, Eos % (Auto) 7.9 H, Baso % (Auto) 0.9, Absolute Neuts (auto) 2.5, Absolute Lymphs (auto) 1.09, Nucleated RBC % 0 Radiography Diagnostic Testing: Radiology Impression Echocardiogram 09/09/22 17:08 Interpretation Summary The estimated ejection fraction is 65 %. Moderately dilated right ventricle. The left atrium is mildly enlarged. Mild (1+) mitral valve insufficiency. No evidence for diastolic dysfunction. Ordering Physician: Halina Castillo Referring Physician: Oksana Roth Performed By: Che Kearney, MELANY, RVT Physical Exam Const alert, oriented x3 and no apparent distress HEENT head/scalp atraumatic, moist oral mucous membranes and oropharynx normal Head and Scalp: normocephalic Mouth: oral and palatal mucosa normal Neck no lymphadenopathy, supple and no JVD Resp Resp Narrative: diminished breath sounds bibasally, no wheezes, no crackles. On 2L of oxygen. Cardio regular rate, regular rhythm, S1 normal heart sound, S2 normal heart sound and no murmurs GI normal to inspection, nondistended, normoactive bowel sounds, soft to palpation and non-tender Extremity Extremity Narrative: both lower extremities wrapped in IVETTE bandage Neuro oriented x3, CN's II-XII intact bilaterally, moves all extremities and no focal motor deficits Sensorium / Orientation: awake and alert Psych affect normal Assessment & Plan Assessment/Plan (1) Acute and chronic respiratory failure with hypercapnia: (2) Episode of dizziness: (3) Encephalopathy: PLAN: Plan #Acute encephalopathy * thought to be due to hypercapnia and acute on chonic heart failure * resolved. * CT of the brain showed no acute intracranial pathology. * CXR did show cardiomegaly and vascular congestion. BNp was also elevated and high sensitivity troponin was also elevated * currently being diuresed with iV lasix * encephalopathy has resolved after she was placed on BIPAP and hypercapnia improved * monitor intake and output. Fluid restriction to 1500cc daily * PT/OT on board. Fall precautions * #Acute on chronic HFpEF: * as above. Continue diuresis with IV lasix * 2D echo showed EF of 65% with moderately enlarged LV and mildly enlarged left atrium, with no evidence of diastolic dysfunction. #Elevated troponin * trended downards. Thought to be due to heart strain from heart failure * 2D echo as above * SL nitroglycerin prn. Po aspirin 81mg daily. * #Hypertension: on losartan #Acute on chronic hypoxic and hypercapnic respiratory failure * likely due to heart failure and COPD * wears 2L at home. Required BIPAP on admission due to hypercapnia * now back on her baseline 2L of oxygen at home * breathing treatment with bronchodilators * titrate oxygen to maintain sats >90% * being diuresed with iV lasix * #ANIRUDH: laregely resolved. Cr is down to 1.18 [place]; from 2.1 on admission. #Hyperlipidemia: on statin #KAYLA: on CPAP qhs. #Hypothyroidism: on synthroid #GEDl n PPI # Bipolar disorder, anxiety and depression * on risperdal and trileptal as well as venlafaxine. * DVT prophylaxis: lovenox Code status: full code Charges/Coding Visit Charges Inpatient E&M: 64271 Subs Hosp L2
--- NOTE | 2022-09-11 15:27 | CASEMGMT ---
BEN called [facility] and spoke with Pita letting her know patient will likely return on the weekend. BEN will put in an order for home health so [facility] will get therapy in to see patient. Plan: d/c back to [facility] with PT/OT which will be arranged by [facility]. Rosa Orellana [facility]
[2022-09-11] MEDS: Loratadine 10 MG Tablet PO (22:09)
[2022-09-11] MEDS: Atorvastatin Calcium 10 MG Tablet PO (22:10)
[2022-09-11] MEDS: Metoprolol Tartrate 100 MG Tablet PO (22:10)
[2022-09-11] MEDS: RisperiDONE 1 MG Tablet PO (22:10)
[2022-09-11] MEDS: Montelukast 10 MG Tablet PO (22:12)
[2022-09-12] VITALS (13 sets, daily range): BP systolic 98–144; BP diastolic 44–53; PULSE 69–88; RESP 12–20; TEMP 36.5–36.8; O2SAT 92–98
[2022-09-12] MEDS: Levothyroxine 50 MCG Tablet PO (05:54)
[2022-09-12] MEDS: Ipratropium/Albuterol Sulfate 3 ML AMPUL.NEB INHALATION ×3 (07:26→18:59)
[2022-09-12] MEDS: Budesonide Respules 0.5 MG/2 ML AMPUL.NEB. INHALATION ×2 (07:26→18:59)
[2022-09-12] MEDS: Benzonatate 100 MG Capsule PO ×2 (08:14→22:04)
[2022-09-12] MEDS: Venlafaxine XR 75 MG Capsule PO (08:14)
[2022-09-12] MEDS: lamoTRIgine 100 MG Tablet 200 MG PO ×2 (08:15→22:03)
[2022-09-12] MEDS: Metoprolol Tartrate 100 MG Tablet PO (08:15)
[2022-09-12] MEDS: Tolterodine Tartrate 4 MG CAP.SA PO (08:15)
[2022-09-12] MEDS: Losartan Potassium 50 MG Tablet PO (08:16)
[2022-09-12] MEDS: Heparin Injection (Vial) 5,000 UNIT/ML VIAL 5000 UNIT SC ×2 (13:59→22:02)
[2022-09-12] MEDS: Senna/Docusate Sodium 1 Tablet PO ×2 (14:01→22:04)
[2022-09-12] MEDS: Fluticasone 0.05% 1 SPRAY NASAL.SRY 2 SPRAY NASAL (14:01)
[2022-09-12] MEDS: Pantoprazole Sodium 20 MG Tablet PO (14:01)
[2022-09-12] MEDS: Famotidine 20 MG Tablet PO (14:02)
[2022-09-12] MEDS: Dicyclomine 10 MG Capsule PO ×2 (14:03→22:02)
[2022-09-12] MEDS: Folic Acid 1 MG Tablet PO (14:03)
[2022-09-12] MEDS: Multivitamins,Ther W-Minerals Tablet 1 TABLET PO (14:03)
[2022-09-12] MEDS: Topiramate 25 MG Tablet 50 MG PO ×2 (14:04→22:04)
[2022-09-12] MEDS: OXcarbazepine 300 MG Tablet PO ×2 (14:06→22:05)
[2022-09-12] MEDS: traMADol 50 MG Tablet PO ×2 (14:11→22:05)
[2022-09-12] MEDS: 0.9% Saline Lock 10 ML Syringe IV ×2 (14:12→22:16)
--- NOTE | 2022-09-12 14:41 | DS.PCM_ITS ---
Providers Date of Admission: 09/09/22 Date of Discharge: 09/12/22 Primary Care Physician: Dr. Oksana Roth, Consultations 09/10/22 01:18 Consult: Onc/Wound/continuity tester Routine Comment: Reason for Consult:: RLE wound Reason For Visit: CHF EXAC, ANIRUDH Diagnosis Discharge Diagnosis (1) Acute and chronic respiratory failure with hypercapnia: Status: Chronic Code(s): J96.22 - Acute and chronic respiratory failure with hypercapnia (2) Episode of dizziness: Status: Acute Code(s): R42 - Dizziness and giddiness (3) Encephalopathy: Status: Acute Code(s): G93.40 - Encephalopathy, unspecified Medications at Discharge Home Medications albuterol sulfate 2.5 mg/3 mL (0.083 %) solution for nebulization 2.5 mg inhalation Q2H PRN Sob &/Or Wheezing 11/09/15 atorvastatin 10 mg tablet 10 mg PO QHS hld 11/09/15 folic acid 1 mg tablet 1 mg PO DAILY@0800 supplement 11/09/15 tramadol 50 mg tablet 50 mg PO BID pain ##14 11/12/15 montelukast 10 mg tablet (Singulair) 10 mg PO QHS asthma 11/18/17 acetaminophen 500 mg tablet 1,000 mg PO BID pain 12/21/17 potassium chloride 20 mEq tablet,extended release(part/cryst) 20 meq PO BID supplement 12/21/17 fluticasone propionate 50 mcg/actuation nasal spray,suspension 2 spray intranasal DAILY allergies 30 days ##16 12/20/18 benzonatate 100 mg capsule 100 mg PO BID cough 10/06/19 cetirizine 10 mg tablet 10 mg PO QHS ALLERGIES 10/06/19 loperamide 2 mg capsule 2 mg PO Q4H PRN PRN Diarrhea 10/06/19 oxcarbazepine 300 mg tablet 300 mg PO BID SEIZURE 10/06/19 peg [id number] 1 %-0.2 %-0.2 % eye drops 15 drp EACH EYE Q6H PRN PRN Dry Eyes 10/06/19 simethicone 180 mg capsule 180 - 360 tab PO TID PRN PRN Indigestion 10/06/19 solifenacin 10 mg tablet 10 mg PO DAILY bladder 10/06/19 venlafaxine 75 mg capsule,extended release 24 hr 75 mg PO DAILY mood 10/06/19 dicyclomine 10 mg capsule 10 mg PO BID STOMACH 09/28/21 ergocalciferol (vitamin D2) 1,250 mcg (50,000 unit) capsule 50,000 unit PO WE vitamin 09/28/21 omeprazole 20 mg capsule,delayed release 20 mg PO DAILY stomach 09/28/21 budesonide-formoterol HFA 160 mcg-4.5 mcg/actuation aerosol inhaler (Symbicort) 2 inh inhalation BID COPD 07/02/22 levothyroxine 50 mcg tablet 50 mcg PO DAILY 07/02/22 famotidine 20 mg tablet 20 mg PO BID GERD 07/23/22 furosemide 40 mg tablet (Lasix) 60 mg PO DAILY FLUID 07/23/22 guaifenesin 600 mg tablet, extended release 12 hr (Mucinex) 600 mg PO Q12H PRN Congestion 07/23/22 ipratropium 20 mcg-albuterol 100 mcg/actuation mist for inhalation (Combivent Respimat) 1 puff inhalation DAILY PRN Wheezing 07/23/22 polyethylene glycol 3350 17 gram oral powder packet (Miralax) 8.5 g PO QODAY PRN Constipation 07/23/22 albuterol sulfate 90 mcg/actuation aerosol inhaler 2 puff INHALATION Q4H PRN PRN Shortness Of Breath 09/09/22 lamotrigine 200 mg tablet 200 mg PO BID SEIZURE 09/09/22 losartan 50 mg tablet 50 mg PO DAILY BP 09/09/22 metoprolol tartrate 100 mg tablet 100 mg PO BID HEART 09/09/22 caadjkcz-qlwmgra-txgp-lutein tablet 1 tab PO DAILY SUPPLEMENT 09/09/22 risperidone 1 mg tablet 1 mg PO QHS RLS 09/09/22 sennosides 8.6 mg-docusate sodium 50 mg tablet (Senna Plus) 1 tab PO BID CONSTIPATION 09/09/22 sodium chloride 5 % eye ointment 1 applic RIGHT EYE QHS 09/09/22 tetrahydrozoline 0.05 %-zinc 0.25 % eye drops 1 drp EACH EYE BID ALLERGIES 09/09/22 topiramate 25 mg tablet 50 mg PO BID 09/09/22 Hospital Course Operations None Procedures 2-D Echocardiogram Summary of Care Provided Minutes Spent on Discharge: 55 Hospital Course: Patient is a 71-year-old female with past medical history as outlined was admitted from assisted living facility with a complaint of mechanical fall and confusion. She was found next to her bed and when she was put back in her bed she was also noted to be confused so she was brought into the ED. She had been complaining of some shortness of breath but denied any fever, chills, nausea or vomiting or any other symptoms. Review of symptoms otherwise negative. On admission she was found to have elevated BNP initial troponin was mildly elevated at 120 but subsequently trended downwards. Chest x-ray showed cardiomegaly with evidence of vascular congestion and CT of the brain showed no acute intracranial findings. Urinalysis also showed no evidence of UTI. She was admitted and managed for acute on chronic hypoxic and hypercapnic respiratory failure due to CHF exacerbation. She was diuresed with IV Lasix. Her creatinine was 2.1 admission but trended downwards. She had 2D echo which showed EF of 65% with no evidence of diastolic dysfunction no regional wall motion abnormalities seen with moderately dilated right ventricle and unable to estimate right ventricular systolic pressure due to insufficient tricuspid regurgitant envelope. Patient felt much better and her symptoms resolved. [facility]. She is follow-up with her primary care doctor within 1 to 2 weeks and also to follow-up with cardiology. Patient seen and examined prior to discharge. She had no complaints and had an uneventful night. Review of systems otherwise negative. Labs and vitals reviewed. Home medication reviewed and reconciled. Physical Exam Const alert General Appearance: cooperative and comfortable Orientation / Consciousness: awake Exam Limitations: no limitations HEENT normocephalic, head/scalp atraumatic and hearing grossly normal bilaterally Mouth: oral and palatal mucosa normal Eyes EOMs intact bilaterally Neck no lymphadenopathy and supple Resp normal respiratory effort, no retractions and no use of accessory muscles Resp Narrative: on 2L of oxygen by nasal canula Cardio regular rate, regular rhythm, S1 normal heart sound, S2 normal heart sound and no murmurs GI normal to inspection, nondistended, normoactive bowel sounds, soft to palpation, non-tender and non-distended Extremity normal to inspection, full ROM and no clubbing, cyanosis or edema Skin no rashes or lesions noted and no wounds Neuro oriented x3, CN's II-XII intact bilaterally and moves all extremities Sensorium / Orientation: awake and alert Motor Exam: strength 5/5 throughout Weight / BMI Weight Weight: 274 lb 0.553 oz Body Mass Index (BMI) 44.9 ABG / Lab / Microbiology Data Result Diagrams: 09/11/22 09:35 09/11/22 09:35 D/C Instructions Discharge Diet: Low fat / Low cholesterol Discharge Activity: Return to Normal Activity Weight Bearing Status: Weight bearing as tolerated Call your doctor if you observe: Fever of 101 or Higher, Shortness of breath, Dizziness, Swelling in the ankles, Chest pain and Increased palpitations (irregu lar heartbeat) Meaningful Use Info Meaningful Use Diagnoses (Choose all that apply): CHF CHF IVETTE/ARB ordered at discharge?: Yes Documented LVEF (%): 65 Discharge Plan Admission Admit Date/Time: 09/09/22 15:11 Primary Reason for Your Visit: acute on chronic HFpEF Attending Provider: Lena Adams Primary Care Provider: Oksana Roth Consulting Providers: Halina Castillo Instructions Patient Instructions: ED Heart Failure, Congestive (CHF) Discharge Orders/Prescriptions Prescriptions: Continued potassium chloride 20 mEq tablet,ER particles/crystals 20 meq PO BID acetaminophen 500 mg tablet 1,000 mg PO BID montelukast [Singulair] 10 mg tablet 10 mg PO QHS fluticasone propionate 50 mcg/actuation spray,suspension 2 spray INTRANASAL DAILY 30 Days Qty: 16 atorvastatin 10 MG tablet 10 mg PO QHS folic acid 1 MG tablet 1 mg PO DAILY@0800 albuterol sulfate 2.5 MG/3 ML solution for nebulization 2.5 mg INHALATION Q2H PRN (Reason: Sob &/Or Wheezing) tramadol 50 MG tablet 50 mg PO BID Qty: 14 0RF loperamide 2 MG capsule 2 mg PO Q4H PRN PRN (Reason: Diarrhea) cetirizine 10 MG tablet 10 mg PO QHS simethicone 180 MG capsule 180 - 360 tab PO TID PRN PRN (Reason: Indigestion) oxcarbazepine 300 MG tablet 300 mg PO BID benzonatate 100 MG capsule 100 mg PO BID solifenacin 10 MG tablet 10 mg PO DAILY venlafaxine 75 MG capsule 75 mg PO DAILY peg [id number]-hmutyqwp 1 DROP bottle 15 drp EACH EYE Q6H PRN PRN (Reason: Dry Eyes) dicyclomine 10 mg capsule 10 mg PO BID Label Comments: 1 CAPSULE BY MOUTH TWICEXA DAY / DX: omeprazole 20 mg capsule,delayed release(DR/EC) 20 mg PO DAILY Label Comments: 1 CAPSULE BY MOUTH EVERY/MORNING ergocalciferol (vitamin D2) 1,250 mcg (50,000 unit) capsule 50,000 unit PO WE Label Comments: 1 CAPSULE BY MOUTH ONCE AAWEEK ON WEDNESDAYS / DX: levothyroxine 50 mcg tablet 50 mcg PO DAILY Label Comments: 1 TABLET BY MOUTH DAILY AT 5AM DX: HYPOTHYROID / NURSE TO REORDER budesonide-formoterol [Symbicort] 160-4.5 mcg/actuation HFA aerosol inhaler 2 inh INHALATION BID polyethylene glycol 3350 [Miralax] 17 gram Powder In Packet 8.5 g PO QODAY PRN (Reason: Constipation) famotidine 20 mg Tablet 20 mg PO BID guaifenesin [Mucinex] 600 mg Tablet Extended Release 12hr 600 mg PO Q12H PRN (Reason: Congestion) Combivent Respimat 20-100 mcg/actuation Mist 1 puff INHALATION DAILY PRN (Reason: Wheezing) furosemide [Lasix] 40 mg tablet 60 mg PO DAILY lamotrigine 200 mg Tablet 200 mg PO BID metoprolol tartrate 100 mg Tablet 100 mg PO BID topiramate 25 mg tablet 50 mg PO BID Label Comments: 2 TABLETS (50MG) BY MOUTHA2 TIMES A DAY / DX: WEIGHT LOSS sodium chloride 5 % Ointment 1 applic RIGHT EYE QHS Rx Instructions: APPLY 1/4 INCH STRIP INTO RIGHT EYE risperidone 1 mg tablet 1 mg PO QHS Label Comments: 1 TABLET BY MOUTH AT BEDTIME DX: / NURSE TO REORDER tetrahydrozoline-zinc 0.05-0.25 % Drops 1 drp EACH EYE BID mktwthoe-ianpfyi-tnxl-lutein Tablet 1 tab PO DAILY sennosides-docusate sodium [Senna Plus] 8.6-50 mg Tablet 1 tab PO BID losartan 50 mg tablet 50 mg PO DAILY albuterol sulfate 1 PUFF HFA aerosol inhaler 2 puff INHALATION Q4H PRN PRN (Reason: Shortness Of Breath) Discontinued cephalexin 500 mg Capsule 500 mg PO TID doxycycline hyclate 100 mg Tablet 100 mg PO BID Referrals / Follow Up: Oksana Roth DO [Primary Care Provider] - Within 2 Weeks Disposition Disposition (needs filled in before D/C Order can be placed): Home, Self Care Charges/Coding Visit Charges Inpatient E&M: 21728 Disch Hosp >30min
--- NOTE | 2022-09-12 15:22 | NURSING ---
I spoke Darlin at [facility] to inform her of pt's d/c.
[2022-09-12] MEDS: Furosemide 20 MG Tablet 60 MG PO (15:50)
--- NOTE | 2022-09-12 16:20 | CM.ED ---
BEN was advised by U staff that mainframe consultant has been trying to call [facility] and no one has been answering for 15 minutes. BEN called [facility]. BEN spoke to Darlin at [facility] and she said that this is her 3rd day at [facility] and she is not familiar with the resources for patient to return to [facility]. Darlin will reach out to her DON and inquire about any options. BEN updated Douglas Orosco regarding this situation. Alisa JACOBS
--- NOTE | 2022-09-12 17:32 | CASEMGMT ---
BEN received call from Darlin at [facility]. She spoke to the player development executive, Massiel, and they have a bus during the weekday for transportation but no transportation on the weekend. Darlin said that as there is no nurse after 6pm if patient is not there by 6:00pm she could not come today. (This conversation was related at 5:10pm) SW spoke to patient about her emergency contact and next of kin and patient said that she can not get in her friend's Candace SUV and can not ride in a car. Patient said that she can go in a wheelchair but it is a larger wheelchair. ADVERTISING PHOTOGRAPHER Suellen confirmed that patient could not go in a car for transport, SW spoke to Douglas Orosco. Plan is for patient to go back on Wednesday. traveling secretary, who was on the phone 2x for 25 minute attempting to call [employer]. No success in reaching any renewals representative. traveling secretary will attempt to call through the night for Transport on Wednesday. BEN updated PCU traveling secretary, patient and senior integration developer Dawn that patient is not going back today but on Wednesday. BEN called Darlin at [facility]. The policy, per Darlin, is that if a patient is not there by 6pm they do not get admitted and have to wait till the next day. Darlin said that she spoke to the executive directive about this and was advised of the policy. Darlin was advised that the cracking unit operator will attempt to arrange transportation for patient for Wednesday. [facility] has nursing staff till 10pm at night. Alisa JACOBS
--- NOTE | 2022-09-12 20:30 | NURSING ---
RN called [facility] transport was instructed that a wheelchair and 02 would not be covered for patient. RN told transport would have to ask our Banquet Houseperson to look into this in the morning.
[2022-09-12] MEDS: Loratadine 10 MG Tablet PO (22:02)
[2022-09-12] MEDS: RisperiDONE 1 MG Tablet PO (22:03)
[2022-09-12] MEDS: Atorvastatin Calcium 10 MG Tablet PO (22:03)
[2022-09-12] MEDS: Montelukast 10 MG Tablet PO (22:04)
[2022-09-13 03:17] VITALS: BP 110/63; PULSE 84; RESP 20; TEMP 36.7; O2SAT 94
[2022-09-13] MEDS: Levothyroxine 50 MCG Tablet PO (06:01)
[2022-09-13 07:41] VITALS: PULSE 75; RESP 22; O2SAT 92
[2022-09-13] MEDS: Ipratropium/Albuterol Sulfate 3 ML AMPUL.NEB INHALATION (07:41)
[2022-09-13] MEDS: Budesonide Respules 0.5 MG/2 ML AMPUL.NEB. INHALATION (07:41)
[2022-09-13 07:59] VITALS: BP 142/64; PULSE 102; RESP 16; TEMP 37.1; O2SAT 94
--- NOTE | 2022-09-13 08:01 | PN.HOSP_ITS ---
Reason for Visit Reason for Visit: Diagnoses Encephalopathy, unspecified (09/09/22) Acute and chronic respiratory failure with hypercapnia (09/09/22) Dizziness and giddiness (09/09/22) Subjective Subjective late entry note for 09/12/2022 Patient was seen and examined. She was discharged on 09/12/2022, but she couldnt leave as the ambulance couldnt pick her up. She had no complaints and had an uneventful night. Review of systems is otherwise negative. Objective Data Objective Data Vital Signs: Vital Signs Temp Pulse Resp BP Pulse Ox O2 Del Method O2 Flow Rate 98.8 F 102 H 16 142/64 H 94 Nasal Cannula 2 09/13/22 07:59 09/13/22 07:59 09/13/22 07:59 09/13/22 07:59 09/13/22 07:59 09/13/22 07:59 09/13/22 07:59 FiO2 25 09/12/22 08:48 Oxygen Flow Rate (L/min) [ 2 AMBULATING with Oxygen #1] Oxygen Flow Rate (L/min) [At 2 REST with Oxygen] Oxygen Flow Rate (L/min) 2 Oxygen Delivery Method Nasal Cannula Weight: 272 lb 0.807 oz Body Mass Index (BMI) 44.9 Intake & Output: Intake and Output for Last 24 Hours 09/11/22 09/12/22 09/13/22 23:59 23:59 23:59 Intake Total 600 / 900 1120 / 1120 Output Total 1650 / 1650 1750 / 1750 300 / 300 Balance -1050 / -750 -630 / -630 -300 / -300 Lab / Micro Data Result Diagrams: 09/11/22 09:35 09/11/22 09:35 Physical Exam Const alert, oriented x3 and no apparent distress General Appearance: cooperative and comfortable Orientation / Consciousness: awake Exam Limitations: no limitations HEENT normocephalic, head/scalp atraumatic and hearing grossly normal bilaterally Head and Scalp: normocephalic Mouth: oral and palatal mucosa normal Eyes PERRL and EOMs intact bilaterally Neck no lymphadenopathy and supple Resp normal respiratory effort, no retractions and no use of accessory muscles Resp Narrative: on 2L of oxygen by nasal canula Cardio regular rate, regular rhythm, S1 normal heart sound, S2 normal heart sound and no murmurs GI normal to inspection, nondistended, normoactive bowel sounds, soft to palpation, non-tender and non-distended Extremity normal to inspection, full ROM and no clubbing, cyanosis or edema Skin no rashes or lesions noted and no wounds Neuro oriented x3, CN's II-XII intact bilaterally and moves all extremities Sensorium / Orientation: awake and alert Motor Exam: strength 5/5 throughout Psych affect normal Assessment & Plan Assessment/Plan (1) Acute and chronic respiratory failure with hypercapnia: (2) Episode of dizziness: (3) Encephalopathy: PLAN: Plan #Acute encephalopathy * thought to be due to hypercapnia and acute on chronic heart failure * resolved. * CT of the brain showed no acute intracranial pathology. * CXR did show cardiomegaly and vascular congestion. BNP was also elevated and high sensitivity troponin was also elevated * currently being diuresed with iV lasix * encephalopathy has resolved after she was placed on BIPAP and hypercapnia improved * monitor intake and output. Fluid restriction to 1500cc daily * PT/OT on board. Fall precautions * * #Acute on chronic HFpEF: * ?as above. Continue diuresis with IV lasix * 2D echo showed EF of 65% with moderately enlarged LV and mildly enlarged left atrium, with no evidence of diastolic dysfunction. * #Elevated troponin * trended downards. Thought to be due to heart strain from heart failure * 2D echo as above * SL nitroglycerin prn. Po aspirin 81mg daily. * #Hypertension: on losartan #Acute on chronic hypoxic and hypercapnic respiratory failure * likely due to heart failure and COPD * wears 2L at home. Required BIPAP on admission due to hypercapnia * now back on her baseline 2L of oxygen at home * breathing treatment with bronchodilators * titrate oxygen to maintain sats >90% * being diuresed with iV lasix * * #ANIRUDH: largely resolved. #Hyperlipidemia: on statin #KAYLA: on CPAP qhs. #Hypothyroidism: on synthroid #GEDl n PPI # Bipolar disorder, anxiety and depression * on risperdal and trileptal as well as venlafaxine. * DVT prophylaxis: lovenox Code status: full code Disposition: was to be dc'd to SNF, but she couldnt leave due to her ambulance not being able to pick her up. Patient discharged on 09/13/2022. Charges/Coding Visit Charges Inpatient E&M: 95629 Subs Hosp L2
[2022-09-13] MEDS: Senna/Docusate Sodium 1 Tablet PO (08:03)
[2022-09-13] MEDS: lamoTRIgine 100 MG Tablet 200 MG PO (08:04)
[2022-09-13] MEDS: Multivitamins,Ther W-Minerals Tablet 1 TABLET PO (08:04)
[2022-09-13 08:05] VITALS: BP 142/64; PULSE 102
[2022-09-13] MEDS: Pantoprazole Sodium 20 MG Tablet PO (08:05)
[2022-09-13] MEDS: Dicyclomine 10 MG Capsule PO (08:05)
[2022-09-13] MEDS: Venlafaxine XR 75 MG Capsule PO (08:05)
[2022-09-13] MEDS: Losartan Potassium 50 MG Tablet PO (08:05)
[2022-09-13] MEDS: Metoprolol Tartrate 100 MG Tablet PO (08:05)
[2022-09-13] MEDS: Heparin Injection (Vial) 5,000 UNIT/ML VIAL 5000 UNIT SC (08:06)
[2022-09-13] MEDS: Benzonatate 100 MG Capsule PO (08:06)
[2022-09-13] MEDS: Fluticasone 0.05% 1 SPRAY NASAL.SRY 2 SPRAY NASAL (08:06)
[2022-09-13] MEDS: Folic Acid 1 MG Tablet PO (08:06)
[2022-09-13] MEDS: OXcarbazepine 300 MG Tablet PO (08:08)
[2022-09-13] MEDS: Topiramate 25 MG Tablet 50 MG PO (08:08)
[2022-09-13] MEDS: Famotidine 20 MG Tablet PO (08:09)
[2022-09-13] MEDS: Tolterodine Tartrate 4 MG CAP.SA PO (08:09)
[2022-09-13] MEDS: traMADol 50 MG Tablet PO (08:15)
--- NOTE | 2022-09-13 08:25 | NURSING ---
[facility] and will call back with the details as soon as they are available.
[2022-09-13 10:00] VITALS: RESP 16; O2SAT 95
[2022-09-13] MEDS: Furosemide 20 MG Tablet 60 MG PO (10:30)
[2022-09-13 11:28] VITALS: BP 107/61; PULSE 71; RESP 16; TEMP 36.6; O2SAT 95
--- NOTE | 2022-09-13 13:02 | NURSING ---
1140 report called to [facility] Ruby Jensen RN
--- NOTE | 2022-09-13 13:02 | NURSING ---
1215 report given to Transport Team[facility] Ruby Garcia RN
--- NOTE | 2022-09-13 15:46 | DS.PCM_ITS ---
Providers Date of Admission: 09/09/22 Date of Discharge: 09/13/22 Primary Care Physician: Dr. Oksana Roth, DO Consultations 09/10/22 01:18 Consult: Onc/Wound/production estimator Routine Comment: Reason for Consult:: RLE wound Reason For Visit: CHF EXAC, ANIRUDH Diagnosis Discharge Diagnosis (1) Acute and chronic respiratory failure with hypercapnia: Status: Resolved Code(s): J96.22 - Acute and chronic respiratory failure with hypercapnia (2) Episode of dizziness: Status: Resolved Code(s): R42 - Dizziness and giddiness (3) Encephalopathy: Status: Resolved Code(s): G93.40 - Encephalopathy, unspecified Plan #Acute encephalopathy * thought to be due to hypercapnia and acute on chronic heart failure * resolved. * CT of the brain showed no acute intracranial pathology. * CXR did show cardiomegaly and vascular congestion. BNP was also elevated and high sensitivity troponin was also elevated * currently being diuresed with iV lasix * encephalopathy has resolved after she was placed on BIPAP and hypercapnia improved * monitor intake and output. Fluid restriction to 1500cc daily * PT/OT on board. Fall precautions * * #Acute on chronic HFpEF: * ?as above. Continue diuresis with IV lasix * 2D echo showed EF of 65% with moderately enlarged LV and mildly enlarged left atrium, with no evidence of diastolic dysfunction. * #Elevated troponin * trended downards. Thought to be due to heart strain from heart failure * 2D echo as above * SL nitroglycerin prn. Po aspirin 81mg daily. * #Hypertension: on losartan #Acute on chronic hypoxic and hypercapnic respiratory failure * likely due to heart failure and COPD * wears 2L at home. Required BIPAP on admission due to hypercapnia * now back on her baseline 2L of oxygen at home * breathing treatment with bronchodilators * titrate oxygen to maintain sats >90% * being diuresed with iV lasix * * #ANIRUDH: largely resolved. #Hyperlipidemia: on statin #KAYLA: on CPAP qhs. #Hypothyroidism: on synthroid #GEDl n PPI # Bipolar disorder, anxiety and depression * on risperdal and trileptal as well as venlafaxine. * DVT prophylaxis: lovenox Code status: full code Disposition: was to be dc'd to SNF, but she couldnt leave due to her ambulance not being able to pick her up. Patient discharged on 09/13/2022. Medications at Discharge Home Medications albuterol sulfate 2.5 mg/3 mL (0.083 %) solution for nebulization 2.5 mg inhalation Q2H PRN Sob &/Or Wheezing 11/09/15 atorvastatin 10 mg tablet 10 mg PO QHS hld 11/09/15 folic acid 1 mg tablet 1 mg PO DAILY@0800 supplement 11/09/15 tramadol 50 mg tablet 50 mg PO BID pain ##14 11/12/15 montelukast 10 mg tablet (Singulair) 10 mg PO QHS asthma 11/18/17 acetaminophen 500 mg tablet 1,000 mg PO BID pain 12/21/17 potassium chloride 20 mEq tablet,extended release(part/cryst) 20 meq PO BID supplement 12/21/17 fluticasone propionate 50 mcg/actuation nasal spray,suspension 2 spray intranasal DAILY allergies 30 days ##16 12/20/18 benzonatate 100 mg capsule 100 mg PO BID cough 10/06/19 cetirizine 10 mg tablet 10 mg PO QHS ALLERGIES 10/06/19 loperamide 2 mg capsule 2 mg PO Q4H PRN PRN Diarrhea 10/06/19 oxcarbazepine 300 mg tablet 300 mg PO BID SEIZURE 10/06/19 peg [id number] 1 %-0.2 %-0.2 % eye drops 15 drp EACH EYE Q6H PRN PRN Dry Eyes 10/06/19 simethicone 180 mg capsule 180 - 360 tab PO TID PRN PRN Indigestion 10/06/19 solifenacin 10 mg tablet 10 mg PO DAILY bladder 10/06/19 venlafaxine 75 mg capsule,extended release 24 hr 75 mg PO DAILY mood 10/06/19 dicyclomine 10 mg capsule 10 mg PO BID STOMACH 09/28/21 ergocalciferol (vitamin D2) 1,250 mcg (50,000 unit) capsule 50,000 unit PO WE vitamin 09/28/21 omeprazole 20 mg capsule,delayed release 20 mg PO DAILY stomach 09/28/21 budesonide-formoterol HFA 160 mcg-4.5 mcg/actuation aerosol inhaler (Symbicort) 2 inh inhalation BID COPD 07/02/22 levothyroxine 50 mcg tablet 50 mcg PO DAILY 07/02/22 famotidine 20 mg tablet 20 mg PO BID GERD 07/23/22 furosemide 40 mg tablet (Lasix) 60 mg PO DAILY FLUID 07/23/22 guaifenesin 600 mg tablet, extended release 12 hr (Mucinex) 600 mg PO Q12H PRN Congestion 07/23/22 ipratropium 20 mcg-albuterol 100 mcg/actuation mist for inhalation (Combivent Respimat) 1 puff inhalation DAILY PRN Wheezing 07/23/22 polyethylene glycol 3350 17 gram oral powder packet (Miralax) 8.5 g PO QODAY PRN Constipation 07/23/22 albuterol sulfate 90 mcg/actuation aerosol inhaler 2 puff INHALATION Q4H PRN PRN Shortness Of Breath 09/09/22 lamotrigine 200 mg tablet 200 mg PO BID SEIZURE 09/09/22 losartan 50 mg tablet 50 mg PO DAILY BP 09/09/22 metoprolol tartrate 100 mg tablet 100 mg PO BID HEART 09/09/22 bjrrzgjg-nuupsmm-xolz-lutein tablet 1 tab PO DAILY SUPPLEMENT 09/09/22 risperidone 1 mg tablet 1 mg PO QHS RLS 09/09/22 sennosides 8.6 mg-docusate sodium 50 mg tablet (Senna Plus) 1 tab PO BID CONSTIPATION 09/09/22 sodium chloride 5 % eye ointment 1 applic RIGHT EYE QHS 09/09/22 tetrahydrozoline 0.05 %-zinc 0.25 % eye drops 1 drp EACH EYE BID ALLERGIES 09/09/22 topiramate 25 mg tablet 50 mg PO BID 09/09/22 Hospital Course Procedures 2-D Echocardiogram Summary of Care Provided Minutes Spent on Discharge: 45 Hospital Course: Patient is a 71-year-old female with past medical history as outlined was admitted from assisted living facility with a complaint of mechanical fall and confusion.? She was found next to her bed and when she was put back in her bed she was also noted to be confused so she was brought into the ED.? She had been complaining of some shortness of breath but denied any fever, chills, nausea or vomiting or any other symptoms.? Review of symptoms otherwise negative.? On admission she was found to have elevated BNP initial troponin was mildly elevated at 120 but subsequently trended downwards.? Chest x-ray showed cardiomegaly with evidence of vascular congestion and CT of the brain showed no acute intracranial findings.? Urinalysis also showed no evidence of UTI.? She was admitted and managed for acute on chronic hypoxic and hypercapnic respiratory failure due to CHF exacerbation.? She was diuresed with IV Lasix.? Her creatinine was 2.1 admission but trended downwards.? She had 2D echo which showed EF of 65% with no evidence of diastolic dysfunction no regional wall motion abnormalities seen with moderately dilated right ventricle and unable to estimate right ventricular systolic pressure due to insufficient tricuspid regurgitant envelope.? Patient felt much better and her symptoms resolved.? She was discharged to a [facility] facility on 09/13/2021.?She was to be discharged on 09/12/2022 but couldn't be discharged because her ambulance couldnt pick her up. She was finally discharged on 09/13/2022. She is follow-up with her primary care doctor within 1 to 2 weeks and also to follow-up with cardiology. Patient seen and examined prior to discharge.? She had no complaints and had an uneventful night.? Review of systems otherwise negative.? Labs and vitals reviewed.? Home medication reviewed and reconciled. Physical Exam Const alert, oriented x3 and no apparent distress General Appearance: cooperative and comfortable Orientation / Consciousness: awake Exam Limitations: no limitations HEENT normocephalic, head/scalp atraumatic, hearing grossly normal bilaterally and moist oral mucous membranes Mouth: oral and palatal mucosa normal Eyes PERRL and EOMs intact bilaterally Neck no lymphadenopathy and supple Resp normal respiratory effort, no retractions and no use of accessory muscles Resp Narrative: on 2L of oxygen by nasal canula Cardio regular rate, regular rhythm, S1 normal heart sound, S2 normal heart sound and no murmurs GI normal to inspection, nondistended, normoactive bowel sounds, soft to palpation, non-tender and non-distended Extremity normal to inspection, full ROM and no clubbing, cyanosis or edema Skin no rashes or lesions noted and no wounds Neuro oriented x3, CN's II-XII intact bilaterally and moves all extremities Sensorium / Orientation: awake and alert Motor Exam: strength 5/5 throughout Psych affect normal Weight / BMI Weight Weight: 272 lb 0.807 oz Body Mass Index (BMI) 44.9 ABG / Lab / Microbiology Data Result Diagrams: 09/11/22 09:35 09/11/22 09:35 D/C Instructions Discharge Diet: Low fat / Low cholesterol Discharge Activity: Return to Normal Activity Weight Bearing Status: Weight bearing as tolerated Call your doctor if you observe: Fever of 101 or Higher, Shortness of breath, Dizziness, Swelling in the ankles, Chest pain and Increased palpitations (irregular heartbeat) Meaningful Use Info Meaningful Use Diagnoses (Choose all that apply): CHF CHF IVETTE/ARB ordered at discharge?: Yes Documented LVEF (%): 65 Discharge Plan Admission Admit Date/Time: 09/09/22 15:11 Primary Reason for Your Visit: acute on chronic HFpEF Attending Provider: Lena Adams Primary Care Provider: Oksana Roth Consulting Providers: Halina Castillo Instructions Patient Instructions: ED Heart Failure, Congestive (CHF) Discharge Orders/Prescriptions Prescriptions: Continued potassium chloride 20 mEq tablet,ER particles/crystals 20 meq PO BID acetaminophen 500 mg tablet 1,000 mg PO BID montelukast [Singulair] 10 mg tablet 10 mg PO QHS fluticasone propionate 50 mcg/actuation spray,suspension 2 spray INTRANASAL DAILY 30 Days Qty: 16 atorvastatin 10 MG tablet 10 mg PO QHS folic acid 1 MG tablet 1 mg PO DAILY@0800 albuterol sulfate 2.5 MG/3 ML solution for nebulization 2.5 mg INHALATION Q2H PRN (Reason: Sob &/Or Wheezing) tramadol 50 MG tablet 50 mg PO BID Qty: 14 0RF loperamide 2 MG capsule 2 mg PO Q4H PRN PRN (Reason: Diarrhea) cetirizine 10 MG tablet 10 mg PO QHS simethicone 180 MG capsule 180 - 360 tab PO TID PRN PRN (Reason: Indigestion) oxcarbazepine 300 MG tablet 300 mg PO BID benzonatate 100 MG capsule 100 mg PO BID solifenacin 10 MG tablet 10 mg PO DAILY venlafaxine 75 MG capsule 75 mg PO DAILY peg [id number] 1 DROP bottle 15 drp EACH EYE Q6H PRN PRN (Reason: Dry Eyes) dicyclomine 10 mg capsule 10 mg PO BID Label Comments: 1 CAPSULE BY MOUTH TWICEXA DAY / DX: omeprazole 20 mg capsule,delayed release(DR/EC) 20 mg PO DAILY Label Comments: 1 CAPSULE BY MOUTH EVERY/MORNING ergocalciferol (vitamin D2) 1,250 mcg (50,000 unit) capsule 50,000 unit PO WE Label Comments: 1 CAPSULE BY MOUTH ONCE AAWEEK ON WEDNESDAYS / DX: levothyroxine 50 mcg tablet 50 mcg PO DAILY Label Comments: 1 TABLET BY MOUTH DAILY AT 5AM DX: HYPOTHYROID / NURSE TO REORDER budesonide-formoterol [Symbicort] 160-4.5 mcg/actuation HFA aerosol inhaler 2 inh INHALATION BID polyethylene glycol 3350 [Miralax] 17 gram Powder In Packet 8.5 g PO QODAY PRN (Reason: Constipation) famotidine 20 mg Tablet 20 mg PO BID guaifenesin [Mucinex] 600 mg Tablet Extended Release 12hr 600 mg PO Q12H PRN (Reason: Congestion) Combivent Respimat 20-100 mcg/actuation Mist 1 puff INHALATION DAILY PRN (Reason: Wheezing) furosemide [Lasix] 40 mg tablet 60 mg PO DAILY lamotrigine 200 mg Tablet 200 mg PO BID metoprolol tartrate 100 mg Tablet 100 mg PO BID topiramate 25 mg tablet 50 mg PO BID Label Comments: 2 TABLETS (50MG) BY MOUTHA2 TIMES A DAY / DX: WEIGHT LOSS sodium chloride 5 % Ointment 1 applic RIGHT EYE QHS Rx Instructions: APPLY 1/4 INCH STRIP INTO RIGHT EYE risperidone 1 mg tablet 1 mg PO QHS Label Comments: 1 TABLET BY MOUTH AT BEDTIME DX: / NURSE TO REORDER tetrahydrozoline-zinc 0.05-0.25 % Drops 1 drp EACH EYE BID aakdsfqq-sdihcwa-habi-lutein Tablet 1 tab PO DAILY sennosides-docusate sodium [Senna Plus] 8.6-50 mg Tablet 1 tab PO BID losartan 50 mg tablet 50 mg PO DAILY albuterol sulfate 1 PUFF HFA aerosol inhaler 2 puff INHALATION Q4H PRN PRN (Reason: Shortness Of Breath) Discontinued cephalexin 500 mg Capsule 500 mg PO TID doxycycline hyclate 100 mg Tablet 100 mg PO BID Referrals / Follow Up: Oksana Roth DO [Primary Care Provider] - Within 2 Weeks Disposition Disposition (needs filled in before D/C Order can be placed): Home, Self Care Charges/Coding Visit Charges Inpatient E&M: 88072 Disch Hosp >30min
== END 2022-09-13 12:24 | disposition home or self-care (01) | DRG 291 ==
LOC: ED 14:32 → PCU 09-10 07:14
PROVIDERS: Admitting Provider Family Medicine; Emergency Provider Emergency Medicine; PCP Internal Medicine; Visit Provider Student in an Organized Health Care Education/Training Program
DX: I11.0 Hypertensive heart disease with heart failure (principal); I50.33 Acute on chronic diastolic (congestive) heart failure; J96.21 Acute and chronic respiratory failure with hypoxia; G93.41 Metabolic encephalopathy; J96.22 Acute and chronic respiratory failure with hypercapnia; N17.9 Acute kidney failure, unspecified; Z68.42 Body mass index [BMI] 45.0-49.9, adult; E87.29 Other acidosis; E11.51 Type 2 diabetes mellitus with diabetic peripheral angiopathy without gangrene; J44.9 Chronic obstructive pulmonary disease, unspecified; F31.9 Bipolar disorder, unspecified; E66.01 Morbid (severe) obesity due to excess calories; K21.9 Gastro-esophageal reflux disease without esophagitis; I89.0 Lymphedema, not elsewhere classified; E87.5 Hyperkalemia; G47.33 Obstructive sleep apnea (adult) (pediatric); E03.9 Hypothyroidism, unspecified; E78.5 Hyperlipidemia, unspecified; R42 Dizziness and giddiness; Z79.51 Long term (current) use of inhaled steroids
CPT/HCPCS: 36415; 36600; 70450; 71045; 80048; 80053; 80061; 81001; 82550; 82803; 82962; 83036; 83735; 83880; 84443; 84484; 85025; 93005; 93306; 94002; 94003; 94640; 94668; 94762; 97110; 97162; 97166; 97530; 97535; 97802; 99252; 99285; A4216; G0463; J1940

== ENCOUNTER 2022-10-30 13:06 | Emergency (ER) | payer MEDICARE, MEDICAID, SELFPAY ==
[2022-10-30] VITALS (7 sets, daily range): BP systolic 152–204; BP diastolic 75–100; PULSE 61–107; RESP 16–27; TEMP 36.4–36.5; O2SAT 64–95; BMI 39.8
--- NOTE | 2022-10-30 13:25 | EKG12_ITS ---
Test Reason : SOB Blood Pressure : / mmHG Vent. Rate : 062 BPM Atrial Rate : 062 BPM P-R Int : 198 ms QRS Dur : 150 ms QT Int : 496 ms P-R-T Axes : 048 -81 -57 degrees QTc Int : 503 ms Normal sinus rhythm Left axis deviation Right bundle branch block T wave abnormality, consider inferolateral ischemia Abnormal ECG Confirmed by RAIMUNDO GR, MALIK ([id number]), society editor SOPHIE VAZQUEZ ([id number]) on 11/02/2022 11:06:06 AM Referred By: ARLENE Confirmed By:VIJAY EUBANKS MD
--- NOTE | 2022-10-30 13:45 | RAD_ITS ---
STUDY: X-RAY CHEST REASON FOR EXAM: Female, 71 years old. SOB TECHNIQUE: Single AP portable view of the chest. COMPARISON: Comparison is made with prior study dated September 09, 2022. FINDINGS: EKG electrodes are seen. There is evidence of vascular congestion and mild CHF. There is no demonstrated pleural abnormality. There is moderate cardiac enlargement. Normal mediastinum and hetal. Normal visualized pulmonary arteries. There is atherosclerotic calcification of the aortic arch with tortuosity. There are diffuse degenerative changes of the visualized thoracic spine. Normal visualized ribs, clavicles, and shoulders. Surgical clips are seen in the left upper quadrant. RAD/Chest 1 View (Portable) IMPRESSION: Cardiomegaly. CHF. Electronically Signed: Esteban Camargo MD at 14:02 EDT ,
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
[2022-10-30 14:50] LABS: Absolute Lymphocyte Count 0.55 X10^3/uL (0.83-4.51); Absolute Neutrophil Count 3.1 X10^3/uL (2.0-7.7); Basophil# 0.04 X10^3/uL; Basophil% 0.9 % (0-1); Eosinophil# 0.13 X10^3/uL; Hematocrit 42.3 % (37-47); Lymphocyte # 0.55 X10^3/ul (0.83-4.51); Lymphocyte % 12.7 % (19-41); Mean Corp Hgb Conc 30.7 g/dL (32-36); Mean Corpuscular Hgb 28.9 pg (27.0-32.0); Mean Platelet Vol. 9.3 fl (6.2-12.0); Monocyte# 0.45 X10^3/uL; Monocyte% 10.4 % (0-10); NRBC Flagged by Analyzer 0 % (0-5); Neutrophil # 3.13 X10^3/uL (2.7-7.7); Neutrophil % 72.5 % (47-70); POSITIVE COUNT YES; POSITIVE DIFFERENTIAL YES; RBC Distribution Width CV 15.3 % (11.6-14.6); RBC Distribution Width SD 52.5 fl (35.1-43.9); White Blood Count 4.3 K/mm3 (4.4-11.0)
[2022-10-30 15:02] LABS: Anion Gap 5 (5-15); BUN 16 mg/dL (7-18); BUN/Creat Ratio 18.9 RATIO (10-20); Calcium,Total 9.6 mg/dL (8.5-10.1); Chloride 97 mmol/L (98-107); Creatinine, Serum 0.84 mg/dL (0.55-1.02); EST Glomerular Filtration Rate 71 mL/min (>60); Est Glom Filt Rate - Afr Amer 86 mL/min (>60); Estimated Creatinine Clearance 66.06 ml/min; Glucose 107 mg/dL (74-106); Potassium 4.1 mmol/L (3.5-5.1); Sodium Level 138 mmol/L (136-145); Troponin-I HS 58 pg/mL (3.0-54.0)
[2022-10-30 15:13] LABS: Differential Indicated SCAN CRITERIA MET; Platelet Estimate ADEQUATE (ADEQ)
[2022-10-30 16:55] LABS: Troponin-I HS 54 pg/mL (3.0-54.0)
--- NOTE | 2022-10-30 17:19 | ED.RN ---
CALLED [facility] REGARDING PT'S O2 CONCENTRATOR, ACCORDING TO [facility] THEY HAVE NO 02 SUPPLIES TO HELP THE PT.
--- NOTE | 2022-10-30 18:07 | EKG12_ITS ---
Test Reason : REPEAT Blood Pressure : / mmHG Vent. Rate : 066 BPM Atrial Rate : 066 BPM P-R Int : 196 ms QRS Dur : 158 ms QT Int : 486 ms P-R-T Axes : 034 -86 -53 degrees QTc Int : 509 ms Normal sinus rhythm Left axis deviation Right bundle branch block T wave abnormality, consider inferolateral ischemia Abnormal ECG Confirmed by RAIMUNDO GR, MALIK ([id number]), international editorial producer SOPHIE VAZQUEZ ([id number]) on 11/02/2022 11:07:19 AM Referred By: GUNNER Confirmed By:VIJAY EUBANKS MD
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
[2022-10-30] MEDS: Metoprolol Tartrate 100 MG Tablet PO (19:34)
--- NOTE | 2022-10-30 21:18 | ED.RN ---
[facility] called to check status on oxygen delivery. at this time no delivery of oxygen per staff
[2022-10-31] VITALS (7 sets, daily range): BP systolic 164–193; BP diastolic 69–90; PULSE 48–69; RESP 14–30; O2SAT 92–96
--- NOTE | 2022-10-31 01:23 | ED.RN ---
[employer] called to check status on oxygen delivery, spoke with company who dispatched a dump truck driver and should be reaching out soon with information. will check back on status
[2022-10-31] MEDS: hydrALAZINE 20 MG/ML Vial 10 MG IV (03:51)
--- NOTE | 2022-10-31 07:01 | ED.RN ---
[employer] called again to check status on delivery. per company they had delivered equipment already. spoke to [facility] they denied receiving the unit at this time. advised company they did not recieve unit. advised them they need to deliver unit sara. They are contacting driver education road instructor at this time. Day shift charge made of this issue at this time
--- NOTE | 2022-10-31 08:42 | ED.RN ---
THIS RN RECEIVED A PHONE CALL FROM [facility] CONFIRMING THAT A NEW CONCENTRATOR HAS BEEN DELIVERED TO THE PT RESIDENCE. [employer]ENT NOTIFIED TO ARRANGE TRANSPORT HOME FOR PT.
--- NOTE | 2022-10-31 11:48 | ED.RN ---
[facility] ON HER WAY BACK OF 1149. THIS RN GAVE REPORT TO MARILYN DELGADO AT 1149.
[2022-11-02 13:24] LABS: Pathologist Review Reviewed
== END 2022-10-31 11:45 | disposition home or self-care (01) ==
PROVIDERS: Physician Assistant; Emergency Provider Emergency Medicine; PCP Nurse Practitioner Adult Health; Visit Provider Emergency Medicine
DX: R06.02 Shortness of breath (principal); I11.0 Hypertensive heart disease with heart failure; I50.32 Chronic diastolic (congestive) heart failure; E11.9 Type 2 diabetes mellitus without complications; E78.5 Hyperlipidemia, unspecified; I45.10 Unspecified right bundle-branch block; I35.0 Nonrheumatic aortic (valve) stenosis; G47.33 Obstructive sleep apnea (adult) (pediatric); E03.9 Hypothyroidism, unspecified
CPT/HCPCS: 99285; 71045; 80048; 84484; 85025; 93005; J7030; A4216

== ENCOUNTER 2022-11-01 09:54 | Inpatient (IN) | payer MEDICARE, MEDICAID, SELFPAY ==
[2022-11-01] VITALS (7 sets, daily range): BP systolic 135–163; BP diastolic 65–84; PULSE 62–84; RESP 15–27; TEMP 36.4–36.8; O2SAT 96–97; BMI 45.6; BMI 37.9
--- NOTE | 2022-11-01 10:36 | EDS_ITS ---
HPI History of Present Illness Chief Complaint: Fatigue Narrative Narrative: 71-year-old female from her [place] [facility] stating that she feels like she is not getting enough oxygen. She wears 2 to 3 L at baseline and has not noted any change. Patient states she does not feel short of breath however. She is not having chest pain. She does describe some generalized weakness. She states that she sat on the toilet this morning to urinate and was sweaty. Denies chest pain. No nausea or vomiting. PFSH PFSH Medical History Bifascicular block Bilateral edema of lower extremity Bipolar disorder Cellulitis CHF (congestive heart failure) Chronic diastolic (congestive) heart failure Essential hypertension GERD (gastroesophageal reflux disease) HLD (hyperlipidemia) Hypothyroidism Left anterior fascicular block (LAFB) Lymphedema Metabolic encephalopathy Morbid obesity with BMI of 50.0-59.9, adult Non-rheumatic aortic stenosis KAYLA (obstructive sleep apnea) Right bundle branch block (RBBB) Sepsis Type 2 diabetes mellitus Type 2 diabetes mellitus without complication Ulcer of right lower extremity with fat layer exposed Venous (peripheral) insufficiency Home Medications albuterol sulfate 2.5 mg/3 mL (0.083 %) solution for nebulization 2.5 mg inhalation Q2H PRN Sob &/Or Wheezing 11/09/15 [History Last Taken Unknown] atorvastatin 10 mg tablet 10 mg PO QHS hld 11/09/15 [History Last Taken 10/29/22] folic acid 1 mg tablet 1 mg PO DAILY@0800 supplement 11/09/15 [History Last Taken 10/16/22] tramadol 50 mg tablet 50 mg PO BID pain ##14 11/12/15 [Rx Last Taken 10/30/22] montelukast 10 mg tablet (Singulair) 10 mg PO QHS asthma 11/18/17 [History Last Taken 10/29/22] acetaminophen 500 mg tablet 1,000 mg PO BID pain 12/21/17 [History Last Taken 10/30/22] potassium chloride 20 mEq tablet,extended release(part/cryst) 20 meq PO BID supplement 12/21/17 [History Last Taken 10/30/22] fluticasone propionate 50 mcg/actuation nasal spray,suspension 2 spray intranasal DAILY allergies 30 days ##16 12/20/18 [History Last Taken 10/05/19] benzonatate 100 mg capsule 100 mg PO BID cough 10/06/19 [History Last Taken Unknown] loperamide 2 mg capsule 2 mg PO Q4H PRN PRN Diarrhea 10/06/19 [History Last Taken Unknown] oxcarbazepine 300 mg tablet 300 mg PO BID SEIZURE 10/06/19 [History Last Taken 10/30/22] peg 203-[id number]-ynnebkie 1 %-0.2 %-0.2 % eye drops 15 drp EACH EYE Q6H PRN PRN Dry Eyes 10/06/19 [History Last Taken Unknown] simethicone 180 mg capsule 180 - 360 tab PO TID PRN PRN Indigestion 10/06/19 [History Last Taken Unknown] solifenacin 10 mg tablet 10 mg PO DAILY bladder 10/06/19 [History Last Taken 10/30/22] venlafaxine 75 mg capsule,extended release 24 hr 75 mg PO DAILY mood 10/06/19 [History Last Taken 10/30/22] dicyclomine 10 mg capsule 10 mg PO BID STOMACH 09/28/21 [History Last Taken 10/30/22] ergocalciferol (vitamin D2) 1,250 mcg (50,000 unit) capsule 50,000 unit PO WE vitamin 09/28/21 [History Last Taken 10/28/22] omeprazole 20 mg capsule,delayed release 20 mg PO DAILY stomach 09/28/21 [History Last Taken 10/30/22] budesonide-formoterol HFA 160 mcg-4.5 mcg/actuation aerosol inhaler (Symbicort) 2 inh inhalation BID COPD 07/02/22 [History Last Taken 10/30/22] levothyroxine 50 mcg tablet 50 mcg PO DAILY 07/02/22 [History Last Taken 10/30/22] famotidine 20 mg tablet 20 mg PO BID GERD 07/23/22 [History Last Taken 10/30/22] furosemide 40 mg tablet (Lasix) 60 mg PO DAILY FLUID 07/23/22 [History Last Taken 10/30/22] guaifenesin 600 mg tablet, extended release 12 hr (Mucinex) 600 mg PO Q12H PRN Congestion 07/23/22 [History Last Taken Unknown] ipratropium 20 mcg-albuterol 100 mcg/actuation mist for inhalation (Combivent Respimat) 1 puff inhalation DAILY PRN Wheezing 07/23/22 [History Last Taken Unknown] polyethylene glycol 3350 17 gram oral powder packet (Miralax) 8.5 g PO QODAY PRN Constipation 07/23/22 [History Last Taken Unknown] albuterol sulfate 90 mcg/actuation aerosol inhaler 2 puff INHALATION Q4H PRN PRN Shortness Of Breath 09/09/22 [History Last Taken Unknown] lamotrigine 200 mg tablet 200 mg PO BID SEIZURE 09/09/22 [History Last Taken 10/30/22] losartan 50 mg tablet 50 mg PO DAILY BP 09/09/22 [History Last Taken 10/30/22] metoprolol tartrate 100 mg tablet 100 mg PO BID HEART 09/09/22 [History Last Taken 10/30/22] rrtrnnqj-xrrbjit-ckgc-lutein tablet 1 tab PO DAILY SUPPLEMENT 09/09/22 [History Last Taken 10/30/22] risperidone 1 mg tablet 1 mg PO QHS RLS 09/09/22 [History Last Taken 10/29/22] sennosides 8.6 mg-docusate sodium 50 mg tablet (Senna Plus) 1 tab PO BID CONSTIPATION 09/09/22 [History Last Taken Unknown] sodium chloride 5 % eye ointment 1 applic RIGHT EYE QHS 09/09/22 [History Last Taken 09/08/22] tetrahydrozoline 0.05 %-zinc 0.25 % eye drops 1 drp EACH EYE BID ALLERGIES 09/09/22 [History Last Taken Unknown] topiramate 25 mg tablet 50 mg PO BID 09/09/22 [History Last Taken 10/30/22] Allergy/AdvReac Type Severity Reaction Status Date / Time benztropine mesylate Allergy Unknown Verified 11/01/22 09:58 [From Cogentin] Salicylates Allergy Unknown Verified 11/01/22 09:58 Sulfa (Sulfonamide Allergy Unknown Verified 11/01/22 09:58 Antibiotics) abacavir AdvReac Unknown Unknown Verified 11/01/22 09:58 aspirin AdvReac Unknown Verified 11/01/22 09:58 bupropion HCl AdvReac Rash Verified 11/01/22 09:58 [From Wellbutrin] prochlorperazine AdvReac Unknown Verified 11/01/22 09:58 prochlorperazine edisylate AdvReac Unknown Verified 11/01/22 09:58 [From Compazine] prochlorperazine maleate AdvReac Unknown Verified 11/01/22 09:58 [From Compazine] Family History Mother No problems noted. Father Heart disease Surgical History History of gastric bypass History of skin graft History of tonsillectomy Hx of appendectomy Social History household members: spouse Smoking Status: Never smoker alcohol intake: never substance use type: does not use ROS ROS ED Constitutional Constitutional ED: Denies chills or fever(s) Eyes Eyes: Denies change in vision or diplopia ENT ENT ED: Denies rhinorrhea or sore throat Cardiovascular Cardiovascular: Denies chest pain or palpitations Respiratory/Chest Respiratory/Chest: Denies cough or dyspnea Gastrointestinal Gastrointestinal: Denies abdominal pain, nausea or vomiting Genitourinary Genitourinary ED: Denies dysuria or hematuria Musculoskeletal Musculoskeletal: Denies arthralgias Integumentary Denies abscess or Abrasions Neurologic Neurologic: Denies headache(s) or paresthesias Psychiatric Psychiatric: Denies anxiety or depression EXAM Physical Exam Const Vital Signs: 11/01/22 09:58 11/01/22 10:04 11/01/22 12:28 Temperature 97.7 F L 98.2 F Temperature Source Oral Oral Pulse Rate 62 65 Respiratory Rate 15 24 H Respiratory Effort Normal Non-Labored Respiratory Pattern Normal Blood Pressure 156/82 H 163/84 H Blood Pressure Mean 106 110 Pulse Ox 96 96 Oxygen Delivery Method Nasal Cannula Nasal Cannula Oxygen Flow Rate (L/min) 2 2 11/01/22 12:41 Temperature 97.6 F L Temperature Source Temporal Pulse Rate 80 Respiratory Rate 18 Respiratory Effort Respiratory Pattern Blood Pressure 160/80 H Blood Pressure Mean 106 Pulse Ox 97 Oxygen Delivery Method Oxygen Flow Rate (L/min) Positive well nourished and obese General Appearance ED: NAD Nutritional Appearance: obese HEENT Reports moist mucous membranes Eyes PERRL and EOMs intact bilaterally Neck no lymphadenopathy Chest Wall inspection of chest normal Resp normal respiratory effort and clear to auscultation bilaterally Auscultation: Negative for rales, rhonchi or wheezes Cardio regular rate and regular rhythm GI normal to inspection, nondistended, normoactive bowel sounds Extremity normal to inspection General Extremety ED: Negative for edema or tenderness General Extremity: Negative for edema Neuro oriented x3 and CN's II-XII intact bilaterally Sensorium / Orientation: alert Psych mental status grossly normal Skin no rashes or lesions noted and no wounds MDM MDM MDM Narrative Medical decision making narrative: Patient presenting with chief complaint of not getting enough oxygen. She states he is not short of breath however. Has not had a fever or chills. She is denying chest pain. She states that she did get sweaty using the restroom today. Patient states that she walks to the restroom with her walker which she started to feel short of breath and became diaphoretic. She states that she was still short of breath while she urinated. She got up and walked back to the bed still diaphoretic and short of breath. She states the whole episode lasted about 15 minutes and then she called the nurse call for an ambulance. Differential includes but is not limited to ACS, pneumonia, muscle strain, costochondritis. Pneumothorax was considered but patient has bilateral symmetric breath sounds. Equal symmetric chest wall rise. CBC to assess white blood cell count, hemoglobin and platelets, differential. CMP to assess liver function, renal function, electrolytes and anion gap. High-sensitivity troponin, chest x-ray, EKG to assess for cardiac source. Patient currently does not need any medication because he is not having any pain or nausea. She does not feel short of breath currently. She is on her baseline oxygen. CBC shows a normal white blood cell count of 5. Hemoglobin stable at 14.8. Platelets are normal at 169. Creatinine slightly elevated at 1.05. Glucose 94 without anion gap. CO2 elevated at 33. High-sensitivity troponin initially 143 delta troponin was 121. Patient reports an aspirin allergy. This was not given. This is significantly higher than her previous troponins. I did also check a COVID/influenza because she was saying she felt generally weak. These were both negative. Urinalysis was obtained for the same reason and this is negative as well. Given the significant elevation in troponins I spoke with the hospitalist for admission. Impression: 1. Elevated troponin 2. Dyspnea Lab Data Attestation: I reviewed the patient's lab results. Labs: Laboratory Results - last 24 hr 11/01/22 11/01/22 11/01/22 10:40 10:40 11:15 WBC 5.0 RBC 5.14 Hgb 14.8 Hct 46.7 MCV 90.9 MCH 28.8 MCHC 31.7 L RDW Std Deviation 51.7 H RDW Coeff of Mago 15.8 H Plt Count 169 MPV 9.2 Immature Gran % (Auto) 0.200 Neut % (Auto) 79.8 H Lymph % (Auto) 10.0 L [place] % (Auto) 8.0 Eos % (Auto) 1.6 Baso % (Auto) 0.4 Absolute Neuts (auto) 4.0 Absolute Lymphs (auto) 0.50 L Nucleated RBC % 0 Differential Comment SCANNED Sodium 135 L Potassium 3.7 Chloride 95 L Carbon Dioxide 33.0 H Anion Gap 7 BUN 19 H Creatinine 1.05 H Estim Creat Clear Calc 52.85 Est GFR (MDRD) Af Amer 67 Est GFR (MDRD) Non-Af 55 L BUN/Creatinine Ratio 18.1 Glucose 94 Calcium 9.7 Total Bilirubin 1.00 AST 26 ALT 15 Alkaline Phosphatase 97 Troponin I High Sens 143 H* Total Protein 8.4 H Albumin 3.5 Globulin 4.9 H Albumin/Globulin Ratio 0.7 L Urine Color Yellow Urine Clarity Clear Urine pH 5.0 Ur Specific [place] 1.015 Urine Protein 30 H Urine Glucose (UA) Normal Urine Ketones 15 H Urine Occult Blood Negative Urine Nitrite Negative Urine Bilirubin 1 H Urine Urobilinogen 1 H Ur Leukocyte Esterase 25 H Urine RBC 0 SEEN Urine WBC 0-5 SEEN Ur Squamous Epith Cells 0-5 SEEN Urine Bacteria 1+ Urine Mucus 0 SEEN 11/01/22 12:20 WBC RBC Hgb Hct MCV MCH MCHC RDW Std Deviation RDW Coeff of Mago Plt Count MPV Immature Gran % (Auto) Neut % (Auto) Lymph % (Auto) [place] % (Auto) Eos % (Auto) Baso % (Auto) Absolute Neuts (auto) Absolute Lymphs (auto) Nucleated RBC % Differential Comment Sodium Potassium Chloride Carbon Dioxide Anion Gap BUN Creatinine Estim Creat Clear Calc Est GFR (MDRD) Af Amer Est GFR (MDRD) Non-Af BUN/Creatinine Ratio Glucose Calcium Total Bilirubin AST ALT Alkaline Phosphatase Troponin I High Sens 121 H* Total Protein Albumin Globulin Albumin/Globulin Ratio Urine Color Urine Clarity Urine pH Ur Specific [place] Urine Protein Urine Glucose (UA) Urine Ketones Urine Occult Blood Urine Nitrite Urine Bilirubin Urine Urobilinogen Ur Leukocyte Esterase Urine RBC Urine WBC Ur Squamous Epith Cells Urine Bacteria Urine Mucus Radiography Diagnostic Testing: Clinical Impression(s) from Imaging Studies Chest X-Ray 11/01/22 10:37 IMPRESSION: Mildly decreased pulmonary edema. Electronically Signed: Roseann Velasco MD at 11:11 EDT , Discharge Plan Triage Chief Complaint: Fatigue ED Provider: Dharmesh Schulte Dx/Rx/DC Orders Primary Care Provider: Shelia Whitten ELECTRIC ACCOUNTING MACHINE OPERATOR
--- NOTE | 2022-11-01 10:37 | EKG12_ITS ---
Test Reason : Blood Pressure : / mmHG Vent. Rate : 060 BPM Atrial Rate : 060 BPM P-R Int : 180 ms QRS Dur : 150 ms QT Int : 504 ms P-R-T Axes : 026 249 -52 degrees QTc Int : 504 ms Normal sinus rhythm Right bundle branch block , plus right ventricular hypertrophy T wave abnormality, consider inferolateral ischemia Abnormal ECG Confirmed by RAIMUNDO GR, MALIK ([id number]), web content editor TORSTEN HANNAH ([id number]) on 11/04/2022 10:04:13 AM Referred By: Confirmed By:VIJAY EUBANKS MD
--- NOTE | 2022-11-01 10:37 | RAD_ITS ---
HISTORY: weakness. TECHNIQUE: XR Chest 1 View. COMPARISON: 10/30/2022. FINDINGS: CARDIOMEDIASTINAL BORDERS: Stable cardiomegaly with calcification of the aorta. LUNGS: Decreased interstitial opacities. PLEURA: Unchanged trace left pleural effusion or pleural scarring. OTHER: Degenerative changes of the osseous structures. Left upper quadrant surgical clips. RAD/Chest 1 View (Portable) IMPRESSION: Mildly decreased pulmonary edema. Electronically Signed: Roseann Velasco MD at 11:11 EDT ,
[2022-11-01 11:10] LABS: ALB/GLOB Ratio 0.7 RATIO (0.9-2.4); AST(SGOT) 26 U/L (15-37); Alanine Aminotransfer ALT/SGPT 15 U/L (13-56); Albumin, Serum 3.5 g/dL (3.2-5.0); Alkaline Phosphatase 97 U/L (45-117); Anion Gap 7 (5-15); BUN 19 mg/dL (7-18); BUN/Creat Ratio 18.1 RATIO (10-20); Calcium,Total 9.7 mg/dL (8.5-10.1); Chloride 95 mmol/L (98-107); Creatinine, Serum 1.05 mg/dL (0.55-1.02); EST Glomerular Filtration Rate 55 mL/min (>60); Est Glom Filt Rate - Afr Amer 67 mL/min (>60); Estimated Creatinine Clearance 52.85 ml/min; Globulin 4.9 g/dL (2.2-4.2); Glucose 94 mg/dL (74-106); Potassium 3.7 mmol/L (3.5-5.1); Protein, Total 8.4 g/dL (6.4-8.2); Sodium Level 135 mmol/L (136-145); Troponin-I HS 143 pg/mL (3.0-54.0)
[2022-11-01 11:12] LABS: Basophil# 0.02 X10^3/uL; Basophil% 0.4 % (0-1); Eosinophil# 0.08 X10^3/uL; Eosinophils% 1.6 % (0-5); Hematocrit 46.7 % (37-47); Hemoglobin 14.8 g/dL (12.0-15.0); Mean Corp Hgb Conc 31.7 g/dL (32-36); Mean Corpuscular Hgb 28.8 pg (27.0-32.0); Mean Corpuscular Volume 90.9 fL (81-99); Mean Platelet Vol. 9.2 fl (6.2-12.0); NRBC Flagged by Analyzer 0 % (0-5); Neutrophil # 4.01 X10^3/uL (2.7-7.7); Neutrophil % 79.8 % (47-70); POSITIVE DIFFERENTIAL YES; Platelet Count 169 K/mm3 (150-450); RBC Distribution Width CV 15.8 % (11.6-14.6); RBC Distribution Width SD 51.7 fl (35.1-43.9); Red Blood Count 5.14 M/mm3 (4.2-5.4)
[2022-11-01 11:21] LABS: Differential Indicated SCAN CRITERIA MET
[2022-11-01 11:26] LABS: Mucous, Urine 0 SEEN /hpf (<or=2+); Red Blood Cells-Urine 0 SEEN /hpf (0-5)
[2022-11-01 11:27] LABS: Color, Urine Yellow (Yellow); Glucose, Dipstick Normal (Normal); Ketone-Dipstick 15 mg/dl (Negative); Leukocyte Esterase-Dipstick 25 /ul (Negative); Nitrite-Dipstick Negative (Negative); Occult Blood-Urine Negative /ul (Negative); Protein-Dipstick 30 mg/dl (Negative); Specific Gravity, Urine 1.015 (1.002-1.030); Urine Clarity Clear (Clear); Urine Urobilinogen 1 mg/dl (Normal)
[2022-11-01 11:30] LABS: Urine Bilirubin Dipstick 1 mg/dL (Negative)
[2022-11-01 11:36] LABS: Differential Comment SCANNED
[2022-11-01 11:43] LABS: Bacteria 1+ /hpf (None Seen); Squamous Epithelial Cells - UA 0-5 SEEN /hpf (5-10); White Blood Cells 0-5 SEEN /hpf (0-5)
[2022-11-01 12:50] LABS: Troponin-I HS 121 pg/mL (3.0-54.0)
--- NOTE | 2022-11-01 13:36 | HP.PCM.HOS_ITS ---
HPI - General General Date of Admission: 11/01/22 Date of Service: 11/01/22 Chief Complaint: diaphoresis. weakness. HPI Narrative CYN WILSON, is a 71 F who presents with tone. Diaphoresis and weakness today. She denies any chest pain with this but was very overwhelmed with this. So she presented to the emergency room for evaluation. [facility] Medical History Bifascicular block Bilateral edema of lower extremity Bipolar disorder Cellulitis CHF (congestive heart failure) Chronic diastolic (congestive) heart failure Essential hypertension GERD (gastroesophageal reflux disease) HLD (hyperlipidemia) Hypothyroidism Left anterior fascicular block (LAFB) Lymphedema Metabolic encephalopathy Morbid obesity with BMI of 50.0-59.9, adult Non-rheumatic aortic stenosis KAYLA (obstructive sleep apnea) Right bundle branch block (RBBB) Sepsis Type 2 diabetes mellitus Type 2 diabetes mellitus without complication Ulcer of right lower extremity with fat layer exposed Venous (peripheral) insufficiency Home Medications albuterol sulfate 2.5 mg/3 mL (0.083 %) solution for nebulization 2.5 mg inhalation Q2H PRN Sob &/Or Wheezing 11/09/15 [History Last Taken Unknown] atorvastatin 10 mg tablet 10 mg PO QHS hld 11/09/15 [History Last Taken 10/29/22] folic acid 1 mg tablet 1 mg PO DAILY@0800 supplement 11/09/15 [History Last Taken 10/16/22] tramadol 50 mg tablet 50 mg PO BID pain ##14 11/12/15 [Rx Last Taken 10/30/22] montelukast 10 mg tablet (Singulair) 10 mg PO QHS asthma 11/18/17 [History Last Taken 10/29/22] acetaminophen 500 mg tablet 1,000 mg PO BID pain 12/21/17 [History Last Taken 10/30/22] potassium chloride 20 mEq tablet,extended release(part/cryst) 20 meq PO BID supplement 12/21/17 [History Last Taken 10/30/22] fluticasone propionate 50 mcg/actuation nasal spray,suspension 2 spray intranasal DAILY allergies 30 days ##16 12/20/18 [History Last Taken 10/05/19] benzonatate 100 mg capsule 100 mg PO BID cough 10/06/19 [History Last Taken Unknown] loperamide 2 mg capsule 2 mg PO Q4H PRN PRN Diarrhea 10/06/19 [History Last Taken Unknown] oxcarbazepine 300 mg tablet 300 mg PO BID SEIZURE 10/06/19 [History Last Taken 10/30/22] peg 377-[id number]-jpcotecl 1 %-0.2 %-0.2 % eye drops 15 drp EACH EYE Q6H PRN PRN Dry Eyes 10/06/19 [History Last Taken Unknown] simethicone 180 mg capsule 180 - 360 tab PO TID PRN PRN Indigestion 10/06/19 [History Last Taken Unknown] solifenacin 10 mg tablet 10 mg PO DAILY bladder 10/06/19 [History Last Taken 10/30/22] venlafaxine 75 mg capsule,extended release 24 hr 75 mg PO DAILY mood 10/06/19 [History Last Taken 10/30/22] dicyclomine 10 mg capsule 10 mg PO BID STOMACH 09/28/21 [History Last Taken 10/30/22] ergocalciferol (vitamin D2) 1,250 mcg (50,000 unit) capsule 50,000 unit PO WE vitamin 09/28/21 [History Last Taken 10/28/22] omeprazole 20 mg capsule,delayed release 20 mg PO DAILY stomach 09/28/21 [History Last Taken 10/30/22] budesonide-formoterol HFA 160 mcg-4.5 mcg/actuation aerosol inhaler (Symbicort) 2 inh inhalation BID COPD 07/02/22 [History Last Taken 10/30/22] levothyroxine 50 mcg tablet 50 mcg PO DAILY 07/02/22 [History Last Taken 10/30/22] famotidine 20 mg tablet 20 mg PO BID GERD 07/23/22 [History Last Taken 10/30/22] furosemide 40 mg tablet (Lasix) 60 mg PO DAILY FLUID 07/23/22 [History Last Taken 10/30/22] guaifenesin 600 mg tablet, extended release 12 hr (Mucinex) 600 mg PO Q12H PRN Congestion 07/23/22 [History Last Taken Unknown] ipratropium 20 mcg-albuterol 100 mcg/actuation mist for inhalation (Combivent Respimat) 1 puff inhalation DAILY PRN Wheezing 07/23/22 [History Last Taken Unknown] polyethylene glycol 3350 17 gram oral powder packet (Miralax) 8.5 g PO QODAY PRN Constipation 07/23/22 [History Last Taken Unknown] albuterol sulfate 90 mcg/actuation aerosol inhaler 2 puff INHALATION Q4H PRN PRN Shortness Of Breath 09/09/22 [History Last Taken Unknown] lamotrigine 200 mg tablet 200 mg PO BID SEIZURE 09/09/22 [History Last Taken 10/30/22] losartan 50 mg tablet 50 mg PO DAILY BP 09/09/22 [History Last Taken 10/30/22] metoprolol tartrate 100 mg tablet 100 mg PO BID HEART 09/09/22 [History Last Taken 10/30/22] ibsjumtc-ezbigti-lils-lutein tablet 1 tab PO DAILY SUPPLEMENT 09/09/22 [History Last Taken 10/30/22] risperidone 1 mg tablet 1 mg PO QHS RLS 09/09/22 [History Last Taken 10/29/22] sennosides 8.6 mg-docusate sodium 50 mg tablet (Senna Plus) 1 tab PO BID CONSTIPATION 09/09/22 [History Last Taken Unknown] sodium chloride 5 % eye ointment 1 applic RIGHT EYE QHS 09/09/22 [History Last Taken 09/08/22] tetrahydrozoline 0.05 %-zinc 0.25 % eye drops 1 drp EACH EYE BID ALLERGIES 03/24 [History Last Taken Unknown] topiramate 25 mg tablet 50 mg PO BID 09/09/22 [History Last Taken 10/30/22] Allergy/AdvReac Type Severity Reaction Status Date / Time benztropine mesylate Allergy Unknown Verified 11/01/22 09:58 [From Cogentin] Salicylates Allergy Unknown Verified 11/01/22 09:58 Sulfa (Sulfonamide Allergy Unknown Verified 11/01/22 09:58 Antibiotics) abacavir AdvReac Unknown Unknown Verified 11/01/22 09:58 aspirin AdvReac Unknown Verified 11/01/22 09:58 bupropion HCl AdvReac Rash Verified 11/01/22 09:58 [From Wellbutrin] prochlorperazine AdvReac Unknown Verified 11/01/22 09:58 prochlorperazine edisylate AdvReac Unknown Verified 11/01/22 09:58 [From Compazine] prochlorperazine maleate AdvReac Unknown Verified 11/01/22 09:58 [From Compazine] Family History Mother No problems noted. Father Heart disease Surgical History History of gastric bypass History of skin graft History of tonsillectomy Hx of appendectomy Social History household members: spouse Smoking Status: Never smoker alcohol intake: never substance use type: does not use ROS ROS Narrative Does have chronic lower extremity edema but actually improving from baseline. All review of systems were negative except as mentioned above in the history of present illness and the other review of systems. Vital Signs Vital Signs Vital Signs: 11/01/22 09:58 11/01/22 10:04 11/01/22 12:28 Temperature 36.5 C L 36.8 C Temperature Source Oral Oral Pulse Rate 62 65 Respiratory Rate 15 24 H Respiratory Effort Normal Non-Labored Respiratory Pattern Normal Blood Pressure 156/82 H 163/84 H Blood Pressure Mean 106 110 Pulse Ox 96 96 Oxygen Delivery Method Nasal Cannula Nasal Cannula Oxygen Flow Rate (L/min) 2 2 11/01/22 12:41 Temperature 36.4 C L Temperature Source Temporal Pulse Rate 80 Respiratory Rate 18 Respiratory Effort Respiratory Pattern Blood Pressure 160/80 H Blood Pressure Mean 106 Pulse Ox 97 Oxygen Delivery Method Oxygen Flow Rate (L/min) Weight Weight: 140.2 kg Body Mass Index (BMI) 45.6 Physical Exam Const alert and no apparent distress Constitutional Narrative: On oxygen. No respiratory distress. No conversational dyspnea. HEENT normocephalic, head/scalp atraumatic, hearing grossly normal bilaterally and moist oral mucous membranes Resp normal respiratory effort, no retractions, no use of accessory muscles and clear to auscultation bilaterally Cardio regular rate, regular rhythm, S1 normal heart sound and S2 normal heart sound GI normal to inspection, nondistended, normoactive bowel sounds, soft to palpation, non-tender and non-distended Extremity Extremity Narrative: Lymphedematous changes lower extremities. Skin Skin Narrative: Venous stasis dermatitis lower extremities Neuro moves all extremities Sensorium / Orientation: awake and alert Results Lab / Micro Data Result Diagrams: 11/01/22 10:40 11/01/22 10:40 Labs: Laboratory Results - last 24 hr 11/01/22 10:40: WBC 5.0, RBC 5.14, Hgb 14.8, Hct 46.7, MCV 90.9, MCH 28.8, MCHC 31.7 L, RDW Std Deviation 51.7 H, RDW Coeff of Mago 15.8 H, Plt Count 169, MPV 9.2, Immature Gran % (Auto) 0.200, Neut % (Auto) 79.8 H, Lymph % (Auto) 10.0 L, [place] % (Auto) 8.0, Eos % (Auto) 1.6, Baso % (Auto) 0.4, Absolute Neuts (auto) 4.0, Absolute Lymphs (auto) 0.50 L, Nucleated RBC % 0, Differential Comment SCANNED 11/01/22 10:40: Sodium 135 L, Potassium 3.7, Chloride 95 L, Carbon Dioxide 33.0 H, Anion Gap 7, BUN 19 H, Creatinine 1.05 H, Estim Creat Clear Calc 52.85, Est GFR (MDRD) Af Amer 67, Est GFR (MDRD) Non-Af 55 L, BUN/Creatinine Ratio 18.1, Glucose 94, Calcium 9.7, Total Bilirubin 1.00, AST 26, ALT 15, Alkaline Phosphatase 97, Troponin I High Sens 143 H*, Total Protein 8.4 H, Albumin 3.5, Globulin 4.9 H, Albumin/Globulin Ratio 0.7 L 11/01/22 11:15: Urine Color Yellow, Urine Clarity Clear, Urine pH 5.0, Ur Speci fic [place] 1.015, Urine Protein 30 H, Urine Glucose (UA) Normal, Urine Ketones 15 H, Urine Occult Blood Negative, Urine Nitrite Negative, Urine Bilirubin 1 H, Urine Urobilinogen 1 H, Ur Leukocyte Esterase 25 H, Urine RBC 0 SEEN, Urine WBC 0-5 SEEN, Ur Squamous Epith Cells 0-5 SEEN, Urine Bacteria 1+, Urine Mucus 0 SEEN 11/01/22 12:20: Troponin I High Sens 121 H* Micro: Microbiology 11/01/22 11:09 Nasal Secretion SARS-CoV-2 & FLU Antigen (Rapid) - Final Radiology Impression Chest X-Ray 11/01/22 10:37 IMPRESSION: Mildly decreased pulmonary edema. Electronically Signed: Roseann Velasco MD at 11:11 EDT , Assessment & Plan Assessment/Plan (1) Non-STEMI (non-ST elevated myocardial infarction): PLAN: Initial troponin was 143 but down to 121. Discussed with Dr. Bean, recommends getting a stress test as troponins are trending down. As the troponins are trending down, he does not feel that anticoagulation is necessary at this time. He will be on consultation. Patient has an allergy to aspirin so we will utilize clopidogrel. Check fasting lipid panel PLAN: Plan Chronic medical conditions * HFpEF, EF 65% from Sep 2022. Continue with furosemide * GERD: * Hypertension: Continue with the losartan] * Seizure disorder: Continue with lamotrigine, topiramate VTE prophylaxis with enoxaparin CODE STATUS: From the skilled nursing paperwork: Full code. Charges/Coding Visit Charges Inpatient E&M: 43670 Init Hosp L2
[2022-11-01] MEDS: Clopidogrel Bisulfate 75 MG Tablet PO (15:20)
--- NOTE | 2022-11-01 16:28 | EKG12_ITS ---
Test Reason : ROUTINE Blood Pressure : / mmHG Vent. Rate : 063 BPM Atrial Rate : 063 BPM P-R Int : 166 ms QRS Dur : 168 ms QT Int : 510 ms P-R-T Axes : 033 265 -54 degrees QTc Int : 521 ms Normal sinus rhythm Right bundle branch block T wave abnormality, consider inferolateral ischemia Abnormal ECG When compared with ECG of 01-NOV-2022 11:01, MANUAL COMPARISON REQUIRED, DATA IS UNCONFIRMED Confirmed by RAIMUNDO GR, MALIK ([id number]), supervising film or videotape editor TORSTEN HANNAH ([id number]) on 11/04/2022 10:23:59 AM Referred By: ADONIS Confirmed By:VIJAY EUBANKS MD
[2022-11-01] MEDS: Potassium Chloride Oral Tablet 20 MEQ PO (17:02)
[2022-11-01 17:25] LABS: Troponin-I HS 93 pg/mL (3.0-54.0)
[2022-11-01] MEDS: Budesonide Respules 0.5 MG/2 ML AMPUL.NEB. INHALATION (19:19)
[2022-11-01] MEDS: Albuterol 2.5 MG/3 ML VIAL.NEB. INHALATION (19:19)
[2022-11-01] MEDS: lamoTRIgine 100 MG Tablet 200 MG PO (21:37)
[2022-11-01] MEDS: Enoxaparin 40 MG/0.4 ML Syringe SC (21:37)
[2022-11-01] MEDS: Famotidine 20 MG Tablet PO (21:38)
[2022-11-01] MEDS: Atorvastatin Calcium 10 MG Tablet PO (21:38)
[2022-11-01] MEDS: Metoprolol Tartrate 100 MG Tablet PO (21:38)
[2022-11-01] MEDS: Dicyclomine 10 MG Capsule PO (21:38)
[2022-11-01] MEDS: Montelukast 10 MG Tablet PO (21:39)
[2022-11-01] MEDS: Acetaminophen 500 MG Tablet 1000 MG PO (21:39)
[2022-11-01] MEDS: OXcarbazepine 300 MG Tablet PO (21:39)
[2022-11-02] VITALS (7 sets, daily range): BP systolic 109–154; BP diastolic 55–68; PULSE 66–83; RESP 18–20; TEMP 36.5–37.7; O2SAT 95–100
[2022-11-02 04:50] LABS: Anion Gap 6 (5-15); BUN 29 mg/dL (7-18); BUN/Creat Ratio 22.7 RATIO (10-20); Calcium,Total 8.9 mg/dL (8.5-10.1); Chloride 96 mmol/L (98-107); Cholesterol 152 mg/dL (200); Creatinine, Serum 1.28 mg/dL (0.55-1.02); EST Glomerular Filtration Rate 44 mL/min (>60); Est Glom Filt Rate - Afr Amer 53 mL/min (>60); Estimated Creatinine Clearance 43.35 ml/min; Glucose 85 mg/dL (74-106); High Density Lipoprotein 74 mg/dL; Potassium 4.1 mmol/L (3.5-5.1); Sodium Level 134 mmol/L (136-145); Triglycerides 70 mg/dL; Very Low Density Lipoprotein 14 mg/dL (5-40)
[2022-11-02] MEDS: Levothyroxine 50 MCG Tablet PO (05:28)
[2022-11-02] MEDS: 0.9% Saline Lock 10 ML Syringe IV (05:29)
--- NOTE | 2022-11-02 07:32 | PN.HOSP_ITS ---
Reason for Visit Reason for Visit: Diagnoses Non-ST elevation (NSTEMI) myocardial infarction (11/01/22) Subjective Subjective Patient is a 71-year-old lady admitted with generalized weakness found to have elevated troponin admitted to a monitored bed for further man Objective Data Objective Data Vital Signs: Vital Signs Temp Pulse Resp BP Pulse Ox O2 Del Method O2 Flow Rate 98.5 F 70 20 H 120/55 L 100 Nasal Cannula 2 11/02/22 05:27 11/02/22 05:27 11/02/22 05:27 11/02/22 05:27 11/02/22 05:27 11/02/22 05:30 11/02/22 05:30 Oxygen Flow Rate (L/min) 2 Oxygen Delivery Method Nasal Cannula Weight: 116.6 kg Body Mass Index (BMI) 37.9 Intake & Output: Intake and Output for Last 24 Hours 10/31/22 11/01/22 11/02/22 23:59 23:59 23:59 Intake Total 800 / 800 Output Total 200 / 200 Balance 600 / 600 Lab / Micro Data Result Diagrams: 11/01/22 10:40 11/02/22 04:25 Labs: Laboratory Results - last 24 hr 11/01/22 10:40: WBC 5.0, RBC 5.14, Hgb 14.8, Hct 46.7, MCV 90.9, MCH 28.8, MCHC 31.7 L, RDW Std Deviation 51.7 H, RDW Coeff of Mago 15.8 H, Plt Count 169, MPV 9.2, Immature Gran % (Auto) 0.200, Neut % (Auto) 79.8 H, Lymph % (Auto) 10.0 L, Hinds % (Auto) 8.0, Eos % (Auto) 1.6, Baso % (Auto) 0.4, Absolute Neuts (auto) 4.0, Absolute Lymphs (auto) 0.50 L, Nucleated RBC % 0, Differential Comment SCANNED 11/01/22 10:40: Sodium 135 L, Potassium 3.7, Chloride 95 L, Carbon Dioxide 33.0 H, Anion Gap 7, BUN 19 H, Creatinine 1.05 H, Estim Creat Clear Calc 52.85, Est GFR (MDRD) Af Amer 67, Est GFR (MDRD) Non-Af 55 L, BUN/Creatinine Ratio 18.1, Glucose 94, Calcium 9.7, Total Bilirubin 1.00, AST 26, ALT 15, Alkaline Sharlene sphatase 97, Troponin I High Sens 143 H*, Total Protein 8.4 H, Albumin 3.5, Globulin 4.9 H, Albumin/Globulin Ratio 0.7 L 11/01/22 11:15: Urine Color Yellow, Urine Clarity Clear, Urine pH 5.0, Ur Specific [place] 1.015, Urine Protein 30 H, Urine Glucose (UA) Normal, Urine Ketones 15 H, Urine Occult Blood Negative, Urine Nitrite Negative, Urine Bilirubin 1 H, Urine Urobilinogen 1 H, Ur Leukocyte Esterase 25 H, Urine RBC 0 SEEN, Urine WBC 0-5 SEEN, Ur Squamous Epith Cells 0-5 SEEN, Urine Bacteria 1+, Urine Mucus 0 SEEN 11/01/22 12:20: Troponin I High Sens 121 H* 11/01/22 16:20: Troponin I High Sens 93 H 11/02/22 04:25: Sodium 134 L, Potassium 4.1, Chloride 96 L, Carbon Dioxide 32.0, Anion Gap 6, BUN 29 H, Creatinine 1.28 H, Estim Creat Clear Calc 43.35, Est GFR (MDRD) Af Amer 53 L, Est GFR (MDRD) Non-Af 44 L, BUN/Creatinine Ratio 22.7 H, Glucose 85, Calcium 8.9, Triglycerides 70, Cholesterol 152, LDL Cholesterol 64, VLDL Cholesterol 14, HDL Cholesterol 74 Micro: Microbiology 11/01/22 11:09 Nasal Secretion SARS-CoV-2 & FLU Antigen (Rapid) - Final Radiography Diagnostic Testing: Radiology Impression Chest X-Ray 11/01/22 10:37 IMPRESSION: Mildly decreased pulmonary edema. Electronically Signed: Roseann Velasco MD at 11:11 EDT Reading Location ID and State: [facility] / [place] Tel , Service support , Physical Exam Narrative GENERAL: cooperative HEENT: Atraumatic; normocephalic EYES; Anicteric, Normal Conjunctiva NECK; supple, normal thyroid, RESPIRATORY: Diminished to auscultation CARDIOVASCULAR: Regular S1 S2, GI: soft, normoactive bowel sounds, : No Renal angle tenderness; EXTREMITIES: No edema, no clubbing, MUSCULOSKELETAL: no muscle wasting NEURO: Awake; no lateralizing signs. SKIN: No Rash PSYCH; Flat affect Assessment & Plan Assessment/Plan (1) Non-STEMI (non-ST elevated myocardial infarction): PLAN: Plan Patient is a 71-year-old lady admitted with generalized weakness found to have elevated troponin admitted to a monitored bed for further management 1. Physical deconditioning - Requested for PT OT eval and 7th grade social studies teacher to assist with discharge planning 2. Elevated troponin ? Secondary to demand ischemia possibly from patient congestive heart failure. Patient was seen in consultation by cardiology Dr. Bean recommended for patient to undergo a nuclear stress test, performed on 11/02/2022 which was negative for stress-induced ischemia 3. Chronic congestive heart failure ? EF 65% on echo performed in September 2022. Patient is on furosemide did continue 4. Hypothyroidism - Patient is on levothyroxine home dose continued 5. Hypertension - Blood pressure controlled, home medications continued with dose adjustment as needed 6. Seizure disorder ? Patient is on topiramate as well as lamotrigine did continue 7. GERD ? Patient is on famotidine continued 8. Class II obesity with BMI of 38 ? Weight loss advised 9. DVT prophylaxis ? SC Lovenox Time spent in the patient's overall evaluation,decision-making process, review of diagnostic data, adjustment of management, discussion with other providers, nursing nursing and ancillary staff involved in patient's care documentation, 35. Minutes Charges/Coding Visit Charges Inpatient E&M: 48621 [facility] L2
[2022-11-02] MEDS: Albuterol 2.5 MG/3 ML VIAL.NEB. INHALATION ×2 (09:49→12:36)
[2022-11-02] MEDS: Budesonide Respules 0.5 MG/2 ML AMPUL.NEB. INHALATION (09:50)
[2022-11-02] MEDS: Folic Acid 1 MG Tablet PO (10:03)
[2022-11-02] MEDS: Clopidogrel Bisulfate 75 MG Tablet PO (10:04)
[2022-11-02] MEDS: lamoTRIgine 100 MG Tablet 200 MG PO (10:04)
[2022-11-02] MEDS: Potassium Chloride Oral Tablet 20 MEQ PO ×2 (10:04→17:53)
[2022-11-02] MEDS: Losartan Potassium 50 MG Tablet PO (10:04)
[2022-11-02] MEDS: Multivitamin (Healthy Eyes) Capsule 1 CAP PO (10:04)
[2022-11-02] MEDS: Pantoprazole Sodium 20 MG Tablet PO (10:04)
[2022-11-02] MEDS: Metoprolol Tartrate 100 MG Tablet PO (10:05)
[2022-11-02] MEDS: Famotidine 20 MG Tablet PO (10:05)
[2022-11-02] MEDS: Furosemide 40 MG Tablet 60 MG PO (10:05)
[2022-11-02] MEDS: Dicyclomine 10 MG Capsule PO (10:06)
[2022-11-02] MEDS: Fluticasone 0.05% 1 SPRAY NASAL.SRY 2 SPRAY NASAL (10:06)
[2022-11-02] MEDS: OXcarbazepine 300 MG Tablet PO (10:06)
[2022-11-02] MEDS: Acetaminophen 500 MG Tablet 1000 MG PO (10:08)
--- NOTE | 2022-11-02 10:45 | CASEMGMT ---
Social Work Note BEN received a voicemail from Jaspreet with [facility] requesting a call back regarding patient. BEN contacted patient's RN May for update regarding patient's care. RN May explained patient just completed a stress test and discharge will be dependent on the results from the stress test. BEN contacted Candistiara with [facility] and introduced herself and role as [facility]. BEN provided Jaspreet with a brief update regarding patient's care. Jaspreet explained she has been assisting with patient's care and is concerned regarding patient's decrease in independence. Jaspreet explained the patient does not have access to nursing staff at night and the patient has voiced concerns regarding falling. Jaspreet explained prior to patient coming into ED, they discussed SNFs and the patient was interested in [place]. BEN to follow up with unit BEN to discuss PT referral for evaluation. BEN updated BEN Olson. BEN Olson to follow up with patient to discuss SNFs as PT eval has already been ordered. Plan: TBD with patient Diana MAI, ANDREA
--- NOTE | 2022-11-02 11:12 | CASEMGMT ---
Addendum entered by Whitney Munoz 11/02/22 15:50: Therapy is not recommending SNF at this time. BEN updated MD Scott. MD will discharge pt. BEN called [facility] to inform pt will be discharged today. Spoke to Noemi, who requested a discharge summary and MAR. BEN informed pt of discharge today. Pt explained ready to go home. BEN [facility] to set up cot transportation for 5:oopm. BEN notified pt nurse of transport time and placed copies of discharge summary on pt chart and in discharge packet. Pt nurse informed would print MAR and include this in discharge packet Dispo: [facility] RENITA Thomas Addendum entered by Whitney Munoz 11/02/22 14:34: MD Scott informed ready to discharge pt. BEN explained pt's [place] was requesting therapy evals to determine if pt needs skilled therapy before returning to [place]. BEN then called therapy to explain and ask if therapy can see pt soon. Spoke to Sushila. Sushila shared intent to see pt as soon as possible. Addendum entered by Whitney Munoz 11/02/22 11:56: BEN met with pt following call from Diana. BEN introduced self and role at the hospital. Pt agreeable to discussing discharge planning. A list of SNF providers including quality and resource use data consistent with the patient?s preferred geographic region, medical needs, and insurance network were provided from the [facility] Guide. BEN explained that therapy will meet with pt and do an evaluation. If therapy recommends pt go to SNF for rehab then a referral can be sent to the SNF that pt chooses. Pt voiced understanding. Pt reviewed list and stated choices in order of preference would be [facility], then [facility]. Original Note: Social Work SW received pc from BEN Ortiz. Diana reported that Alondra from [facility] called to check on pt. Alondra also shared pt had discussed possibly going to SNF upon discharge from [facility]. Alondra reported to Diana that pt has been having difficulty being independent at [facility] and has been requiring additional support and may benefit from going to SNF for rehab before returning home to [facility]. Therapy is ordered for pt. BEN will check in with pt to determine if pt is open to SNF and wait for PT/OT evaluation. RENITA Thomas
--- NOTE | 2022-11-02 13:09 | STRESSREP ---
Stress Test Report Date: 11/02/2022 Procedure: Pharmacologic stress nuclear imaging study Indications: Shortness of breath Consent: Per the patient Procedure: The patient underwent pharmacologic (Regadenoson) evaluation with a peak heart rate of 85 beats per minute (56%predicted maximal heart rate) and a peak blood pressure of 156/83 mmHg. The baseline ECG demonstrated sinus rhythm with right bundle branch block and left anterior fascicle block. EKG during lexiscan infusion revealed [no significant change from baseline]. EKG post infusion revealed no significant change from baseline [There were no cardiac dysrhythmias pretest, during pharmacologic infusion, or recovery]. [There was no complaint of chest discomfort during pharmacologic infusion or recovery]. The examination was discontinued secondary to completion of protocol. Impression: 1. Lexiscan stress test test is negative for Lexiscan infusion induced EKG changes of ischemia. 2. Lexiscan stress test test is negative for Lexiscan infusion induced chest pain. 3. Results of the nuclear portion of the test is as below Myocardial perfusion imaging study: Technique: The patient was injected with 12 millicuries of technetium 99m Cardiolite and subsequently rest SPECT Cardiolite nuclear imaging was obtained in the horizontal long, vertical long, and short axis views. The patient underwent pharmacologic [Regadenoson 0.4mg] evaluation. Please see above for details. The patient was injected with 33.7 millicuries of technetium 99m Cardiolite and subsequently stress SPECT Cardiolite nuclear imaging was obtained in the horizontal long, vertical long, and short axis views. A gated Cardiolite study at peak stress was obtained. Interpretation: Rest and stress SPECT Cardiolite nuclear imaging status post realignment, normalization, and attenuation correction demonstrate overall normal myocardial radioisotope uptake. Gated images reveal no significant regional wall motion abnormalities. The reported LVEF is greater than 70%. Impression: 1. There is no evidence of significant ischemia or infarction. 2. Estimated ejection fraction is greater than 70%. This note was generated with [employer] software. It may contain incorrect words, spelling, and punctuation that were not noted in checking the note before signing.
--- NOTE | 2022-11-02 13:14 | CHAPLAIN ---
Type of Pastoral Visit _x__ Initial Visit ___ Follow-up Visit ___ On-call Visit ___ General Patient Visit ___ Spiritual Assessment ___ Family Conference ___ Bereavement ___ Rapid Response ___ Code Blue ___ Other (describe below) Pastoral Care Referral From _x__ Patient ___ Family ___ Nurse ___ Physician ___ Press Clippings Cutter And Paster ___ Continuous Process Tanner Rotary Drum ___ Other (describe below) Sacrament/Intervention _x__ Active listening ___ Anointing ___ Baptist ___ Bereavement ___ Communion _x__ Soledad exploration ___ ___ Life review _x__ Prayer ___ Reconciliation ___ Sacrament of Sick _x__ Supportive presence ___ Wedding ___ Other (describe below) Pastoral Comments
--- NOTE | 2022-11-02 13:49 | CASEMGMT ---
Social Work SW spoke to Jo Ann Delaney, [facility] . Jo Ann asked questions pertaining to pt being admitted to [facility]. BEN answered questions and Jo Ann was able to share pt has [facility] for [place]. RENITA Thomas
--- NOTE | 2022-11-02 15:34 | DS.PCM_ITS ---
Providers Date of Admission: 11/01/22 Date of Discharge: 11/02/22 Primary Care Physician: Shelia Whitten, KAREN-Rissa Consultations 11/01/22 13:54 Consult: Cardiology Routine Consulting Provider: Nhan Bean Reason for Consult: NSTEMI EMERGENT Consult: No MD Notified: Yes Date Notified: 11/01/22 Time Notified: 13:34 Method of Notification: Verbal Reason For Visit: NSTEMI Diagnosis Discharge Diagnosis (1) Non-STEMI (non-ST elevated myocardial infarction): Status: Acute Code(s): I21.4 - Non-ST elevation (NSTEMI) myocardial infarction Plan Patient is a 71-year-old lady admitted with generalized weakness found to have elevated troponin admitted to a monitored bed for further management 1. Physical deconditioning - Requested for PT OT eval and geriatric social work professor to assist with discharge planning 2. Elevated troponin ? Secondary to demand ischemia possibly from patient congestive heart failure. Patient was seen in consultation by cardiology Dr. Bean recommended for patient to undergo a nuclear stress test, performed on 11/02/2022 which was negative for stress-induced ischemia 3. Chronic congestive heart failure ? EF 65% on echo performed in September 2022. Patient is on furosemide did continue 4. Hypothyroidism - Patient is on levothyroxine home dose continued 5. Hypertension - Blood pressure controlled, home medications continued with dose adjustment as needed 6. Seizure disorder ? Patient is on topiramate as well as lamotrigine did continue 7. GERD ? Patient is on famotidine continued 8. Class II obesity with BMI of 38 ? Weight loss advised 9. DVT prophylaxis ? SC Lovenox Time spent in the patient's overall evaluation,decision-making process, review of diagnostic data, adjustment of management, discussion with other providers, nursing nursing and ancillary staff involved in patient's care documentation, 35. Minutes Medications at Discharge Home Medications atorvastatin 10 mg tablet 10 mg PO QHS hld 11/09/15 folic acid 1 mg tablet 1 mg PO DAILY@0800 supplement 11/09/15 montelukast 10 mg tablet (Singulair) 10 mg PO QHS asthma 11/18/17 acetaminophen 500 mg tablet 1,000 mg PO BID pain 12/21/17 potassium chloride 20 mEq tablet,extended release(part/cryst) 20 meq PO BID supplement 12/21/17 fluticasone propionate 50 mcg/actuation nasal spray,suspension 2 spray intranasal DAILY allergies 30 days ##16 12/20/18 loperamide 2 mg capsule 2 mg PO Q4H PRN PRN Diarrhea 10/06/19 oxcarbazepine 300 mg tablet 300 mg PO BID SEIZURE 10/06/19 dicyclomine 10 mg capsule 10 mg PO BID STOMACH 09/28/21 omeprazole 20 mg capsule,delayed release 20 mg PO DAILY stomach 09/28/21 budesonide-formoterol HFA 160 mcg-4.5 mcg/actuation aerosol inhaler (Symbicort) 2 inh inhalation BID COPD 07/02/22 levothyroxine 50 mcg tablet 50 mcg PO DAILY THYROID 07/02/22 famotidine 20 mg tablet 20 mg PO BID GERD 07/23/22 furosemide 40 mg tablet (Lasix) 60 mg PO DAILY FLUID 07/23/22 lamotrigine 200 mg tablet 200 mg PO BID SEIZURE 09/09/22 losartan 50 mg tablet 50 mg PO DAILY BP 09/09/22 metoprolol tartrate 100 mg tablet 100 mg PO BID HEART 09/09/22 rmhtwacu-srzbidm-qqfr-lutein tablet 1 tab PO DAILY SUPPLEMENT 11/01/22 ondansetron 4 mg disintegrating tablet 4 mg PO Q8H PRN Nausea 11/01/22 Hospital Course Summary of Care Provided Minutes Spent on Discharge: 35 Physical Exam Narrative GENERAL: cooperative HEENT: Atraumatic; normocephalic EYES; Anicteric, Normal Conjunctiva NECK; supple, normal thyroid, RESPIRATORY: Diminished to auscultation CARDIOVASCULAR: Regular S1 S2, GI: soft, normoactive bowel sounds, : No Renal angle tenderness; EXTREMITIES: No edema, no clubbing, MUSCULOSKELETAL: no muscle wasting NEURO: Awake; no lateralizing signs. SKIN: No Rash PSYCH; Flat affect Weight / BMI Weight Weight: 116.6 kg Body Mass Index (BMI) 37.9 ABG / Lab / Microbiology Data Result Diagrams: 11/01/22 10:40 11/02/22 04:25 Laboratory: Laboratory Results - last 24 hr 11/01/22 16:20: Troponin I High Sens 93 H 11/02/22 04:25: Sodium 134 L, Potassium 4.1, Chloride 96 L, Carbon Dioxide 32.0, Anion Gap 6, BUN 29 H, Creatinine 1.28 H, Estim Creat Clear Calc 43.35, Est GFR (MDRD) Af Amer 53 L, Est GFR (MDRD) Non-Af 44 L, BUN/Creatinine Ratio 22.7 H, Glucose 85, Calcium 8.9, Triglycerides 70, Cholesterol 152, LDL Cholesterol 64, VLDL Cholesterol 14, HDL Cholesterol 74 Microbiology: Microbiology 11/01/22 11:09 Nasal Secretion SARS-CoV-2 & FLU Antigen (Rapid) - Final D/C Instructions Discharge Diet: No restrictions Discharge Activity: Return to Normal Activity Call your doctor if you observe: Fever of 101 or Higher, Shortness of breath, Fainting spells and Chest pain Meaningful Use Info Meaningful Use Diagnoses (Choose all that apply): None applicable Discharge Plan Admission Admit Date/Time: 11/01/22 13:17 Attending Provider: Raphael Scott Primary Care Provider: Shelia Whitten EMPLOYMENT COUNSELOR Consulting Providers: Nhan Bean ; Bassam Damon Discharge Orders/Prescriptions Prescriptions: Continued potassium chloride 20 mEq tablet,ER particles/crystals 20 meq PO BID acetaminophen 500 mg tablet 1,000 mg PO BID montelukast [Singulair] 10 mg tablet 10 mg PO QHS fluticasone propionate 50 mcg/actuation spray,suspension 2 spray INTRANASAL DAILY 30 Days Qty: 16 atorvastatin 10 MG tablet 10 mg PO QHS folic acid 1 MG tablet 1 mg PO DAILY@0800 loperamide 2 MG capsule 2 mg PO Q4H PRN PRN (Reason: Diarrhea) oxcarbazepine 300 MG tablet 300 mg PO BID dicyclomine 10 mg capsule 10 mg PO BID Label Comments: 1 CAPSULE BY MOUTH TWICEXA DAY / DX: omeprazole 20 mg capsule,delayed release(DR/EC) 20 mg PO DAILY Label Comments: 1 CAPSULE BY MOUTH EVERY/MORNING levothyroxine 50 mcg tablet 50 mcg PO DAILY Label Comments: 1 TABLET BY MOUTH DAILY AT 5AM DX: HYPOTHYROID / NURSE TO REORDER budesonide-formoterol [Symbicort] 160-4.5 mcg/actuation HFA aerosol inhaler 2 inh INHALATION BID famotidine 20 mg Tablet 20 mg PO BID furosemide [Lasix] 40 mg tablet 60 mg PO DAILY lamotrigine 200 mg Tablet 200 mg PO BID metoprolol tartrate 100 mg Tablet 100 mg PO BID losartan 50 mg tablet 50 mg PO DAILY uxcuowhu-ebijczf-hkcv-lutein Tablet 1 tab PO DAILY ondansetron 4 mg Tablet,Disintegrating 4 mg PO Q8H PRN (Reason: Nausea) Referrals / Follow Up: Shelia Whitten EMPLOYMENT COUNSELOR, EMPLOYMENT COUNSELOR-C [Primary Care Provider] - Within 1 Week Disposition Disposition (needs filled in before D/C Order can be placed): Assisted Living Charges/Coding Visit Charges Inpatient E&M: 88646 Disch Hosp >30min
--- NOTE | 2022-11-02 18:32 | NURSING ---
mckenna at [facility] given report
== END 2022-11-02 19:00 | disposition home or self-care (01) | DRG 281 ==
LOC: ED 12:36 → ICU 13:59
PROVIDERS: Emergency Provider Student in an Organized Health Care Education/Training Program; PCP Nurse Practitioner Adult Health; Visit Provider Internal Medicine
DX: I21.4 Non-ST elevation (NSTEMI) myocardial infarction (principal); I50.32 Chronic diastolic (congestive) heart failure; Z68.42 Body mass index [BMI] 45.0-49.9, adult; I11.0 Hypertensive heart disease with heart failure; E11.9 Type 2 diabetes mellitus without complications; F31.9 Bipolar disorder, unspecified; G40.909 Epilepsy, unspecified, not intractable, without status epilepticus; I24.8 Other forms of acute ischemic heart disease; E66.01 Morbid (severe) obesity due to excess calories; E78.5 Hyperlipidemia, unspecified; K21.9 Gastro-esophageal reflux disease without esophagitis; E03.9 Hypothyroidism, unspecified; Z79.51 Long term (current) use of inhaled steroids
CPT/HCPCS: 36415; 71045; 78452; 80048; 80053; 80061; 81001; 84484; 85025; 87428; 93005; 93017; 94640; 96374; 97162; 97166; 97802; 99285; A9500; J7030; A4216; J2785

== ENCOUNTER 2022-11-04 13:25 | Emergency (ER) | payer MEDICARE, MEDICAID, SELFPAY ==
[2022-11-04] VITALS (12 sets, daily range): BP systolic 83–210; BP diastolic 10–135; PULSE 32–119; RESP 24–62; TEMP 35; O2SAT 86–99; BMI 38.2
[2022-11-04] MEDS: Atropine Sulfate 1 MG/10 ML Syringe IV (13:39)
[2022-11-04] MEDS: fentaNYL 100 MCG/2 ML Ampul 25 MCG IV (13:41)
[2022-11-04 13:58] LABS: Absolute Lymphocyte Count 1.26 X10^3/uL (0.83-4.51); Basophil# 0.04 X10^3/uL; Basophil% 0.6 % (0-1); Eosinophil# 0.15 X10^3/uL; Eosinophils% 2.2 % (0-5); Hematocrit 43.6 % (37-47); Hemoglobin 13.2 g/dL (12.0-15.0); Lymphocyte # 1.26 X10^3/ul (0.83-4.51); Lymphocyte % 18.5 % (19-41); Mean Corp Hgb Conc 30.3 g/dL (32-36); Mean Corpuscular Hgb 28.7 pg (27.0-32.0); Mean Corpuscular Volume 94.8 fL (81-99); Mean Platelet Vol. 10.2 fl (6.2-12.0); Monocyte# 0.34 X10^3/uL; NRBC Flagged by Analyzer 0 % (0-5); Neutrophil # 4.97 X10^3/uL (2.7-7.7); Neutrophil % 73.1 % (47-70); Platelet Count 214 K/mm3 (150-450); RBC Distribution Width CV 16.3 % (11.6-14.6); White Blood Count 6.8 K/mm3 (4.4-11.0)
--- NOTE | 2022-11-04 14:09 | EDS_ITS ---
HPI <Dr. Marcos Grijalva MD - Last Filed: 11/04/22 16:49> History of Present Illness Chief Complaint: Seizure Informant: patient and EMS Narrative Narrative: Patient states she has no pain. She states her breathing is a little bit slow. She is at an assisted living facility. Staff heard her call out and they checked her. She was evidently hypoxic. She did not look well. EMS was called. They found her to be in a very bradycardic rhythm. There were concerns of possible seizure but she was immediately alert after a short period of shaking. That seizure occurred with a 6 pause of her heartbeat. She shows up with a heart rate in the 20s to 40s. She was recently admitted and just discharged within the last couple days for an NSTEMI. She did have a nuclear stress test. I cannot get from her if any of her meds are changed or she took extra. I do note that she is on beta-arthur. I also reviewed her past labs and do not see any history of hyperkalemia. History is very limited. Review of systems is very limited. [facility] <Dr. Marcos Grijalva MD - Last Filed: 11/04/22 16:49> [facility] Medical History Bifascicular block Bilateral edema of lower extremity Bipolar disorder Cellulitis CHF (congestive heart failure) Chronic diastolic (congestive) heart failure Essential hypertension GERD (gastroesophageal reflux disease) HLD (hyperlipidemia) Hypothyroidism Left anterior fascicular block (LAFB) Lymphedema Metabolic encephalopathy Morbid obesity with BMI of 50.0-59.9, adult Non-rheumatic aortic stenosis KAYLA (obstructive sleep apnea) Right bundle branch block (RBBB) Sepsis Type 2 diabetes mellitus Type 2 diabetes mellitus without complication Ulcer of right lower extremity with fat layer exposed Venous (peripheral) insufficiency Home Medications atorvastatin 10 mg tablet 10 mg PO QHS hld 11/09/15 [History Last Taken 10/31/22] folic acid 1 mg tablet 1 mg PO DAILY@0800 supplement 11/09/15 [History Last Taken 11/01/22] montelukast 10 mg tablet (Singulair) 10 mg PO QHS asthma 11/18/17 [History Last Taken 10/31/22] acetaminophen 500 mg tablet 1,000 mg PO BID pain 12/21/17 [History Last Taken 11/01/22] potassium chloride 20 mEq tablet,extended release(part/cryst) 20 meq PO BID supplement 12/21/17 [History Last Taken 11/01/22] fluticasone propionate 50 mcg/actuation nasal spray,suspension 2 spray intranasal DAILY allergies 30 days ##16 12/20/18 [History Last Taken 10/05/19] loperamide 2 mg capsule 2 mg PO Q4H PRN PRN Diarrhea 10/06/19 [History Last Taken 10/31/22] oxcarbazepine 300 mg tablet 300 mg PO BID SEIZURE 10/06/19 [History Last Taken 11/01/22] dicyclomine 10 mg capsule 10 mg PO BID STOMACH 09/28/21 [History Last Taken 11/01/22] omeprazole 20 mg capsule,delayed release 20 mg PO DAILY stomach 09/28/21 [History Last Taken 11/01/22] budesonide-formoterol HFA 160 mcg-4.5 mcg/actuation aerosol inhaler (Symbicort) 2 inh inhalation BID COPD 07/02/22 [History Last Taken 10/30/22] levothyroxine 50 mcg tablet 50 mcg PO DAILY THYROID 07/02/22 [History Last Taken 11/01/22] famotidine 20 mg tablet 20 mg PO BID GERD 07/23/22 [History Last Taken 11/01/22] furosemide 40 mg tablet (Lasix) 60 mg PO DAILY FLUID 07/23/22 [History Last Taken 11/01/22] lamotrigine 200 mg tablet 200 mg PO BID SEIZURE 09/09/22 [History Last Taken 11/01/22] losartan 50 mg tablet 50 mg PO DAILY BP 09/09/22 [History Last Taken 11/01/22] metoprolol tartrate 100 mg tablet 100 mg PO BID HEART 09/09/22 [History Last Taken 11/01/22] wiycllhp-widtlbl-upuc-lutein tablet 1 tab PO DAILY SUPPLEMENT 11/01/22 [History Last Taken 11/01/22] ondansetron 4 mg disintegrating tablet 4 mg PO Q8H PRN Nausea 11/01/22 [History Last Taken 10/31/22] Allergy/AdvReac Type Severity Reaction Status Date / Time benztropine mesylate Allergy Unknown Verified 11/01/22 09:58 [[facility] Salicylates Allergy Unknown Verified 11/01/22 09:58 Sulfa (Sulfonamide Allergy Unknown Verified 11/04/22 13:32 Antibiotics) abacavir AdvReac Unknown Unknown Verified 11/01/22 09:58 aspirin AdvReac Unknown Verified 11/04/22 13:32 bupropion HCl AdvReac Rash Verified 11/04/22 13:32 [From Wellbutrin] prochlorperazine AdvReac Unknown Verified 11/04/22 13:32 prochlorperazine edisylate AdvReac Unknown Verified 11/04/22 13:32 [From Compazine] prochlorperazine maleate AdvReac Unknown Verified 11/04/22 13:32 [From Compazine] Family History Mother No problems noted. Father Heart disease Surgical History History of gastric bypass History of skin graft History of tonsillectomy Hx of appendectomy Social History household members: spouse Smoking Status: Never smoker alcohol intake: never substance use type: does not use ROS <Dr. Marcos Grijalva MD - Last Filed: 11/04/22 16:49> ROS ED Cardiovascular Cardiovascular: Denies chest pain Respiratory/Chest Respiratory/Chest: Reports dyspnea Musculoskeletal Musculoskeletal: Denies back pain Integumentary Denies rash Neurologic Neurologic: Denies headache(s) Hematologic/Lymphatic Hematologic/Lymphatic: Denies easy bleeding or easy bruising EXAM <Dr. Marcos Grijalva MD - Last Filed: 11/04/22 16:49> Physical Exam Narrative Exam Narrative: Patient is awake and will talk. At times she seems a bit sleepy. Heart rate is quite slow and appears to be third-degree block. HEENT shows mucous membranes mildly dry. No trauma. Neck shows no JVD. Lungs are clear. Saturations are in the low 90s on 5 to 6 L but is a little hard to get consistent waveform due to her pulse. She does not look cyanotic. Heart is irregular bradycardic and appears to be third-degree block on the monitor Abdomen soft nontender Extremities show chronic significant edema with chronic hemosiderin deposits. Neurologically she is awake. She is alert. She is at least oriented to person and place. Const Vital Signs: 11/04/22 13:27 11/04/22 13:39 11/04/22 13:42 Temperature 95.0 F L Temperature Source Temporal Pulse Rate 43 L Pulse Rate [10] Pulse Rate [14] Pulse Rate [6] Respiratory Rate Respiratory Effort Blood Pressure 137/111 H Blood Pressure [14] Blood Pressure [15] Blood Pressure Mean 119 Pulse Ox 91 Oxygen Delivery Method Nasal Cannula Nasal Cannula Oxygen Flow Rate (L/min) 5 5 11/04/22 13:55 11/04/22 14:16 11/04/22 14:22 Temperature Temperature Source Pulse Rate 32 L 61 Pulse Rate [10] Pulse Rate [14] Pulse Rate [6] Respiratory Rate 62 H 32 H 24 H Respiratory Effort Blood Pressure 83/52 L 180/26 H 181/17 H Blood Pressure [14] Blood Pressure [15] Blood Pressure Mean 62 70 44 Pulse Ox 86 92 93 Oxygen Delivery Method Nasal Cannula Oxygen Flow Rate (L/min) 6 11/04/22 14:32 11/04/22 15:01 11/04/22 15:41 Temperature Temperature Source Pulse Rate 60 81 Pulse Rate [10] Pulse Rate [14] Pulse Rate [6] Respiratory Rate 25 H 30 H Respiratory Effort Agonal Blood Pressure 194/50 H 169/135 H Blood Pressure [14] Blood Pressure [15] Blood Pressure Mean 78 147 Pulse Ox 95 91 Oxygen Delivery Method Oxygen Flow Rate (L/min) 11/04/22 15:43 11/04/22 15:55 11/04/22 16:12 Temperature Temperature Source Pulse Rate 79 Pulse Rate [10] Pulse Rate [14] Pulse Rate [6] Respiratory Rate 44 H Respiratory Effort Blood Pressure 170/135 H 149/10 H Blood Pressure [14] Blood Pressure [15] Blood Pressure Mean 146 43 Pulse Ox 99 99 Oxygen Delivery Method Ambu-Bag Ambu-Bag Oxygen Flow Rate (L/min) 11/04/22 17:00 11/04/22 18:31 Temperature Temperature Source Pulse Rate 119 H Pulse Rate [10] 50 L Pulse Rate [14] 61 Pulse Rate [6] 44 L Respiratory Rate Respiratory Effort Blood Pressure 108/32 L Blood Pressure [14] 173/125 H Blood Pressure [15] 210/79 H Blood Pressure Mean 57 Pulse Ox 96 Oxygen Delivery Method Ambu-Bag Ambu-Bag Oxygen Flow Rate (L/min) <Dr. Bassam Ponce, DO - Last Filed: 11/04/22 23:27> Physical Exam Const Vital Signs: 11/04/22 13:27 11/04/22 13:39 11/04/22 13:42 Temperature 95.0 F L Temperature Source Temporal Pulse Rate 43 L Pulse Rate [10] Pulse Rate [14] Pulse Rate [6] Respiratory Rate Respiratory Effort Blood Pressure 137/111 H Blood Pressure [14] Blood Pressure [15] Blood Pressure Mean 119 Pulse Ox 91 Oxygen Delivery Method Nasal Cannula Nasal Cannula Oxygen Flow Rate (L/min) 5 5 11/04/22 13:55 11/04/22 14:16 11/04/22 14:22 Temperature Temperature Source Pulse Rate 32 L 61 Pulse Rate [10] Pulse Rate [14] Pulse Rate [6] Respiratory Rate 62 H 32 H 24 H Respiratory Effort Blood Pressure 83/52 L 180/26 H 181/17 H Blood Pressure [14] Blood Pressure [15] Blood Pressure Mean 62 70 44 Pulse Ox 86 92 93 Oxygen Delivery Method Nasal Cannula Oxygen Flow Rate (L/min) 6 11/04/22 14:32 11/04/22 15:01 11/04/22 15:41 Temperature Temperature Source Pulse Rate 60 81 Pulse Rate [10] Pulse Rate [14] Pulse Rate [6] Respiratory Rate 25 H 30 H Respiratory Effort Agonal Blood Pressure 194/50 H 169/135 H Blood Pressure [14] Blood Pressure [15] Blood Pressure Mean 78 147 Pulse Ox 95 91 Oxygen Delivery Method Oxygen Flow Rate (L/min) 11/04/22 15:43 11/04/22 15:55 11/04/22 16:12 Temperature Temperature Source Pulse Rate 79 Pulse Rate [10] Pulse Rate [14] Pulse Rate [6] Respiratory Rate 44 H Respiratory Effort Blood Pressure 170/135 H 149/10 H Blood Pressure [14] Blood Pressure [15] Blood Pressure Mean 146 43 Pulse Ox 99 99 Oxygen Delivery Method Ambu-Bag Ambu-Bag Oxygen Flow Rate (L/min) 11/04/22 17:00 11/04/22 18:31 Temperature Temperature Source Pulse Rate 119 H Pulse Rate [10] 50 L Pulse Rate [14] 61 Pulse Rate [6] 44 L Respiratory Rate Respiratory Effort Blood Pressure 108/32 L Blood Pressure [14] 173/125 H Blood Pressure [15] 210/79 H Blood Pressure Mean 57 Pulse Ox 96 Oxygen Delivery Method Ambu-Bag Ambu-Bag Oxygen Flow Rate (L/min) [facility] <Dr. Marcos Grijalva MD - Last Filed: 11/04/22 16:49> [employer] Narrative Medical decision making narrative: Shortly after arrival, patient was given atropine that really did not do any change in her rate. She was placed on a pacer. She is actually getting excellent capture at 50 mA. Blood pressures come up. It did drop into the 80s but is now currently running in the 180 systolic range. She is a little sleepy with fentanyl which she was given for pain but she is more awake and alert overall. CBC is overall normal. Electrolytes showed decreased bicarb at 19. She did have a pH of 7.19 on ABG. She has acute kidney injury with BUN of 51 and creatinine at 2.84. She is given IV fluids here. Glucose is high at 270. But her anion gap is normal. Troponin is up at 65 but this is still lower than when she was discharged couple days ago. TSH is normal. Magnesium is normal at 1.7. I paged our licensed clinical psychologist. However, we are having paging issues and this licensed clinical psychologist does not do pacemakers. Our one licensed clinical psychologist who does pacemakers is out of town for several weeks. For this reason I have called other facilities and awaiting response back. At this time patient has good saturations at 94%, she has good capture and good blood pressure. I discussed the case with electrophysiology licensed clinical psychologist, Dr. Jefferson at [facility]. Plan will be transfer there at that time. We were giving more glucagon and little bit of calcium gluconate to see if this will help because she is on a high dose of metoprolol. Patient had been talking with this intermittently. She was a bit sleepy. But then she got very shallow breathing and this stopped responding before. She has been very consistent in her story. We checked glucose. We gave Narcan. There is no response. At this point she was not breathing deep enough or protecting airway so she was intubated. Procedure: Intubation: She was intubated using glide scope on first attempt without sedation with a 7 and half ET tube. Good easy cap change. Sats came up to 99 to 100%. We are pending post intubation x-ray. Because of her fluctuating status, we did choose to put in a central line so there was at least access. We chose the right side as the left would be more common with a pacer. There was a peripheral IV in the left arm and left breast already. But this would give better access. Procedure: Central Line placement: The area was cleansed twice with ChloraPrep. Allowed to dry. Sterile draping gowning gloves mask etc. was used. Site right ultrasound showed good right- sided IJ. Trendelenburg was used. We are able to easily access the vein. We had trouble passing the wire. After several attempts we turn the wire around and got it passed very easily without any difficulty. Dilator was used central line was then placed after dilator. We got good drawl and flow on all 3 lines. No change in hemostasis. Post line x-ray is pending. [facility] had been updated on the changes status. With her sudden change in status, we are doing CT scan of the head. I have no report of any injury. I have no sign of trauma. She is reportedly on Coumadin although her INR is not that high. I want to make sure there is not an acute head bleed in the background. I doubt this is present but there was a significant change in her l evel of alertness. Lab Data Attestation: I reviewed the patient's lab results. Labs: Laboratory Results - last 24 hr 11/04/22 11/04/22 11/04/22 13:50 13:50 13:50 WBC 6.8 RBC 4.60 Hgb 13.2 Hct 43.6 MCV 94.8 MCH 28.7 MCHC 30.3 L RDW Std Deviation 56.0 H RDW Coeff of Mago 16.3 H Plt Count 214 MPV 10.2 Immature Gran % (Auto) 0.600 Neut % (Auto) 73.1 H Lymph % (Auto) 18.5 L [place] % (Auto) 5.0 Eos % (Auto) 2.2 Baso % (Auto) 0.6 Absolute Neuts (auto) 5.0 Absolute Lymphs (auto) 1.26 Nucleated RBC % 0 PT Cancelled INR Cancelled APTT Cancelled Sodium 138 Potassium 5.0 Chloride 106 Carbon Dioxide 19.0 L Anion Gap 13 BUN 51 H Creatinine 2.84 H Estim Creat Clear Calc 19.54 Est GFR (MDRD) Af Amer 21 L Est GFR (MDRD) Non-Af 18 L BUN/Creatinine Ratio 18.0 Glucose 270 H Calcium 7.4 L Magnesium 1.7 Troponin I High Sens 65 H B-Natriuretic Peptide TSH 3.46 POC Glucose 11/04/22 11/04/22 11/04/22 13:50 14:25 15:17 WBC RBC Hgb Hct MCV MCH MCHC RDW Std Deviation RDW Coeff of Mago Plt Count MPV Immature Gran % (Auto) Neut % (Auto) Lymph % (Auto) [place] % (Auto) Eos % (Auto) Baso % (Auto) Absolute Neuts (auto) Absolute Lymphs (auto) Nucleated RBC % PT Cancelled 16.2 H INR Cancelled 1.3 APTT Cancelled 35.9 Sodium Potassium Chloride Carbon Dioxide Anion Gap BUN Creatinine Estim Creat Clear Calc Est GFR (MDRD) Af Amer Est GFR (MDRD) Non-Af BUN/Creatinine Ratio Glucose Calcium Magnesium Troponin I High Sens B-Natriuretic Peptide 55.3 TSH POC Glucose 11/04/22 11/04/22 15:17 15:33 WBC RBC Hgb Hct MCV MCH MCHC RDW Std Deviation RDW Coeff of Mago Plt Count MPV Immature Gran % (Auto) Neut % (Auto) Lymph % (Auto) [place] % (Auto) Eos % (Auto) Baso % (Auto) Absolute Neuts (auto) Absolute Lymphs (auto) Nucleated RBC % PT INR APTT Sodium Potassium Chloride Carbon Dioxide Anion Gap BUN Creatinine Estim Creat Clear Calc Est GFR (MDRD) Af Amer Est GFR (MDRD) Non-Af BUN/Creatinine Ratio Glucose Calcium Magnesium Troponin I High Sens 107 H B-Natriuretic Peptide TSH POC Glucose 194 H ABG Data ABG results: ABG 11/04/22 14:03 Specimen Type ART Sample Site R Brach pH 7.19 L* Bicarbonate Actual 21.0 L Total CO2 23 Base Excess -7 L O2 Saturation 83 L ABG pCO2 55.0 H ABG pO2 59 L Jovani Test Positive O2 Delivery Device Cannula Liter Flow 6.0 Crit Call To/Read Back Yes Blood Gas Not[facility] Diagnostic Testing: Clinical Impression(s) from Imaging Studies Chest X-Ray 11/04/22 14:10 IMPRESSION: Cardiomegaly. Mild degree of vascular congestion and CHF. Blunting of the left costophrenic angle. Electronically Signed: Esteban Camargo MD at 14:25 EDT , KUB X-Ray 11/04/22 16:40 IMPRESSION: Proximal position of the enteric tube which should be advanced 20 to 30 cm. Electronically Signed: Nj Hooper MD at 17:16 EDT , Chest X-Ray 11/04/22 16:42 IMPRESSION: Support devices as described. Otherwise stable portable chest x-ray. Electronically Signed: Nj Hooper MD at 17:14 EDT , EKG Initial EKG: Comments: My independent interpretation of the EKG done for bradycardia shows what appears to be third-degree AV block with overall ventricular rate of about 25. Complexes are actually similar to prior but she does have long QTc. QRS is obviously quite long also. <Dr. Bassam Ponce, DO - Last Filed: 11/04/22 23:27> [facility] Lab Data Labs: Laboratory Results - last 24 hr 11/04/22 11/04/22 11/04/22 13:50 13:50 13:50 WBC 6.8 RBC 4.60 Hgb 13.2 Hct 43.6 MCV 94.8 MCH 28.7 MCHC 30.3 L RDW Std Deviation 56.0 H RDW Coeff of Mago 16.3 H Plt Count 214 MPV 10.2 Immature Gran % (Auto) 0.600 Neut % (Auto) 73.1 H Lymph % (Auto) 18.5 L [place] % (Auto) 5.0 Eos % (Auto) 2.2 Baso % (Auto) 0.6 Absolute Neuts (auto) 5.0 Absolute Lymphs (auto) 1.26 Nucleated RBC % 0 PT Cancelled INR Cancelled APTT Cancelled Sodium 138 Potassium 5.0 Chloride 106 Carbon Dioxide 19.0 L Anion Gap 13 BUN 51 H Creatinine 2.84 H Estim Creat Clear Calc 19.54 Est GFR (MDRD) Af Amer 21 L Est GFR (MDRD) Non-Af 18 L BUN/Creatinine Ratio 18.0 Glucose 270 H Calcium 7.4 L Magnesium 1.7 Troponin I High Sens 65 H B-Natriuretic Peptide TSH 3.46 POC Glucose 11/04/22 11/04/22 11/04/22 13:50 14:25 15:17 WBC RBC Hgb Hct MCV MCH MCHC RDW Std Deviation RDW Coeff of Mago Plt Count MPV Immature Gran % (Auto) Neut % (Auto) Lymph % (Auto) [place] % (Auto) Eos % (Auto) Baso % (Auto) Absolute Neuts (auto) Absolute Lymphs (auto) Nucleated RBC % PT Cancelled 16.2 H INR Cancelled 1.3 APTT Cancelled 35.9 Sodium Potassium Chloride Carbon Dioxide Anion Gap BUN Creatinine Estim Creat Clear Calc Est GFR (MDRD) Af Amer Est GFR (MDRD) Non-Af BUN/Creatinine Ratio Glucose Calcium Magnesium Troponin I High Sens B-Natriuretic Peptide 55.3 TSH POC Glucose 11/04/22 11/04/22 15:17 15:33 WBC RBC Hgb Hct MCV MCH MCHC RDW Std Deviation RDW Coeff of Mago Plt Count MPV Immature Gran % (Auto) Neut % (Auto) Lymph % (Auto) [place] % (Auto) Eos % (Auto) Baso % (Auto) Absolute Neuts (auto) Absolute Lymphs (auto) Nucleated RBC % PT INR APTT Sodium Potassium Chloride Carbon Dioxide Anion Gap BUN Creatinine Estim Creat Clear Calc Est GFR (MDRD) Af Amer Est GFR (MDRD) Non-Af BUN/Creatinine Ratio Glucose Calcium Magnesium Troponin I High Sens 107 H B-Natriuretic Peptide TSH POC Glucose 194 H ABG Data ABG results: ABG 11/04/22 14:03 Specimen Type ART Sample Site R Brach pH 7.19 L* Bicarbonate Actual 21.0 L Total CO2 23 Base Excess -7 L O2 Saturation 83 L ABG pCO2 55.0 H ABG pO2 59 L Jovani Test Positive O2 Delivery Device Cannula Liter Flow 6.0 Crit Call To/Read Back Yes Blood Gas Notified Whom [facility] Diagnostic Testing: Clinical Impression(s) from Imaging Studies Chest X-Ray 11/04/22 14:10 IMPRESSION: Cardiomegaly. Mild degree of vascular congestion and CHF. Blunting of the left costophrenic angle. Electronically Signed: Esteban Camargo MD at 14:25 EDT , KUB X-Ray 11/04/22 16:40 IMPRESSION: Proximal position of the enteric tube which should be advanced 20 to 30 cm. Electronically Signed: Nj Hooper MD at 17:16 EDT , Chest X-Ray 11/04/22 16:42 IMPRESSION: Support devices as described. Otherwise stable portable chest x-ray. Electronically Signed: Nj Hooper MD at 17:14 EDT , Treatment and Re-Evaluation :: [facility] pending transfer to [facility]. When the paramedics arrived to transfer the [facility], patient became more unresponsive. Patient lost her pulse. Patient was placed back in the emergency department cot. CPR was initiated. Patient was given epinephrine and atropine. ACLS protocols were followed. Patient regained pulse. Patient was placed back on the transcutaneous pacemaker. Patient had a stable blood pressure. Patient then lost her pulse again. CPR was started again. Patient was given repeat doses of epinephrine and atropine per ACLS protocol. Patient got her pulse back. Patient was started on Levophed drip. Patient was stabilized for transfer. Patient was transferred to [facility] emergency department for further treatment. Condition was critical. Additional critical care time was 38 minutes. This included time spent caring for the patient, and discussion with family. <Dr. Marcos Grijalva MD - Last Filed: 11/04/22 16:49> Critical Care Time Critical Care Time: Yes Critical care time (excluding procedures): 30-74 minutes, Including time spent: (65 minutes, discussed with brother, consultants, transfer, repeat evaluation, discussion with staff), Discussing w/Patient &/or Family/Pharmacy Laboratory Technician, Discussing w/Consultants, Arranging Admission or Transfer and Performing Direct Patient Care at Bedside Discharge Plan Triage Chief Complaint: Seizure ED Provider: Marcos Grijalva Dx/Rx/DC Orders Clinical Impression: Heart block AV third degree, Hypotension, Respiratory failure, Required emergent intubation, Encounter for central line placement Prescriptions: No Action potassium chloride 20 mEq tablet,ER particles/crystals 20 meq PO BID acetaminophen 500 mg tablet 1,000 mg PO BID montelukast [Singulair] 10 mg tablet 10 mg PO QHS fluticasone propionate 50 mcg/actuation spray,suspension 2 spray INTRANASAL DAILY 30 Days Qty: 16 atorvastatin 10 MG tablet 10 mg PO QHS folic acid 1 MG tablet 1 mg PO DAILY@0800 loperamide 2 MG capsule 2 mg PO Q4H PRN PRN (Reason: Diarrhea) oxcarbazepine 300 MG tablet 300 mg PO BID dicyclomine 10 mg capsule 10 mg PO BID Label Comments: 1 CAPSULE BY MOUTH TWICEXA DAY / DX: omeprazole 20 mg capsule,delayed release(DR/EC) 20 mg PO DAILY Label Comments: 1 CAPSULE BY MOUTH EVERY/MORNING levothyroxine 50 mcg tablet 50 mcg PO DAILY Label Comments: 1 TABLET BY MOUTH DAILY AT 5AM DX: HYPOTHYROID / NURSE TO REORDER budesonide-formoterol [Symbicort] 160-4.5 mcg/actuation HFA aerosol inhaler 2 inh INHALATION BID famotidine 20 mg Tablet 20 mg PO BID furosemide [Lasix] 40 mg tablet 60 mg PO DAILY lamotrigine 200 mg Tablet 200 mg PO BID metoprolol tartrate 100 mg Tablet 100 mg PO BID losartan 50 mg tablet 50 mg PO DAILY [id number]-otfk-lutein Tablet 1 tab PO DAILY ondansetron 4 mg Tablet,Disintegrating 4 mg PO Q8H PRN (Reason: Nausea) Primary Care Provider: Shelia Whitten CHEESE SPECIALIST Referrals: Shelia Whitten CHEESE SPECIALIST, CHEESE SPECIALIST-C [Primary Care Provider] - Disposition Disposition: Acute Care Hospital Discharge Location: [facility] Discharge Date/Time: 11/04/22 18:20
--- NOTE | 2022-11-04 14:10 | RAD_ITS ---
STUDY: X-RAY CHEST REASON FOR EXAM: Female, 71 years old. Chest pain . Seizures. TECHNIQUE: Single AP portable view of the chest. COMPARISON: Comparison is made with prior study dated November 01, 2022. FINDINGS: EKG electrodes are seen. Mild degree of vascular congestion and CHF. Increased markings at the left lung base suggestive of left basilar atelectasis with blunting of the left costophrenic angle. There is moderate cardiac enlargement. Normal mediastinum and hetal. Normal visualized pulmonary arteries. Normal visualized aortic arch and descending thoracic aorta. There are diffuse degenerative changes of the visualized thoracic spine. Normal visualized ribs, clavicles, and shoulders. There is no demonstrated abnormality of the visualized soft tissue structures of the upper abdomen. RAD/Chest 1 View (Portable) IMPRESSION: Cardiomegaly. Mild degree of vascular congestion and CHF. Blunting of the left costophrenic angle. Electronically Signed: Esteban Camargo MD at 14:25 EDT ,
[2022-11-04 14:11] LABS: Allen Test Positive; Base Excess -7 mmol/L (-2 to +2); Blood Gas Specimen Type ART; O2 Delivery Device Cannula; PO2 59 mmHG (75-100); SITE R Brach; SO2 83 % (95-99); Total Carbon Dioxide 23 mmol/L; pH 7.19 (7.35-7.45)
--- NOTE | 2022-11-04 14:20 | CHAPLAIN ---
Type of Pastoral Visit _x__ Initial Visit ___ Follow-up Visit ___ On-call Visit ___ General Patient Visit ___ Spiritual Assessment ___ Family Conference ___ Bereavement ___ Rapid Response ___ Code Blue ___ Other (describe below) Pastoral Care Referral From ___ Patient ___ Family _x__ Nurse ___ Physician ___ Aerospace Engineer ___ Air Conditioning Service Technician ___ Other (describe below) Sacrament/Intervention ___ Active listening ___ Anointing ___ Scientologist ___ Bereavement ___ Communion ___ [place] exploration ___ ___ Life review ___ Prayer ___ Reconciliation ___ Sacrament of Sick _x__ Supportive presence ___ Wedding ___ Other (describe below) Pastoral Comments while making rounds in ED the staff alerted this last turner to condition of this patient; no family is present; offered presence and support and remained available for patient or family as needed
[2022-11-04] MEDS: 0.9% Normal Saline 1,000 ML 999 ML IV ×2 (14:21→14:44)
[2022-11-04 14:22] LABS: Anion Gap 13 (5-15); BUN 51 mg/dL (7-18); Calcium,Total 7.4 mg/dL (8.5-10.1); Chloride 106 mmol/L (98-107); Creatinine, Serum 2.84 mg/dL (0.55-1.02); EST Glomerular Filtration Rate 18 mL/min (>60); Est Glom Filt Rate - Afr Amer 21 mL/min (>60); Estimated Creatinine Clearance 19.54 ml/min; Glucose 270 mg/dL (74-106); Magnesium 1.7 mg/dL (1.6-2.6); Sodium Level 138 mmol/L (136-145); Thyroid Stim Hormone (TSH) 3.46 uIU/mL (0.358-3.74); Troponin-I HS (w/2H Reflex) 65 pg/mL (3.0-54.0)
[2022-11-04] MEDS: Glucagon 1 MG/ML Syringe IV (15:36)
[2022-11-04] MEDS: Naloxone 2 MG/2 ML Syringe IV (15:36)
[2022-11-04 15:56] LABS: Reflex Troponin-HS? (from REC) Y
[2022-11-04 16:09] LABS: International Normalized Ratio 1.3; Prothrombin Time (Protime)PT. 16.2 SECONDS (11.7-14.9)
[2022-11-04 16:10] LABS: Partial Thromboplast Time 35.9 Seconds (24.1-36.2)
--- NOTE | 2022-11-04 16:40 | RAD_ITS ---
INDICATION: NG tube placement EXAMINATION/TECHNIQUE: X-RAY - XR Abdomen 1 View COMPARISON: Portable chest x-ray same date FINDINGS: Enteric tube tip in the proximal stomach with side port near the GE junction. RAD/Abdomen Single View (Portable) IMPRESSION: Proximal position of the enteric tube which should be advanced 20 to 30 cm. Electronically Signed: Nj Hooper MD at 17:16 EDT ,
--- NOTE | 2022-11-04 16:42 | RAD_ITS ---
INDICATION: Intubation and line placement EXAMINATION/TECHNIQUE: X-RAY - portable supine AP chest x-ray COMPARISON: 11/04/2022 at 2:07 PM FINDINGS: LINES/DEVICES: Endotracheal tube tip 4 cm above the sada. Right IJ catheter tip in the SVC 2.5 cm proximal to the cavoatrial junction. LUNGS: Persistent mild vascular congestion. No consolidations or definite pleural effusions. No pneumothorax. MEDIASTINUM AND CARDIOVASCULAR STRUCTURES: Stable mild cardiac silhouette enlargement. BONES AND SOFT TISSUES: Stable. RAD/Chest 1 View (Portable) IMPRESSION: Support devices as described. Otherwise stable portable chest x-ray. Electronically Signed: Nj Hooper MD at 17:14 EDT ,
--- NOTE | 2022-11-04 16:49 | ED.RN ---
THIS RN CALLED [facility] TO GIVE THEM UPDATE THAT PATIENT IS BEING TRANSFERRED TO [facility]. SHE VERBALIZES UNDERSTANDING OF PLAN AND AWARE THAT BROTHER IS HERE TO HELP WITH PATIENT CARE MAKING DECISIONS.
--- NOTE | 2022-11-04 17:32 | CM.ED ---
Addendum entered by Diana Tolbert 11/04/22 18:15: SW met with patient's brother/HCPOA and introduced herself and role as [facility] Marketing Representative. SW provided patient's brother with emotional support. Patient's brother explained he was waiting in his car for patient to leave but was told by his to come back inside as patient was coding. Patient's brother explained patient is full code and wants to be cremated. Patient's brother explained he planned to go home for the evening but contact [facility] to ensure patient makes it to their facility. SW stayed with patient's brother and provided emotional support until the patient left via ambulance to be transferred to [facility]. Patient's brother expressed his appreciation. ANDREA Sibley Original Note: Social Work Note Referral Source: [employer] Referral Reason: emotional support SW responded to [employer] to provide patient's family with emotional support, no family present. area secretary was unable to contact patient's brother/HCPOA but was able to contact his . Patient's brother likely on his way to [facility] as patient was to be transferred to that hospital. SW remains available if needs arise or family returns. ANDREA Sibley
[2022-11-04 17:43] LABS: BNP,B-Type NATRIURETIC PEPTIDE 55.3 pg/mL (0-100)
[2022-11-04 18:52] LABS: Troponin-I HS 107 pg/mL (3.0-54.0)
[2022-11-04 19:31] LABS: Bedside Glucose 194 mg/dL (74-106)
== END 2022-11-04 18:20 | disposition short-term general hospital (02) ==
PROVIDERS: Emergency Provider Emergency Medicine; PCP Nurse Practitioner Adult Health; Visit Provider Emergency Medicine
DX: I44.2 Atrioventricular block, complete (principal); N17.9 Acute kidney failure, unspecified; I11.0 Hypertensive heart disease with heart failure; I50.9 Heart failure, unspecified; E78.5 Hyperlipidemia, unspecified; I95.9 Hypotension, unspecified; Z95.0 Presence of cardiac pacemaker; I25.2 Old myocardial infarction; G47.33 Obstructive sleep apnea (adult) (pediatric); K21.9 Gastro-esophageal reflux disease without esophagitis; I87.2 Venous insufficiency (chronic) (peripheral)
CPT/HCPCS: 36556; 31500; 36600; 51702; 71045; 74018; 80048; 82803; 82962; 83735; 83880; 84443; 84484; 85025; 85610; 85730; 92950; 92953; 93005; 99252; 99285; J7030; J7050; A4216; C1751; G0463; J0612; J1610